=== PATIENT | male | born 1965 | race Caucasian/White ===

== ENCOUNTER → 2020-02-20 11:40 | Outpatient (BNVA) | payer BC, SELFPAY | PROVIDERS: PCP Internal Medicine; Referring Provider Internal Medicine; Visit Provider Nurse Practitioner Gerontology | DX: Z13.89 Encounter for screening for other disorder (principal) ==

== ENCOUNTER 2020-03-08 14:49 | Outpatient (REF) | payer BC, SELFPAY ==
[2020-03-08 16:38] LABS: Estimated Average Glucose 157 mg/dL; Hemoglobin A1c % 7.1 %
== END 2020-03-08 14:50 | disposition home or self-care (01) ==
LOC: HO.HMGCLDS 14:49
PROVIDERS: PCP Internal Medicine; Visit Provider Nurse Practitioner Gerontology
DX: E11.29 Type 2 diabetes mellitus with other diabetic kidney complication (principal)
CPT/HCPCS: 83036

== ENCOUNTER → 2020-06-09 07:39 | Outpatient (BNVA) | payer BC, SELFPAY | PROVIDERS: PCP Internal Medicine; Visit Provider Nurse Practitioner Gerontology ==

== ENCOUNTER → 2020-06-25 08:54 | Outpatient (BNVA) | payer BC, SELFPAY | PROVIDERS: PCP Internal Medicine; Visit Provider Orthopaedic Surgery ==

== ENCOUNTER 2020-09-09 06:02 | Outpatient (REF) | payer BC, SELFPAY ==
[2020-09-09 11:43] LABS: Estimated Average Glucose 249 mg/dL; Hemoglobin A1c % 10.3 %
[2020-09-09 11:47] LABS: Creatinine Urine 84.43 mg/dL
[2020-09-09 11:57] LABS: Alanine Aminotransferase 28 U/L (0-40); Albumin Level 3.9 g/dL (3.5-5.0); Alkaline Phosphatase 85 U/L (39-117); Anion Gap 13 (12-20); Aspartate Amino Transferase 17 U/L (5-37); Bilirubin Total 0.6 mg/dL (0.0-1.0); Blood Urea Nitrogen 20 mg/dL (9-16); Calcium 8.8 mg/dL (8.4-10.2); Carbon Dioxide 25 mmol/L (22-29); Chloride 105 mmol/L (96-108); Cholesterol 168 mg/dL; Estimated Glomerular Filt Rate > 60; Glucose Fasting 175 mg/dL (60-99); HDL Cholesterol 52 mg/dL; LDL Cholesterol Calculated 94 mg/dl; Sodium 138 mmol/L (135-145); Total Protein 6.3 g/dL (6.5-8.0); Triglycerides 111 mg/dL
[2020-09-10 06:32] LABS: LDL Cholesterol Direct 96 mg/dL (<100)
== END 2020-09-09 06:03 | disposition home or self-care (01) ==
LOC: HO.HMGCLDS 06:02
PROVIDERS: PCP Internal Medicine; Visit Provider Nurse Practitioner Gerontology
DX: E11.29 Type 2 diabetes mellitus with other diabetic kidney complication (principal)
CPT/HCPCS: 36415; 80053; 80061; 82043; 83036; 83721

== ENCOUNTER → 2020-09-10 07:58 | Outpatient (BNVA) | payer BC, SELFPAY | PROVIDERS: PCP Internal Medicine; Visit Provider Nurse Practitioner Gerontology | DX: E11.29 Type 2 diabetes mellitus with other diabetic kidney complication (principal); R80.9 Proteinuria, unspecified; Z79.4 Long term (current) use of insulin; I10 Essential (primary) hypertension; E78.5 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, unspecified; B35.3 Tinea pedis | CPT/HCPCS: 82947 ==

== ENCOUNTER → 2021-04-21 10:39 | Outpatient (BNVA) | payer BC, SELFPAY | PROVIDERS: PCP Internal Medicine; Referring Provider Internal Medicine; Visit Provider Nurse Practitioner ==

== ENCOUNTER 2021-06-10 07:34 | Outpatient (REF) | payer BC, SELFPAY ==
[2021-06-10 11:23] LABS: MANUAL DIFF FLAG NO
[2021-06-10 11:30] LABS: Basophils Percent Auto 0.2 % (0-2); Eosinophils Absolute Auto 0.2 X10*3/uL (0.0-0.4); Eosinophils Percent Auto 1.9 % (0-4); Hematocrit 50.9 % (42.0-52.0); Imm Gran Abs Auto 0.04 X10*3/uL (0.00-0.03); Imm Gran Pct Auto 0.5 % (0.0-0.4); Lymphocytes Absolute Auto 1.6 X10*3/uL (1.2-4.9); Lymphocytes Percent Auto 20.4 % (20-40); Mean Corpuscular HGB Conc 31.4 g/dl (31.0-36.0); Mean Corpuscular Hemoglobin 28.6 pg (27.0-33.0); Mean Corpuscular Volume 90.9 fL (80.0-98.0); Mean Platelet Volume 8.8 fL (9.4-12.4); Monocytes Absolute Auto 0.6 X10*3/uL (0.1-1.2); Monocytes Percent Auto 7.6 % (2-11); Neutrophils Absolute Auto 5.6 x10*3/uL (2.0-8.3); Neutrophils Percent Auto 69.4 % (45-73); Platelet Count 263 X10*3/uL (160-400); Red Cell Distribution Width 12.8 % (11.0-16.0)
[2021-06-10 11:55] LABS: Alanine Aminotransferase 30 U/L (0-40); Albumin Level 4.1 g/dL (3.5-5.0); Alkaline Phosphatase 90 U/L (39-117); Anion Gap 13 (12-20); Aspartate Amino Transferase 15 U/L (5-37); Bilirubin Total 1.1 mg/dL (0.0-1.0); Blood Urea Nitrogen 16 mg/dL (9-16); Calcium 9.2 mg/dL (8.4-10.2); Carbon Dioxide 26 mmol/L (22-29); Chloride 104 mmol/L (96-108); Cholesterol 129 mg/dL; Estimated Glomerular Filt Rate > 60; Glucose Fasting 125 mg/dL (60-99); HDL Cholesterol 53 mg/dL; LDL Cholesterol Calculated 61 mg/dl; Potassium 4.8 mmol/L (3.3-5.1); Sodium 138 mmol/L (135-145); Total Protein 6.5 g/dL (6.5-8.0); Triglycerides 78 mg/dL
[2021-06-10 12:02] LABS: Prostate Specific Antigen Scr 0.76 ng/mL (<0.05-4.0); Thyroid Stimulating Hormone 0.53 uIU/mL (0.32-4.0)
[2021-06-10 12:37] LABS: Estimated Average Glucose 192 mg/dL; Hemoglobin A1c % 8.3 %
== END 2021-06-10 07:35 | disposition home or self-care (01) ==
LOC: HO.HMGCLDS 07:34
PROVIDERS: Visit Provider Internal Medicine
DX: Z00.00 Encounter for general adult medical examination without abnormal findings (principal); Z12.5 Encounter for screening for malignant neoplasm of prostate; E03.9 Hypothyroidism, unspecified; E11.9 Type 2 diabetes mellitus without complications
CPT/HCPCS: 36415; 80053; 80061; 83036; 84153; 84443; 85025

== ENCOUNTER → 2021-06-24 12:47 | Outpatient (BNVA) | payer BC, SELFPAY | PROVIDERS: PCP Internal Medicine; Visit Provider Nurse Practitioner Gerontology | DX: Z13.89 Encounter for screening for other disorder (principal) ==

== ENCOUNTER 2021-08-26 09:39 | Day surgery (SDC) | payer BC, SELFPAY ==
[2021-08-22 15:51] VITALS: BMI 30.7
--- NOTE | 2021-08-25 13:03 | HO.ANESPROP2 ---
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 (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) Essential hypertension (Acute) 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 LDL goal <100 (Acute) Back pain (Acute) Type 2 diabetes mellitus with proteinuria (Acute) Past Medical History Medical History Back pain Essential hypertension GERD (gastroesophageal reflux disease) 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 LDL goal <100 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 Obesity Obesity Proteinuria Sleep apnea Tinea pedis 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 proteinuria Family History Family History Father Smoker Alcohol abuse Mother Diabetes Other Substance use disorder Surgical History Surgical History History of appendectomy History of umbilical hernia repair Social History Social History Household Members: Spouse and Children Housing: House Alcohol intake: never Patient Tobacco Use Status: Never used Tobacco e-Cigarette/Vaping Use: Never Used Second Hand Smoke Exposure: No Are you DNR?: No Advance Directives: No Advance Directives Information Provided: Yes service: No Current occupational status: employed Cognitive needs: No Hearing needs: No Vision needs: Yes Meds Allergies Allergy/AdvReac Type Severity Reaction Status Date / Time Adhesive Bandages AdvReac Unknown Unknown Verified 08/19/21 08:56 Home Medications Medication Instructions Recorded Confirmed Last Taken Type lancets #100 ea 06/09/20 08/19/21 Unknown History Exam Exam Date and Time: August 25, 2021 1303 Height,Weight and Vital Signs: Height 5 ft 10 in Weight 97.069 kg Pertinent Lab Results Pertinent Lab Results: Laboratory Tests 06/10/21 06/10/21 07:41 07:41 WBC 8.0 Hgb 16.0 Hct 50.9 Plt Count 263 Sodium 138 Potassium 4.8 Chloride 104 Carbon Dioxide 26 BUN 16 Creatinine 0.81 Assessment and Plan Assessment Anesthesia Assessment: Chart Reviewed Documented by User: Madonna Campos MD 08/26/21 10:46 PMFSH Past Medical History Medical History Back pain Essential hypertension GERD (gastroesophageal reflux disease) 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 LDL goal <100 long-term current use of insulin Obesity Obesity Proteinuria Sleep apnea Tinea pedis 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 proteinuria Family History Family History Father Smoker Alcohol abuse Mother Diabetes Other Substance use disorder Family history of problems with anesthesia: No Surgical History Surgical History History of appendectomy History of umbilical hernia repair History of Problems with Anesthesia: No Social History Social History Household Members: Spouse and Children Housing: House Alcohol intake: never Patient Tobacco Use Status: Never used Tobacco e-Cigarette/Vaping Use: Never Used Second Hand Smoke Exposure: No Are you DNR?: No Advance Directives: No Advance Directives Information Provided: Yes service: No Current occupational status: employed Cognitive needs: No Hearing needs: No Vision needs: Yes Meds Allergies Allergy/AdvReac Type Severity Reaction Status Date / Time Adhesive Bandages AdvReac Unknown Unknown Verified 08/19/21 08:56 Home Medications Medication Instructions Recorded Confirmed Last Taken Type lancets #100 ea 06/09/20 08/19/21 Unknown History Exam Airway Mallampati Class: II TM Dist: >3cm Neck ROM: Full Heart: rrr Lungs: cta Assessment and Plan Assessment Anesthesia Assessment: Anesthesia Plan Discussed and Chart Reviewed Final Anesthetic Review Family History of Problems with Anesthesia: No History of Problems with Anesthesia: No NPO: Yes ASA Class: III Final Preanesthetic Review: No Changes in Pt Med Stat, Meds/Allgs Chart Reviewed and Consent Obtained/Reviewed Patient Risk: Intermediate Procedure Risk: Intermediate Anesthetic Plan Anesthetic Plan: MAC: Disposition: Standard PACU
[2021-08-26 10:00] LABS: Glucose, Whole Blood 139 mg/dL (60-115)
[2021-08-26 10:01] VITALS: BP 165/99; PULSE 82; RESP 16; TEMP 37.2; O2SAT 95; BMI 30.7
[2021-08-26] MEDS: Lactated Ringers 1,000 ML 100 ML IVCONT (10:21)
--- NOTE | 2021-08-26 10:47 | MHC.SHP ---
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 Obesity Obesity Proteinuria Sleep apnea Tinea pedis 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 other diabetic kidney complication) History of Previous Operations: Relevant previous surgery/procedure and date(s) (History of appendectomy History of umbilical hernia repair) Allergies: Allergies Allergy/AdvReac Type Severity Reaction Status Date / Time Adhesive Bandages AdvReac Unknown Unknown Verified 08/19/21 08:56 Review of Systems Sugical H&P ROS: Negative: Constitution, Cardiovascular, Respiratory and Gastrointestinal Exam Surgical H&P Exam: Normal: Heart, Normal: Lungs, Normal: Extremities and Normal: Abdomen Plan Diagnosis/Plan: Unchanged I have reviewed the history and physical and performed a pertinent physical examination on my patient. No changes have occurred unless specified.
--- NOTE | 2021-08-26 10:54 | PM.OP ---
Brief Operative Note Date of Service: 08/26/21 Pre-op diagnosis: Colon cancer screening Post-op diagnosis: other (Colon polyps, diverticulosis, hemorrhoids) Procedure: COLONOSCOPY TILL CECUM WITH BIOPSIES AND SNARE POLYPECTOMY Consent: Indications for the procedure and potential complications of bleeding, perforation, reaction to medications and missed diagnosis were discussed with the patient and informed consent was obtained. Instrument: Olympus PCF H 190 L variable stiffness pediatric colonoscope Monitoring: Vital signs and clinical assessment, intermittent blood pressure monitoring, continuous EKG monitoring, Pulse oximetry and Carbon Dioxide monitoring were done throughout the procedure. Colon withdrawl time was 19 minutes. Procedure: The patient was placed in the left lateral decubitis position and pre-procedure medications were administered. After a digital rectal examination of the ano-rectum, the video colonoscope was inserted into the rectum and advanced through the colon to the cecum. The colonoscope was slowly withdrawn in a retrograde panoramic fashion and the colon mucosa was carefully examined including a retroflexed view of the rectum. Findings and interventions are described below. Procedure Difficulty: Without difficulty Findings: Terminal Ileum: Not evaluated Cecum: Normal Ascending Colon: A 4-5 mm sessile polyp in the proximal ascending colon removed with a cold biopsy Transverse Colon: Normal Descending Colon: Moderate diverticulosis Sigmoid Colon: A 2 cms sessile polyp removed with a hot snare. Moderate diverticulosis Rectum: Normal Ano-rectum: Moderate internal hemorrhoids Colon preparation: Good Impression and Post Procedure Diagnosis: Colonoscopy Findings: One medium sized and one small polyps removed Moderate diverticulosis seen in the left colon Moderate hemorrhoids on retroflexed exam. Plan: Await pathology results Patient has an appointment on 09/09/21 in the [facility] with Bridgette Caldwell NP . Repeat Colonoscopy interval based on path results - in 3 years if polyps are adenomatous and 10 years if polyps are hyperplastic. Above findings were reviewed with the patient and colon polyps and diverticulosis handouts were given in the discharge area Surgeon: David Schneider MD Anesthesia: MAC (Dr Alfredo) Was an Seaport Planning Manager used for this Procedure?: Yes Seaport Planning Manager: Yadira Cordero Estimated blood loss (mL): 0 Pathology: other (a. Ascending colon polyp b. Sigmoid polyp) Condition: stable Disposition: PACU
[2021-08-26 11:30] VITALS: BP 138/93; PULSE 76; RESP 18; TEMP 36.2; O2SAT 95
--- NOTE | 2021-08-26 11:30 | W.PM.OPN ---
Operative Note Operative Note Date of Service: 08/26/21 Narrative: Pre-op diagnosis: Colon cancer screening (First colonoscopy) Post-op diagnosis:?other (Colon polyps, diverticulosis, hemorrhoids) Procedure: COLONOSCOPY TILL CECUM WITH BIOPSIES AND SNARE POLYPECTOMY Consent: Indications for the procedure and potential complications of bleeding, perforation, reaction to medications and missed diagnosis were discussed with the patient and informed consent was obtained. Instrument: Olympus PCF H 190 L variable stiffness pediatric colonoscope Monitoring: Vital signs and clinical assessment, intermittent blood pressure monitoring, continuous EKG monitoring, Pulse oximetry and Carbon Dioxide monitoring were done throughout the procedure. Colon withdrawl time was 19 minutes. Procedure: The patient was placed in the left lateral decubitis position and pre-procedure medications were administered. After a digital rectal examination of the ano-rectum, the video colonoscope was inserted into the rectum and advanced through the colon to the cecum. The colonoscope was slowly withdrawn in a retrograde panoramic fashion and the colon mucosa was carefully examined including a retroflexed view of the rectum. Findings and interventions are described below. Procedure Difficulty: Without difficulty Findings: Terminal Ileum: Not evaluated Cecum:? Normal Ascending Colon:? A 4-5 mm sessile polyp in the proximal ascending colon removed with a cold biopsy Transverse Colon:? Normal Descending Colon:? Moderate diverticulosis Sigmoid Colon:? A 2 cms sessile polyp removed with a hot snare.? Moderate diverticulosis Rectum:? Normal Ano-rectum:? Moderate internal hemorrhoids Colon preparation:? Good? Impression and Post Procedure Diagnosis: Colonoscopy Findings: One medium sized and one small polyps removed Moderate diverticulosis seen in the left colon Moderate hemorrhoids on retroflexed exam. Plan: Await pathology results Patient has an appointment on 09/09/21 in the GI Clinic with? Bridgette Caldwell NP. Repeat Colonoscopy interval based on path results - in 3 years if polyps are adenomatous and 10 years if polyps are hyperplastic. Above findings were reviewed with the patient and colon polyps and diverticulosis handouts were given in the discharge area Surgeon: David Schneider MD Anesthesia:?MAC (Dr Alfredo) Was an Dye House Helper used for this Procedure?:?Yes Dye House Helper:?Yadira Cordero Estimated blood loss (mL):?0 Pathology:?other (a. Ascending colon polyp? b. Sigmoid polyp) Condition:?stable Disposition:?PACU
[2021-08-26 11:45] VITALS: BP 144/92; PULSE 67; RESP 18; TEMP 36.7; O2SAT 97
== END 2021-08-26 12:20 | disposition home or self-care (01) ==
PROVIDERS: PCP Internal Medicine; Visit Provider Internal Medicine Gastroenterology
PROC: 0DJD8ZZ Inspection of Lower Intestinal Tract, Via Natural or Artificial Opening Endoscopic (ICD-10-PCS; CPT 45378; principal; 2021-08-26 11:00)
DX: Z12.11 Encounter for screening for malignant neoplasm of colon (principal); D12.5 Benign neoplasm of sigmoid colon; K63.5 Polyp of colon; K57.30 Diverticulosis of large intestine without perforation or abscess without bleeding; K64.8 Other hemorrhoids; E66.9 Obesity, unspecified; Z68.30 Body mass index [BMI] 30.0-30.9, adult; E78.5 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, unspecified; G47.33 Obstructive sleep apnea (adult) (pediatric); Z91.19 Patient's noncompliance with other medical treatment and regimen; E11.22 Type 2 diabetes mellitus with diabetic chronic kidney disease; I12.9 Hypertensive chronic kidney disease with stage 1 through stage 4 chronic kidney disease, or unspecified chronic kidney disease; N18.9 Chronic kidney disease, unspecified; Z79.4 Long term (current) use of insulin
CPT/HCPCS: 45385; 45380; 82947; 88305

== ENCOUNTER 2021-10-13 10:05 | Outpatient (REF) | payer BC, SELFPAY ==
[2021-10-13 11:04] LABS: MANUAL DIFF FLAG NO
[2021-10-13 11:11] LABS: Basophils Percent Auto 0.2 % (0-2); Eosinophils Absolute Auto 0.1 X10*3/uL (0.0-0.4); Hematocrit 48.5 % (42.0-52.0); Hemoglobin 15.8 g/dl (14.0-18.0); Imm Gran Abs Auto 0.05 X10*3/uL (0.00-0.03); Imm Gran Pct Auto 0.6 % (0.0-0.4); Lymphocytes Absolute Auto 1.8 X10*3/uL (1.2-4.9); Lymphocytes Percent Auto 21.8 % (20-40); Mean Corpuscular HGB Conc 32.6 g/dl (31.0-36.0); Mean Corpuscular Hemoglobin 28.8 pg (27.0-33.0); Mean Corpuscular Volume 88.3 fL (80.0-98.0); Mean Platelet Volume 8.9 fL (9.4-12.4); Monocytes Absolute Auto 0.6 X10*3/uL (0.1-1.2); Monocytes Percent Auto 7.2 % (2-11); Neutrophils Absolute Auto 5.6 x10*3/uL (2.0-8.3); Neutrophils Percent Auto 69.2 % (45-73); Platelet Count 268 X10*3/uL (160-400); Red Blood Count 5.49 X10*6/uL (4.60-5.80); Red Cell Distribution Width 13.2 % (11.0-16.0); White Blood Count 8.1 X10*3/uL (4.8-10.8)
[2021-10-13 11:16] LABS: Estimated Average Glucose 180 mg/dL; Hemoglobin A1c % 7.9 %
[2021-10-13 12:20] LABS: Alanine Aminotransferase 27 U/L (0-40); Albumin Level 4.1 g/dL (3.5-5.0); Alkaline Phosphatase 100 U/L (39-117); Anion Gap 13 (12-20); Aspartate Amino Transferase 13 U/L (5-37); Bilirubin Total 0.8 mg/dL (0.0-1.0); Blood Urea Nitrogen 15 mg/dL (9-16); Calcium 8.9 mg/dL (8.4-10.2); Carbon Dioxide 26 mmol/L (22-29); Chloride 105 mmol/L (96-108); Cholesterol 141 mg/dL; Estimated Glomerular Filt Rate > 60; Glucose Fasting 171 mg/dL (60-99); HDL Cholesterol 54 mg/dL; LDL Cholesterol Calculated 72 mg/dl; Potassium 4.9 mmol/L (3.3-5.1); Sodium 139 mmol/L (135-145); Total Protein 6.6 g/dL (6.5-8.0); Triglycerides 76 mg/dL
== END 2021-10-13 10:06 | disposition home or self-care (01) ==
LOC: HO.HMGCLDS 10:05
PROVIDERS: PCP Internal Medicine; Visit Provider Internal Medicine
DX: Z13.0 Encounter for screening for diseases of the blood and blood-forming organs and certain disorders involving the immune mechanism (principal); E11.9 Type 2 diabetes mellitus without complications
CPT/HCPCS: 36415; 80053; 80061; 83036; 85025

== ENCOUNTER 2021-11-14 12:29 | Emergency (ER) | payer BC, SELFPAY ==
--- NOTE | ~2021-11-14 | XR_ITS ---
EXAMINATION: XR CHEST CLINICAL INFORMATION: Near syncope and chest pain COMPARISON: None TECHNIQUE: Frontal view of the chest was obtained. FINDINGS: The cardiac silhouette is upper normal in size. Hilar and mediastinal contours are unremarkable. The lungs are clear. There is no pleural effusion or pneumothorax. Bony structures are unremarkable. XR/XR chest 1V IMPRESSION: Upper normal-size cardiac silhouette.
--- NOTE | 2021-11-14 12:39 | ED_ITS ---
HPI - Syncope General Chief Complaint: General Medical Stated Complaint: SYNCOPAL EPISODE AT WORK AFTER EATING LUNCH Time Seen by Provider: 11/14/21 12:39 Source: patient Mode of arrival: EMS Limitations: no limitations History of Present Illness HPI narrative: felt lightheaded, ate this morning, he is a diabetic, sat down, felt chest pressure and acid reflux, vomited, never passed out. This is the first time so mething like this has happened. MD complaint: almost passed out Onset (ago): minute(s) -: second(s) Prodromal symptoms: lightheaded and nausea/vomiting Witnessed: Yes - by Bystander Context: standing up Injuries sustained associated with event: none Current symptoms: none Treatments prior to arrival: none Related Data Home Medications Medication Instructions Recorded Confirmed lancets #100 ea 06/09/20 09/16/21 Previous Rx's Medication Instructions Recorded pen needle, diabetic 32 gauge x #90 ea 06/09/20 blood sugar diagnostic (OneTouch #100 ea 06/27/20 Verio test strips) atorvastatin 80 mg tablet 80 mg PO BEDTIME #90 tabs 06/24/21 dulaglutide 4.5 mg/0.5 mL 4.5 mg (0.5 mL) subcut QWEEK 90 06/24/21 subcutaneous pen injector days #6.5 mL (Trulicity) empagliflozin 25 mg tablet 25 mg PO DAILY #90 tabs 06/24/21 (Jardiance) insulin glargine U-300 conc 300 26 unit (0.0867 mL) subcut 06/24/21 unit/mL (3 mL) subcutaneous pen DIRECTED 90 days #6 mL (Toujeo Max U-300 SoloStar) tobramycin 0.3 % eye drops (Tobrex) 1 drp ophthalmic (eye) Q4H #5 mL 09/16/21 albuterol sulfate 90 mcg/actuation 2 puff PO Q6H PRN bronchospasm #18 10/21/21 aerosol inhaler (ProAir HFA) grams losartan 50 mg tablet 50 mg PO DAILY 90 days #90 tabs 10/21/21 metformin 500 mg tablet,extended 1,000 mg PO BID 90 days #360 tabs 10/21/21 release 24 hr oxycodone-acetaminophen 5 mg-325 1 tab PO Q6H PRN pain #120 tabs 10/21/21 mg tablet Allergies Allergy/AdvReac Type Severity Reaction Status Date / Time Adhesive Bandages AdvReac Unknown Unknown Verified 10/21/21 09:26 Review of Systems Constitutional: Constitutional: Reports no additional constitutional complaints Eyes: Eyes: Reports no additional eye complaints ENT: Denies dizziness Cardiovascular: Cardiovascular: Reports no additional cardiovascular complaints Respiratory: Respiratory: Reports as per HPI Gastrointestinal: Gastrointestinal: Reports no additional gastrointestinal complaints Musculoskeletal: Musculoskeletal: Reports no additional musculoskeletal complaints Integumentary/Breasts: Skin/Breast: Denies rash Neurologic: Reports system reviewed and no additional complaints, except as documented, Denies dizziness and Denies Sensory deficit (Neuro) Psychiatric: Psychiatric: Denies anxiety PMFSH Past Medical History Medical History Back pain Essential hypertension GERD (gastroesophageal reflux disease) 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 LDL goal <100 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 Obesity Obesity Proteinuria Sleep apnea Tinea pedis 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 proteinuria Surgical History History of appendectomy History of umbilical hernia repair Family History Family History Father Smoker Alcohol abuse Mother Diabetes Other Substance use disorder Social History Social History Household Members: Spouse and Children Housing: House Alcohol intake: never Patient Tobacco Use Status: Never used Tobacco e-Cigarette/Vaping Use: Never Used Second Hand Smoke Exposure: No Advance Directives: Yes Advance Directives Information Provided: No Advance Directives on File: No service: No Current occupational status: employed Cognitive needs: No Hearing needs: No Vision needs: Yes Physical Exam Vital Signs: Vital Signs: Last Vital Signs Temp 99.1 F 11/14/21 13:35 Pulse 79 11/14/21 13:35 Resp 16 11/14/21 13:35 BP 158/99 H 11/14/21 13:35 Pulse Ox 99 11/14/21 13:35 O2 Del Method 11/14/21 12:41 BMI result Body Mass Index 28.0 Const: General: healthy appearing Nutritional Appearance: average body habitus Orientation/consciousness: oriented to person and patient oriented x3 Limitations: no limitations HEENT: Head: Yes normal to inspection Ears: external ears normal General nose exam: Normal external nose present Mouth: Normal oral and palatal mucosa present and oropharynx normal Throat: Yes posterior oropharynx normal Eyes: General: appearance normal, both eyes and all related structures Neck: Other: supple Neck: Yes normal visual inspection Chest: Chest palpation & inspection: normal inspection of the chest Resp: Auscultation: clear to auscultation bilaterally Cardio: Jugular venous distension: no JVD Rate: regular rate Rhythm: regular rhythm Heart sounds: S1 normal heart sound present and S2 normal heart sound present GI: Inspection: Yes normal to inspection Palpation (GI): Soft to palpation, nontender and No hepatosplenomegaly present Auscultation: normal bowel sounds : General: Yes no CVA tenderness Back/Spine/Pelvis: Back: no CVA tenderness Skin: General skin exam: no rashes or lesions noted Neuro: General: oriented to person and patient oriented x3 Cranial nerves: Yes CN's II-XII intact bilaterally Motor exam (neuro): 5/5 motor strength present throughout Sensory Exam: No Sensory deficit (Neuro) Extrem: General: Yes normal to inspection Psych: Appearance: grossly normal Course Reevaluation(s) Reevaluation #1: patient with a near syncopal event, EKG and serial troponins negative will dc home Time: 15:37 MDM - Syncope Lab Data Result diagrams: 11/14/21 12:54 11/14/21 12:54 Labs: Lab Results 11/14/21 11/14/21 11/14/21 Range/Units 12:46 12:54 12:54 WBC 8.1 (4.8-10.8) X10*3/uL RBC 5.21 (4.60-5.80) X10*6/uL Hgb 15.0 (14.0-18.0) g/dl Hct 45.8 (42.0-52.0) % MCV 87.9 (80.0-98.0) fL MCH 28.8 (27.0-33.0) pg MCHC 32.8 (31.0-36.0) g/dl RDW 12.8 (11.0-16.0) % Plt Count 247 (160-400) X10*3/uL MPV 8.3 L (9.4-12.4) fL Immature Gran % (Auto) 0.2 (0.0-0.4) % Neut % (Auto) 78.0 H (45-73) % Lymph % (Auto) 13.8 L (20-40) % [place] % (Auto) 7.0 (2-11) % Eos % (Auto) 0.6 (0-4) % Baso % (Auto) 0.4 (0-2) % Lymph # (Auto) 1.1 L (1.2-4.9) X10*3/uL [place] # (Auto) 0.6 (0.1-1.2) X10*3/uL Eos # (Auto) 0.1 (0.0-0.4) X10*3/uL Baso # (Auto) 0.0 (0.0-0.2) X10*3/uL Abs Immat Gran (auto) 0.02 (0.00-0.03) X10*3/uL Absolute Neuts (auto) 6.3 (2.0-8.3) x10*3/uL Absolute Nucleated RBC 0.000 (0.0-0.012) X10*3/uL Nucleated RBC % (auto) 0.0 (0.0-0.2) /100WBC D-Dimer High Sensitivty 205 NG/ML Sodium (135-145) mmol/L Potassium (3.3-5.1) mmol/L Chloride (96-108) mmol/L Carbon Dioxide (22-29) mmol/L Anion Gap (12-20) BUN (9-16) mg/dL Creatinine (0.5-1.4) mg/dL Estim Creat Clear Calc Estimated GFR POC Glucose 151 H (60-115) mg/dL Random Glucose (60-115) mg/dL Calcium (8.4-10.2) mg/dL Troponin I High Sens (<3.5-35.0) ng/L 11/14/21 11/14/21 11/14/21 Range/Units 12:54 12:54 15:01 WBC (4.8-10.8) X10*3/uL RBC (4.60-5.80) X10*6/uL Hgb (14.0-18.0) g/dl Hct (42.0-52.0) % MCV (80.0-98.0) fL MCH (27.0-33.0) pg MCHC (31.0-36.0) g/dl RDW (11.0-16.0) % Plt Count (160-400) X10*3/uL MPV (9.4-12.4) fL Immature Gran % (Auto) (0.0-0.4) % Neut % (Auto) (45-73) % Lymph % (Auto) (20-40) % [place] % (Auto) (2-11) % Eos % (Auto) (0-4) % Baso % (Auto) (0-2) % Lymph # (Auto) (1.2-4.9) X10*3/uL [place] # (Auto) (0.1-1.2) X10*3/uL Eos # (Auto) (0.0-0.4) X10*3/uL Baso # (Auto) (0.0-0.2) X10*3/uL Abs Immat Gran (auto) (0.00-0.03) X10*3/uL Absolute Neuts (auto) (2.0-8.3) x10*3/uL Absolute Nucleated RBC (0.0-0.012) X10*3/uL Nucleated RBC % (auto) (0.0-0.2) /100WBC D-Dimer High Sensitivty NG/ML Sodium 140 (135-145) mmol/L Potassium 4.5 (3.3-5.1) mmol/L Chloride 105 (96-108) mmol/L Carbon Dioxide 26 (22-29) mmol/L Anion Gap 14 (12-20) BUN 14 (9-16) mg/dL Creatinine 0.83 (0.5-1.4) mg/dL Estim Creat Clear Calc 117.4 Estimated GFR > 60 POC Glucose (60-115) mg/dL Random Glucose 168 H (60-115) mg/dL Calcium 8.7 (8.4-10.2) mg/dL Troponin I High Sens < 3.5 3.8 (<3.5-35.0) ng/L ECG Data Attestation: I personally reviewed and interpreted this ECG as follows: Interpretation: normal sinus rate of 70, no st or twave changes Discharge Plan Discharge Clinical Impression: Near syncope Patient Disposition: Home, Self-Care Instructions: Near Syncope (ED) Prescriptions: No Action (DME) OneTouch Verio test strips Strip See Rx Instructions .ROUTE .MEDSUPPLY Qty: 100 6RF Rx Instructions: three times a day albuterol sulfate [ProAir HFA] 90 mcg/actuation HFA aerosol inhaler 2 puff PO Q6H PRN (Reason: bronchospasm) Qty: 18 8RF oxycodone-acetaminophen 5-325 mg tablet 1 tab PO Q6H PRN (Reason: pain) Qty: 120 0RF losartan 50 mg tablet 50 mg PO DAILY 90 Days Qty: 90 1RF metformin 500 mg tablet extended release 24 hr 1,000 mg PO BID 90 Days Qty: 360 1RF tobramycin [Tobrex] 0.3 % drops 1 drp ophthalmic (eye) Q4H Qty: 5 0RF (DME) lancets Misc See Rx Instructions .ROUTE .MEDSUPPLY Qty: 100 Rx Instructions: As directed (DME) pen needle, diabetic 32 gauge x 5/32 needle See Rx Instructions subcut BID Qty: 90 3RF Rx Instructions: As directed once daily Toujeo Max U-300 SoloStar 300 unit/mL (3 mL) insulin pen 26 unit subcut DIRECTED 90 Days Qty: 6 1RF Trulicity 4.5 mg/0.5 mL pen injector 4.5 mg subcut QWEEK 90 Days Qty: 6.5 2RF atorvastatin 80 mg tablet 80 mg PO BEDTIME Qty: 90 1RF Jardiance 25 mg tablet 25 mg PO DAILY Qty: 90 1RF Referrals: Kev Briseno MD [Primary Care Provider] - 3 days
--- NOTE | 2021-11-14 12:40 | ECG_ITS ---
Test Reason : near symcopy Blood Pressure : / mmHG Vent. Rate : 073 BPM Atrial Rate : 073 BPM P-R Int : 168 ms QRS Dur : 106 ms QT Int : 408 ms P-R-T Axes : 054 038 047 degrees QTc Int : 449 ms Normal sinus rhythm with sinus arrhythmia Normal ECG When compared with ECG of 12-JAN-2003 18:56, No significant change was found Referred By: Nithin Slater Electronically Signed By:AISLINN PFEIFFER
[2021-11-14 12:41] VITALS: PULSE 73; RESP 16; TEMP 36.6; O2SAT 97; BMI 28.0
[2021-11-14 12:54] LABS: Glucose, Whole Blood 151 mg/dL (60-115)
[2021-11-14 12:58] LABS: MANUAL DIFF FLAG NO
[2021-11-14 12:59] LABS: Basophils Percent Auto 0.4 % (0-2); Eosinophils Absolute Auto 0.1 X10*3/uL (0.0-0.4); Eosinophils Percent Auto 0.6 % (0-4); Hematocrit 45.8 % (42.0-52.0); Imm Gran Abs Auto 0.02 X10*3/uL (0.00-0.03); Imm Gran Pct Auto 0.2 % (0.0-0.4); Lymphocytes Absolute Auto 1.1 X10*3/uL (1.2-4.9); Lymphocytes Percent Auto 13.8 % (20-40); Mean Corpuscular HGB Conc 32.8 g/dl (31.0-36.0); Mean Corpuscular Hemoglobin 28.8 pg (27.0-33.0); Mean Corpuscular Volume 87.9 fL (80.0-98.0); Mean Platelet Volume 8.3 fL (9.4-12.4); Monocytes Absolute Auto 0.6 X10*3/uL (0.1-1.2); Neutrophils Absolute Auto 6.3 x10*3/uL (2.0-8.3); Platelet Count 247 X10*3/uL (160-400); Red Blood Count 5.21 X10*6/uL (4.60-5.80); Red Cell Distribution Width 12.8 % (11.0-16.0); White Blood Count 8.1 X10*3/uL (4.8-10.8)
[2021-11-14 13:07] LABS: D Dimer High Sensitivity 205 NG/ML
[2021-11-14 13:20] LABS: Anion Gap 14 (12-20); Blood Urea Nitrogen 14 mg/dL (9-16); Calcium 8.7 mg/dL (8.4-10.2); Carbon Dioxide 26 mmol/L (22-29); Chloride 105 mmol/L (96-108); Creatinine Clr Calc Pharmacy 117.4; Estimated Glomerular Filt Rate > 60; Glucose Random 168 mg/dL (60-115); Potassium 4.5 mmol/L (3.3-5.1); Sodium 140 mmol/L (135-145)
[2021-11-14 13:27] LABS: Troponin-I High Sensitivity < 3.5 ng/L (<3.5-35.0)
[2021-11-14 13:35] VITALS: BP 158/99; PULSE 79; RESP 16; TEMP 37.3; O2SAT 99
[2021-11-14 15:25] LABS: Troponin-I High Sensitivity 3.8 ng/L (<3.5-35.0)
[2021-11-14 15:42] VITALS: BP 140/90; PULSE 77; RESP 16; O2SAT 98
== END 2021-11-14 15:43 | disposition home or self-care (01) ==
PROVIDERS: Emergency Provider Emergency Medicine; PCP Internal Medicine
DX: R55 Syncope and collapse (principal); E11.22 Type 2 diabetes mellitus with diabetic chronic kidney disease; I12.9 Hypertensive chronic kidney disease with stage 1 through stage 4 chronic kidney disease, or unspecified chronic kidney disease; N18.9 Chronic kidney disease, unspecified; E78.5 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, unspecified; Z79.4 Long term (current) use of insulin; Z79.02 Long term (current) use of antithrombotics/antiplatelets
CPT/HCPCS: 36415; 71045; 80048; 82947; 84484; 85025; 85379; 93005; 99283; 99284

== ENCOUNTER 2022-03-17 11:25 | Outpatient (REF) | payer BC, SELFPAY ==
[2022-03-17 13:45] LABS: MANUAL DIFF FLAG NO
[2022-03-17 13:48] LABS: Basophils Percent Auto 0.6 % (0-2); Eosinophils Absolute Auto 0.3 X10*3/uL (0.0-0.4); Eosinophils Percent Auto 4.5 % (0-4); Hematocrit 47.8 % (42.0-52.0); Hemoglobin 15.7 g/dl (14.0-18.0); Imm Gran Abs Auto 0.04 X10*3/uL (0.00-0.03); Imm Gran Pct Auto 0.6 % (0.0-0.4); Lymphocytes Percent Auto 27.8 % (20-40); Mean Corpuscular HGB Conc 32.8 g/dl (31.0-36.0); Mean Corpuscular Volume 88.4 fL (80.0-98.0); Mean Platelet Volume 8.8 fL (9.4-12.4); Monocytes Absolute Auto 0.6 X10*3/uL (0.1-1.2); Monocytes Percent Auto 7.7 % (2-11); Neutrophils Absolute Auto 4.2 x10*3/uL (2.0-8.3); Neutrophils Percent Auto 58.8 % (45-73); Platelet Count 261 X10*3/uL (160-400); Red Blood Count 5.41 X10*6/uL (4.60-5.80); Red Cell Distribution Width 12.5 % (11.0-16.0); White Blood Count 7.1 X10*3/uL (4.8-10.8)
[2022-03-17 14:06] LABS: Estimated Average Glucose 203 mg/dL; Hemoglobin A1c % 8.7 %
[2022-03-17 14:16] LABS: Alanine Aminotransferase 23 U/L (0-40); Alkaline Phosphatase 106 U/L (39-117); Anion Gap 11 (12-20); Aspartate Amino Transferase 14 U/L (5-37); Blood Urea Nitrogen 14 mg/dL (9-16); Calcium 9.2 mg/dL (8.4-10.2); Carbon Dioxide 27 mmol/L (22-29); Chloride 105 mmol/L (96-108); Cholesterol 137 mg/dL; Estimated Glomerular Filt Rate > 60; Glucose Fasting 196 mg/dL (60-99); HDL Cholesterol 52 mg/dL; LDL Cholesterol Calculated 66 mg/dl; Potassium 4.3 mmol/L (3.3-5.1); Sodium 139 mmol/L (135-145); Total Protein 6.3 g/dL (6.5-8.0); Triglycerides 98 mg/dL
[2022-03-17 14:24] LABS: Creatinine Urine 57.01 mg/dL; Microalbum/Creatinine Ratio Ur 445.5 ug/mg cr
[2022-03-17 14:36] LABS: Thyroid Stimulating Hormone 0.91 uIU/mL (0.32-4.0)
== END 2022-03-17 11:26 | disposition home or self-care (01) ==
LOC: HO.HMGCLDS 11:25
PROVIDERS: PCP Internal Medicine; Visit Provider Internal Medicine
DX: E78.5 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, unspecified (principal); E03.9 Hypothyroidism, unspecified; E11.69 Type 2 diabetes mellitus with other specified complication; E66.01 Morbid (severe) obesity due to excess calories; I10 Essential (primary) hypertension; Z13.0 Encounter for screening for diseases of the blood and blood-forming organs and certain disorders involving the immune mechanism
CPT/HCPCS: 36415; 80053; 80061; 82043; 83036; 84443; 85025

== ENCOUNTER 2022-05-15 10:31 | Outpatient (REF) | payer BC, SELFPAY ==
[2022-05-15 12:04] LABS: Glucose Fasting 209 mg/dL (60-99)
[2022-05-15 12:36] LABS: Estimated Average Glucose 226 mg/dL; Hemoglobin A1c % 9.5 %
== END 2022-05-15 10:32 | disposition home or self-care (01) ==
LOC: HO.HMGCLDS 10:31
PROVIDERS: PCP Internal Medicine; Visit Provider Internal Medicine
DX: R73.9 Hyperglycemia, unspecified (principal)
CPT/HCPCS: 36415; 82947; 83036

== ENCOUNTER 2022-09-10 18:51 | Emergency (ER) | payer BC, SELFPAY ==
--- NOTE | ~2022-09-10 | XR_ITS ---
EXAMINATION: LEFT TIB-FIB, LEFT FOOT CLINICAL INFORMATION: Pain after injury COMPARISON: None available. TECHNIQUE: 2 views tib-fib, 3 views foot FINDINGS: Tibia and fibula appear unremarkable. The visualized ankle joint appears normal aside from some minimal degenerative changes with some osteophytes arising from the medial malleolus. No foot fracture is seen. A small plantar calcaneal spur is present. No significant arthritic changes are present. XR/XR foot LT min 3V IMPRESSION: No evidence of an acute injury. Mild degenerative changes as described above with a plantar calcaneal spur.
--- NOTE | ~2022-09-10 | XR_ITS ---
EXAMINATION: LEFT TIB-FIB, LEFT FOOT CLINICAL INFORMATION: Pain after injury COMPARISON: None available. TECHNIQUE: 2 views tib-fib, 3 views foot FINDINGS: Tibia and fibula appear unremarkable. The visualized ankle joint appears normal aside from some minimal degenerative changes with some osteophytes arising from the medial malleolus. No foot fracture is seen. A small plantar calcaneal spur is present. No significant arthritic changes are present. XR/XR tibia fibula LT 2V IMPRESSION: No evidence of an acute injury. Mild degenerative changes as described above with a plantar calcaneal spur.
[2022-09-10 19:21] VITALS: BP 134/96; PULSE 89; RESP 18; TEMP 36.8; O2SAT 95; BMI 28.0
--- NOTE | 2022-09-10 19:39 | ED_ITS ---
HPI - Extremity Injury (Lower) General Chief Complaint: Extremity Injury, Lower Stated Complaint: Left leg pain Related Data Home Medications Medication Instructions Recorded Confirmed lancets #100 ea 06/09/20 07/18/22 Previous Rx's Medication Instructions Recorded blood sugar diagnostic (OneTouch #100 ea 06/27/20 Verio test strips) insulin glargine U-300 conc 300 26 unit (0.0867 mL) subcut 06/24/21 unit/mL (3 mL) subcutaneous pen DIRECTED 90 days #6 mL (Toujeo Max U-300 SoloStar) albuterol sulfate 90 mcg/actuation 2 puff PO Q6H PRN bronchospasm #18 10/21/21 aerosol inhaler (ProAir HFA) grams diabetic shoes #1 ea 04/03/22 pen needle, diabetic 32 gauge x #90 ea 04/21/22 atorvastatin 80 mg tablet 80 mg PO BEDTIME #90 tabs 05/16/22 dulaglutide 4.5 mg/0.5 mL 4.5 mg (0.5 mL) subcut QWEEK 90 05/16/22 subcutaneous pen injector days #6.5 mL (Trulicity) empagliflozin 25 mg tablet 25 mg PO DAILY #90 tabs 05/16/22 (Jardiance) losartan 50 mg tablet 50 mg PO DAILY 90 days #90 tabs 05/16/22 metformin 500 mg tablet,extended 1,000 mg PO BID 90 days #360 tabs 05/16/22 release 24 hr oxycodone-acetaminophen 5 mg-325 1 tab PO Q6H PRN pain #120 tabs 08/18/22 mg tablet oxycodone 5 mg tablet 5 mg PO Q6H PRN pain #120 tabs 08/22/22 Allergies Allergy/AdvReac Type Severity Reaction Status Date / Time Adhesive Bandages AdvReac Unknown Unknown Verified 07/18/22 10:50 [facility] Past Medical History Medical History Back pain Essential hypertension GERD (gastroesophageal reflux disease) 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 LDL goal <100 correction current use of insulin Obesity Obesity Proteinuria Sleep apnea Tinea pedis 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 proteinuria Surgical History History of appendectomy History of umbilical hernia repair Family History Family History Father Smoker Alcohol abuse Mother Diabetes Other Substance use disorder Social History Social History Household Members: Spouse and Children Housing: House Alcohol intake: never Patient Tobacco Use Status: Never used Tobacco e-Cigarette/Vaping Use: Never Used Second Hand Smoke Exposure: No Advance Directives: No Advance Directives Information Provided: Yes service: No Current occupational status: employed Cognitive needs: No Hearing needs: No Vision needs: Yes Physical Exam 2 Vital Signs: Vital Signs: Last Vital Signs Temp 98.3 F 09/10/22 19:21 Pulse 89 09/10/22 19:21 Resp 18 09/10/22 19:21 BP 134/96 H 09/10/22 19:21 Pulse Ox 95 09/10/22 19:21 O2 Del Method Room Air 09/10/22 19:21 BMI result Body Mass Index 28.0 Course Course Course Narrative: This is an RME: Additional HPI, ROS, PE not included below will be deferred to primary provider. Patient is a 62-year-old male presents emergency department for evaluation of left lower extremity pain. Patient reports an injury to the left lower extremity 1 week ago, sustained a fall, striking left lateral leg, pain is increasingly worsening without any improvement. He is currently pr escribed oxycodone for chronic back pain, which has on relieved the pain to the leg. He reports no swelling, erythema, warmth, wounds. Denies chest pain, shortness of breath, difficulty breathing. Denies history of DVT/PE, denies use of anticoagulants. Plan: XR tib fib Discharge Plan Discharge Clinical Impression: Leg pain Patient Disposition: Left Without Being Seen Interventions: LWBS Worksheet Last Done: 09/11/22 02:20 Discharge Date/Time: 09/10/22 23:42
== END 2022-09-10 23:42 | disposition left against medical advice (07) ==
PROVIDERS: Emergency Provider Emergency Medicine; PCP Internal Medicine
DX: M79.605 Pain in left leg (principal); Z79.899 Other long term (current) drug therapy
CPT/HCPCS: 73590; 73630; 99281; 99283

== ENCOUNTER 2022-09-20 08:13 | Outpatient (REF) | payer BC, SELFPAY | END 2022-09-20 08:14 | disposition home or self-care (01) | LOC: HO.XRAY 08:13 | PROVIDERS: PCP Internal Medicine; Visit Provider Internal Medicine | DX: R13.10 Dysphagia, unspecified (principal) | CPT/HCPCS: 74220 ==

== ENCOUNTER 2022-10-19 09:25 | Outpatient (AMB) | payer BC, SELFPAY ==
--- NOTE | 2022-10-19 09:30 | MHC.PC.OV ---
Vital Signs 10/19/22 09:32 Height 5 ft 10 in Weight 198 lb 8 oz BMI 28.5 BP 130/70 Blood Pressure Location Lt brachial Position Sitting Pulse 68 Pulse Source Pulse Oximeter Pulse Oximetry (%) 96 Oxygen Delivery Method Room Air Intake Visit Reasons: Med Management Intake Note: Patient is here to follow up on Medication management. 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: Not Required per policy Accompanied by: Self / Same As Patient Allergies Adhesive Bandages Adverse Reaction (Unknown, Verified 10/19/22 09:31) Unknown Medication List - Last Reconciled 10/19/22 by Kev Briseno MD albuterol sulfate 90 mcg/actuation (ProAir HFA) 2 puffs PO Q6H PRN atorvastatin 80 mg PO BEDTIME blood sugar diagnostic ([employer]such Verio test strips) three times a day [diabetic shoes As directed] dulaglutide (Trulicity) 4.5 mg (0.5 mL) subcut QWEEK 90 days empagliflozin (Jardiance) 25 mg PO DAILY insulin glargine U-300 conc (Toujeo Max U-300 SoloStar) 26 units (0.0867 mL) subcut DIRECTED 90 days lancets As directed losartan 50 mg PO DAILY 90 days metformin ER 1,000 mg (2 x 500 mg) PO BID 90 days oxycodone 5 mg PO Q6H PRN oxycodone-acetaminophen 5-325 mg 1 tab PO Q6H PRN pen needle, diabetic As directed once daily Tobacco use date assessed: 10/19/22 Dental Screening Dental Screen Date: 10/19/22 Did you have a dental visit in the last 12 months?: Yes Did you have a dental problem in the last 6 months where you did not have access to dental care?: No Was dental information given to patient?: Patient has dentist HPI Med Management HPI Details chronic back pain; stable on regimen; DM and hyperlip; A1C 8.5; [place] [facility] Medical History Back pain Essential hypertension GERD (gastroesophageal reflux disease) 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 LDL goal <100 shelter current use of insulin Obesity Obesity Proteinuria Sleep apnea Tinea pedis 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 proteinuria Surgical History History of appendectomy History of umbilical hernia repair Family History Father Smoker Alcohol abuse Mother Diabetes Other Substance use disorder Social History Household Members: Spouse and Children Housing: House Alcohol intake: never Patient Tobacco Use Status: Never used Tobacco e-Cigarette/Vaping Use: Never Used Second Hand Smoke Exposure: No service: No Current occupational status: employed Cognitive needs: No Hearing needs: No Vision needs: Yes Questionnaire PHQ-9 Over the last 2 weeks, how often have you been bothered by any of the following problems? Depression Screening Interpretation: Negative Source: Developed by Drs. Hayes Watt, Susan Mejia, Anton Moreno and colleagues, with an educational vipul from [employer]. Thrive Questionnaire Date Thrive assessed: 03/21/22 Currently or been in a relationship where the following occur: no concerns reported PEDRO-7 AMB Questionnaire PEDRO-7 Date PEDRO - 7 assessed: 03/21/22 Source: Developed by Drs. Hayes Watt, Susan Mejia, Anton Moreno and colleagues, with an educational vipul from [employer]. Review of Systems Const Denies chills, Denies headache(s) and Denies weight loss ENT Denies headache(s) Card Denies chest pain, Denies syncope, Denies irregular heart rhythm and Denies dyspnea Resp Denies chest congestion, Denies cough and Denies dyspnea GI Denies abdominal pain, Denies change in stool character, Denies nausea and Denies vomiting Musc Denies deformity and Denies joint swelling Neuro Denies syncope and Denies headache(s) Physical exam (Primary Care) Vital Signs: Last Vital Signs Pulse 68 10/19/22 09:32 BP 130/70 10/19/22 09:32 Pulse Ox 96 10/19/22 09:32 Oxygen Delivery Method Room Air 10/19/22 09:32 BMI result Body Mass Index 28.5 Tobacco/Smoking Status: Tobacco use Status Tobacco use date assessed 10/19/22 10/19/22 09:36 Patient Tobacco Use Status Never used Tobacco 10/19/22 09:36 e-Cigarette/Vaping Use Never Used 10/19/22 09:36 Depression Screening Interpretation: Negative Thrive Assessment: Date of Thrive Assessment Date Thrive assessed 03/21/22 10/19/22 09:36 Currently or been in a relationship where the following occur: no concerns reported Const General: cooperative, comfortable and no acute distress Resp Effort & Inspection: normal respiratory effort Auscultation: clear to auscultation bilaterally Percussion: percussion normal Cardio Jugular venous distension: no JVD Rate: regular rate Rhythm: regular rhythm GI Inspection: Yes normal to inspection Assessment and Plan Assessment & Plan (1) Back pain: Code(s): M54.9 - Dorsalgia, unspecified Plan: stable; same rx (2) 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: Code(s): E78.5 - 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, unspecified Plan: do labs; same rx (3) Type 2 diabetes mellitus with hyperlipidemia: Code(s): E11.69 - Type 2 diabetes mellitus with other specified complication; E78.5 - 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, unspecified Plan: ref endo Orders: Orders Comprehensive [place]. Panel Fast Today N28.9 - Disorder of kidney and ureter, unspecified Lipid Panel Today E78.5 - 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, unspecified Thyroid Stimulating Hormone Today E03.9 - Hypothyroidism, unspecified Microalbumin, Random (w Creat) Today E11.69 - Type 2 diabetes mellitus with other specified complication, E66.01 - Morbid (severe) obesity due to excess calories Complete Blood Count Auto Diff Today D64.9 - Anemia, unspecified Referrals Endocrinology Referral E11.9 - Type 2 diabetes mellitus without complications Medications: Refilled oxycodone Partial Fill upon patient request. 5 mg PO Q6H PRN 120 tabs 0RF pain Coding Level of Care Code Est Pt Level 4 (79314) Diagnoses Back pain M54.9 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 E78.5 Type 2 diabetes mellitus with hyperlipidemia E11.69; E78.5
[2022-10-19 09:32] VITALS: BP 130/70; PULSE 68; O2SAT 96; BMI 28.5
== END 2022-10-19 09:45 | disposition home or self-care (01) ==
PROVIDERS: PCP Internal Medicine; Visit Provider Internal Medicine
DX: M54.9 Dorsalgia, unspecified (principal); E78.5 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, unspecified; E11.69 Type 2 diabetes mellitus with other specified complication
CPT/HCPCS: 99214

== ENCOUNTER 2022-11-13 10:54 | Outpatient (REF) | payer BC, SELFPAY ==
[2022-11-13 12:56] LABS: MANUAL DIFF FLAG NO
[2022-11-13 13:08] LABS: Basophils Absolute Auto 0.1 X10*3/uL (0.0-0.2); Basophils Percent Auto 0.5 % (0-2); Eosinophils Absolute Auto 0.5 X10*3/uL (0.0-0.4); Eosinophils Percent Auto 5.3 % (0-4); Hematocrit 49.4 % (42.0-52.0); Hemoglobin 16.2 g/dl (14.0-18.0); Imm Gran Abs Auto 0.04 X10*3/uL (0.00-0.03); Imm Gran Pct Auto 0.4 % (0.0-0.4); Lymphocytes Absolute Auto 1.8 X10*3/uL (1.2-4.9); Lymphocytes Percent Auto 18.8 % (20-40); Mean Corpuscular HGB Conc 32.8 g/dl (31.0-36.0); Mean Corpuscular Hemoglobin 28.7 pg (27.0-33.0); Mean Corpuscular Volume 87.6 fL (80.0-98.0); Mean Platelet Volume 8.9 fL (9.4-12.4); Monocytes Absolute Auto 0.6 X10*3/uL (0.1-1.2); Monocytes Percent Auto 6.2 % (2-11); Neutrophils Absolute Auto 6.7 x10*3/uL (2.0-8.3); Neutrophils Percent Auto 68.8 % (45-73); Platelet Count 316 X10*3/uL (160-400); Red Blood Count 5.64 X10*6/uL (4.60-5.80); Red Cell Distribution Width 12.4 % (11.0-16.0); White Blood Count 9.7 X10*3/uL (4.8-10.8)
[2022-11-13 13:36] LABS: Alanine Aminotransferase 27 U/L (0-40); Alkaline Phosphatase 114 U/L (39-117); Anion Gap 14 (12-20); Aspartate Amino Transferase 14 U/L (5-37); Bilirubin Total 0.7 mg/dL (0.0-1.0); Blood Urea Nitrogen 10 mg/dL (9-16); Calcium 9.1 mg/dL (8.4-10.2); Carbon Dioxide 26 mmol/L (22-29); Chloride 104 mmol/L (96-108); Cholesterol 147 mg/dL (<200); Estimated Glomerular Filt Rate > 60; Glucose Fasting 221 mg/dL (60-99); HDL Cholesterol 60 mg/dL (>40); LDL Cholesterol Calculated 66 mg/dL (<100); Potassium 4.1 mmol/L (3.3-5.1); Sodium 140 mmol/L (135-145); Total Protein 6.8 g/dL (6.5-8.0); Triglycerides 108 mg/dL (<150)
[2022-11-13 13:38] LABS: Thyroid Stimulating Hormone 0.48 uIU/mL (0.32-4.0)
[2022-11-13 13:48] LABS: Creatinine Urine 45.98 mg/dL; Microalbum/Creatinine Ratio Ur 639.4 ug/mg cr (<30)
== END 2022-11-13 10:55 | disposition home or self-care (01) ==
LOC: HO.HMGCLDS 10:54
PROVIDERS: PCP Internal Medicine; Visit Provider Internal Medicine
DX: D64.9 Anemia, unspecified (principal); N28.9 Disorder of kidney and ureter, unspecified; E66.01 Morbid (severe) obesity due to excess calories; E11.69 Type 2 diabetes mellitus with other specified complication; E03.9 Hypothyroidism, unspecified; E78.5 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, unspecified
CPT/HCPCS: 36415; 80053; 80061; 82043; 84443; 85025

== ENCOUNTER 2022-11-21 09:15 | Outpatient (AMB) | payer BC, SELFPAY ==
[2022-11-21 09:22] VITALS: BP 144/90; PULSE 75; O2SAT 97; BMI 28.2
--- NOTE | 2022-11-21 09:22 | A.OFFPC_ITS ---
Vital Signs 11/21/22 09:22 Height 5 ft 10 in Weight 196 lb 6 oz BMI 28.2 BP 144/90 H Blood Pressure Location Lt brachial Position Sitting Pulse 75 Pulse Source Pulse Oximeter Pulse Oximetry (%) 97 Oxygen Delivery Method Room Air Intake Visit Reasons: Med management Accompanied by: Self / Same As Patient Allergies Adhesive Bandages Adverse Reaction (Unknown, Verified 11/21/22 09:23) Unknown Medication List - Last Reconciled 11/21/22 by Kev Briseno MD albuterol sulfate 90 mcg/actuation (ProAir HFA) 2 puffs PO Q6H PRN atorvastatin 80 mg PO BEDTIME blood sugar diagnostic ([employer] Verio test strips) three times a day [diabetic shoes As directed] dulaglutide (Trulicity) 4.5 mg (0.5 mL) subcut QWEEK 90 days empagliflozin (Jardiance) 25 mg PO DAILY insulin glargine U-300 conc (Toujeo Max U-300 SoloStar) 26 units (0.0867 mL) subcut DIRECTED 90 days lancets As directed losartan 50 mg PO DAILY 90 days metformin ER 1,000 mg (2 x 500 mg) PO BID 90 days oxycodone 5 mg PO Q6H PRN oxycodone-acetaminophen 5-325 mg 1 tab PO Q6H PRN pen needle, diabetic As directed once daily Tobacco use date assessed: 10/19/22 Dental Screening Dental Screen Date: 11/21/22 Did you have a dental visit in the last 12 months?: No Did you have a dental problem in the last 6 months where you did not have access to dental care?: No Was dental information given to patient?: Patient has dentist HPI Med management HPI Details chronic back pain; stable and compliant [facility] Medical History Back pain Essential hypertension GERD (gastroesophageal reflux disease) 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 LDL goal <100 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 Obesity Obesity Proteinuria Sleep apnea Tinea pedis 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 proteinuria Surgical History History of appendectomy History of umbilical hernia repair Family History Father Smoker Alcohol abuse Mother Diabetes Other Substance use disorder Social History Household Members: Spouse and Children Housing: House Alcohol intake: never Patient Tobacco Use Status: Never used Tobacco e-Cigarette/Vaping Use: Never Used Second Hand Smoke Exposure: No service: No Current occupational status: employed Cognitive needs: No Hearing needs: No Vision needs: Yes Questionnaire PHQ-9 Over the last 2 weeks, how often have you been bothered by any of the following problems? Depression Screening Interpretation: Negative Source: Developed by Drs. Hayes Watt, Anton Johnston and colleagues, with an educational vipul from [employer]. Thrive Questionnaire Date Thrive assessed: 03/21/22 Currently or been in a relationship where the following occur: no concerns reported AUDIT C Alcohol Use Questionnaire (AUDIT-C) 1. How often do you have a drink containing alcohol?: Never 2. How many drinks containing alcohol do you have on a typical day when you are drinking?: 1 or 2 3. How often do you have six or more drinks on one occasion?: Never Total Score: 0 Score Reviewed/Action Taken: Yes PEDRO-7 AMB Questionnaire PEDRO-7 Date PEDRO - 7 assessed: 03/21/22 Source: Developed by Drs. Hayes Watt, Susan Mejia, Anton Moreno and colleagues, with an educational vipul from [employer]. Review of Systems Const Denies chills, Denies headache(s) and Denies weight loss ENT Denies headache(s) Card Denies chest pain, Denies syncope, Denies irregular heart rhythm and Denies dyspnea Resp Denies chest congestion, Denies cough and Denies dyspnea GI Denies abdominal pain, Denies change in stool character, Denies nausea and Denies vomiting Musc Denies deformity and Denies joint swelling Neuro Denies syncope and Denies headache(s) Physical exam (Primary Care) Vital Signs: Last Vital Signs Pulse 75 11/21/22 09:22 BP 144/90 H 11/21/22 09:22 Pulse Ox 97 11/21/22 09:22 Oxygen Delivery Method Room Air 11/21/22 09:22 BMI result Body Mass Index 28.2 Tobacco/Smoking Status: Tobacco use Status Tobacco use date assessed 10/19/22 11/21/22 09:23 Patient Tobacco Use Status Never used Tobacco 11/21/22 09:23 e-Cigarette/Vaping Use Never Used 11/21/22 09:23 Depression Screening Interpretation: Negative Thrive Assessment: Date of Thrive Assessment Date Thrive assessed 03/21/22 11/21/22 09:23 Currently or been in a relationship where the following occur: no concerns reported Const General: cooperative, comfortable and no acute distress Resp Effort & Inspection: normal respiratory effort Auscultation: clear to auscultation bilaterally Percussion: percussion normal Cardio Jugular venous distension: no JVD Rate: regular rate Rhythm: regular rhythm GI Inspection: Yes normal to inspection Assessment and Plan Assessment & Plan (1) Back pain: Code(s): M54.9 - Dorsalgia, unspecified Plan: stable; same meds Medications: Refilled oxycodone Partial Fill upon patient request. 5 mg PO Q6H PRN 120 tabs 0RF pain Coding Level of Care Code Est Pt Level 3 (32114) Diagnoses Back pain M54.9
== END 2022-11-21 09:33 | disposition home or self-care (01) ==
PROVIDERS: PCP Internal Medicine; Visit Provider Internal Medicine
DX: M54.9 Dorsalgia, unspecified (principal)
CPT/HCPCS: 99213

== ENCOUNTER 2022-12-19 09:25 | Outpatient (AMB) | payer BC, SELFPAY ==
[2022-12-19 09:26] VITALS: BP 130/84; PULSE 72; O2SAT 97; BMI 28.6
--- NOTE | 2022-12-19 09:26 | MHC.PC.OV ---
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 Accompanied by: Self / Same As Patient Allergies Adhesive Bandages Adverse Reaction (Unknown, Verified 12/19/22 09:27) Unknown Tobacco use date assessed: 10/19/22 Dental Screening Dental Screen Date: 12/19/22 Did you have a dental visit in the last 12 months?: No Did you have a dental problem in the last 6 months where you did not have access to dental care?: No Was dental information given to patient?: Patient has dentist HPI Med Management HPI Details chronic back pain on pain management; doing well and compliant [facility] Medical History Obesity Type 2 diabetes mellitus with obesity Obesity Tinea pedis Back pain GERD (gastroesophageal reflux disease) Sleep apnea Type 2 diabetes mellitus with other diabetic kidney complication Proteinuria 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 Essential hypertension 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 LDL goal <100 Type 2 diabetes mellitus with proteinuria Surgical History History of umbilical hernia repair History of appendectomy Family History Father Smoker Alcohol abuse Mother Diabetes Other Substance use disorder Social History Household Members: Spouse and Children Housing: House Alcohol intake: never Patient Tobacco Use Status: Never used Tobacco e-Cigarette/Vaping Use: Never Used Second Hand Smoke Exposure: No service: No Current occupational status: employed Cognitive needs: No Hearing needs: No Vision needs: Yes Questionnaire PHQ-9 Over the last 2 weeks, how often have you been bothered by any of the following problems? Depression Screening Interpretation: Negative Source: Developed by Drs. Hayes Watt, Susan Mejia, Anton Moreno and colleagues, with an educational vipul from [employer]. Thrive Questionnaire Date Thrive assessed: 03/21/22 AUDIT C Alcohol Use Questionnaire (AUDIT-C) 1. How often do you have a drink containing alcohol?: Never 2. How many drinks containing alcohol do you have on a typical day when you are drinking?: 1 or 2 3. How often do you have six or more drinks on one occasion?: Never Total Score: 0 Score Reviewed/Action Taken: Yes PEDRO-7 AMB Questionnaire PEDRO-7 Date PEDRO - 7 assessed: 03/21/22 Source: Developed by Drs. Hayes Watt, Susan Mejia, Anton Moreno and colleagues, with an educational vipul from [employer]. Review of Systems Const Denies chills, Denies headache(s) and Denies weight loss ENT Denies headache(s) Card Denies chest pain, Denies syncope, Denies irregular heart rhythm and Denies dyspnea Resp Denies chest congestion, Denies cough and Denies dyspnea GI Denies abdominal pain, Denies change in stool character, Denies nausea and Denies vomiting Musc Denies deformity and Denies joint swelling Neuro Denies syncope and Denies headache(s) Physical exam (Primary Care) Vital Signs: Last Vital Signs Pulse 72 12/19/22 09:26 BP 130/84 12/19/22 09:26 Pulse Ox 97 12/19/22 09:26 Oxygen Delivery Method Room Air 12/19/22 09:26 BMI result Body Mass Index 28.6 Tobacco/Smoking Status: Tobacco use Status Tobacco use date assessed 10/19/22 12/19/22 09:27 Patient Tobacco Use Status Never used Tobacco 12/19/22 09:27 e-Cigarette/Vaping Use Never Used 12/19/22 09:27 Depression Screening Interpretation: Negative Thrive Assessment: Date of Thrive Assessment Date Thrive assessed 03/21/22 12/19/22 09:27 Const General: cooperative, comfortable, no acute distress and alert Neck Neck: Yes no lymphadenopathy Thyroid: Thyroid normal Resp Effort & Inspection: normal respiratory effort Auscultation: clear to auscultation bilaterally Percussion: percussion normal Cardio Jugular venous distension: no JVD Palpation: normal PMI Rate: regular rate Rhythm: regular rhythm Heart sounds: S1 normal heart sound present and S2 normal heart sound present GI Inspection: Yes normal to inspection Palpation (GI): No hepatosplenomegaly present Skin General skin exam: no rashes or lesions noted Extrem General: Yes no clubbing, cyanosis or edema Results AMB Hemoglobin A1c AMB Hemoglobin A1c 11.3 % Last Edit by BROOKS Hooker on 12/19/22 09:39 Results Reviewed Results Reviewed: Laboratory Last Values Hgb A1c (Clinic) 11.3 % (4.0-6.0) H 12/19/22 09:27 Assessment and Plan Assessment & Plan (1) Back pain: Code(s): M54.9 - Dorsalgia, unspecified Plan: stable; same rx (2) Type 2 diabetes mellitus with hyperlipidemia: Code(s): E11.69 - Type 2 diabetes mellitus with other specified complication; E78.5 - 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, unspecified Orders: Orders AMB Hemoglobin A1c Today E11.69 - Type 2 diabetes mellitus with other specified complication, E78.5 - 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, unspecified Medications: Refilled oxycodone Partial Fill upon patient request. 5 mg PO Q6H PRN 120 tabs 0RF pain empagliflozin (Jardiance) FUTURE REFILLS FROM PCP. 25 mg PO DAILY 90 tabs 8RF E11.29 - Type 2 diabetes mellitus with other diabetic kidney complication, E11.69 - Type 2 diabetes mellitus with other specified complication, E66.9 - Obesity, unspecified, R80.9 - Proteinuria, unspecified Coding Level of Care Code Est Pt Level 3 (24299) Diagnoses Back pain M54.9 Type 2 diabetes mellitus with hyperlipidemia E11.69; E78.5
== END 2022-12-19 09:44 | disposition home or self-care (01) ==
PROVIDERS: Visit Provider Internal Medicine
DX: M54.9 Dorsalgia, unspecified (principal); E11.69 Type 2 diabetes mellitus with other specified complication; E78.5 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, unspecified
CPT/HCPCS: 83036; 99213

== ENCOUNTER 2022-12-22 07:15 | Day surgery (SDC) | payer BC, SELFPAY ==
[2022-12-22 07:51] VITALS: BMI 27.6
--- NOTE | 2022-12-22 07:52 | HO.ANESPROP2 ---
HPI - Anesthesia Eval Consult details Narrative: upper endo PMFSH Active Problems Active Problems: All Active Problems (Updated 10/19/22 @ 09:47 by Kev Briseno MD) Type 2 diabetes mellitus with hyperlipidemia (Acute) 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 (Acute) Tubular adenoma of colon (Acute) Colon cancer screening (Acute) CKD (chronic kidney disease) (Acute) HARI (obstructive sleep apnea) (Acute) Physical exam (Acute) Shoulder pain (Acute) Back pain (Acute) Obesity (Acute) Type 2 diabetes mellitus with obesity (Acute) Obesity (Acute) Tinea pedis (Acute) Back pain (Acute) Type 2 diabetes mellitus with other diabetic kidney complication (Acute) Proteinuria (Acute) shelter current use of insulin (Acute) Essential hypertension (Acute) 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 LDL goal <100 (Acute) Type 2 diabetes mellitus with proteinuria (Acute) Past Medical History Medical History Obesity Type 2 diabetes mellitus with obesity Obesity Tinea pedis Back pain GERD (gastroesophageal reflux disease) Sleep apnea Type 2 diabetes mellitus with other diabetic kidney complication Proteinuria shelter current use of insulin Essential hypertension 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 LDL goal <100 Type 2 diabetes mellitus with proteinuria Family History Family History Father Smoker Alcohol abuse Mother Diabetes Other Substance use disorder Family history of problems with anesthesia: No Surgical History Surgical History H/O colonoscopy History of umbilical hernia repair History of appendectomy History of Problems with Anesthesia: No Social History Social History Household Members: Spouse and Children Housing: House Alcohol intake: never Patient Tobacco Use Status: Never used Tobacco e-Cigarette/Vaping Use: Never Used Second Hand Smoke Exposure: No Use of substances other than those prescribed or required for medical reasons: No Advance Directives: No Advance Directives Information Provided: Yes Advance Directives on File: No service: No Current occupational status: employed Cognitive needs: No Hearing needs: No Vision needs: Yes Meds Allergies Allergy/AdvReac Type Severity Reaction Status Date / Time Adhesive Bandages AdvReac Unknown Unknown Verified 12/19/22 09:27 Home Medications Medication Instructions Recorded Confirmed Last Taken Type lancets #100 ea 06/09/20 11/21/22 Unknown History Exam Exam Date and Time: December 22, 2022 0752 Height,Weight and Vital Signs: Height 5 ft 11 in Weight 89.811 kg Airway Mallampati Class: II TM Dist: >3cm Heart: rrr Lungs: cta Assessment and Plan Assessment Anesthesia Assessment: Anesthesia Plan Discussed and Chart Reviewed Final Anesthetic Review Family History of Problems with Anesthesia: No History of Problems with Anesthesia: No NPO: Yes ASA Class: III Final Preanesthetic Review: No Changes in Pt Med Stat, Meds/Allgs Chart Reviewed, Consent Obtained/Reviewed and Anes Risks/Benef Reviewed Patient Risk: Intermediate Procedure Risk: Intermediate Anesthetic Plan Anesthetic Plan: MAC: Disposition: Standard PACU
[2022-12-22 08:01] VITALS: BP 134/91; PULSE 75; RESP 16; TEMP 36.2; O2SAT 95
[2022-12-22 09:10] VITALS: BP 110/70; PULSE 86; RESP 17; TEMP 36.3; O2SAT 98
--- NOTE | 2022-12-22 09:14 | PM.OP ---
Brief Operative Note Date of Service: 12/22/22 Pre-op diagnosis: Dysphagia Post-op diagnosis: other (Reflex esophagitis) Procedure: EGD with biopsies Surgeon: Hayes Harry MD Anesthesia: MAC Was an Bucket Wash Operator used for this Procedure?: No Estimated blood loss (mL): 2.0 Pathology: other (A. Gastric antrum B. EG Junction at 39cm) Condition: stable Disposition: PACU
[2022-12-22 09:25] VITALS: BP 124/84; PULSE 79; RESP 16; TEMP 36.4; O2SAT 95
== END 2022-12-22 10:07 | disposition home or self-care (01) ==
PROVIDERS: PCP Internal Medicine; Visit Provider Internal Medicine
PROC: (CPT 43239; principal; 2022-12-22 08:30)
DX: R13.14 Dysphagia, pharyngoesophageal phase (principal); K21.00 Gastro-esophageal reflux disease with esophagitis, without bleeding; B37.81 Candidal esophagitis; K29.50 Unspecified chronic gastritis without bleeding; K44.9 Diaphragmatic hernia without obstruction or gangrene; I10 Essential (primary) hypertension; J45.909 Unspecified asthma, uncomplicated; E11.9 Type 2 diabetes mellitus without complications; Z79.84 Long term (current) use of oral hypoglycemic drugs; Z79.85 Long-term (current) use of injectable non-insulin antidiabetic drugs; Z79.899 Other long term (current) drug therapy; L23.1 Allergic contact dermatitis due to adhesives
CPT/HCPCS: 43239; 82947; 88305; 88342; J1100

== ENCOUNTER 2023-01-18 09:19 | Outpatient (AMB) | payer BC, SELFPAY ==
--- NOTE | 2023-01-18 09:20 | A.OFFPC_ITS ---
Vital Signs 01/18/23 09:21 Height 5 ft 11 in Weight 197 lb 2 oz BMI 27.5 BP 120/70 Blood Pressure Location Lt brachial Position Sitting Pulse 73 Pulse Source Pulse Oximeter Pulse Oximetry (%) 97 Oxygen Delivery Method Room Air Intake Visit Reasons: Med Management Intake Note: Patient is here to follow up on med management. Cardiology Clinical Nurse Specialist Required: No Manager Market Development: Not Required per policy Accompanied by: Self / Same As Patient Allergies Adhesive Bandages Adverse Reaction (Unknown, Verified 01/18/23 09:21) Unknown Medication List - Last Reconciled 01/18/23 by Kev Briseno MD albuterol sulfate 90 mcg/actuation (ProAir HFA) 2 puffs PO Q6H PRN atorvastatin 80 mg PO BEDTIME blood sugar diagnostic ([email or web address] Verio test strips) three times a day [diabetic shoes As directed] dulaglutide (Trulicity) 4.5 mg (0.5 mL) subcut QWEEK 90 days empagliflozin (Jardiance) 25 mg PO DAILY insulin glargine U-300 conc (Toujeo Max U-300 SoloStar) 26 units (0.0867 mL) subcut DIRECTED 90 days lancets As directed losartan 50 mg PO DAILY 90 days metformin ER 1,000 mg (2 x 500 mg) PO BID 90 days oxycodone 5 mg PO Q6H PRN oxycodone-acetaminophen 5-325 mg 1 tab PO Q6H PRN pen needle, diabetic As directed once daily Tobacco use date assessed: 01/18/23 Dental Screening Dental Screen Date: 01/18/23 Did you have a dental visit in the last 12 months?: Yes Did you have a dental problem in the last 6 months where you did not have access to dental care?: No Was dental information given to patient?: Patient has dentist HPI Med Management HPI Details f/u chronic back pain; doing well on rx; compliant [facility] Medical History Obesity Type 2 diabetes mellitus with obesity Obesity Tinea pedis Back pain GERD (gastroesophageal reflux disease) Sleep apnea Type 2 diabetes mellitus with other diabetic kidney complication Proteinuria 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 current use of insulin Essential hypertension 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 LDL goal <100 Type 2 diabetes mellitus with proteinuria Surgical History H/O colonoscopy History of umbilical hernia repair History of appendectomy Family History Father Smoker Alcohol abuse Mother Diabetes Other Substance use disorder Social History Household Members: Spouse and Children Housing: House Alcohol intake: never Patient Tobacco Use Status: Never used Tobacco e-Cigarette/Vaping Use: Never Used Second Hand Smoke Exposure: No service: No Current occupational status: employed Cognitive needs: No Hearing needs: No Vision needs: Yes Questionnaire Thrive Questionnaire Date Thrive assessed: 03/21/22 PEDRO-7 AMB Questionnaire PEDRO-7 Date PEDRO - 7 assessed: 03/21/22 Source: Developed by Drs. Hayes Watt, Susan Mejia, Anton Moreno and colleagues, with an educational vipul from [employer]. Review of Systems Const Denies chills, Denies headache(s) and Denies weight loss ENT Denies headache(s) Card Denies chest pain, Denies syncope, Denies irregular heart rhythm and Denies dyspnea Resp Denies chest congestion, Denies cough and Denies dyspnea GI Denies abdominal pain, Denies change in stool character, Denies nausea and Denies vomiting Musc Denies deformity and Denies joint swelling Neuro Denies syncope and Denies headache(s) Physical exam (Primary Care) Vital Signs: Last Vital Signs Pulse 73 01/18/23 09:21 BP 120/70 01/18/23 09:21 Pulse Ox 97 01/18/23 09:21 Oxygen Delivery Method Room Air 01/18/23 09:21 BMI result Body Mass Index 27.5 Tobacco/Smoking Status: Tobacco use Status Tobacco use date assessed 01/18/23 01/18/23 09:25 Patient Tobacco Use Status Never used Tobacco 01/18/23 09:25 e-Cigarette/Vaping Use Never Used 01/18/23 09:25 Thrive Assessment: Date of Thrive Assessment Date Thrive assessed 03/21/22 01/18/23 09:25 Const General: cooperative, comfortable, no acute distress and alert Neck Neck: Yes no lymphadenopathy Thyroid: Thyroid normal Resp Effort & Inspection: normal respiratory effort Auscultation: clear to auscultation bilaterally Percussion: percussion normal Cardio Jugular venous distension: no JVD Palpation: normal PMI Rate: regular rate Rhythm: regular rhythm Heart sounds: S1 normal heart sound present and S2 normal heart sound present GI Inspection: Yes normal to inspection Palpation (GI): No hepatosplenomegaly present Skin General skin exam: no rashes or lesions noted Extrem General: Yes no clubbing, cyanosis or edema Assessment and Plan Assessment & Plan (1) Back pain: Code(s): M54.9 - Dorsalgia, unspecified Plan: stable; same rx Medications: Refilled oxycodone Partial Fill upon patient request. 5 mg PO Q6H PRN 120 tabs 0RF pain Coding Level of Care Code Est Pt Level 3 (93282) Diagnoses Back pain M54.9
[2023-01-18 09:21] VITALS: BP 120/70; PULSE 73; O2SAT 97; BMI 27.5
== END 2023-01-18 09:52 | disposition home or self-care (01) ==
PROVIDERS: Visit Provider Internal Medicine
DX: M54.9 Dorsalgia, unspecified (principal)
CPT/HCPCS: 99213

== ENCOUNTER 2023-02-19 09:23 | Outpatient (AMB) | payer BC, SELFPAY ==
[2023-02-19 09:24] VITALS: BP 140/88; PULSE 75; O2SAT 97; BMI 27.3
--- NOTE | 2023-02-19 09:24 | A.OFFPC_ITS ---
Vital Signs 02/19/23 09:24 Height 5 ft 11 in Weight 196 lb BMI 27.3 BP 140/88 H Blood Pressure Location Lt brachial Position Sitting Pulse 75 Pulse Source Pulse Oximeter Pulse Oximetry (%) 97 Oxygen Delivery Method Room Air Intake Visit Reasons: Med Management Medical Affairs Director: Not Required per policy Accompanied by: Self / Same As Patient Allergies Adhesive Bandages Adverse Reaction (Unknown, Verified 02/19/23 09:24) Unknown Medication List - Last Reconciled 02/19/23 by Kev Briseno MD albuterol sulfate 90 mcg/actuation (ProAir HFA) 2 puffs PO Q6H PRN atorvastatin 80 mg PO BEDTIME blood sugar diagnostic ([employer] Verio test strips) three times a day [diabetic shoes As directed] dulaglutide (Trulicity) 4.5 mg (0.5 mL) subcut QWEEK 90 days empagliflozin (Jardiance) 25 mg PO DAILY insulin glargine U-300 conc (Toujeo Max U-300 SoloStar) 26 units (0.0867 mL) subcut DIRECTED 90 days lancets As directed losartan 50 mg PO DAILY 90 days metformin ER 1,000 mg (2 x 500 mg) PO BID 90 days oxycodone 5 mg PO Q6H PRN oxycodone-acetaminophen 5-325 mg 1 tab PO Q6H PRN pen needle, diabetic As directed once daily Tobacco use date assessed: 01/18/23 Dental Screening Dental Screen Date: 02/19/23 Did you have a dental visit in the last 12 months?: Yes Did you have a dental problem in the last 6 months where you did not have access to dental care?: No Was dental information given to patient?: Patient has dentist HPI Med Management HPI Details f/u chronic back pain; doing well; compliant [facility] Medical History Obesity Type 2 diabetes mellitus with obesity Obesity Tinea pedis Back pain GERD (gastroesophageal reflux disease) Sleep apnea Type 2 diabetes mellitus with other diabetic kidney complication Proteinuria 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 Essential hypertension 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 LDL goal <100 Type 2 diabetes mellitus with proteinuria Surgical History H/O colonoscopy History of umbilical hernia repair History of appendectomy Family History Father Smoker Alcohol abuse Mother Diabetes Other Substance use disorder Social History Household Members: Spouse and Children Housing: House Alcohol intake: never Patient Tobacco Use Status: Never used Tobacco e-Cigarette/Vaping Use: Never Used Second Hand Smoke Exposure: No service: No Current occupational status: employed Cognitive needs: No Hearing needs: No Vision needs: Yes Questionnaire Thrive Questionnaire Date Thrive assessed: 03/21/22 PEDRO-7 AMB Questionnaire PEDRO-7 Date PEDRO - 7 assessed: 03/21/22 Source: Developed by Drs. Hayes Watt, Susan Mejia, Anton Moreno and colleagues, with an educational vipul from [employer]. Review of Systems Const Denies chills, Denies headache(s) and Denies weight loss ENT Denies headache(s) Card Denies chest pain, Denies syncope, Denies irregular heart rhythm and Denies dyspnea Resp Denies chest congestion, Denies cough and Denies dyspnea GI Denies abdominal pain, Denies change in stool character, Denies nausea and Denies vomiting Musc Denies deformity and Denies joint swelling Neuro Denies syncope and Denies headache(s) Physical exam (Primary Care) Vital Signs: Last Vital Signs Pulse 75 02/19/23 09:24 BP 140/88 H 02/19/23 09:24 Pulse Ox 97 02/19/23 09:24 Oxygen Delivery Method Room Air 02/19/23 09:24 BMI result Body Mass Index 27.3 Tobacco/Smoking Status: Tobacco use Status Tobacco use date assessed 01/18/23 02/19/23 09:25 Patient Tobacco Use Status Never used Tobacco 02/19/23 09:25 e-Cigarette/Vaping Use Never Used 02/19/23 09:25 Thrive Assessment: Date of Thrive Assessment Date Thrive assessed 03/21/22 02/19/23 09:25 Const General: cooperative, comfortable, no acute distress and alert Neck Neck: Yes no lymphadenopathy Thyroid: Thyroid normal Resp Effort & Inspection: normal respiratory effort Auscultation: clear to auscultation bilaterally Percussion: percussion normal Cardio Jugular venous distension: no JVD Palpation: normal PMI Rate: regular rate Rhythm: regular rhythm Heart sounds: S1 normal heart sound present and S2 normal heart sound present GI Inspection: Yes normal to inspection Palpation (GI): No hepatosplenomegaly present Skin General skin exam: no rashes or lesions noted Extrem General: Yes no clubbing, cyanosis or edema Assessment and Plan Assessment & Plan (1) Back pain: Code(s): M54.9 - Dorsalgia, unspecified Plan: stable; same rx Medications: Refilled oxycodone Partial Fill upon patient request. 5 mg PO Q6H PRN 120 tabs 0RF pain Coding Level of Care Code Est Pt Level 3 (53233) Diagnoses Back pain M54.9
== END 2023-02-19 09:35 | disposition home or self-care (01) ==
PROVIDERS: Visit Provider Internal Medicine
DX: M54.9 Dorsalgia, unspecified (principal)
CPT/HCPCS: 99213

== ENCOUNTER 2023-03-22 09:29 | Outpatient (AMB) | payer BC, SELFPAY ==
[2023-03-22 09:32] VITALS: BP 136/90; PULSE 76; O2SAT 98; BMI 27.6
--- NOTE | 2023-03-22 09:32 | MHC.PC.OV ---
Vital Signs 03/22/23 09:32 Height 5 ft 11 in Weight 198 lb BMI 27.6 BP 136/90 H Blood Pressure Location Lt brachial Position Sitting Pulse 76 Pulse Source Pulse Oximeter Pulse Oximetry (%) 98 Oxygen Delivery Method Room Air Intake Visit Reasons: Med Management Real Estate Portfolio Manager Required: No Senior Power Plant Operator: Not Required per policy Accompanied by: Self / Same As Patient Allergies Adhesive Bandages Adverse Reaction (Unknown, Verified 03/22/23 09:32) Unknown Tobacco use date assessed: 03/22/23 Dental Screening Dental Screen Date: 03/22/23 Did you have a dental visit in the last 12 months?: Yes Did you have a dental problem in the last 6 months where you did not have access to dental care?: No Was dental information given to patient?: Patient has dentist HPI Med Management HPI Details chronic back pain on rx; doing well and compliant [facility] Medical History Obesity Type 2 diabetes mellitus with obesity Obesity Tinea pedis Back pain GERD (gastroesophageal reflux disease) Sleep apnea Type 2 diabetes mellitus with other diabetic kidney complication Proteinuria 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 Essential hypertension 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 LDL goal <100 Type 2 diabetes mellitus with proteinuria Surgical History H/O colonoscopy History of umbilical hernia repair History of appendectomy Family History Father Smoker Alcohol abuse Mother Diabetes Other Substance use disorder Social History Household Members: Spouse and Children Housing: House Alcohol intake: never Patient Tobacco Use Status: Never used Tobacco e-Cigarette/Vaping Use: Never Used Second Hand Smoke Exposure: No service: No Current occupational status: employed Cognitive needs: No Hearing needs: No Vision needs: Yes Questionnaire PHQ-9 Over the last 2 weeks, how often have you been bothered by any of the following problems? 1. Little interest or pleasure in doing things: not at all 2. Feeling down, depressed, or hopeless: not at all 3. Trouble falling or staying asleep, or sleeping too much: not at all 4. Feeling tired or having little energy: not at all 5. Poor appetite or overeating: not at all 6. Feeling bad about yourself - or that you are a failure or have let yourself or your family down: not at all 7. Trouble concentrating on things, such as reading the newspaper or watching television: not at all 8. Moving or speaking so slowly that other people could have noticed. Or the opposite - being so fidgety or restless that you have been moving around a lot more than usual: not at all 9. Thoughts that you would be better off or of hurting yourself in some way: not at all Total score: 0 Depression Screening Interpretation: Negative Depression Screening Done: Yes 96742 - PHQ-9 Billing: Yes Source: Developed by Drs. Hayes Watt, Susan Mejia, Anton Moreno and colleagues, with an educational vipul from [employer]. Thrive Questionnaire Date Thrive assessed: 03/22/23 I am a: Patient What is your living situation today?: I have a steady place to live Within the past 12 months, did the food you bought not last and you didn't have the money to get more?: Never true Within the past 12 months, did you worry whether your food would run out before you got money to buy more?: Never true Do you have trouble paying for medicines?: No Do you have trouble getting transportation to medical appointments?: No Do you have trouble paying your heating and electricity bill?: No Do you have trouble taking care of your child, family member or friend?: No Do you have trouble with day-to-day activities such as bathing, preparing meals, shopping, managing finances, etc.?: No Are you currently unemployed and looking for a job?: No Are you interested in more education?: No Please select the resources that you would like help with: None AUDIT C Alcohol Use Questionnaire (AUDIT-C) 1. How often do you have a drink containing alcohol?: Never 2. How many drinks containing alcohol do you have on a typical day when you are drinking?: 1 or 2 3. How often do you have six or more drinks on one occasion?: Never Total Score: 0 Score Reviewed/Action Taken: Yes PEDRO-7 AMB Questionnaire PEDRO-7 Date PEDRO - 7 assessed: 03/22/23 Feeling nervous, anxious, or on edge: 0 = Not at all Not being able to stop or control worryin = Not at all Worrying too much about different things: 0 = Not at all Trouble relaxin = Not at all Being so restless that it is hard to sit still: 0 = Not at all Becoming easily annoyed or irritable: 0 = Not at all Feeling afraid as if something awful might happen: 0 = Not at all Total PEDRO-7 score (0-4 normal; 5-9 mild; 10-14 moderate; 15-21 severe): 0 Source: Developed by Drs. Hayes Watt, Susan Mejia, Anton Moreno and colleagues, with an educational vipul from [employer]. PEDRO-7 Assessment Billing PEDRO-7 Assessment Tool: PEDRO-7 Assessment 88643 Review of Systems Const Denies chills, Denies headache(s) and Denies weight loss ENT Denies headache(s) Card Denies chest pain, Denies syncope, Denies irregular heart rhythm and Denies dyspnea Resp Denies chest congestion, Denies cough and Denies dyspnea GI Denies abdominal pain, Denies change in stool character, Denies nausea and Denies vomiting Musc Denies deformity and Denies joint swelling Neuro Denies syncope and Denies headache(s) Physical exam (Primary Care) Vital Signs: Last Vital Signs Pulse 76 03/22/23 09:32 BP 136/90 H 03/22/23 09:32 Pulse Ox 98 03/22/23 09:32 Oxygen Delivery Method Room Air 03/22/23 09:32 BMI result Body Mass Index 27.6 Tobacco/Smoking Status: Tobacco use Status Tobacco use date assessed 03/22/23 03/22/23 09:35 Patient Tobacco Use Status Never used Tobacco 03/22/23 09:35 e-Cigarette/Vaping Use Never Used 03/22/23 09:35 PHQ-9: PHQ-9 Score PHQ-9: Total score 0 03/22/23 09:35 Depression Screening Interpretation: Negative Thrive Assessment: Date of Thrive Assessment Date Thrive assessed 03/22/23 03/22/23 09:35 Const General: cooperative, comfortable, no acute distress and alert Neck Neck: Yes no lymphadenopathy Thyroid: Thyroid normal Resp Effort & Inspection: normal respiratory effort Auscultation: clear to auscultation bilaterally Percussion: percussion normal Cardio Jugular venous distension: no JVD Palpation: normal PMI Rate: regular rate Rhythm: regular rhythm Heart sounds: S1 normal heart sound present and S2 normal heart sound present GI Inspection: Yes normal to inspection Palpation (GI): No hepatosplenomegaly present Skin General skin exam: no rashes or lesions noted Extrem General: Yes no clubbing, cyanosis or edema Assessment and Plan Assessment & Plan (1) Back pain: Code(s): M54.9 - Dorsalgia, unspecified Plan: cont same rx; stable Orders: Orders Complete Blood Count Auto Diff Today D64.9 - Anemia, unspecified Hemoglobin A1c Today R73.9 - Hyperglycemia, unspecified Comprehensive [place]. Panel Fast Today N28.9 - Disorder of kidney and ureter, unspecified Microalbumin, Random (w Creat) Today E11.69 - Type 2 diabetes mellitus with other specified complication, E66.01 - Morbid (severe) obesity due to excess calories Thyroid Stimulating Hormone Today E03.9 - Hypothyroidism, unspecified Referrals Psychology Referral Z71.89 - Other specified counseling Medications: Refilled oxycodone Partial Fill upon patient request. 5 mg PO Q6H PRN 120 tabs 0RF pain Coding Level of Care Code Est Pt Level 3 (52821) Diagnoses Back pain M54.9 Additional Codes PEDRO-7 Assessment Billing - PEDRO-7 Assessment Tool: PEDRO-7 Assessment [id number] ([id number])
== END 2023-03-22 09:45 | disposition home or self-care (01) ==
PROVIDERS: PCP Internal Medicine; Visit Provider Internal Medicine
DX: M54.9 Dorsalgia, unspecified (principal)
CPT/HCPCS: 99213

== ENCOUNTER 2023-04-23 09:34 | Outpatient (AMB) | payer BC, SELFPAY ==
[2023-04-23 09:37] VITALS: BP 122/82; PULSE 67; O2SAT 97; BMI 27.2
--- NOTE | 2023-04-23 09:37 | A.OFFPC_ITS ---
Vital Signs 04/23/23 09:37 Height 5 ft 11 in Weight 195 lb BMI 27.2 BP 122/82 Blood Pressure Location Lt brachial Position Sitting Pulse 67 Pulse Source Pulse Oximeter Pulse Oximetry (%) 97 Oxygen Delivery Method Room Air Intake Visit Reasons: Med Management Nephrology Nurse Required: No Supervisor Sewing Department: Not Required per policy Accompanied by: Self / Same As Patient Allergies Adhesive Bandages Adverse Reaction (Unknown, Verified 04/23/23 09:37) Unknown Medication List - Last Reconciled 04/23/23 by Kev Briseno MD albuterol sulfate 90 mcg/actuation (ProAir HFA) 2 puffs PO Q6H PRN atorvastatin 80 mg PO BEDTIME blood sugar diagnostic ([employer] Verio test strips) three times a day [diabetic shoes As directed] dulaglutide (Trulicity) 4.5 mg (0.5 mL) subcut QWEEK 90 days empagliflozin (Jardiance) 25 mg PO DAILY escitalopram oxalate 10 mg PO DAILY insulin glargine U-300 conc (Toujeo Max U-300 SoloStar) 26 units (0.0867 mL) subcut DIRECTED 90 days lancets As directed losartan 50 mg PO DAILY 90 days metformin ER 1,000 mg (2 x 500 mg) PO BID 90 days oxycodone 5 mg PO Q6H PRN oxycodone-acetaminophen 5-325 mg 1 tab PO Q6H PRN pen needle, diabetic As directed once daily Tobacco use date assessed: 03/22/23 Dental Screening Dental Screen Date: 04/23/23 Did you have a dental visit in the last 12 months?: Yes Did you have a dental problem in the last 6 months where you did not have access to dental care?: No Was dental information given to patient?: Patient has dentist HPI Med Management HPI Details chronic back pain on rx; doing well; compliant [facility] Medical History Obesity Type 2 diabetes mellitus with obesity Obesity Tinea pedis Back pain GERD (gastroesophageal reflux disease) Sleep apnea Type 2 diabetes mellitus with other diabetic kidney complication Proteinuria 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 Essential hypertension 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 LDL goal <100 Type 2 diabetes mellitus with proteinuria Surgical History H/O colonoscopy History of umbilical hernia repair History of appendectomy Family History Father Smoker Alcohol abuse Mother Diabetes Other Substance use disorder Social History Household Members: Spouse and Children Housing: House Alcohol intake: never Patient Tobacco Use Status: Never used Tobacco e-Cigarette/Vaping Use: Never Used Second Hand Smoke Exposure: No service: No Current occupational status: employed Cognitive needs: No Hearing needs: No Vision needs: Yes Questionnaire Thrive Questionnaire Date Thrive assessed: 03/22/23 PEDRO-7 AMB Questionnaire PEDRO-7 Date PEDRO - 7 assessed: 03/22/23 Source: Developed by Drs. Hayes Watt, Susan Mejia, Anton Moreno and colleagues, with an educational vipul from [employer]. Review of Systems Const Denies chills, Denies headache(s) and Denies weight loss ENT Denies headache(s) Card Denies chest pain, Denies syncope, Denies irregular heart rhythm and Denies dyspnea Resp Denies chest congestion, Denies cough and Denies dyspnea GI Denies abdominal pain, Denies change in stool character, Denies nausea and Denies vomiting Musc Denies deformity and Denies joint swelling Neuro Denies syncope and Denies headache(s) Physical exam (Primary Care) Vital Signs: Last Vital Signs Pulse 67 04/23/23 09:37 BP 122/82 04/23/23 09:37 Pulse Ox 97 04/23/23 09:37 Oxygen Delivery Method Room Air 04/23/23 09:37 BMI result Body Mass Index 27.2 Tobacco/Smoking Status: Tobacco use Status Tobacco use date assessed 03/22/23 04/23/23 09:38 Patient Tobacco Use Status Never used Tobacco 04/23/23 09:38 e-Cigarette/Vaping Use Never Used 04/23/23 09:38 Thrive Assessment: Date of Thrive Assessment Date Thrive assessed 03/22/23 04/23/23 09:38 Const General: cooperative, comfortable, no acute distress and alert Neck Neck: Yes no lymphadenopathy Thyroid: Thyroid normal Resp Effort & Inspection: normal respiratory effort Auscultation: clear to auscultation bilaterally Percussion: percussion normal Cardio Jugular venous distension: no JVD Palpation: normal PMI Rate: regular rate Rhythm: regular rhythm Heart sounds: S1 normal heart sound present and S2 normal heart sound present GI Inspection: Yes normal to inspection Palpation (GI): No hepatosplenomegaly present Skin General skin exam: no rashes or lesions noted Extrem General: Yes no clubbing, cyanosis or edema Results AMB Hemoglobin A1c AMB Hemoglobin A1c 11.2 % Last Edit by BROOKS Hooker on 04/23/23 09:52 Results Reviewed Results Reviewed: Laboratory Last Values Hgb A1c (Clinic) 11.2 % (4.0-6.0) H 04/23/23 09:41 Assessment and Plan Assessment & Plan (1) Back pain: Code(s): M54.9 - Dorsalgia, unspecified Plan: stable; same rx Orders: Orders AMB Hemoglobin A1c Today E11.69 - Type 2 diabetes mellitus with other specified complication, E78.5 - 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, unspecified Medications: Refilled oxycodone Partial Fill upon patient request. 5 mg PO Q6H PRN 120 tabs 0RF pain Coding Level of Care Code Est Pt Level 3 (67970) Diagnoses Back pain M54.9
== END 2023-04-23 09:53 | disposition home or self-care (01) ==
PROVIDERS: PCP Internal Medicine; Visit Provider Internal Medicine
DX: E11.69 Type 2 diabetes mellitus with other specified complication (principal); E78.5 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, unspecified; M54.9 Dorsalgia, unspecified
CPT/HCPCS: 83036; 99213

== ENCOUNTER 2023-05-21 09:29 | Outpatient (AMB) | payer BC, SELFPAY ==
[2023-05-21 09:34] VITALS: BP 130/90; PULSE 65; BMI 27.3
--- NOTE | 2023-05-21 09:34 | A.OFFPC_ITS ---
Vital Signs 05/21/23 09:34 Height 5 ft 11 in Weight 196 lb BMI 27.3 BP 130/90 H Blood Pressure Location Lt brachial Position Sitting Pulse 65 Pulse Source Pulse Oximeter Oxygen Delivery Method Room Air Intake Visit Reasons: Med Management Customer Relations Representative Required: No Vice President Of Finance: Not Required per policy Accompanied by: Self / Same As Patient Allergies Adhesive Bandages Adverse Reaction (Unknown, Verified 05/21/23 09:34) Unknown Medication List - Last Reconciled 05/21/23 by Kev Briseno MD albuterol sulfate 90 mcg/actuation (ProAir HFA) 2 puffs PO Q6H PRN atorvastatin 80 mg PO BEDTIME blood sugar diagnostic ([employer] Verio test strips) three times a day [diabetic shoes As directed] dulaglutide (Trulicity) 4.5 mg (0.5 mL) subcut QWEEK 90 days empagliflozin (Jardiance) 25 mg PO DAILY escitalopram oxalate 10 mg PO DAILY insulin glargine U-300 conc (Toujeo Max U-300 SoloStar) 26 units (0.0867 mL) subcut DIRECTED 90 days lancets As directed losartan 50 mg PO DAILY 90 days metformin ER 1,000 mg (2 x 500 mg) PO BID 90 days oxycodone 5 mg PO Q6H PRN oxycodone-acetaminophen 5-325 mg 1 tab PO Q6H PRN pen needle, diabetic As directed once daily Tobacco use date assessed: 03/22/23 Dental Screening Dental Screen Date: 05/21/23 Did you have a dental visit in the last 12 months?: Yes Did you have a dental problem in the last 6 months where you did not have access to dental care?: No Was dental information given to patient?: Patient has dentist HPI Med Management HPI Details f/u chronic back pain on rx; doing well and compliant [facility] Medical History Obesity Type 2 diabetes mellitus with obesity Obesity Tinea pedis Back pain GERD (gastroesophageal reflux disease) Sleep apnea Type 2 diabetes mellitus with other diabetic kidney complication 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 Essential hypertension 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 LDL goal <100 Type 2 diabetes mellitus with proteinuria Surgical History H/O colonoscopy History of umbilical hernia repair History of appendectomy Family History Father Smoker Alcohol abuse Mother Diabetes Other Substance use disorder Social History Household Members: Spouse and Children Housing: House Alcohol intake: never Patient Tobacco Use Status: Never used Tobacco e-Cigarette/Vaping Use: Never Used Second Hand Smoke Exposure: No service: No Current occupational status: employed Cognitive needs: No Hearing needs: No Vision needs: Yes Questionnaire Thrive Questionnaire Date Thrive assessed: 03/22/23 PEDRO-7 AMB Questionnaire PEDRO-7 Date PEDRO - 7 assessed: 03/22/23 Source: Developed by Drs. Hayes Watt, Susan Mejia, Anton Moreno and colleagues, with an educational vipul from [employer]. Review of Systems Const Denies chills, Denies headache(s) and Denies weight loss ENT Denies headache(s) Card Denies chest pain, Denies syncope, Denies irregular heart rhythm and Denies dyspnea Resp Denies chest congestion, Denies cough and Denies dyspnea GI Denies abdominal pain, Denies change in stool character, Denies nausea and Denies vomiting Musc Denies deformity and Denies joint swelling Neuro Denies syncope and Denies headache(s) Physical exam (Primary Care) Vital Signs: Last Vital Signs Pulse 65 05/21/23 09:34 BP 130/90 H 05/21/23 09:34 Oxygen Delivery Method Room Air 05/21/23 09:34 BMI result Body Mass Index 27.3 Tobacco/Smoking Status: Tobacco use Status Tobacco use date assessed 03/22/23 05/21/23 09:39 Patient Tobacco Use Status Never used Tobacco 05/21/23 09:39 e-Cigarette/Vaping Use Never Used 05/21/23 09:39 Thrive Assessment: Date of Thrive Assessment Date Thrive assessed 03/22/23 05/21/23 09:39 Const General: cooperative, comfortable, no acute distress and alert Neck Neck: Yes no lymphadenopathy Thyroid: Thyroid normal Resp Effort & Inspection: normal respiratory effort Auscultation: clear to auscultation bilaterally Percussion: percussion normal Cardio Jugular venous distension: no JVD Palpation: normal PMI Rate: regular rate Rhythm: regular rhythm Heart sounds: S1 normal heart sound present and S2 normal heart sound present GI Inspection: Yes normal to inspection Palpation (GI): No hepatosplenomegaly present Skin General skin exam: no rashes or lesions noted Extrem General: Yes no clubbing, cyanosis or edema Assessment and Plan Assessment & Plan (1) Back pain: Code(s): M54.9 - Dorsalgia, unspecified Plan: stable; same rx Medications: Refilled oxycodone Partial Fill upon patient request. 5 mg PO Q6H PRN 120 tabs 0RF pain Coding Level of Care Code Est Pt Level 3 (40105) Diagnoses Back pain M54.9
== END 2023-05-21 09:46 | disposition home or self-care (01) ==
PROVIDERS: PCP Internal Medicine; Visit Provider Internal Medicine
DX: M54.9 Dorsalgia, unspecified (principal)
CPT/HCPCS: 99213

== ENCOUNTER 2023-06-21 08:39 | Outpatient (REF) | payer BC, SELFPAY ==
[2023-06-21 10:18] LABS: MANUAL DIFF FLAG NO
[2023-06-21 10:26] LABS: Basophils Percent Auto 0.3 % (0-2); Eosinophils Absolute Auto 0.2 X10*3/uL (0.0-0.4); Eosinophils Percent Auto 2.3 % (0-4); Hematocrit 47.1 % (42.0-52.0); Hemoglobin 15.5 g/dl (14.0-18.0); Imm Gran Abs Auto 0.05 X10*3/uL (0.00-0.03); Imm Gran Pct Auto 0.5 % (0.0-0.4); Lymphocytes Absolute Auto 2.1 X10*3/uL (1.2-4.9); Lymphocytes Percent Auto 22.7 % (20-40); Mean Corpuscular HGB Conc 32.9 g/dl (31.0-36.0); Monocytes Absolute Auto 0.7 X10*3/uL (0.1-1.2); Monocytes Percent Auto 6.9 % (2-11); Neutrophils Absolute Auto 6.3 x10*3/uL (2.0-8.3); Neutrophils Percent Auto 67.3 % (45-73); Platelet Count 329 X10*3/uL (160-400); Red Blood Count 5.35 X10*6/uL (4.60-5.80); Red Cell Distribution Width 12.8 % (11.0-16.0); White Blood Count 9.4 X10*3/uL (4.8-10.8)
[2023-06-21 10:41] LABS: Estimated Average Glucose 252 mg/dL; Hemoglobin A1c % 10.4 % (<6.0)
[2023-06-21 10:55] LABS: Alanine Aminotransferase 19 U/L (0-40); Albumin Level 3.5 g/dL (3.5-5.0); Alkaline Phosphatase 105 U/L (39-117); Anion Gap 11 (12-20); Aspartate Amino Transferase 18 U/L (5-37); Bilirubin Total 0.8 mg/dL (0.0-1.0); Blood Urea Nitrogen 15 mg/dL (9-16); Calcium 8.2 mg/dL (8.4-10.2); Carbon Dioxide 26 mmol/L (22-29); Chloride 103 mmol/L (96-108); Creatinine Urine 58.08 mg/dL; Estimated Glomerular Filt Rate > 60; Glucose Fasting 170 mg/dL (60-99); Microalbum/Creatinine Ratio Ur 347.7 ug/mg cr (<30); Potassium 3.7 mmol/L (3.3-5.1); Sodium 136 mmol/L (135-145)
[2023-06-21 11:13] LABS: Thyroid Stimulating Hormone 0.59 uIU/mL (0.32-4.0)
== END 2023-06-21 08:40 | disposition home or self-care (01) ==
LOC: HO.HMGCLDS 08:39
PROVIDERS: PCP Internal Medicine; Visit Provider Internal Medicine
DX: E11.65 Type 2 diabetes mellitus with hyperglycemia (principal); D64.9 Anemia, unspecified; E11.69 Type 2 diabetes mellitus with other specified complication; E66.01 Morbid (severe) obesity due to excess calories; E03.9 Hypothyroidism, unspecified; N28.9 Disorder of kidney and ureter, unspecified
CPT/HCPCS: 36415; 80053; 82043; 82570; 83036; 84443; 85025

== ENCOUNTER 2023-06-21 09:07 | Outpatient (AMB) | payer BC, SELFPAY ==
--- NOTE | 2023-06-21 09:16 | MHC.PC.OV ---
Vital Signs 06/21/23 09:17 Height 5 ft 11 in Weight 193 lb BMI 26.9 BP 140/82 H Blood Pressure Location Lt brachial Position Sitting Pulse 65 Pulse Source Pulse Oximeter Pulse Oximetry (%) 98 Oxygen Delivery Method Room Air Intake Visit Reasons: Med Management Roofing Subcontractor Required: No Private Chef: Not Required per policy Accompanied by: Self / Same As Patient Allergies Adhesive Bandages Adverse Reaction (Unknown, Verified 06/21/23 09:17) Unknown Medication List - Last Reconciled 06/21/23 by Kev Briseno MD albuterol sulfate 90 mcg/actuation (ProAir HFA) 2 puffs PO Q6H PRN atorvastatin 80 mg PO BEDTIME blood sugar diagnostic ([employer] Verio test strips) three times a day [diabetic shoes As directed] dulaglutide (Trulicity) 4.5 mg (0.5 mL) subcut QWEEK 90 days empagliflozin (Jardiance) 25 mg PO DAILY escitalopram oxalate 10 mg PO DAILY insulin glargine U-300 conc (Toujeo Max U-300 SoloStar) 26 units (0.0867 mL) subcut DIRECTED 90 days lancets As directed losartan 50 mg PO DAILY 90 days metformin ER 1,000 mg (2 x 500 mg) PO BID 90 days oxycodone 5 mg PO Q6H PRN oxycodone-acetaminophen 5-325 mg 1 tab PO Q6H PRN pen needle, diabetic As directed once daily Tobacco use date assessed: 03/22/23 Dental Screening Dental Screen Date: 05/21/23 HPI Med Management HPI Details chronic low back pain; doing well; compliant with regimen PFSH Medical History Obesity Type 2 diabetes mellitus with obesity Obesity Tinea pedis Back pain GERD (gastroesophageal reflux disease) Sleep apnea Type 2 diabetes mellitus with other diabetic kidney complication 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 Essential hypertension 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 LDL goal <100 Type 2 diabetes mellitus with proteinuria Surgical History H/O colonoscopy History of umbilical hernia repair History of appendectomy Family History Father Smoker Alcohol abuse Mother Diabetes Other Substance use disorder Social History Household Members: Spouse and Children Housing: House Alcohol intake: never Patient Tobacco Use Status: Never used Tobacco e-Cigarette/Vaping Use: Never Used Second Hand Smoke Exposure: No service: No Current occupational status: employed Cognitive needs: No Hearing needs: No Vision needs: Yes Questionnaire Thrive Questionnaire Date Thrive assessed: 03/22/23 PEDRO-7 AMB Questionnaire PEDRO-7 Date PEDRO - 7 assessed: 03/22/23 Source: Developed by Drs. Hayes Watt, Susan Mejia, Anton Moreno and colleagues, with an educational vipul from [employer]. Review of Systems Const Denies chills, Denies headache(s) and Denies weight loss ENT Denies headache(s) Card Denies chest pain, Denies syncope, Denies irregular heart rhythm and Denies dyspnea Resp Denies chest congestion, Denies cough and Denies dyspnea GI Denies abdominal pain, Denies change in stool character, Denies nausea and Denies vomiting Musc Denies deformity and Denies joint swelling Neuro Denies syncope and Denies headache(s) Physical exam (Primary Care) Vital Signs: Last Vital Signs Pulse 65 06/21/23 09:17 BP 140/82 H 06/21/23 09:17 Pulse Ox 98 06/21/23 09:17 Oxygen Delivery Method Room Air 06/21/23 09:17 BMI result Body Mass Index 26.9 Tobacco/Smoking Status: Tobacco use Status Tobacco use date assessed 03/22/23 06/21/23 09:20 Patient Tobacco Use Status Never used Tobacco 06/21/23 09:20 e-Cigarette/Vaping Use Never Used 06/21/23 09:20 Thrive Assessment: Date of Thrive Assessment Date Thrive assessed 03/22/23 06/21/23 09:20 Const General: cooperative, comfortable, no acute distress and alert Neck Neck: Yes no lymphadenopathy Thyroid: Thyroid normal Resp Effort & Inspection: normal respiratory effort Auscultation: clear to auscultation bilaterally Percussion: percussion normal Cardio Jugular venous distension: no JVD Palpation: normal PMI Rate: regular rate Rhythm: regular rhythm Heart sounds: S1 normal heart sound present and S2 normal heart sound present GI Inspection: Yes normal to inspection Palpation (GI): No hepatosplenomegaly present Skin General skin exam: no rashes or lesions noted Extrem General: Yes no clubbing, cyanosis or edema Assessment and Plan Assessment & Plan (1) Back pain: Code(s): M54.9 - Dorsalgia, unspecified Plan: stable; same fx Medications: Refilled oxycodone Partial Fill upon patient request. 5 mg PO Q6H PRN 120 tabs 0RF pain Coding Level of Care Code Est Pt Level 3 (81605) Diagnoses Back pain M54.9
[2023-06-21 09:17] VITALS: BP 140/82; PULSE 65; O2SAT 98; BMI 26.9
== END 2023-06-21 09:36 | disposition home or self-care (01) ==
PROVIDERS: PCP Internal Medicine; Visit Provider Internal Medicine
DX: M54.9 Dorsalgia, unspecified (principal)
CPT/HCPCS: 99213

== ENCOUNTER 2023-07-19 09:20 | Outpatient (AMB) | payer BC, SELFPAY ==
[2023-07-19 09:21] VITALS: BP 130/88; PULSE 76; O2SAT 97; BMI 26.6
--- NOTE | 2023-07-19 09:21 | A.OFFPC_ITS ---
Vital Signs 07/19/23 09:21 Height 5 ft 11 in Weight 191 lb BMI 26.6 BP 130/88 Blood Pressure Location Lt brachial Position Sitting Pulse 76 Pulse Source Pulse Oximeter Pulse Oximetry (%) 97 Oxygen Delivery Method Room Air Intake Visit Reasons: Med Management Load Blocker Required: No Linen Room Houseperson: Not Required per policy Accompanied by: Self / Same As Patient Allergies Adhesive Bandages Adverse Reaction (Unknown, Verified 07/19/23 09:21) Unknown Medication List - Last Reconciled 07/19/23 by Kev Briseno MD albuterol sulfate 90 mcg/actuation (ProAir HFA) 2 puffs PO Q6H PRN atorvastatin 80 mg PO BEDTIME blood sugar diagnostic ([employer] Verio test strips) three times a day [diabetic shoes As directed] dulaglutide (Trulicity) 4.5 mg (0.5 mL) subcut QWEEK 90 days empagliflozin (Jardiance) 25 mg PO DAILY escitalopram oxalate 10 mg PO DAILY insulin glargine U-300 conc (Toujeo Max U-300 SoloStar) 26 units (0.0867 mL) subcut DIRECTED 90 days lancets As directed losartan 50 mg PO DAILY 90 days metformin ER 1,000 mg (2 x 500 mg) PO BID 90 days oxycodone 5 mg PO Q6H PRN oxycodone-acetaminophen 5-325 mg 1 tab PO Q6H PRN pen needle, diabetic As directed once daily Tobacco use date assessed: 03/22/23 Dental Screening Dental Screen Date: 05/21/23 HPI Med Management HPI0 Details chronic back pain on rx; doing well; compliant [facility] Medical History Obesity Type 2 diabetes mellitus with obesity Obesity Tinea pedis Back pain GERD (gastroesophageal reflux disease) Sleep apnea Type 2 diabetes mellitus with other diabetic kidney complication Proteinuria 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 Essential hypertension 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 LDL goal <100 Type 2 diabetes mellitus with proteinuria Surgical History H/O colonoscopy History of umbilical hernia repair History of appendectomy Family History Father Smoker Alcohol abuse Mother Diabetes Other Substance use disorder Social History Household Members: Spouse and Children Housing: House Alcohol intake: never Patient Tobacco Use Status: Never used Tobacco e-Cigarette/Vaping Use: Never Used Second Hand Smoke Exposure: No service: No Current occupational status: employed Cognitive needs: No Hearing needs: No Vision needs: Yes Questionnaire Thrive Questionnaire Date Thrive assessed: 03/22/23 PEDRO-7 AMB Questionnaire PEDRO-7 Date PEDRO - 7 assessed: 03/22/23 Source: Developed by Drs. Hayes Watt, Susan Mejia, Anton Moreno and colleagues, with an educational vipul from [employer]. Review of Systems Const Denies chills, Denies headache(s) and Denies weight loss ENT Denies headache(s) Card Denies chest pain, Denies syncope, Denies irregular heart rhythm and Denies dyspnea Resp Denies chest congestion, Denies cough and Denies dyspnea GI Denies abdominal pain, Denies change in stool character, Denies nausea and Denies vomiting Musc Denies deformity and Denies joint swelling Neuro Denies syncope and Denies headache(s) Physical exam (Primary Care) Vital Signs: Last Vital Signs Pulse 76 07/19/23 09:21 BP 130/88 07/19/23 09:21 Pulse Ox 97 07/19/23 09:21 Oxygen Delivery Method Room Air 07/19/23 09:21 BMI result Body Mass Index 26.6 Tobacco/Smoking Status: Tobacco use Status Tobacco use date assessed 03/22/23 07/19/23 09:22 Patient Tobacco Use Status Never used Tobacco 07/19/23 09:22 e-Cigarette/Vaping Use Never Used 07/19/23 09:22 Thrive Assessment: Date of Thrive Assessment Date Thrive assessed 03/22/23 07/19/23 09:22 Const General: cooperative, comfortable, no acute distress and alert Neck Neck: Yes no lymphadenopathy Thyroid: Thyroid normal Resp Effort & Inspection: normal respiratory effort Auscultation: clear to auscultation bilaterally Percussion: percussion normal Cardio Jugular venous distension: no JVD Palpation: normal PMI Rate: regular rate Rhythm: regular rhythm Heart sounds: S1 normal heart sound present and S2 normal heart sound present GI Inspection: Yes normal to inspection Palpation (GI): No hepatosplenomegaly present Skin General skin exam: no rashes or lesions noted Extrem General: Yes no clubbing, cyanosis or edema Assessment and Plan Assessment & Plan (1) Back pain: Code(s): M54.9 - Dorsalgia, unspecified Plan: stable; same rx Medications: Refilled oxycodone Partial Fill upon patient request. 5 mg PO Q6H PRN 120 tabs 0RF pain Coding Level of Care Code Est Pt Level 3 (05504) Diagnoses Back pain M54.9
== END 2023-07-19 09:32 | disposition home or self-care (01) ==
PROVIDERS: PCP Internal Medicine; Visit Provider Internal Medicine
DX: M54.9 Dorsalgia, unspecified (principal)
CPT/HCPCS: 99213

== ENCOUNTER 2023-09-13 10:24 | Outpatient (AMB) | payer BC, SELFPAY ==
[2023-09-13 10:28] VITALS: BP 130/82; PULSE 67; O2SAT 67; BMI 27.2
--- NOTE | 2023-09-13 10:28 | MHC.PC.OV ---
Vital Signs 09/13/23 10:28 Height 5 ft 11 in Weight 195 lb BMI 27.2 BP 130/82 Blood Pressure Location Lt brachial Position Sitting Pulse 67 Pulse Source Pulse Oximeter Pulse Oximetry (%) 67 L Oxygen Delivery Method Room Air Intake Visit Reasons: med visit Tower Loader Operator Required: No Senior Payroll Administrator: Not Required per policy Accompanied by: Self / Same As Patient Allergies Adhesive Bandages Adverse Reaction (Unknown, Verified 09/13/23 10:29) Unknown Tobacco use date assessed: 03/22/23 Dental Screening Dental Screen Date: 05/21/23 HPI med visit HPI Details Chronic back pain due to DDD; stable on rx and compliant PFSH Medical History Obesity Type 2 diabetes mellitus with obesity Obesity Tinea pedis Back pain GERD (gastroesophageal reflux disease) Sleep apnea Type 2 diabetes mellitus with other diabetic kidney complication 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 Essential hypertension 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 LDL goal <100 Type 2 diabetes mellitus with proteinuria Surgical History H/O colonoscopy History of umbilical hernia repair History of appendectomy Family History Father Smoker Alcohol abuse Mother Diabetes Other Substance use disorder Social History Household Members: Spouse and Children Housing: House Alcohol intake: never Patient Tobacco Use Status: Never used Tobacco e-Cigarette/Vaping Use: Never Used Second Hand Smoke Exposure: No service: No Current occupational status: employed Cognitive needs: No Hearing needs: No Vision needs: Yes Questionnaire Thrive Questionnaire Date Thrive assessed: 03/22/23 PEDRO-7 AMB Questionnaire PEDRO-7 Date PEDRO - 7 assessed: 03/22/23 Source: Developed by Drs. Hayes Watt, Susan Mejia, Anton Moreno and colleagues, with an educational vipul from [employer]. Review of Systems Const Denies chills, Denies headache(s) and Denies weight loss ENT Denies headache(s) Card Denies chest pain, Denies syncope, Denies irregular heart rhythm and Denies dyspnea Resp Denies chest congestion, Denies cough and Denies dyspnea GI Denies abdominal pain, Denies change in stool character, Denies nausea and Denies vomiting Musc Denies deformity and Denies joint swelling Neuro Denies syncope and Denies headache(s) Physical exam (Primary Care) Vital Signs: Last Vital Signs Pulse 67 09/13/23 10:28 BP 130/82 09/13/23 10:28 Pulse Ox 67 L 09/13/23 10:28 Oxygen Delivery Method Room Air 09/13/23 10:28 BMI result Body Mass Index 27.2 Tobacco/Smoking Status: Tobacco use Status Tobacco use date assessed 03/22/23 09/13/23 10:29 Patient Tobacco Use Status Never used Tobacco 09/13/23 10:29 e-Cigarette/Vaping Use Never Used 09/13/23 10:29 Thrive Assessment: Date of Thrive Assessment Date Thrive assessed 03/22/23 09/13/23 10:29 Const General: cooperative, comfortable, no acute distress and alert Neck Neck: Yes no lymphadenopathy Thyroid: Thyroid normal Resp Effort & Inspection: normal respiratory effort Auscultation: clear to auscultation bilaterally Percussion: percussion normal Cardio Jugular venous distension: no JVD Palpation: normal PMI Rate: regular rate Rhythm: regular rhythm Heart sounds: S1 normal heart sound present and S2 normal heart sound present GI Inspection: Yes normal to inspection Palpation (GI): No hepatosplenomegaly present Skin General skin exam: no rashes or lesions noted Extrem General: Yes no clubbing, cyanosis or edema Assessment and Plan Assessment & Plan (1) Back pain: Code(s): M54.9 - Dorsalgia, unspecified Plan: stable; same rx Coding Level of Care Code Est Pt Level 3 (29547) Diagnoses Back pain M54.9
== END 2023-09-13 10:46 | disposition home or self-care (01) ==
PROVIDERS: PCP Internal Medicine; Visit Provider Internal Medicine
DX: M54.9 Dorsalgia, unspecified (principal)
CPT/HCPCS: 99213

== ENCOUNTER 2023-09-19 09:27 | Outpatient (AMB) | payer BC, SELFPAY ==
[2023-09-19 09:34] VITALS: BP 130/80; PULSE 67; O2SAT 96; BMI 26.9
--- NOTE | 2023-09-19 09:34 | A.OFFPC_ITS ---
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 Accompanied by: Self / Same As Patient Allergies Adhesive Bandages Adverse Reaction (Unknown, Verified 09/19/23 09:35) Unknown Medication List - Last Reconciled 09/19/23 by Kev Briseno MD albuterol sulfate 90 mcg/actuation (ProAir HFA) 2 puffs PO Q6H PRN atorvastatin 80 mg PO BEDTIME blood sugar diagnostic ([employer] Verio test strips) three times a day [diabetic shoes As directed] dulaglutide (Trulicity) 4.5 mg (0.5 mL) subcut QWEEK 90 days empagliflozin (Jardiance) 25 mg PO DAILY escitalopram oxalate 10 mg PO DAILY insulin glargine U-300 conc (Toujeo Max U-300 SoloStar) 26 units (0.0867 mL) subcut DIRECTED 90 days lancets As directed losartan 50 mg PO DAILY 90 days metformin ER 1,000 mg (2 x 500 mg) PO BID 90 days oxycodone 5 mg PO Q6H PRN pen needle, diabetic As directed once daily Tobacco use date assessed: 03/22/23 Dental Screening Dental Screen Date: 05/21/23 HPI Med Management HPI Details chronic back pain with LDD on rx; doing well PFSH Medical History Obesity Type 2 diabetes mellitus with obesity Obesity Tinea pedis Back pain GERD (gastroesophageal reflux disease) Sleep apnea Type 2 diabetes mellitus with other diabetic kidney complication Proteinuria MCFP current use of insulin Essential hypertension 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 LDL goal <100 Type 2 diabetes mellitus with proteinuria Surgical History H/O colonoscopy History of umbilical hernia repair History of appendectomy Family History Father Smoker Alcohol abuse Mother Diabetes Other Substance use disorder Social History Household Members: Spouse and Children Housing: House Alcohol intake: never Patient Tobacco Use Status: Never used Tobacco e-Cigarette/Vaping Use: Never Used Second Hand Smoke Exposure: No service: No Current occupational status: employed Cognitive needs: No Hearing needs: No Vision needs: Yes Questionnaire Thrive Questionnaire Date Thrive assessed: 03/22/23 PEDRO-7 AMB Questionnaire PEDRO-7 Date PEDRO - 7 assessed: 03/22/23 Source: Developed by Drs. Hayes Watt, Susan Mejia, Anton Moreno and colleagues, with an educational vipul from [employer]. Review of Systems Const Denies chills, Denies headache(s) and Denies weight loss ENT Denies headache(s) Card Denies chest pain, Denies syncope, Denies irregular heart rhythm and Denies dyspnea Resp Denies chest congestion, Denies cough and Denies dyspnea GI Denies abdominal pain, Denies change in stool character, Denies nausea and Denies vomiting Musc Denies deformity and Denies joint swelling Neuro Denies syncope and Denies headache(s) Physical exam (Primary Care) Vital Signs: Last Vital Signs Pulse 67 09/19/23 09:34 BP 130/80 09/19/23 09:34 Pulse Ox 96 09/19/23 09:34 Oxygen Delivery Method Room Air 09/19/23 09:34 BMI result Body Mass Index 26.9 Tobacco/Smoking Status: Tobacco use Status Tobacco use date assessed 03/22/23 09/19/23 09:36 Patient Tobacco Use Status Never used Tobacco 09/19/23 09:36 e-Cigarette/Vaping Use Never Used 09/19/23 09:36 Thrive Assessment: Date of Thrive Assessment Date Thrive assessed 03/22/23 09/19/23 09:36 Const General: cooperative, comfortable, no acute distress and alert Neck Neck: Yes no lymphadenopathy Thyroid: Thyroid normal Resp Effort & Inspection: normal respiratory effort Auscultation: clear to auscultation bilaterally Percussion: percussion normal Cardio Jugular venous distension: no JVD Palpation: normal PMI Rate: regular rate Rhythm: regular rhythm Heart sounds: S1 normal heart sound present and S2 normal heart sound present GI Inspection: Yes normal to inspection Palpation (GI): No hepatosplenomegaly present Skin General skin exam: no rashes or lesions noted Extrem General: Yes no clubbing, cyanosis or edema Assessment and Plan Assessment & Plan (1) Back pain: Code(s): M54.9 - Dorsalgia, unspecified Plan: stable; same rx Medications: Refilled oxycodone Partial Fill upon patient request. 5 mg PO Q6H PRN 120 tabs 0RF pain Coding Level of Care Code Est Pt Level 3 (84704) Diagnoses Back pain M54.9
== END 2023-09-19 09:52 | disposition home or self-care (01) ==
PROVIDERS: PCP Internal Medicine; Visit Provider Internal Medicine
DX: M54.9 Dorsalgia, unspecified (principal)
CPT/HCPCS: 99213

== ENCOUNTER 2023-10-18 09:14 | Outpatient (AMB) | payer BC, SELFPAY ==
[2023-10-18 09:16] VITALS: BP 140/82; PULSE 85; O2SAT 98; BMI 27.5
--- NOTE | 2023-10-18 09:16 | MHC.PC.OV ---
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: Not Required per policy Accompanied by: Self / Same As Patient Allergies Adhesive Bandages Adverse Reaction (Unknown, Verified 10/18/23 09:17) Unknown Medication List - Last Reconciled 10/18/23 by Kev Briseno MD albuterol sulfate 90 mcg/actuation (ProAir HFA) 2 puffs PO Q6H PRN atorvastatin 80 mg PO BEDTIME blood sugar diagnostic ([employer] Verio test strips) three times a day [diabetic shoes As directed] dulaglutide (Trulicity) 4.5 mg (0.5 mL) subcut QWEEK 90 days empagliflozin (Jardiance) 25 mg PO DAILY escitalopram oxalate 10 mg PO DAILY insulin glargine U-300 conc (Toujeo Max U-300 SoloStar) 26 units (0.0867 mL) subcut DIRECTED 90 days lancets As directed losartan 50 mg PO DAILY 90 days metformin ER 1,000 mg (2 x 500 mg) PO BID 90 days oxycodone 5 mg PO Q6H PRN pen needle, diabetic As directed once daily Tobacco use date assessed: 03/22/23 Dental Screening Dental Screen Date: 05/21/23 HPI Med Management HPI Details diabetes; non-compliant with meds; A1C over 13 PFSH Medical History Obesity Type 2 diabetes mellitus with obesity Obesity Tinea pedis Back pain GERD (gastroesophageal reflux disease) Sleep apnea Type 2 diabetes mellitus with other diabetic kidney complication Proteinuria 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 Essential hypertension 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 LDL goal <100 Type 2 diabetes mellitus with proteinuria Surgical History H/O colonoscopy History of umbilical hernia repair History of appendectomy Family History Father Smoker Alcohol abuse Mother Diabetes Other Substance use disorder Social History Household Members: Spouse and Children Housing: House Alcohol intake: never Patient Tobacco Use Status: Never used Tobacco e-Cigarette/Vaping Use: Never Used Second Hand Smoke Exposure: No service: No Current occupational status: employed Cognitive needs: No Hearing needs: No Vision needs: Yes Questionnaire Thrive Questionnaire Date Thrive assessed: 03/22/23 PEDRO-7 AMB Questionnaire PEDRO-7 Date PEDRO - 7 assessed: 03/22/23 Source: Developed by Drs. Hayes Watt, Susan Mejia, Anton Moreno and colleagues, with an educational vipul from [employer]. Review of Systems Const Denies chills, Denies headache(s) and Denies weight loss ENT Denies headache(s) Card Denies chest pain, Denies syncope, Denies irregular heart rhythm and Denies dyspnea Resp Denies chest congestion, Denies cough and Denies dyspnea GI Denies abdominal pain, Denies change in stool character, Denies nausea and Denies vomiting Musc Denies deformity and Denies joint swelling Neuro Denies syncope and Denies headache(s) Physical exam (Primary Care) Vital Signs: Last Vital Signs Pulse 85 10/18/23 09:16 BP 140/82 H 10/18/23 09:16 Pulse Ox 98 10/18/23 09:16 Oxygen Delivery Method Room Air 10/18/23 09:16 BMI result Body Mass Index 27.5 Tobacco/Smoking Status: Tobacco use Status Tobacco use date assessed 03/22/23 10/18/23 09:17 Patient Tobacco Use Status Never used Tobacco 10/18/23 09:17 e-Cigarette/Vaping Use Never Used 10/18/23 09:17 Thrive Assessment: Date of Thrive Assessment Date Thrive assessed 03/22/23 10/18/23 09:17 Const General: cooperative, comfortable, no acute distress and alert Neck Neck: Yes no lymphadenopathy Thyroid: Thyroid normal Resp Effort & Inspection: normal respiratory effort Auscultation: clear to auscultation bilaterally Percussion: percussion normal Cardio Jugular venous distension: no JVD Palpation: normal PMI Rate: regular rate Rhythm: regular rhythm Heart sounds: S1 normal heart sound present and S2 normal heart sound present GI Inspection: Yes normal to inspection Palpation (GI): No hepatosplenomegaly present Skin General skin exam: no rashes or lesions noted Extrem General: Yes no clubbing, cyanosis or edema Results AMB Hemoglobin A1c AMB Hemoglobin A1c 13.7 % Last Edit by BROOKS Hooker on 10/18/23 09:29 Results Reviewed Results Reviewed: Laboratory Last Values Hgb A1c (Clinic) 13.7 % (4.0-6.0) H 10/18/23 09:18 Assessment and Plan Assessment & Plan (1) Type 2 diabetes mellitus with hyperlipidemia: Code(s): E11.69 - Type 2 diabetes mellitus with other specified complication; E78.5 - 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, unspecified Plan: compliance to improve; CGM sent Orders: Orders AMB Hemoglobin A1c Today E11.69 - Type 2 diabetes mellitus with other specified complication, E78.5 - 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, unspecified Medications: New blood-glucose sensor (Dexcom G7 Sensor device) As directed 3 multiple units 8RF Refilled oxycodone Partial Fill upon patient request. 5 mg PO Q6H PRN 120 tabs 0RF pain dulaglutide (Trulicity) 4.5 mg (0.5 mL) subcut QWEEK 90 days 6.5 mL 2RF Coding Level of Care Code Est Pt Level 3 (04461) Diagnoses Type 2 diabetes mellitus with hyperlipidemia E11.69; E78.5
== END 2023-10-18 09:43 | disposition home or self-care (01) ==
PROVIDERS: PCP Internal Medicine; Visit Provider Internal Medicine
DX: E11.69 Type 2 diabetes mellitus with other specified complication (principal); E78.5 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, unspecified
CPT/HCPCS: 83036; 99213

== ENCOUNTER 2023-11-21 09:13 | Outpatient (AMB) | payer BC, SELFPAY ==
[2023-11-21 09:17] VITALS: BP 134/78; PULSE 81; O2SAT 94; BMI 26.9
--- NOTE | 2023-11-21 09:17 | MHC.PC.OV ---
Vital Signs 11/21/23 09:17 Height 5 ft 11 in Weight 193 lb BMI 26.9 BP 134/78 Blood Pressure Location Lt brachial Position Sitting Pulse 81 Pulse Source Pulse Oximeter Pulse Oximetry (%) 94 Oxygen Delivery Method Room Air Intake Visit Reasons: Med Management Clinical Trial Specialist Required: No Accompanied by: Self / Same As Patient Allergies Adhesive Bandages Adverse Reaction (Unknown, Verified 11/21/23 09:17) Unknown Medication List - Last Reconciled 11/21/23 by Kev Briseno MD albuterol sulfate 90 mcg/actuation (ProAir HFA) 2 puffs PO Q6H PRN atorvastatin 80 mg PO BEDTIME blood sugar diagnostic ([employer] Verio test strips) three times a day blood-glucose sensor ([employer] G7 Sensor device) As directed [diabetic shoes As directed] dulaglutide (Trulicity) 4.5 mg (0.5 mL) subcut QWEEK 90 days empagliflozin (Jardiance) 25 mg PO DAILY escitalopram oxalate 10 mg PO DAILY insulin glargine U-300 conc (Toujeo Max U-300 SoloStar) 26 units (0.0867 mL) subcut DIRECTED 90 days lancets As directed losartan 50 mg PO DAILY 90 days metformin ER 1,000 mg (2 x 500 mg) PO BID 90 days oxycodone 5 mg PO Q6H PRN pen needle, diabetic As directed once daily Tobacco use date assessed: 03/22/23 Dental Screening Dental Screen Date: 05/21/23 HPI Med Management HPI Details chronic low back pain on rx; doing well and [facility] Medical History Obesity Type 2 diabetes mellitus with obesity Obesity Tinea pedis Back pain GERD (gastroesophageal reflux disease) Sleep apnea Type 2 diabetes mellitus with other diabetic kidney complication Proteinuria 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 Essential hypertension 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 LDL goal <100 Type 2 diabetes mellitus with proteinuria Surgical History H/O colonoscopy History of umbilical hernia repair History of appendectomy Family History Father Smoker Alcohol abuse Mother Diabetes Other Substance use disorder Social History Household Members: Spouse and Children Housing: House Alcohol intake: never Patient Tobacco Use Status: Never used Tobacco Tobacco use type: Cigarette e-Cigarette/Vaping Use: Never Used Second Hand Smoke Exposure: No service: No Current occupational status: employed Cognitive needs: No Hearing needs: No Vision needs: Yes Questionnaire PHQ-9 Over the last 2 weeks, how often have you been bothered by any of the following problems? 1. Little interest or pleasure in doing things: not at all 2. Feeling down, depressed, or hopeless: not at all 3. Trouble falling or staying asleep, or sleeping too much: not at all 4. Feeling tired or having little energy: not at all 5. Poor appetite or overeating: not at all 6. Feeling bad about yourself - or that you are a failure or have let yourself or your family down: not at all 7. Trouble concentrating on things, such as reading the newspaper or watching television: not at all 8. Moving or speaking so slowly that other people could have noticed. Or the opposite - being so fidgety or restless that you have been moving around a lot more than usual: not at all 9. Thoughts that you would be better off or of hurting yourself in some way: not at all Total score: 0 Depression Screening Interpretation: Negative Depression Screening Done: Yes 98471 - PHQ-9 Billing: Yes Source: Developed by Drs. Hayes Watt, Susan Mejia, Anton Moreno and colleagues, with an educational vipul from [employer] Document Preparation. Thrive Questionnaire Date Thrive assessed: 03/22/23 AUDIT C Alcohol Use Questionnaire (AUDIT-C) 1. How often do you have a drink containing alcohol?: Never 2. How many drinks containing alcohol do you have on a typical day when you are drinking?: 1 or 2 3. How often do you have six or more drinks on one occasion?: Never Total Score: 0 Score Reviewed/Action Taken: Yes PEDRO-7 AMB Questionnaire PEDRO-7 Date PEDRO - 7 assessed: 03/22/23 Source: Developed by Drs. Hayes Watt, Susan Mejia, Anton Moreno and colleagues, with an educational vipul from [employer] Document Preparation. Review of Systems Const Denies chills, Denies headache(s) and Denies weight loss ENT Denies headache(s) Card Denies chest pain, Denies syncope, Denies irregular heart rhythm and Denies dyspnea Resp Denies chest congestion, Denies cough and Denies dyspnea GI Denies abdominal pain, Denies change in stool character, Denies nausea and Denies vomiting Musc Denies deformity and Denies joint swelling Neuro Denies syncope and Denies headache(s) Physical exam (Primary Care) Vital Signs: Last Vital Signs Pulse 81 11/21/23 09:17 BP 134/78 11/21/23 09:17 Pulse Ox 94 11/21/23 09:17 Oxygen Delivery Method Room Air 11/21/23 09:17 BMI result Body Mass Index 26.9 Tobacco/Smoking Status: Tobacco use Status Tobacco use date assessed 03/22/23 11/21/23 09:22 Patient Tobacco Use Status Never used Tobacco 11/21/23 09:22 Tobacco use type Cigarette 11/21/23 09:22 e-Cigarette/Vaping Use Never Used 11/21/23 09:22 PHQ-9: PHQ-9 Score PHQ-9: Total score 0 11/21/23 09:22 Depression Screening Interpretation: Negative Thrive Assessment: Date of Thrive Assessment Date Thrive assessed 03/22/23 11/21/23 09:22 Const General: cooperative, comfortable, no acute distress and alert Neck Neck: Yes no lymphadenopathy Thyroid: Thyroid normal Resp Effort & Inspection: normal respiratory effort Auscultation: clear to auscultation bilaterally Percussion: percussion normal Cardio Jugular venous distension: no JVD Palpation: normal PMI Rate: regular rate Rhythm: regular rhythm Heart sounds: S1 normal heart sound present and S2 normal heart sound present GI Inspection: Yes normal to inspection Palpation (GI): No hepatosplenomegaly present Skin General skin exam: no rashes or lesions noted Extrem General: Yes no clubbing, cyanosis or edema Assessment and Plan Assessment & Plan (1) Back pain: Code(s): M54.9 - Dorsalgia, unspecified Plan: stable; same rx Medications: Refilled oxycodone Partial Fill upon patient request. 5 mg PO Q6H PRN 120 tabs 0RF pain Coding Level of Care Code Est Pt Level 3 (13527) Diagnoses Back pain M54.9
== END 2023-11-21 09:33 | disposition home or self-care (01) ==
PROVIDERS: PCP Internal Medicine; Visit Provider Internal Medicine
DX: M54.9 Dorsalgia, unspecified (principal)
CPT/HCPCS: 99213

== ENCOUNTER 2024-01-21 09:14 | Outpatient (AMB) | payer BC, SELFPAY ==
[2024-01-21 09:17] VITALS: BP 136/84; PULSE 80; O2SAT 96; BMI 27.1
--- NOTE | 2024-01-21 09:17 | A.OFFPC_ITS ---
Vital Signs 01/21/24 09:17 Height 5 ft 11 in Weight 194 lb BMI 27.1 BP 136/84 Blood Pressure Location Lt brachial Position Sitting Pulse 80 Pulse Source Pulse Oximeter Pulse Oximetry (%) 96 Oxygen Delivery Method Room Air Intake Visit Reasons: Med Management Intake Note: Patient is here to follow up on med managment. 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 Accompanied by: Self / Same As Patient Allergies Adhesive Bandages Adverse Reaction (Unknown, Verified 01/21/24 09:18) Unknown Medication List - Last Reconciled 01/21/24 by Kev Briseno MD albuterol sulfate 90 mcg/actuation (ProAir HFA) 2 puffs PO Q6H PRN atorvastatin 80 mg PO BEDTIME blood sugar diagnostic ([employer] Verio test strips) three times a day blood-glucose sensor ([employer] G7 Sensor device) As directed [diabetic shoes As directed] dulaglutide (Trulicity) 4.5 mg (0.5 mL) subcut QWEEK 90 days empagliflozin (Jardiance) 25 mg PO DAILY escitalopram oxalate 10 mg PO DAILY insulin glargine U-300 conc (Toujeo Max U-300 SoloStar) 26 units (0.0867 mL) subcut DIRECTED 90 days lancets As directed losartan 50 mg PO DAILY 90 days metformin ER 1,000 mg (2 x 500 mg) PO BID 90 days oxycodone 5 mg PO Q6H PRN pen needle, diabetic As directed once daily Tobacco use date assessed: 01/21/24 Dental Screening Dental Screen Date: 05/21/23 [facility] Medical History Obesity Type 2 diabetes mellitus with obesity Obesity Tinea pedis Back pain GERD (gastroesophageal reflux disease) Sleep apnea Type 2 diabetes mellitus with other diabetic kidney complication Proteinuria 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 Essential hypertension 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 LDL goal <100 Type 2 diabetes mellitus with proteinuria Surgical History H/O colonoscopy History of umbilical hernia repair History of appendectomy Family History Father Smoker Alcohol abuse Mother Diabetes Other Substance use disorder Social History Household Members: Spouse and Children Housing: House Alcohol intake: never Patient Tobacco Use Status: Never used Tobacco Tobacco use type: Cigarette e-Cigarette/Vaping Use: Never Used Second Hand Smoke Exposure: No service: No Current occupational status: employed Cognitive needs: No Hearing needs: No Vision needs: Yes Questionnaire Thrive Questionnaire Date Thrive assessed: 03/22/23 PEDRO-7 AMB Questionnaire PEDRO-7 Date PEDRO - 7 assessed: 03/22/23 Source: Developed by Drs. Hayes Watt, Susan Mejia, Anton Moreno and colleagues, with an educational vipul from [employer]. Physical exam (Primary Care) Vital Signs: Last Vital Signs Pulse 80 01/21/24 09:17 BP 136/84 01/21/24 09:17 Pulse Ox 96 01/21/24 09:17 Oxygen Delivery Method Room Air 01/21/24 09:17 BMI result Body Mass Index 27.1 Tobacco/Smoking Status: Tobacco use Status Tobacco use date assessed 01/21/24 01/21/24 09:24 Patient Tobacco Use Status Never used Tobacco 01/21/24 09:24 Tobacco use type Cigarette 01/21/24 09:24 e-Cigarette/Vaping Use Never Used 01/21/24 09:24 PHQ-9: PHQ-9 Score PHQ-9: Total score 0 01/21/24 09:35 Thrive Assessment: Date of Thrive Assessment Date Thrive assessed 01/21/24 01/21/24 09:24 Office Procedures Flu Questionnaire Does the patient have a severe egg allergy?: No Immunizations Fluarix Triv [id number] (PF) 45 mcg (15 mcg x 3)/0.5 mL IM syringe Performing Provider: Kev rBiseno [place] [facility] [place] [facility] Documented (not given) by: BROOKS Hay on 01/21/24 09:26 Reason Not Given: Patient Refused Coding Level of Care Code Est Pt Level 3 (47101) Diagnoses Back pain M54.9 Assessment & Plan Assessment & Plan (1) Back pain: Code(s): M54.9 - Dorsalgia, unspecified Category: Medical Plan: stable ;same rx Orders: Orders Complete Blood Count Auto Diff Today Z13.0 - Encounter for screening for diseases of the blood and blood-forming organs and certain disorders involving the immune mechanism Influenza [id number] Immunization Today Z23 - Encounter for immunization Comprehensive [place]. Panel Fast Today Z13.9 - Encounter for screening, unspecified Microalbumin, Random (w Creat) Today E11.69 - Type 2 diabetes mellitus with other specified complication, E66.01 - Morbid (severe) obesity due to excess calories Thyroid Stimulating Hormone Today Z13.29 - Encounter for screening for other suspected endocrine disorder Hemoglobin A1c Today R73.9 - Hyperglycemia, unspecified Medications: Refilled oxycodone Partial Fill upon patient request. 5 mg PO Q6H PRN 120 tabs 0RF pain
--- NOTE | 2024-01-21 09:17 | MHC.PC.OV ---
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 Required: No Accompanied by: Self / Same As Patient Allergies Adhesive Bandages Adverse Reaction (Unknown, Verified 01/21/24 09:18) Unknown Medication List - Last Reconciled 01/21/24 by Kev Briseno MD albuterol sulfate 90 mcg/actuation (ProAir HFA) 2 puffs PO Q6H PRN atorvastatin 80 mg PO BEDTIME blood sugar diagnostic (Posmetricsuch Verio test strips) three times a day blood-glucose sensor ([employer] G7 Sensor device) As directed [diabetic shoes As directed] dulaglutide (Trulicity) 4.5 mg (0.5 mL) subcut QWEEK 90 days empagliflozin (Jardiance) 25 mg PO DAILY escitalopram oxalate 10 mg PO DAILY insulin glargine U-300 conc (Toujeo Max U-300 SoloStar) 26 units (0.0867 mL) subcut DIRECTED 90 days lancets As directed losartan 50 mg PO DAILY 90 days metformin ER 1,000 mg (2 x 500 mg) PO BID 90 days oxycodone 5 mg PO Q6H PRN pen needle, diabetic As directed once daily Tobacco use date assessed: 01/21/24 Dental Screening Dental Screen Date: 01/21/24 Did you have a dental visit in the last 12 months?: No Did you have a dental problem in the last 6 months where you did not have access to dental care?: No Was dental information given to patient?: No HPI Med Management HPI Details chronic low back pain; doing well and compliant [facility] Medical History Obesity Type 2 diabetes mellitus with obesity Obesity Tinea pedis Back pain GERD (gastroesophageal reflux disease) Sleep apnea Type 2 diabetes mellitus with other diabetic kidney complication Proteinuria [facility] current use of insulin Essential hypertension 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 LDL goal <100 Type 2 diabetes mellitus with proteinuria Surgical History H/O colonoscopy History of umbilical hernia repair History of appendectomy Family History Father Smoker Alcohol abuse Mother Diabetes Other Substance use disorder Social History Household Members: Spouse and Children Housing: House Alcohol intake: never Patient Tobacco Use Status: Never used Tobacco Tobacco use type: Cigarette e-Cigarette/Vaping Use: Never Used Second Hand Smoke Exposure: No service: No Current occupational status: employed Cognitive needs: No Hearing needs: No Vision needs: Yes Questionnaire PHQ-9 Over the last 2 weeks, how often have you been bothered by any of the following problems? 1. Little interest or pleasure in doing things: not at all 2. Feeling down, depressed, or hopeless: not at all 3. Trouble falling or staying asleep, or sleeping too much: not at all 4. Feeling tired or having little energy: not at all 5. Poor appetite or overeating: not at all 6. Feeling bad about yourself - or that you are a failure or have let yourself or your family down: not at all 7. Trouble concentrating on things, such as reading the newspaper or watching television: not at all 8. Moving or speaking so slowly that other people could have noticed. Or the opposite - being so fidgety or restless that you have been moving around a lot more than usual: not at all 9. Thoughts that you would be better off or of hurting yourself in some way: not at all Total score: 0 Depression Screening Interpretation: Negative Depression Screening Done: Yes 08459 - PHQ-9 Billing: Yes Source: Developed by Drs. Hayes Watt, Susan Mejia, Anton Moreno and colleagues, with an educational vipul from [employer]. Thrive Questionnaire Date Thrive assessed: 01/21/24 I am a: Patient What is your living situation today?: I have a steady place to live Within the past 12 months, did the food you bought not last and you didn't have the money to get more?: Never true Within the past 12 months, did you worry whether your food would run out before you got money to buy more?: Never true Do you have trouble paying for medicines?: No Do you have trouble getting transportation to medical appointments?: No Do you have trouble paying your heating and electricity bill?: No Do you have trouble taking care of your child, family member or friend?: No Do you have trouble with day-to-day activities such as bathing, preparing meals, shopping, managing finances, etc.?: No Are you currently unemployed and looking for a job?: No Are you interested in more education?: No Please select the resources that you would like help with: None Currently or been in a relationship where the following occur: No concerns reported THRIVE Score: 0 AUDIT C Alcohol Use Questionnaire (AUDIT-C) 1. How often do you have a drink containing alcohol?: Never 2. How many drinks containing alcohol do you have on a typical day when you are drinking?: 1 or 2 3. How often do you have six or more drinks on one occasion?: Never Total Score: 0 Score Reviewed/Action Taken: Yes PEDRO-7 AMB Questionnaire PEDRO-7 Date PEDRO - 7 assessed: 01/21/24 Feeling nervous, anxious, or on edge: 0 = Not at all Not being able to stop or control worryin = Not at all Worrying too much about different things: 0 = Not at all Trouble relaxin = Not at all Being so restless that it is hard to sit still: 0 = Not at all Becoming easily annoyed or irritable: 0 = Not at all Feeling afraid as if something awful might happen: 0 = Not at all Total PEDRO-7 score (0-4 normal; 5-9 mild; 10-14 moderate; 15-21 severe): 0 Source: Developed by Drs. Hayes Watt, Susan Mejia, Anton Moreno and colleagues, with an educational vipul from [employer]. Review of Systems Const Denies chills, Denies headache(s) and Denies weight loss ENT Denies headache(s) Card Denies chest pain, Denies syncope, Denies irregular heart rhythm and Denies dyspnea Resp Denies chest congestion, Denies cough and Denies dyspnea GI Denies abdominal pain, Denies change in stool character, Denies nausea and Denies vomiting Musc Denies deformity and Denies joint swelling Neuro Denies syncope and Denies headache(s) Physical exam (Primary Care) Vital Signs: Last Vital Signs Pulse 80 01/21/24 09:17 BP 136/84 01/21/24 09:17 Pulse Ox 96 01/21/24 09:17 Oxygen Delivery Method Room Air 01/21/24 09:17 BMI result Body Mass Index 27.1 Tobacco/Smoking Status: Tobacco use Status Tobacco use date assessed 01/21/24 01/21/24 09:24 Patient Tobacco Use Status Never used Tobacco 01/21/24 09:24 Tobacco use type Cigarette 01/21/24 09:24 e-Cigarette/Vaping Use Never Used 01/21/24 09:24 PHQ-9: PHQ-9 Score PHQ-9: Total score 0 01/21/24 09:24 Depression Screening Interpretation: Negative Thrive Assessment: Date of Thrive Assessment Date Thrive assessed 01/21/24 01/21/24 09:24 Currently or been in a relationship where the following occur: No concerns reported Const General: cooperative, comfortable, no acute distress and alert Neck Neck: Yes no lymphadenopathy Thyroid: Thyroid normal Resp Effort & Inspection: normal respiratory effort Auscultation: clear to auscultation bilaterally Percussion: percussion normal Cardio Jugular venous distension: no JVD Palpation: normal PMI Rate: regular rate Rhythm: regular rhythm Heart sounds: S1 normal heart sound present and S2 normal heart sound present GI Inspection: Yes normal to inspection Palpation (GI): No hepatosplenomegaly present Skin General skin exam: no rashes or lesions noted Extrem General: Yes no clubbing, cyanosis or edema Office Procedures Flu Questionnaire Does the patient have a severe egg allergy?: No Immunizations Fluarix Triv (PF) 45 mcg (15 mcg x 3)/0.5 mL IM syringe Performing Provider: Kev Briseno MD [facility] Documented (not given) by: BROOKS Hay on 01/21/24 09:26 Reason Not Given: Patient Refused Coding Level of Care Code Est Pt Level 3 (14797) Diagnoses Back pain M54.9 Assessment & Plan Assessment & Plan (1) Back pain: Code(s): M54.9 - Dorsalgia, unspecified Category: Medical Plan: stable; same rx Orders: Orders Complete Blood Count Auto Diff Today Z13.0 - Encounter for screening for diseases of the blood and blood-forming organs and certain disorders involving the immune mechanism Influenza [id number] Immunization Today Z23 - Encounter for immunization Comprehensive [place]. Panel Fast Today Z13.9 - Encounter for screening, unspecified Microalbumin, Random (w Creat) Today E11.69 - Type 2 diabetes mellitus with other specified complication, E66.01 - Morbid (severe) obesity due to excess calories Thyroid Stimulating Hormone Today Z13.29 - Encounter for screening for other suspected endocrine disorder Hemoglobin A1c Today R73.9 - Hyperglycemia, unspecified Medications: Refilled oxycodone Partial Fill upon patient request. 5 mg PO Q6H PRN 120 tabs 0RF pain
== END 2024-01-21 09:40 | disposition home or self-care (01) ==
LOC: HO.HMCH 09:15
PROVIDERS: PCP Internal Medicine; Visit Provider Internal Medicine
DX: M54.9 Dorsalgia, unspecified (principal)

== ENCOUNTER → 2024-01-21 09:14 | Outpatient (BNVA) | payer BC, SELFPAY | PROVIDERS: PCP Internal Medicine; Visit Provider Internal Medicine ==

== ENCOUNTER 2024-02-18 11:36 | Outpatient (REF) | payer BC, SELFPAY ==
[2024-02-18 13:19] LABS: MANUAL DIFF FLAG NO
[2024-02-18 13:31] LABS: Basophils Percent Auto 0.3 % (0-2); Eosinophils Absolute Auto 0.1 X10*3/uL (0.0-0.4); Eosinophils Percent Auto 1.1 % (0-4); Hematocrit 51.5 % (42.0-52.0); Hemoglobin 16.8 g/dl (14.0-18.0); Imm Gran Abs Auto 0.04 X10*3/uL (0.00-0.03); Imm Gran Pct Auto 0.4 % (0.0-0.4); Lymphocytes Percent Auto 11.2 % (20-40); Mean Corpuscular HGB Conc 32.6 g/dl (31.0-36.0); Mean Corpuscular Hemoglobin 28.3 pg (27.0-33.0); Mean Corpuscular Volume 86.8 fL (80.0-98.0); Mean Platelet Volume 8.7 fL (9.4-12.4); Monocytes Absolute Auto 0.8 X10*3/uL (0.1-1.2); Monocytes Percent Auto 9.2 % (2-11); Neutrophils Percent Auto 77.8 % (45-73); Platelet Count 241 X10*3/uL (160-400); Red Blood Count 5.93 X10*6/uL (4.60-5.80); Red Cell Distribution Width 12.7 % (11.0-16.0)
[2024-02-18 14:06] LABS: Estimated Average Glucose 174 mg/dL; Hemoglobin A1C 257.7375 umol/L; Hemoglobin A1c % 7.7 % (<6.0)
[2024-02-18 14:25] LABS: Alanine Aminotransferase 16 U/L (0-40); Albumin Level 3.9 g/dL (3.5-5.0); Anion Gap 13 (12-20); Aspartate Amino Transferase 18 U/L (5-37); Blood Urea Nitrogen 11 mg/dL (9-16); Carbon Dioxide 28 mmol/L (22-29); Chloride 103 mmol/L (96-108); Estimated Glomerular Filt Rate > 60; Glucose Fasting 147 mg/dL (60-99); Potassium 3.9 mmol/L (3.3-5.1); Sodium 140 mmol/L (135-145); Total Protein 6.5 g/dL (6.5-8.0)
[2024-02-18 14:32] LABS: Creatinine Urine 61.63 mg/dL; Microalbum/Creatinine Ratio Ur 1205.5 ug/mg cr (<30)
[2024-02-18 14:44] LABS: Alkaline Phosphatase 103 U/L (39-117)
[2024-02-18 14:50] LABS: Thyroid Stimulating Hormone 0.73 uIU/mL (0.32-4.0)
== END 2024-02-18 11:37 | disposition home or self-care (01) ==
LOC: HO.HMGCLDS 11:36
PROVIDERS: PCP Internal Medicine; Visit Provider Internal Medicine
DX: Z13.0 Encounter for screening for diseases of the blood and blood-forming organs and certain disorders involving the immune mechanism (principal); Z13.9 Encounter for screening, unspecified; E11.69 Type 2 diabetes mellitus with other specified complication; E66.01 Morbid (severe) obesity due to excess calories; Z13.29 Encounter for screening for other suspected endocrine disorder
CPT/HCPCS: 36415; 80053; 82043; 82570; 83036; 84443; 85025

== ENCOUNTER 2024-02-20 09:24 | Outpatient (AMB) | payer BC, SELFPAY ==
[2024-02-20 09:25] VITALS: BP 132/84; PULSE 81; O2SAT 97; BMI 28.1
--- NOTE | 2024-02-20 09:25 | A.OFFPC_ITS ---
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: No Accompanied by: Self / Same As Patient Allergies Adhesive Bandages Adverse Reaction (Unknown, Verified 02/20/24 09:26) Unknown Medication List - Last Reconciled 02/20/24 by Kev Briseno MD albuterol sulfate 90 mcg/actuation (ProAir HFA) 2 puffs PO Q6H PRN atorvastatin 80 mg PO BEDTIME blood sugar diagnostic ([employer] Verio test strips) three times a day blood-glucose sensor ([employer] G7 Sensor device) As directed [diabetic shoes As directed] dulaglutide (Trulicity) 4.5 mg (0.5 mL) subcut QWEEK 90 days empagliflozin (Jardiance) 25 mg PO DAILY escitalopram oxalate 10 mg PO DAILY ibuprofen 600 mg PO Q8H PRN insulin glargine U-300 conc (Toujeo Max U-300 SoloStar) 26 units (0.0867 mL) subcut DIRECTED 90 days lancets As directed losartan 50 mg PO DAILY 90 days metformin ER 1,000 mg (2 x 500 mg) PO BID 90 days oxycodone 5 mg PO Q6H PRN pen needle, diabetic As directed once daily Tobacco use date assessed: 02/20/24 Dental Screening Dental Screen Date: 02/20/24 Did you have a dental visit in the last 12 months?: No Did you have a dental problem in the last 6 months where you did not have access to dental care?: No Was dental information given to patient?: No HPI Med Management HPI Details chronic back pain on rx; compliant [facility] Medical History Obesity Type 2 diabetes mellitus with obesity Obesity Tinea pedis Back pain GERD (gastroesophageal reflux disease) Sleep apnea Type 2 diabetes mellitus with other diabetic kidney complication 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 Essential hypertension 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 LDL goal <100 Type 2 diabetes mellitus with proteinuria Surgical History H/O colonoscopy History of umbilical hernia repair History of appendectomy Family History Father Smoker Alcohol abuse Mother Diabetes Other Substance use disorder Social History Household Members: Spouse and Children Housing: House Alcohol intake: never Patient Tobacco Use Status: Never used Tobacco Tobacco use type: Cigarette e-Cigarette/Vaping Use: Never Used Second Hand Smoke Exposure: No service: No Current occupational status: employed Cognitive needs: No Hearing needs: No Vision needs: Yes Questionnaire PHQ-9 Over the last 2 weeks, how often have you been bothered by any of the following problems? 1. Little interest or pleasure in doing things: not at all 2. Feeling down, depressed, or hopeless: not at all 3. Trouble falling or staying asleep, or sleeping too much: not at all 4. Feeling tired or having little energy: not at all 5. Poor appetite or overeating: not at all 6. Feeling bad about yourself - or that you are a failure or have let yourself or your family down: not at all 7. Trouble concentrating on things, such as reading the newspaper or watching television: not at all 8. Moving or speaking so slowly that other people could have noticed. Or the opposite - being so fidgety or restless that you have been moving around a lot more than usual: not at all 9. Thoughts that you would be better off or of hurting yourself in some way: not at all Total score: 0 Depression Screening Interpretation: Negative Depression Screening Done: Yes 40615 - PHQ-9 Billing: Yes Source: Developed by Drs. Hayes Watt, Susan Mejia, Anton Moreno and colleagues, with an educational vipul from [employer]. Thrive Questionnaire Date Thrive assessed: 02/20/24 I am a: Patient What is your living situation today?: I have a steady place to live Within the past 12 months, did the food you bought not last and you didn't have the money to get more?: Never true Within the past 12 months, did you worry whether your food would run out before you got money to buy more?: Never true Do you have trouble paying for medicines?: No Do you have trouble getting transportation to medical appointments?: No Do you have trouble paying your heating and electricity bill?: No Do you have trouble taking care of your child, family member or friend?: No Do you have trouble with day-to-day activities such as bathing, preparing meals, shopping, managing finances, etc.?: No Are you currently unemployed and looking for a job?: No Are you interested in more education?: No Please select the resources that you would like help with: None Currently or been in a relationship where the following occur: No concerns reported THRIVE Score: 0 AUDIT C Alcohol Use Questionnaire (AUDIT-C) 1. How often do you have a drink containing alcohol?: Never 2. How many drinks containing alcohol do you have on a typical day when you are drinking?: 1 or 2 3. How often do you have six or more drinks on one occasion?: Never Total Score: 0 Score Reviewed/Action Taken: Yes PEDRO-7 AMB Questionnaire PEDRO-7 Date PEDRO - 7 assessed: 02/20/24 Feeling nervous, anxious, or on edge: 0 = Not at all Not being able to stop or control worryin = Not at all Worrying too much about different things: 0 = Not at all Trouble relaxin = Not at all Being so restless that it is hard to sit still: 0 = Not at all Becoming easily annoyed or irritable: 0 = Not at all Feeling afraid as if something awful might happen: 0 = Not at all Total PEDRO-7 score (0-4 normal; 5-9 mild; 10-14 moderate; 15-21 severe): 0 Source: Developed by Drs. Hayes Watt, Susan Mejia, Anton Moreno and colleagues, with an educational vipul from [employer]. Review of Systems Const Denies chills, Denies headache(s) and Denies weight loss ENT Denies headache(s) Card Denies chest pain, Denies syncope, Denies irregular heart rhythm and Denies dyspnea Resp Denies chest congestion, Denies cough and Denies dyspnea GI Denies abdominal pain, Denies change in stool character, Denies nausea and Denies vomiting Musc Denies deformity and Denies joint swelling Neuro Denies syncope and Denies headache(s) Physical exam (Primary Care) Vital Signs: Last Vital Signs Pulse 81 02/20/24 09:25 BP 132/84 02/20/24 09:25 Pulse Ox 97 02/20/24 09:25 Oxygen Delivery Method Room Air 02/20/24 09:25 BMI result Body Mass Index 28.1 Tobacco/Smoking Status: Tobacco use Status Tobacco use date assessed 02/20/24 02/20/24 09:30 Patient Tobacco Use Status Never used Tobacco 02/20/24 09:30 Tobacco use type Cigarette 02/20/24 09:30 e-Cigarette/Vaping Use Never Used 02/20/24 09:30 PHQ-9: PHQ-9 Score PHQ-9: Total score 0 02/20/24 09:30 Depression Screening Interpretation: Negative Thrive Assessment: Date of Thrive Assessment Date Thrive assessed 02/20/24 02/20/24 09:30 Currently or been in a relationship where the following occur: No concerns reported Const General: cooperative, comfortable, no acute distress and alert Neck Neck: Yes no lymphadenopathy Thyroid: Thyroid normal Resp Effort & Inspection: normal respiratory effort Auscultation: clear to auscultation bilaterally Percussion: percussion normal Cardio Jugular venous distension: no JVD Palpation: normal PMI Rate: regular rate Rhythm: regular rhythm Heart sounds: S1 normal heart sound present and S2 normal heart sound present GI Inspection: Yes normal to inspection Palpation (GI): No hepatosplenomegaly present Skin General skin exam: no rashes or lesions noted Extrem General: Yes no clubbing, cyanosis or edema Coding Level of Care Code Est Pt Level 3 (47029) Diagnoses Back pain M54.9 Additional Codes PHQ-9 - 89388 - PHQ-9 Billing: Yes ([id number]) Assessment & Plan Assessment & Plan (1) Back pain: Code(s): M54.9 - Dorsalgia, unspecified Category: Medical Plan: stable; same rx Medications: Refilled oxycodone Partial Fill upon patient request. 5 mg PO Q6H PRN 120 tabs 0RF pain
--- OUTSIDE RECORDS SUMMARY | 2024-02-26 17:04 | XMS_ITS ---
[facility] Address [address] [place] [address] Care Team Providers Care Textile Colorist Formulator Name Role Phone Kev Briseno MD Primary Care Provider Judson Fletcher Unavailable [phone] Allergies Allergen (clinical drug ingredient) Drug/Non Drug Allergy documented on EMR Reaction Allergy Type Onset Date Status Latex Latex (uncoded) Unknown Allergy Acti ve Adhesive Unknown Allergy Active REASON FOR VISIT Skin Problem, Heel pain Medications Medication SIG (Take, Route, Frequency, Duration) Notes Start Date End Date Status Trulicity Active Invokana 100 MG 1 tablet before the first meal of the day Orally Once a day for 30 day(s) Not-Taking Lisinopril 40 MG 1 tablet Orally twic e a day Not-Taking Simvastatin 40 MG 1 tablet every eveni ng Orally Once a day Not-Taking Ciclopirox Olamine 0.77 % 1 application Externally Twice a day for 30 days Active Jardiance 25 MG 1 tablet Orally Once a day Active Losartan Potassium 50 MG 1 tablet Orally Once a day Active metFORMIN HCl ER 500 MG 1 tablet with ev ening meal Orally three times a day Active oxyCODONE-Acetaminophen 5-325 MG 1 tablet as needed Orally every 6 hrs Active Toujeo Max SoloStar Active Albuterol PRN Active Atorvastatin Calcium 80 MG 1 tablet Orally Once a day Active Drysol 20 % as directed External ly at bedtime for 30 days 12/15/2010 Not-Takin g Percocet 5-325 MG 1 tablet as needed Orally every 6 hrs Not-Taking Ibuprofen 800 MG 1 tablet Orally Thre e times a day for 30 day(s) Not-Taking Toujeo SoloStar Not- Taking Social History Tobacco Use: Social History Observation Description Date Details (start date - stop date) Never Smoker NA - NA Tobacco Use/Smoking Question Answer Notes Are you a: nonsmoker Additional Findings: Tobacco Non-User Current no n-smoker Alcohol Screen Question Answer Notes Did you have a drink containing alcohol in the p ast year? No Points 0 Interpretation Negative Tobacco use other than smoking: Question Answer Notes Are you an other tobacco user? No Vital Signs Height 5ft 10in in 12/01/2022 Weight 192 lbs 12/01/2022 BMI 27.55 kg/m2 12/01/2022 Encounters Encounter Location Date Provider Diagnosis [facility] [place] [address] [place] [address] 12/01/2022 Judson Campbell Tinea pedis of both feet B35.3 ; Plantar fasciitis of left foot M72.2 and Type 2 diabetes mellitus without complication E11.9 Assessments Encounter Date Diagnosis (ICD Code) Assessment Notes Treatment Notes Treatment Clinical Notes Section Notes 12/01/2022 Tinea pedis of both feet (ICD-10 - B35.3) 12/01/2022 Plantar fasciitis of left foot (ICD-10 - M72.2) Response to treatment,Impro vement Patient Educated with: HEEL CORD STRETCHES.pdf (HEEL CORD STRETCHES.pdf) Patient Educated with: RICE THERAPY.pdf (RICE THERAPY.pdf) 12/01/2022 Type 2 diabetes mellitus without complication (ICD-10 - E11.9) Plan Of Treatment Medication Medication Name Sig Start Date Stop Date Notes Ciclopirox Olamine 0.77 % 1 application Externally Twice a day for 30 days Treatment Notes Assessment Notes Plantar fasciitis of left foot Patient E ducated with: HEEL CORD STRETCHES.pdf (HEEL CORD STRETCHES.pdf) Patient Educated with: RICE THERAPY.pdf (RICE THERAPY.pdf) Next Appt Details Follow Up: prn, Reason: Progress Notes * Hayes POLANCO PDOB:1965 (57 yo M)Acc No.[id number]:12/01/2022 Progress Notes Patient:?Hayes Polanco Provider:?Judson Campbell DPM :1965???Age:57 Y???Sex:Male Ilan e:12/01/2022 Address:[address] [place] [address] [phone] Pcp:Kev Briseno MD Subjective: * Chief Complaints: * ???Skin ProblemHeel pain * HPI: ???Skin problems:?Location:?B/L .?Duration:?several days.?Course:?worse.?Heel pain:?Location:?Proximal plantar aspect of Heel, LEFT.?Treatments:?rest , stretching, massage, change in shoes , custom orthoses.? * ROS:?General/Constitutional:?Nausea?denies.?Vomiting?denies.?Hunger Thirst?denies.?Loss appetite?denies.?Chills?denies.?Fatigue?denies.?Fever?denies.?Night Sweats?denies.?Unexplained weight loss?denies.?Unexplained weight gain?denies.?HEENTM:?Dentures?denies.?Dizziness?denies.?Glasses/contacts?denies.?Retinopathy?de nies.?Blurred/double vision?denies.?TMJ?denies.?Discharge/drainage?denies.?Implants?denies.?Sore throat?denies.?Dental implants?denies.?Hard of hearing ?denies.?Difficulty chewing/swallowing/speaking?denies.?Nose bleeds?denies.?Sore mouth?denies.?Respiratory:?On Oxygen?denies.?Pneumonia/pleurisy?denies.?Bronchitis?denies.?Emphysema?denies.?C oughing?denies.?Cough blood?denies.?Shortness of breath?denies.?Wheezing?denies.?Cardiovascular:?Pacemaker?denies.?MVP?denies.?WPW?denies.?CHF?denies.?Heart attack?denies.?Septal defect?denies.?Rapid beat?denies.?Chest pain ?denies.?Atrial Fib.?denies.?Murmur/Palpitations?denies.?Gastrointestinal:?Hemorrhoids?denies.?Stomach/Abdominal pain?denies.?Dark blood stool?denies.?Irritable bowel ?denies.?Constipation?denies.?Diarrhea?denies.?Hematology:?Swelling?denies.?Clots?denies.?Varicose Veins?denies.?Bruising?denies.?Bleeding problem?denies.?Genitourinary:?Blood urine?denies.?Frequent/Painfu/urination/bladder control?denies.?Kidney stones?denies.?Infection (UTI)?denies.?Nephropathy?denies.?sex trans dis (STD)?denies.?Prostate?denies.?Musculoskeletal:?Hammertoes?admits.?Bunions?denies.?Back Pain?admits.?Muscle Cramps/ Resting?denies.?Muscle cramps / walking?denies.?Generalized aches and pains?denies.?Weakness?denies.?Integ.:?Desir?denies.?Scars?denies.?Corns/calluses?denies.?Ingrown nails?denies.?Painful nails?denies.?Open Sores?denies.?Rashes?denies.?Neurologic:?Difficulty sleeping?denies.?Brain disorder?denies.?Numbness?denies.?Balance trouble?denies.?Confusion?denies.?Fainting/blackouts?denies.?Tingling?denies.?Tr emors?denies.? * Medical History:? * Surgical History:?umbilical hernia 1994appendectomy 1996 * Hospitalization/Major Diagno stic Procedure:?Denies Past Hospitalization * Family History:?Mother: aliv e, kidney,liver disease, diagnosed with Unspecified essential hypertension, Diabetic - NIDDM.?Father: alive, kidney,liver disease, diagnosed with Family history of arthritis.?Paternal Grand Mother: stroke.? * Social History:?Tobacco Use:?Tobacco Use/Smoking?Are you a:?nonsmoker ?Additional Findings: Tobacco Non-User?Current non-smoker ?Tobacco use other than smoking?Are you an other tobacco user??No ???Drugs/Alcohol:?Drugs?Have you used drugs other than those for medical reasons in the past 12 months??No ?Alcohol Screen?Did you have a drink containing alcohol in the past year??No ?Points?0 ?Interpretation?Negative ???Miscellaneous:?Caffeine: yes, frequency:, 1-2 cups per day. ?no Exercise. ?Marital status: , . * Medications:?TakingAlbuterol , Notes: PRNAtorvastatin Calcium 80 MG Tablet 1 tablet Orally Once a dayJardiance 25 MG Tablet 1 tablet Orally Once a dayLosartan Potassium 50 MG Tablet 1 tablet Orally Once a daymetFORMIN HCl ER 500 MG Tablet Extended Release 24 Hour 1 tablet with evening meal Orally three times a dayoxyCODONE-Acetaminophen 5-325 MG Tablet 1 tablet as needed Orally every 6 hrsToujeo Max SoloStar Trulicity Taking Albuterol , Notes: PRNTaking Atorvastatin Calcium 80 MG Tablet 1 tablet Orally Once a dayTaking Jardiance 25 MG Tablet 1 tablet Orally Once a dayTaking Losartan Potassium 50 MG Tablet 1 tablet Orally Once a dayTaking metFORMIN HCl ER 500 MG Tablet Extended Release 24 Hour 1 tablet with evening meal Orally three times a dayTaking oxyCODONE-Acetaminophen 5-325 MG Tablet 1 tablet as needed Orally every 6 hrsTaking Toujeo Max SoloStar Taking Trulicity Not-Taking/PRNInvokana 100 MG Tablet 1 tablet before the first meal of the day Orally Once a dayLisinopril 40 MG Tablet 1 tablet Orally twice a daySimvastatin 40 MG Tablet 1 tablet every evening Orally Once a dayToujeo SoloStar Drysol 20 % Solution as directed Externally at bedtimePercocet 5-325 MG Tablet 1 tablet as needed Orally every 6 hrsIbuprofen 800 MG Tablet 1 tablet Orally Three times a dayMedication List reviewed and reconciled with the patientNot-Taking/PRN Invokana 100 MG Tablet 1 tablet before the first meal of the day Orally Once a dayNot-Taking/PRN Lisinopril 40 MG Tablet 1 tablet Orally twice a dayNot-Taking/PRN Simvastatin 40 MG Tablet 1 tablet every evening Orally Once a dayNot-Taking/PRN Toujeo SoloStar Not-Taking/PRN Drysol 20 % Solution as directed Externally at bedtimeNot-Taking/PRN Percocet 5-325 MG Tablet 1 tablet as needed Orally every 6 hrsNot-Taking/PRN Ibuprofen 800 MG Tablet 1 tablet Orally Three times a dayMedication List reviewed and reconciled with the patient * Allergies:?LatexAdhesive: [place] polanco[Allergies Verified] Objective: * Vitals:?Ht: 5ft 10in, Wt:192 , BMI:27.55, Shoe size: 10.5W, BS: not taken, Ht-cm: 177.8 cm, Wt-k.09 kg. * Examination: ???Dermatologic: ?SKIN FINDINGS:? Skin shows sign(s) of, erythema, scaling, in a moccasin fashion, no fissure(s) present, B/L.?Heel Pain: ?INSPECTION:?States approximately 90% LESS, Pain on Palpation to Plantar Fascia med. and central bands, intrinsic musc., infra-calcaneal bursa, and med calc tubercle , LEFT foot.? Assessment: * Assessment: 1.?Plantar fasciitis of left foot - M72.2, Acute problem, Stable (1=3), Response to treatment,Improvement?2.?Tinea pedis of both feet - B35.3, Acute problem, Uncomplicated (3),Rx drug management (4)?3.?Type 2 diabetes mellitus without complication - E11.9? Plan: * Treatment: 2.?Tinea pedis of both feet? Start Ciclopirox Olamine Cream, 0.77 %, 1 application, Externally, Twice a day, 30 days, 60, Refills 2.?? * Procedure Codes:? * Preventive Medicine:? ??Counseling:?Discussion:?-13: Office or other outpatient visit for the evaluation and management of an established patient, which required a medically appropriate history and/or examination and LOW level of DECISION MAKING for: 1 STABLE ACUTE UNCOMPLICATED PROBLEM, 2 OR MORE MINOR PROBLEMS, OR 1 STABLE CHRONIC PROBLEM, THAT POSE(S) A LOW RISK FOR MORBIDITY/MORTALITY. The visit on the day of the encounter encompassed interpreting the data and educating the patient as to the nature of their condition, treatment options available according to their individual PMH, meds, allergies, and overall health/living conditions, as well as any potential risks or complications that may occur from a failure to adhere to, and participate in, the recommended course of therapy. The discussion included a complete verbal, and/or written explanation of the examination results, any x-rays taken, the proposed diagnosis, and outline of the treatment plan. A schedule for future care needs was also explained. The patient verbalized an understanding of the instructions at this time and agreed to be an active participant in their treatment. If the patient should think of any questions or concerns after the visit, I have encouraged the patient to call the office.?Heel pain:?Discussed other tx options for the patients condition, Given recent successful results to treatment, the patient wishes to continue with the present plan for their condition.?Tinea Pedis:?The patient was counseled on the diagnosis, potential etiologies, and treatment options for their skin condition. We discussed the risks and benefits of each option from performing no treatment, to utilizing OTC topical skin creams, prescription topical creams, customized compounded topical medications, and, if necessary, to utilize oral antifungal therapy. We discussed the advantages and disadvantages of each possible treatment and importance for adherence to all the recommended therapies for optimum success and avoid potential complications such as open sore/infection/possible hospitalization. We discussed the potential effectiveness of each topical preparation as well as each ones possible side effects and/or patient medication interactions if oral therapy is selected. Patient questions re: the advantages and disadvantages of each treatment choice, medication use/dosage, successful outcomes, and application consistency were reviewed and the patient verbalized that all answers were clearly understood. The patient was told they can help alleviate symptoms by utilizing moisture absorbant innersoles with activated charcoal and baking soda, applying antifungal sprays daily, aerating toe web spaces at night by putting cotton or lambs wool between the toes, alternating shoe gear daily if possible so they can dry out, changing socks at least once during the day, wearing well-ventilated shoes or sandals. The patient has decided to apply antifungal skin creams to their feet as directed. Rx was sent to their pharmacy at the time of visit.? * Follow Up:?prn * Images: * Sign off status: Completed true * Provider:Jona Campbell DPM Date:?2022 Generated for Leo bailey/Linn/Diaitting on:?02/26/2024 05:04 PM EST History and Physical Notes * HPI (History of Present Illness) Category Sub-Category Detail Notes Category Not es Heel pain Location: Proximal plantar aspect of H eel, LEFT Treatments: rest , stretching, m assage, change in shoes , custom orthoses Skin problems Location: B/L Duration: several days Course: worse Examination Category Sub-Category Detail Notes Category Not es Dermatologic SKIN FINDINGS: Skin shows sign( s) of, erythema, scaling, in a moccasin fashion, no fissure(s) present, B/L Heel Pain INSPECTION: States approxima tely 90% LESS, Pain on Palpation to Plantar Fascia med. and central bands, intrinsic musc., infra-calcaneal bursa, and med calc tubercle , LEFT foot
--- OUTSIDE RECORDS SUMMARY | 2024-02-26 17:04 | XMS_ITS ---
Author Organization [facility] Address [address] [place] [address] Care Team Providers Care Personal Banking Assistant Name Role Phone Kev Briseno MD Primary Care Provider Aislinn Garrett Unavailable [phone] REASON FOR VISIT cancel appt Encounters Encounter Location Date Provider Diagnosis [facility] [address] [place] [address] 05/28/2023 Aislinn Harry PLAN OF TREATMENT No Information
--- OUTSIDE RECORDS SUMMARY | 2024-02-26 17:04 | XMS_ITS ---
Author Organization [facility] Address [address] [place] [phone] Care Team Providers Care Paintless Dent Repair Technician Name Role Phone Kev Briseno MD Primary Care Provider Aislinn Garrett Unavailable [phone] MEDICATIONS Medication SIG (Take, Route, Fr equency, Duration) Notes Start Date End Date Status Diflucan 100 MG 2 tablets on Day # 1 , and then 1 tablet daily Orally Daily for 21 days 01/08/2023 Active Encounters Encounter Location Date Provider Diagnosis [facility] [address] [place] [address] 01/08/2023 Aislinn Harry PLAN OF TREATMENT Medication Medication Name Sig Start Date Stop Date Notes Diflucan 100 MG 2 tablets on Day # 1 , and then 1 tablet daily Orally Daily for 21 days 01/08/2023
--- OUTSIDE RECORDS SUMMARY | 2024-02-26 17:04 | XMS_ITS | Patient Health Record ---
Author Organization [facility] Address [address] [place] [address] Care Team Providers Care Natural Resources Extension Educator Name Role Phone Kev Briseno MD Primary Care Provider Aislinn Garrett Unavailable [phone] ALLERGIES Allergen (clinical drug ingredient) Drug/Non Drug Allergy documented on EMR Reaction Allergy Type Onset Date Status Adhesive Unknown Allergy Active REASON FOR REFERRAL No Information MEDICATIONS Medication SIG (Take, Route, Frequency, Duration) Notes Start Date End Date Status Diflucan 100 MG 2 tablets on Day # 1 , and then 1 tablet daily Orally Daily for 21 days 01/08/2023 Active oxyCODONE-Acetaminophen 5-325 MG TAKE 1 TABLET BY MOUTH EVERY 6 HOURS NEEDED FOR PAIN Oral for 30 Active Albuterol Sulfate HFA 108 (90 Base) MCG/ACT INHALE 2 PUFFS BY MOUTH EVERY 6 HOURS NEEDED FOR BRONCHOSPASM Inhalation for 25 Active Jardiance 25 MG Oral for 90 Ac tive Omeprazole 40 MG 1 Orally Once a day every morning for 30 day(s) 12/22/2022 Active oxyCODONE HCl 5 MG Oral for 30 Active Atorvastatin Calcium 80 MG TAKE 1 TABLET BY MOUTH EVERY DAY AT BEDTIME Oral for 90 Active BD Pen Needle Payal U/F 32G X 4 MM for 90 Active Losartan Potassium 50 MG Oral for 90 Active metFORMIN HCl ER 500 MG TAKE 2 TABLETS ( 1000 MG TOTAL) BY MOUTH TWICE DAILY. Oral for 90 Active Trulicity 4.5 MG/0.5ML INJECT 4.5 MG SUBCUTANEOUSLY ONCE WEEKLY. Subcutaneous for 84 Active IMMUNIZATIONS Vaccine Route Administration Date Status Comme nts Influenza Unknown 09/21/2022 Refused SOCIAL HISTORY Tobacco Use: Social History Observation Description Date Details (start date - stop date) Never Smoker NA - NA Sex Assigned At : Social History Observation Description Sex Assigned At Unknown Tobacco Use/Smoking Question Answer Notes Patient is a nonsmoker Alcohol Screen Question Answer Notes Did you have a drink contain ing alcohol in the past year? Yes How often did you have a dri nk containing alcohol in the past year? Monthly or less (1 point) How many drinks did you have on a typical day when you were drinking in the past year? 1 or 2 drinks (0 point) How often did you have 6 or more drinks on one occasion in the past year? Never (0 point) Points 1 Interpretation Negative PROBLEMS Problem Type ICD Code Onset Dates Problem Status W/U Status Risk SNOMED Code Notes Problem Pharyngoesophageal dysphagia (R13.14) Active confirmed 63200958 Problem Gastroesophageal reflux disease (K21.9) Active confirmed Gastroesophagea l reflux disease (530935123) Problem Gastritis (K29.70) Active confirmed Gas tritis (9813923) Problem Dysphagia (R13.10) Active confirmed Dys phagia (28373896) Encounters Encounter Location Date Provider Diagnosis [facility] [address] [place] [phone] 05/29/2023 Aislinn Harry [facility] [address] [place] [phone] 05/28/2023 Aislinn Harry PLAN OF TREATMENT Future Test Test Name Order Date UPPER GI ENDOSCOPY [place] DILATION OF ESOPH 09/21/2022 Insurance Providers Payer Name Payer Address Payer Phone Subscriber Number Group Number Insured Name Patient Relationship to Insured Coverage Start Date Coverage End Date [facility] [address] [place] [address] [phone] [id number] AISLINN POLANCO Self - patient is the insured MEDICAL (GENERAL) HISTORY Medical History History ICD Code DM HTN Asthma Denies [place],CVA,renal disease Colonoscopy with one tubular adenoma rem demetri 08/2021 Dr. Schneider Neck and back pain from disc disease Surgical History Surgery Date(Month/Year) Appy 2004 Umbilical hernia 2000
--- OUTSIDE RECORDS SUMMARY | 2024-02-26 17:04 | XMS_ITS ---
Author Organization [facility] Address [address] [place] [phone] Care Team Providers Care Rn Lvn Name Role Phone Kev Briseno MD Primary Care Provider Hayes Garrett Unavailable [phone] REASON FOR VISIT Patient presents today for esophageal reflux Encounters Encounter Location Date Provider Diagnosis [facility] [address] [place] [phone] 05/29/2023 Hayes Harry PLAN OF TREATMENT No Information
--- OUTSIDE RECORDS SUMMARY | 2024-02-26 17:05 | XMS_ITS ---
Author Organization [facility] Address [address] [facility] [place] [address] Care Team Providers Care Battery Assembler Dry Cell Name Role Phone Kev Briseno MD Primary Care Provider Judson Fletcher Unavailable [phone] Allergies Allergen (clinical drug ingredient) Drug/Non Drug Allergy documented on EMR Reaction Allergy Type Onset Date Status Latex Latex (uncoded) Unknown Allergy Acti ve Adhesive Unknown Allergy Active REASON FOR VISIT Heel pain Medications Medication SIG (Take, Route, Frequency, Duration) Notes Start Date End Date Status Toujeo SoloStar Not- Taking Invokana 100 MG 1 tablet before the first meal of the day Orally Once a day for 30 day(s) Not-Taking Trulicity Active Simvastatin 40 MG 1 tablet every eveni ng Orally Once a day Not-Taking Lisinopril 40 MG 1 tablet Orally twic e a day Not-Taking Losartan Potassium 50 MG 1 tablet Orally Once a day Active Jardiance 25 MG 1 tablet Orally Once a day Active oxyCODONE-Acetaminophen 5-325 MG 1 tablet as needed Orally every 6 hrs Active metFORMIN HCl ER 500 MG 1 tablet with ev ening meal Orally three times a day Active Toujeo Max SoloStar Active Atorvastatin Calcium 80 MG 1 tablet Orally Once a day Active Drysol 20 % as directed External ly at bedtime for 30 days 12/15/2010 Not-Takin g Albuterol PRN Active Ibuprofen 800 MG 1 tablet Orally Thre e times a day for 30 day(s) Not-Taking Percocet 5-325 MG 1 tablet as needed Orally every 6 hrs Not-Taking Social History Tobacco Use: Social History Observation [...] Are you an other tobacco user? No Problems Problem Type SNOMED Code ICD Code Onset Dates Problem Status W/U Status Risk Notes Problem Interstitial myositis (53974794) 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 confirmed Vital Signs Height 5 ft 10 in in 10/27/2022 Weight 194 lbs 10/27/2022 BMI 27.83 kg/m2 10/27/2022 Blood pressure systolic 126 mm Hg 10/28/19 23 Blood pressure diastolic 82 mm Hg 023 Heart Rate 80 /min 10/27/2022 Encounters Encounter Location Date Provider Diagnosis [facility] [place] [address] [place] [address] 10/27/2022 Judson Adrian Pain in left foot M79.672 ; Plantar fasciitis of left foot M72.2 ; Calcaneal spur, left foot M77.32 ; Interstitial myositis of left foot M60.172 ; Bursitis of left foot M77.52 and Type 2 diabetes mellitus without complication E11.9 Assessments Encounter Date Diagnosis (ICD Code) Assessment Notes Treatment Notes Treatment Clinical Notes Section Notes 10/27/2022 Pain in left foot (ICD-10 - M79.672) 10/27/2022 Plantar fasciitis of left foot (ICD-10 - M72.2) Dx New problem, Prognosis Uncertain (4) Patient Educated with: HEEL CORD STRETCHES.pdf (HEEL CORD STRETCHES.pdf) Patient Educated with: RICE THERAPY.pdf (RICE THERAPY.pdf) 10/27/2022 Calcaneal spur, left foot (ICD-10 - M77.32) 10/27/2022 Interstitial myositis of left foot (ICD-10 - M60.172) 10/27/2022 Bursitis of left foot (ICD-10 - M77.52) 10/27/2022 Type 2 diabetes mellitus without complication (ICD-10 - E11.9) Plan Of Treatment Treatment Notes Assessment Notes Plantar fasciitis of left foot Patient E ducated with: HEEL CORD STRETCHES.pdf (HEEL CORD STRETCHES.pdf) Patient Educated with: RICE THERAPY.pdf (RICE THERAPY.pdf) Pending Test Test Name Order Date X ray : Foot, left 3V 10/27/2022 Next Appt Details Follow Up: 3-4 Weeks, Reason : Progress Notes * Hayes POLANCO PDOB:1965 (57 yo M)Acc No.[id number]:10/27/2022 Progress Notes Patient:?Hayes Polanco P Provider:?Judson Campbell DPM :1965???Age:57 Y???Sex:Male Ilan e:10/27/2022 Address:[address] [place], [place] [id number] Pcp:Kev Briseno MD Subjective: * Chief Complaints: * ???Heel pain * HPI: ???Heel pain:?Location:?Proximal plantar aspect of Heel, LEFT.?Duration:?two months.?Course:?worse.?Aggrevated:?standing, walking, walking first thing in the morning/after rest.?Treatments:?rest , change in shoes , custom orthoses.? * [...] * Medical History:? * Surgical History:?umbilical hernia 1995appendectomy 1996 * Hospitalization/Major Diagno stic Procedure:?Denies Past Hospitalization * Family History:?Mother: tal huffman, kidney,liver disease, diagnosed with Diabetic - NIDDM, Unspecified essential hypertension.?Father: alive, kidney,liver disease, diagnosed with Family history [...] and reconciled with the patient * Allergies:?LatexAdhesive: Al haseeb Objective: * Vitals:?Ht: 5 ft 10 in, Wt:1 94, BMI:27.83, Shoe size: 10.5W, BP:126/82 mm Hg, HR:80 /min, BS: not taken, Ht-cm: 177.8 cm, Wt-k kg. * Examination: ???Heel Pain: ?INSPECTION:? Pain on Palpation to Plantar Fascia med. and central bands, intrinsic musc., infra-calcaneal bursa, and med calc tubercle , LEFT foot, No pain: posterior/superior heel, achilles bursa/tendon, sinus tarsi, peroneals, or with lateral heel compression; no limited STJ ROM, calor, or ecchymosis.?Orthopedic: ?MUSCLE STRENGTH:?5/5 all groups in a symmetrical fashion, B/L.?GAIT ABNORMALITY:?antalgic.?FOOT MORPHOLOGY:? Pes Planus structure, Decreased Ankle joint dorsiflexion ROM, knee extended.?X-Rays: ?Views:? 3 views of Foot, LAT, LO, MO, LEFT.?Findings:? normal bone and soft tissue density consistent for patients age and sex, navicular/cuneiform plantar subluxation with anterior cyma line, positive infra-calcaneal exostosis, no coalitions identified.?Foot structure:? reveals excess pronation with, anterior break in cyme line, increased talar declination, decreased calcaneal inclination.?Fracture:?Negative fractures identified.?Vascular: ?DP PULSES:?3/4, B/L.?PT PULSES:?3/4, B/L.?CAPILLARY FILL TIME:?immediate, all digits, B/L.?SKIN TEMPERTURE GRADIENT OF THE LOWER EXTERMITIES:?warm to cool, proximal to distal, B/L.?HAIR GROWTH/TEXTURE/ELASTICITY/TURGOR:?normal, B/L.?PIGMENTATION:?normal, B/L.?EDEMA:?absent, B/L.?Neurological: ?SENSORY:?Neurological exam reveals intact sensorium, pain sensation normal, vibration sensation intact, pinprick sensation is normal in the lower extremities, 5.07 monofilament test performed at plantar aspects of 5 varied sites per foot shows sensation, B/L, Pt denies, anesthesia, burning, paresthesia, tingling, B/L.?TINEL'S COMPRESSION:?Negative tarsal tunnel, becca pedis, and medial calcaneal nerves , Negative tarsal tunnel, becca pedis, and medial calcaneal nerves.?DEEP TENDON REFLEXES:?Achilles, 2/4, B/L.?Dermatologic: ?SKIN FINDINGS:?Skin exam reveals normal texture, elasticity, and turgor. There are no masses. The interspaces are clear.?Ophthalmology Referral: ?DIABETES EYE EXAM?General Examination: ?GENERAL APPEARANCE:?Reveals a pleasant, alert, well nourished, well- developed, well hydrated individual, who demonstrates proper attention to hygiene/body habitus, and is in no acute distress, Pt serves as own historian for office visit today.?ORIENTED:?person, place, and time.?FOOT EXAM:?Footwear Evaluation? Assessment: * Assessment: 1.?Pain in left foot - M79.6 72?2.?Plantar fasciitis of left foot - M72.2, Acute problem, Complicated w/ Multiple Tx Options(4), Dx New problem, Prognosis Uncertain (4)?3.?Calcaneal spur, left foot - M77.32?4.?Interstitial myositis of left foot - M60.172?5.?Bursitis of left foot - M77.52?6.?Type 2 diabetes mellitus without complication - E11.9? Plan: * Treatment: 2.?Plantar fasciitis of left foot? Notes: Patient Educated with: HEEL CORD STRETCHES.pdf (HEEL CORD STRETCHES.pdf) Patient Educated with: RICE THERAPY.pdf (RICE THERAPY.pdf).?? * Procedure Codes:?31869 X-RAY EXAM OF LEFT FOOT 3V, Modifiers: 26 , LT * Preventive Medicine:? ??Counseling:?Discussion:?-04: Office or other outpatient visit for the evaluation and management of a new patient, which required a medically appropriate history and/or examination and MODERATE level of DECISION MAKING for: 1 OR MORE CHRONIC PROBLEM(S) THATS WORSENING, 2 STABLE CHRONIC PROBLEMS, A NEWLY DIAGNOSED PROBLEM WITH UNCERTAIN PROGNOSIS, AN ACUTE COMPLICATED INJURY WITH MULTIPLE TREATMENT OPTIONS, OR AN ACUTE PROBLEM WITH ACCOMPANYING SYSTEMIC SYMPTOMS, THAT POSE(S) A MODERATE RISK OF MORBIDITY. THIS CONDITION MAY ALSO INCLUDE RX DRUG MANAGEMENT, OR A DECISON FOR MINOR SURGERY. The visit on the day of the [...] encouraged the patient to call the office.?Heel pain:?FASCIITIS: I explained to the patient the possible etiologies of Plantar Fasciitis including foot type/shoegear/activity level/exercise routine and the risks/benefits of all the different treatment options for heel pain including: No treatment at all, Rest, Ice, NSAIDs(only if well tolerated after meals), New/supportive Shoegear, Strappings and Tapings, Stretching exercises, Deep Tissue Massage, Heel cups/cushions, Arch support/shoe inserts, Custom orthoses, Topical analgesics including Aspercream/Voltaren gel, Night splint AFO for am stiffness, Cortisone injection therapy, Cast boot with crutches/cane/or walker for assisted ambulation, Physical Therapy, EPAT/ESWT, Interfil injection therapy, as well as surgical [place]/Endoscopic Fasciitomy surgical procedures if needed. Recommendations were made to limit barefoot walking, eliminate wearing nonsupportive shoegear (i.e. flip-flops or sandals, or a shoe with an easily bendable, foldable, or twistable sole) and wear shoegear with a good solid sole, a supportive arch, and plenty of room for an insert/orthotic if necessary. If wearing sandals was required by the patient, we recommended orthopedic sandals such as Orthoheel or Birkenstock even while in the home. If the patient wore heels in the past, we recommended they continue, but eliminate the use of flats. The advantages and disadvantages of each option were discussed and the patients questions re: types of shoegear, custom vs prefabricated inserts, activity level, PO vs Topical medications (and their respective potential complications/drug interactions/side effects), and consistency in home treatment regimens for optimal success were answered to their satisfaction. Literature detailing plantar fasciitis and the various treatment options were dispensed and reviewed.?Orthotics:?I explained to the patient the benefits of OT use. I explained that orthoses are medically necessary to decrease the foot pain through proper mechanical control, support of their foot , decrease stretch/strain on the plantar fascia.?P.R.I.C.E.:?The patient was counseled on the use of P.R.I.C.E. and NSAIDS (if well tolerated) to aid in the recovery from their painful condition.?Shoe Gear Counseling:?The patient and I reviewed the types of shoes they should be wearing. My recommendation included obtaining a well-fitted shoe with a good supportive, non-foldable nor twistable sole, plenty of toe/room for the forefoot, and proper arch support. Based on todays examination, I recommended the patient look for new shoes, by having their feet professionally measured. We discussed that generally the best time of the day for a shoe fitting is the afternoon. Different shoes types and brands to best match the patients occupation and vocation were discussed. Specific brand selection will be up to the patient, their individual foot condition/deformities, and fit. The patient and I reviewed the standard new shoe break in period by wearing them for a few hours a day while checking for redness or sores as wear time is increased. The patient verbally confirmed to understanding the information discussed.?Stretching Exercises:?Stretching and deep tissue massage exercises for the patients injury/diagnosis were discussed and demonstrated, handouts were dispensed.? * Follow Up:?3-4 Weeks * Images: * Sign off status: Completed true * Provider:?Judson Campbell DPM Date:?2022 Generated for Leo bailey/Linn/Reji on:?02/26/2024 05:04 PM EST History and Physical Notes * HPI (History of Present Illness) Category Sub-Category Detail Notes Category Not es Heel pain Duration: two months Location: Proximal plantar asp ect of Heel, LEFT Aggravated: standing, walking, w alking first thing in the morning/after rest Course: worse Treatments: rest , change in adin es , custom orthoses Examination Category Sub-Category Detail Notes Category Not es Neurological SENSORY: Neurological exa m reveals intact sensorium, pain sensation normal, vibration sensation intact, pinprick sensation is normal in the lower extremities, 5.07 monofilament test performed at plantar aspects of 5 varied sites per foot shows sensation, B/L, Pt denies, anesthesia, burning, paresthesia, tingling, B/L TINEL'S COMPRESSION: Negative tarsal janice renetta, becca pedis, and medial calcaneal nerves , Negative tarsal tunnel, becca pedis, and medial calcaneal nerves DEEP TENDON REFLEXES: Achilles, 2/4, B/L Dermatologic SKIN FINDINGS: Skin exam reveal s normal texture, elasticity, and turgor. There are no masses. The interspaces are clear Orthopedic GAIT ABNORMALITY: antalgic FOOT MORPHOLOGY: Pes Planus structure , Decreased Ankle joint dorsiflexion ROM, knee extended MUSCLE STRENGTH: 5/5 all groups in a symmetrical fashion, B/L General Examination GENERAL APPEARANCE: Reveals a pleasant, alert, well nourished, well-developed, well hydrated individual, who demonstrates proper attention to hygiene/body habitus, and is in no acute distress, Pt serves as own historian for office visit today FOOT EXAM: Lower Extremity Neurological Exa m performed:: Yes ORIENTED: person, place, and t olga Footwear Evaluation Footwear Evaluation performe d:: Yes Ophthalmology Referral DIABETES EYE EXAM Diabetic Retinopa thy Screening:: Yes Findings of Diabetic Eye Exam:: no retin opathy Vascular DP PULSES(B): 3/4, B/L PT PULSES(B): 3/4, B/L CAPILLARY FILL TIME: immediate, all digi ts, B/L TEMPERTURE GRADIENT(C): warm to cool, pr oximal to distal, B/L TROPHIC CONDITION-TEXTURE/ELASTICITY/TURGOR/HAIR GROWTH(B): normal, B/L EDEMA(C): absent, B/L PIGMENTATION: normal, B/L X-Rays - IMAGING REPORT Findings: normal b one and soft tissue density consistent for patients age and sex, navicular/cuneiform plantar subluxation with anterior cyma line, positive infra-calcaneal exostosis, no coalitions identified Fracture: Negative fractures i dentified Foot structure: reveals excess prona tion with, anterior break in cyme line, increased talar declination, decreased calcaneal inclination Views: 3 views of Foot, LAT , LO, MO, LEFT Heel Pain INSPECTION: Pain on Palpatio n to Plantar Fascia med. and central bands, intrinsic musc., infra-calcaneal bursa, and med calc tubercle , LEFT foot, No pain: posterior/superior heel, achilles bursa/tendon, sinus tarsi, peroneals, or with lateral heel compression; no limited STJ ROM, calor, or ecchymosis
--- OUTSIDE RECORDS SUMMARY | 2024-02-26 17:05 | XMS_ITS | Patient Health Record ---
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 Name Role Phone Kev Briseno MD Primary Care Provider Judson Fletcher Unavailable [phone] Allergies Allergen (clinical drug ingredient) Drug/Non Drug Allergy documented on EMR Reaction Allergy Type Onset Date Status Latex Latex (uncoded) Unknown Allergy Acti ve Adhesive Unknown Allergy Active Reason For Referral No Information Medications Medication SIG (Take, Route, Frequency, Duration) Notes Start Date End Date Status oxyCODONE-Acetaminophen 5-325 MG 1 tablet as needed Orally every 6 hrs Active Toujeo Max SoloStar Active Trulicity Active Invokana 100 MG 1 tablet before the first meal of the day Orally Once a day for 30 day(s) Not-Taking Lisinopril 40 MG 1 tablet Orally twic e a day Not-Taking Simvastatin 40 MG 1 tablet every eveni ng Orally Once a day Not-Taking Albuterol PRN Active Toujeo SoloStar Not- Taking Atorvastatin Calcium 80 MG 1 tablet Orally Once a day Active Drysol 20 % as directed External ly at bedtime for 30 days 12/15/2010 Not-Takin g Jardiance 25 MG 1 tablet Orally Once a day Active Percocet 5-325 MG 1 tablet as needed Orally every 6 hrs Not-Taking Losartan Potassium 50 MG 1 tablet Orally Once a day Active Ibuprofen 800 MG 1 tablet Orally Thre e times a day for 30 day(s) Not-Taking metFORMIN HCl ER 500 MG 1 tablet with ev ening meal Orally three times a day Active Ciclopirox Olamine 0.77 % 1 application Externally Twice a day for 30 days Active Social History Tobacco Use: Social History Observation [...] Problem Status W/U Status Risk Notes Problem [id number] Other hammer toe(s) (acquired), right foot (M20.41) Active confirmed Problem 17091003 Other hammer toe(s) (acquired), left foot (M20.42) Active confirmed Problem Type 2 diabetes mellitus without complication (265438324) Type 2 diabetes mellitus without complication (E11.9) Active confirmed Problem Interstitial myositis (83275363) 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 confirmed Plan Of Treatment Pending Test Test Name Order Date X ray : Foot, left 3V 10/27/2022 [id number] Destruction, -14 12/15/2010 [id number] Destruction, -01/05/2011 [id number] Destruction, -02/15/2011 Insurance Providers Payer Name Payer Address Payer Phone Subscriber Number Group Number Insured Name Patient Relationship to Insured Coverage Start Date Coverage End Date [employer] [address] [place] [address] [id number] Hester Spouse - patient is the spouse of the insured Medical (General) History Medical History History ICD Code back, hip, knee pain Cholesterol hypertension asthma Diabetic Hiatal hernia Chicken pox Dysphagia Surgical History Surgery Date(Month/Year) umbilical hernia 1994 appendectomy 1996
== END 2024-02-20 09:38 | disposition home or self-care (01) ==
PROVIDERS: PCP Internal Medicine; Visit Provider Internal Medicine
DX: M54.9 Dorsalgia, unspecified (principal)

== ENCOUNTER → 2024-02-20 09:24 | Outpatient (BNVA) | payer BC, SELFPAY | PROVIDERS: PCP Internal Medicine; Visit Provider Internal Medicine | DX: G89.29 Other chronic pain (principal); M54.9 Dorsalgia, unspecified | CPT/HCPCS: 96127 ==

== ENCOUNTER 2024-03-21 09:31 | Outpatient (AMB) | payer BC, SELFPAY ==
--- NOTE | 2024-03-21 09:36 | MHC.PC.OV ---
Vital Signs 03/21/24 09:37 Height 5 ft 11 in Weight 196 lb 8 oz BMI 27.4 BP 130/80 Blood Pressure Location Rt brachial Position Sitting Pulse 77 Pulse Source Pulse Oximeter Pulse Oximetry (%) 98 Oxygen Delivery Method Room Air Intake Visit Reasons: Med Management Intake Note: Patient is here to follow up on Med Management. Automobile Upholsterer Apprentice Required: No Motorcycle Racer: Not Required per policy Accompanied by: Self / Same As Patient Allergies Adhesive Bandages Adverse Reaction (Unknown, Verified 03/21/24 09:37) Unknown Medication List - Last Reconciled 03/21/24 by Kev Briseno MD albuterol sulfate 90 mcg/actuation (ProAir HFA) 2 puffs PO Q6H PRN atorvastatin 80 mg PO BEDTIME blood sugar diagnostic (Courtanet Verio test strips) three times a day blood-glucose sensor (Solaborate G7 Sensor device) As directed [diabetic shoes As directed] dulaglutide (Trulicity) 4.5 mg (0.5 mL) subcut QWEEK 90 days empagliflozin (Jardiance) 25 mg PO DAILY escitalopram oxalate 10 mg PO DAILY ibuprofen 600 mg PO Q8H PRN insulin glargine U-300 conc (Toujeo Max U-300 SoloStar) 26 units (0.0867 mL) subcut DIRECTED 90 days lancets As directed losartan 50 mg PO DAILY 90 days metformin ER 1,000 mg (2 x 500 mg) PO BID 90 days oxycodone 5 mg PO Q6H PRN pen needle, diabetic As directed once daily Tobacco use date assessed: 03/21/24 Dental Screening Dental Screen Date: 03/21/24 HPI Med Management HPI Details chronic back pain on rx; doing well; compliant [facility] Medical History Obesity Type 2 diabetes mellitus with obesity Obesity Tinea pedis Back pain GERD (gastroesophageal reflux disease) Sleep apnea Type 2 diabetes mellitus with other diabetic kidney complication Proteinuria 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 Essential hypertension 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 LDL goal <100 Type 2 diabetes mellitus with proteinuria Surgical History H/O colonoscopy History of umbilical hernia repair History of appendectomy Family History Father Smoker Alcohol abuse Mother Diabetes Other Substance use disorder Social History Household Members: Spouse and Children Housing: House Alcohol intake: never Patient Tobacco Use Status: Never used Tobacco Tobacco use type: Cigarette e-Cigarette/Vaping Use: Never Used Second Hand Smoke Exposure: No service: No Current occupational status: employed Cognitive needs: No Hearing needs: No Vision needs: Yes Questionnaire PHQ-9 Over the last 2 weeks, how often have you been bothered by any of the following problems? 1. Little interest or pleasure in doing things: not at all 2. Feeling down, depressed, or hopeless: not at all 3. Trouble falling or staying asleep, or sleeping too much: not at all 4. Feeling tired or having little energy: not at all 5. Poor appetite or overeating: not at all 6. Feeling bad about yourself - or that you are a failure or have let yourself or your family down: not at all 7. Trouble concentrating on things, such as reading the newspaper or watching television: not at all 8. Moving or speaking so slowly that other people could have noticed. Or the opposite - being so fidgety or restless that you have been moving around a lot more than usual: not at all 9. Thoughts that you would be better off or of hurting yourself in some way: not at all Total score: 0 Depression Screening Interpretation: Negative Depression Screening Done: Yes Source: Developed by Drs. Hayes Watt, Susan Mejia, Anton Moreno and colleagues, with an educational vipul from [employer]. Thrive Questionnaire Date Thrive assessed: 03/21/24 I am a: Patient What is your living situation today?: I have a steady place to live Within the past 12 months, did the food you bought not last and you didn't have the money to get more?: Never true Within the past 12 months, did you worry whether your food would run out before you got money to buy more?: Never true Do you have trouble paying for medicines?: No Do you have trouble getting transportation to medical appointments?: No Do you have trouble paying your heating and electricity bill?: No Do you have trouble taking care of your child, family member or friend?: No Do you have trouble with day-to-day activities such as bathing, preparing meals, shopping, managing finances, etc.?: No Are you currently unemployed and looking for a job?: No Are you interested in more education?: No Currently or been in a relationship where the following occur: No concerns reported THRIVE Score: 0 AUDIT C Alcohol Use Questionnaire (AUDIT-C) 1. How often do you have a drink containing alcohol?: Never Total Score: 0 PEDRO-7 AMB Questionnaire PEDRO-7 Date PEDRO - 7 assessed: 03/21/24 Feeling nervous, anxious, or on edge: 0 = Not at all Not being able to stop or control worryin = Not at all Worrying too much about different things: 0 = Not at all Trouble relaxin = Not at all Being so restless that it is hard to sit still: 0 = Not at all Becoming easily annoyed or irritable: 0 = Not at all Feeling afraid as if something awful might happen: 0 = Not at all Total PEDRO-7 score (0-4 normal; 5-9 mild; 10-14 moderate; 15-21 severe): 0 Source: Developed by Drs. Hayes Watt, Susan Mejia, Anton Moreno and colleagues, with an educational vipul from [employer]. Review of Systems Const Denies chills, Denies headache(s) and Denies weight loss ENT Denies headache(s) Card Denies chest pain, Denies syncope, Denies irregular heart rhythm and Denies dyspnea Resp Denies chest congestion, Denies cough and Denies dyspnea GI Denies abdominal pain, Denies change in stool character, Denies nausea and Denies vomiting Musc Denies deformity and Denies joint swelling Neuro Denies syncope and Denies headache(s) Physical exam (Primary Care) Vital Signs: Last Vital Signs Pulse 77 03/21/24 09:37 BP 130/80 03/21/24 09:37 Pulse Ox 98 03/21/24 09:37 Oxygen Delivery Method Room Air 03/21/24 09:37 BMI result Body Mass Index 27.4 Tobacco/Smoking Status: Tobacco use Status Tobacco use date assessed 03/21/24 03/21/24 09:43 Patient Tobacco Use Status Never used Tobacco 03/21/24 09:43 Tobacco use type Cigarette 03/21/24 09:43 e-Cigarette/Vaping Use Never Used 03/21/24 09:43 PHQ-9: PHQ-9 Score PHQ-9: Total score 0 03/21/24 09:43 Depression Screening Interpretation: Negative Thrive Assessment: Date of Thrive Assessment Date Thrive assessed 03/21/24 03/21/24 09:43 Currently or been in a relationship where the following occur: No concerns reported Const General: cooperative, comfortable, no acute distress and alert Neck Neck: Yes no lymphadenopathy Thyroid: Thyroid normal Resp Effort & Inspection: normal respiratory effort Auscultation: clear to auscultation bilaterally Percussion: percussion normal Cardio Jugular venous distension: no JVD Palpation: normal PMI Rate: regular rate Rhythm: regular rhythm Heart sounds: S1 normal heart sound present and S2 normal heart sound present GI Inspection: Yes normal to inspection Palpation (GI): No hepatosplenomegaly present Skin General skin exam: no rashes or lesions noted Extrem General: Yes no clubbing, cyanosis or edema Coding Level of Care Code Est Pt Level 3 (96014) Diagnoses Back pain M54.9 Assessment & Plan Assessment & Plan (1) Back pain: Code(s): M54.9 - Dorsalgia, unspecified Category: Medical Plan: stable; same rx Medications: Refilled oxycodone Partial Fill upon patient request. 5 mg PO Q6H PRN 120 tabs 0RF pain
[2024-03-21 09:37] VITALS: BP 130/80; PULSE 77; O2SAT 98; BMI 27.4
--- OUTSIDE RECORDS SUMMARY | 2024-03-21 10:09 | XMS_ITS ---
Author Organization [facility] Address [address] [place] [address] Care Team Providers Care Refractory Tile Helper Name Role Phone Kev Briseno MD Primary Care Provider Hayes Garrett Unavailable [phone] REASON FOR VISIT cancel appt Encounters Encounter Location Date Provider Diagnosis [facility] [address] [place] [address] 05/28/2023 Hayes Harry PLAN OF TREATMENT No Information
--- OUTSIDE RECORDS SUMMARY | 2024-03-21 10:09 | XMS_ITS ---
Author Organization [facility] Address [address] [place] [address] Care Team Providers Care Auto Service Mechanic Name Role Phone Kev Briseno MD Primary Care Provider Aislinn Garrett Unavailable [phone] REASON FOR VISIT Patient presents today for esophageal reflux Encounters Encounter Location Date Provider Diagnosis [facility] [address] [place] [phone] 05/29/2023 Aislinn Harry PLAN OF TREATMENT No Information
--- OUTSIDE RECORDS SUMMARY | 2024-03-21 10:09 | XMS_ITS ---
Author Organization [facility] Address [address] [place] [address] Care Team Providers Care Principal Technical Writer Name Role Phone Kev Briseno MD Primary Care Provider Aislinn Garrett Unavailable [phone] MEDICATIONS Medication SIG (Take, Route, Fr equency, Duration) Notes Start Date End Date Status Diflucan 100 MG 2 tablets on Day # 1 , and then 1 tablet daily Orally Daily for 21 days 01/08/2023 Active Encounters Encounter Location Date Provider Diagnosis [facility] [address] [place] [address] 01/08/2023 Aislinn Harry PLAN OF TREATMENT Medication Medication Name Sig Start Date Stop Date Notes Diflucan 100 MG 2 tablets on Day # 1 , and then 1 tablet daily Orally Daily for 21 days 01/08/2023
--- OUTSIDE RECORDS SUMMARY | 2024-03-21 10:10 | XMS_ITS ---
[facility] Address [address] [place] [address] Care Team Providers Care Automatic I Threading Machine Feeder Name Role Phone Kev Briseno MD Primary Care Provider Judson Fletcher Unavailable [phone] Allergies Allergen (clinical drug ingredient) Drug/Non Drug [...] W/U Status Risk Notes Problem Interstitial myositis (85625800) 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 confirmed Vital Signs Height 5 ft 10 in in 10/27/2022 Weight 194 lbs 10/27/2022 BMI 27.83 kg/m2 10/27/2022 Blood pressure systolic 126 mm Hg 10/28/19 23 Blood pressure diastolic 82 mm Hg 023 Heart Rate 80 /min 10/27/2022 Encounters Encounter Location Date Provider Diagnosis [facility] [place] [address] [place] [address] 10/27/2022 Judson Adrian Pain in left foot [...] * Hayes POLANCO PDOB:1965 (57 yo M)Acc No.[id number]:10/27/2022 Progress Notes Patient:?Hayes Polanco P Provider:?Judson Campbell DPM :1965???Age:57 Y???Sex:Male Ilan e:10/27/2022 Address:[address] [place], [place] [id number] Pcp:Kev Briseno MD Subjective: * Chief Complaints: [...] with: RICE THERAPY.pdf (RICE THERAPY.pdf).?? * Procedure Codes:?89677 X-RAY EXAM OF LEFT FOOT 3V, Modifiers: [...] Interfil injection therapy, as well as surgical [place]/Endoscopic Fasciitomy surgical procedures if needed. Recommendations were [...] Provider:Jona Campbell DPM Date:?2022 Generated for Leo bailey/Linn/Reji on:?03/21/2024 10:09 AM EST History and Physical Notes * HPI [...] Eye Exam:: no retin opathy Vascular DP PULSES (B): 3/4, B/L PT PULSES (B): 3/4, B/L CAPILLARY FILL TIME: immediate, all digi ts, B/L TEMPERTURE GRADIENT (C): warm to cool, p roximal to distal, B/L TROPHIC CONDITION-TEXTURE/ELASTICITY/TURGOR/HAIR GROWTH (B): normal, B/L EDEMA (C): absent, B/L PIGMENTATION: normal, B/L X-Rays - [...]
--- OUTSIDE RECORDS SUMMARY | 2024-03-21 10:10 | XMS_ITS | Patient Health Record ---
Author [facility] Address [address] [place] [address] Care Team Providers Care Radio Talk Show Host Name Role Phone Kev Briseno MD Primary Care Provider Judson Fletcher Unavailable [phone] Allergies Allergen (clinical drug ingredient) Drug/Non Drug [...] Problem Status W/U Status Risk Notes Problem 88376307 Other hammer toe(s) (acquired), right foot (M20.41) Active confirmed Problem 71969660 Other hammer toe(s) (acquired), left foot (M20.42) Active confirmed Problem Type 2 diabetes mellitus without complication (279945903) Type 2 diabetes mellitus without complication (E11.9) Active confirmed Problem Interstitial myositis (04880206) 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 confirmed Plan Of Treatment Pending Test Test Name Order Date X ray : Foot, left 3V 10/27/2022 [id number] Destruction, -14 12/15/2010 52853-Mmur Destruction, -01/05/2011 14349-Bsjs Destruction, -02/15/2011 Insurance Providers Payer Name Payer Address Payer Phone Subscriber Number Group Number Insured Name Patient Relationship to Insured Coverage Start Date Coverage End Date [facility] All Others [address] [place] [address] [id number] Hester Spouse - patient is the spouse of the insured Medical (General) History Medical History History ICD Code back, hip, knee pain Cholesterol hypertension asthma Diabetic Hiatal hernia Chicken pox Dysphagia Surgical History Surgery Date(Month/Year) umbilical hernia 1994 appendectomy 1996
--- OUTSIDE RECORDS SUMMARY | 2024-03-21 10:10 | XMS_ITS | Patient Health Record ---
Author Organization [facility] Address [address] [place] [address] Care Team Providers Care Hr Associate Name Role Phone Kev Briseno MD Primary Care Provider Aislinn Garrett Unavailable [phone] ALLERGIES Allergen (clinical drug ingredient) Drug/Non Drug [...] Notes Problem Pharyngoesophageal dysphagia (R13.14) Active confirmed 71734307 Problem Gastroesophageal reflux disease (K21.9) Active confirmed Gastroesophagea l reflux disease (303075898) Problem Gastritis (K29.70) Active confirmed Gas tritis (6632301) Problem Dysphagia (R13.10) Active confirmed Dys phagia (58631982) Encounters Encounter Location Date Provider Diagnosis [facility] [address] [place] [phone] 05/29/2023 Aislinn Harry [facility] [address] [place] [address] 05/28/2023 Aislinn Harry PLAN OF TREATMENT Future Test Test Name Order Date UPPER GI ENDOSCOPY [place] DILATION OF ESOPH 09/21/2022 Insurance Providers Payer Name Payer Address Payer Phone Subscriber Number Group Number Insured Name Patient Relationship to Insured Coverage Start Date Coverage End Date [facility] [address] [place] [address] [id number] AISLINN POLANCO Self - patient is the insured MEDICAL (GENERAL) HISTORY Medical History History ICD Code DM HTN Asthma Denies [place],CVA,renal disease Colonoscopy with one tubular adenoma rem demetri 08/2021 Dr. Schneider Neck and back pain from disc disease Surgical History Surgery Date(Month/Year) Appy 2004 Umbilical hernia 2000
--- OUTSIDE RECORDS SUMMARY | 2024-03-21 10:10 | XMS_ITS ---
Author [facility] Address [address] [facility] [place] [address] Care Team Providers Care Toy Electric Train Repairer Name Role Phone Kev Briseno MD Primary Care Provider Judson Fletcher Unavailable [phone] Allergies Allergen (clinical drug ingredient) Drug/Non Drug [...] 12/01/2022 Encounters Encounter Location Date Provider Diagnosis [facility] [address] [place] [address] 12/01/2022 Judson Campbell Tinea pedis of both [...] * Hayes POLANCO PDOB:1965 (57 yo M)Acc No.[id number]:12/01/2022 Progress Notes Patient:?Hayes Polanco Provider:?Judson Campbell DPM :1965???Age:57 Y???Sex:Male Ilan e:12/01/2022 Address:[address] [place] [address] [id number] Pcp:Kev Briseno MD Subjective: * Chief Complaints: [...] Campbell DPM Date:?2022 Generated for Leo bailey/Linn/Diaitting on:?03/21/2024 10:09 AM EST History and Physical [...]
== END 2024-03-21 09:59 | disposition home or self-care (01) ==
PROVIDERS: PCP Internal Medicine; Visit Provider Internal Medicine
DX: M54.9 Dorsalgia, unspecified (principal)

== ENCOUNTER 2024-04-22 10:44 | Outpatient (AMB) | payer BC, SELFPAY ==
[2024-04-22 10:45] VITALS: BP 110/78; PULSE 86; TEMP 36.2; O2SAT 95; BMI 27.2
--- NOTE | 2024-04-22 10:45 | MHC.PC.OV ---
Vital Signs 04/22/24 10:45 Height 5 ft 11 in Weight 195 lb 6 oz BMI 27.2 BP 110/78 Blood Pressure Location Rt brachial Position Sitting Pulse 86 Pulse Source Pulse Oximeter Temp 97.1 F Temp Source Skin Pulse Oximetry (%) 95 Oxygen Delivery Method Room Air Intake Visit Reasons: Med Management Intake Note: Patient is here to follow up on med management. Bore Mill Operator Required: No Group Social Worker: Not Required per policy Accompanied by: Self / Same As Patient Allergies Adhesive Bandages Adverse Reaction (Unknown, Verified 04/22/24 10:45) Unknown Medication List - Last Reconciled 04/22/24 by Kev Briseno MD albuterol sulfate 90 mcg/actuation 2 puffs PO Q6H PRN atorvastatin 80 mg PO BEDTIME blood sugar diagnostic ([employer] Verio test strips) three times a day blood-glucose sensor (ki work G7 Sensor device) As directed [diabetic shoes As directed] dulaglutide (Trulicity) 4.5 mg (0.5 mL) subcut QWEEK 90 days empagliflozin (Jardiance) 25 mg PO DAILY escitalopram oxalate 10 mg PO DAILY ibuprofen 600 mg PO Q8H PRN insulin glargine U-300 conc (Toujeo Max U-300 SoloStar) 26 units (0.0867 mL) subcut DIRECTED 90 days lancets As directed losartan 50 mg PO DAILY 90 days metformin ER 1,000 mg (2 x 500 mg) PO BID 90 days oxycodone 5 mg PO Q6H PRN pen needle, diabetic As directed once daily Tobacco use date assessed: 04/22/24 Dental Screening Dental Screen Date: 03/21/24 HPI Med Management HPI Details chronic back pain on rx; compliant [facility] Medical History Obesity Type 2 diabetes mellitus with obesity Obesity Tinea pedis Back pain GERD (gastroesophageal reflux disease) Sleep apnea Type 2 diabetes mellitus with other diabetic kidney complication Proteinuria residential current use of insulin Essential hypertension 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 LDL goal <100 Type 2 diabetes mellitus with proteinuria Surgical History H/O colonoscopy History of umbilical hernia repair History of appendectomy Family History Father Smoker Alcohol abuse Mother Diabetes Other Substance use disorder Social History Household Members: Spouse and Children Housing: House Alcohol intake: never Patient Tobacco Use Status: Never used Tobacco Tobacco use type: Cigarette e-Cigarette/Vaping Use: Never Used Second Hand Smoke Exposure: No service: No Current occupational status: employed Cognitive needs: No Hearing needs: No Vision needs: Yes Questionnaire Thrive Questionnaire Date Thrive assessed: 03/21/24 PEDRO-7 AMB Questionnaire PEDRO-7 Date PEDRO - 7 assessed: 03/21/24 Source: Developed by Drs. Hayes Watt, Susan Mejia, Anton Moreno and colleagues, with an educational vipul from [employer]. Review of Systems Const Denies chills, Denies headache(s) and Denies weight loss ENT Denies headache(s) Card Denies chest pain, Denies syncope, Denies irregular heart rhythm and Denies dyspnea Resp Denies chest congestion, Denies cough and Denies dyspnea GI Denies abdominal pain, Denies change in stool character, Denies nausea and Denies vomiting Musc Denies deformity and Denies joint swelling Neuro Denies syncope and Denies headache(s) Physical exam (Primary Care) Vital Signs: Last Vital Signs Temp 97.1 F 04/22/24 10:45 Pulse 86 04/22/24 10:45 BP 110/78 04/22/24 10:45 Pulse Ox 95 04/22/24 10:45 Oxygen Delivery Method Room Air 04/22/24 10:45 BMI result Body Mass Index 27.2 Tobacco/Smoking Status: Tobacco use Status Tobacco use date assessed 04/22/24 04/22/24 10:49 Patient Tobacco Use Status Never used Tobacco 04/22/24 10:49 Tobacco use type Cigarette 04/22/24 10:49 e-Cigarette/Vaping Use Never Used 04/22/24 10:49 Thrive Assessment: Date of Thrive Assessment Date Thrive assessed 03/21/24 04/22/24 10:49 Const General: cooperative, comfortable, no acute distress and alert Neck Neck: Yes no lymphadenopathy Thyroid: Thyroid normal Resp Effort & Inspection: normal respiratory effort Auscultation: clear to auscultation bilaterally Percussion: percussion normal Cardio Jugular venous distension: no JVD Palpation: normal PMI Rate: regular rate Rhythm: regular rhythm Heart sounds: S1 normal heart sound present and S2 normal heart sound present GI Inspection: Yes normal to inspection Palpation (GI): No hepatosplenomegaly present Skin General skin exam: no rashes or lesions noted Extrem General: Yes no clubbing, cyanosis or edema Coding Level of Care Code Est Pt Level 3 (47790) Diagnoses Back pain M54.9 Assessment & Plan Assessment & Plan (1) Back pain: Code(s): M54.9 - Dorsalgia, unspecified Category: Medical Plan: stable; same rx Medications: Changed From albuterol sulfate 90 mcg/actuation (ProAir HFA) 2 puffs PO Q6H PRN 18 grams 8RF bronchospasm To albuterol sulfate 90 mcg/actuation 2 puffs PO Q6H PRN 18 grams 8RF bronchospasm Refilled oxycodone Partial Fill upon patient request. 5 mg PO Q6H PRN 120 tabs 0RF pain
== END 2024-04-22 10:58 | disposition home or self-care (01) ==
PROVIDERS: PCP Internal Medicine; Visit Provider Internal Medicine
DX: M54.9 Dorsalgia, unspecified (principal)

== ENCOUNTER → 2024-04-22 10:44 | Outpatient (BNVA) | payer BC, SELFPAY | PROVIDERS: PCP Internal Medicine; Visit Provider Internal Medicine ==

== ENCOUNTER 2024-05-14 10:17 | Outpatient (REF) | payer BC, SELFPAY ==
--- NOTE | ~2024-05-14 | XR_ITS ---
CLINICAL HISTORY: R05.9 - Cough, unspecified 2 view chest x-ray Comparison: None Findings: No consolidation or effusion. Heart size is normal. No acute fracture. IMPRESSION: 1. No acute findings. This document has been electronically signed by: Hayes Alba MD on 05/15/2024 08:47:07
--- OUTSIDE RECORDS SUMMARY | 2024-05-14 12:31 | XMS_ITS ---
Author Organization [facility] Address [address] [place] [address] Care Team Providers Care Bus Assistant Name Role Phone Kev Briseno MD Primary Care Provider Hayes Garrett Unavailable [phone] REASON FOR VISIT cancel appt Encounters Encounter Location Date Provider Diagnosis [facility] [address] [place] [address] 05/28/2023 Hayes Harry PLAN OF TREATMENT No Information
--- OUTSIDE RECORDS SUMMARY | 2024-05-14 12:32 | XMS_ITS | Patient Health Record ---
[facility] Address [address] [place] [address] Care Team Providers Care Heat Seal Operator Name Role Phone Kev Briseno MD Primary Care Provider Judson Fletcher Unavailable [phone] Allergies Allergen (clinical drug ingredient) Drug/Non Drug [...] Problem Status W/U Status Risk Notes Problem 88468245 Other hammer toe(s) (acquired), right foot (M20.41) Active confirmed Problem 79633934 Other hammer toe(s) (acquired), left foot (M20.42) Active confirmed Problem Type 2 diabetes mellitus without complication (158914159) Type 2 diabetes mellitus without complication (E11.9) Active confirmed Problem Interstitial myositis (93108837) 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 confirmed Plan Of Treatment Pending Test Test Name Order Date X ray : Foot, left 3V 10/27/2022 [id number] Destruction, -14 12/15/2010 [id number] Destruction, -01/05/2011 [id number] Destruction, -02/15/2011 Insurance Providers Payer Name Payer Address Payer Phone Subscriber Number Group Number Insured Name Patient Relationship to Insured Coverage Start Date Coverage End Date [facility] All Others [address] [place] [address] [id number] Rosamaria Hester Spouse - patient is the spouse of the insured Medical (General) History Medical History History ICD Code back, hip, knee pain Cholesterol hypertension asthma Diabetic Hiatal hernia Chicken pox Dysphagia Surgical History Surgery Date(Month/Year) umbilical hernia 1994 appendectomy 1996
--- OUTSIDE RECORDS SUMMARY | 2024-05-14 12:32 | XMS_ITS ---
Author Organization [facility] Address [address] [place] [address] Care Team Providers Care Magazine Journalist Name Role Phone Kev Briseno MD Primary Care Provider Aislinn Garrett Unavailable [phone] MEDICATIONS Medication SIG (Take, Route, Fr equency, Duration) Notes Start Date End Date Status Diflucan 100 MG 2 tablets on Day # 1 , and then 1 tablet daily Orally Daily for 21 days 01/08/2023 Active Encounters Encounter Location Date Provider Diagnosis [facility] [address] [place] [address] 01/08/2023 Aislinn Harry PLAN OF TREATMENT Medication Medication Name Sig Start Date Stop Date Notes Diflucan 100 MG 2 tablets on Day # 1 , and then 1 tablet daily Orally Daily for 21 days 01/08/2023
--- OUTSIDE RECORDS SUMMARY | 2024-05-14 12:32 | XMS_ITS | Patient Health Record ---
Author Organization [facility] Address [address] [place] [address] Care Team Providers Care Gun Synchronizer Name Role Phone Kev Briseno MD Primary Care Provider Aislinn Garrett Unavailable [phone] ALLERGIES Allergen (clinical drug ingredient) Drug/Non Drug [...] W/U Status Risk SNOMED Code Notes Problem Dysphagia (R13.10) Active confirmed Dys phagia (52322339) Problem Gastroesophageal reflux disease (K21.9) Active confirmed Gastroesophagea l reflux disease (436388995) Problem Gastritis (K29.70) Active confirmed Gas tritis (1001009) Problem Pharyngoesophageal dysphagia (R13.14) Active confirmed 23263790 Encounters Encounter Location Date Provider Diagnosis [facility] [address] [place] [phone] 05/29/2023 Aislinn Harry [facility] [address] [place] [address] 05/28/2023 Aislinn Harry PLAN OF TREATMENT Future Test Test Name Order Date UPPER GI ENDOSCOPY BALLOOON DILATION OF ESOPH 09/21/2022 Insurance Providers Payer Name Payer Address Payer Phone Subscriber Number Group Number Insured Name Patient Relationship to Insured Coverage Start Date Coverage End Date [facility] [address] [place] [address] [id number] AISLINN POLANCO Self - patient is the insured MEDICAL (GENERAL) HISTORY Medical History History ICD Code DM HTN Asthma Denies [place],CVA,renal disease Colonoscopy with one tubular adenoma rem demetri 08/2021 Dr. Schneider Neck and back pain from disc disease Surgical History Surgery Date(Month/Year) Appy 2004 Umbilical hernia 2000
--- OUTSIDE RECORDS SUMMARY | 2024-05-14 12:32 | XMS_ITS ---
[facility] Address [address] [place] [address] Care Team Providers Care Soap Drier Operator Name Role Phone Kev Briseno MD Primary Care Provider Judson Fletcher Unavailable [phone] Allergies Allergen (clinical drug ingredient) Drug/Non Drug [...] 12/01/2022 Encounters Encounter Location Date Provider Diagnosis [facility] [place] [address] [place] [address] 12/01/2022 Judson Campbell Tinea pedis of both [...] * Hayes POLANCO PDOB:1965 (57 yo M)Acc No.[id number]:12/01/2022 Progress Notes Patient:?Hayes Polanco Provider:?Judson Campbell DPM :1965???Age:57 Y???Sex:Male Ilan e:12/01/2022 Address:[address] [place] [address] [id number] Pcp:Kev Briseno MD Subjective: * Chief Complaints: [...] Campbell DPM Date:?2022 Generated for Leo bailey/Linn/Diaitting on:?05/14/2024 12:32 PM EST History and Physical Notes * [...]
--- OUTSIDE RECORDS SUMMARY | 2024-05-14 12:32 | XMS_ITS ---
Author Organization [facility] Address [address] [place] [address] Care Team Providers Care Treating Machine Operator Name Role Phone Kev Briseno MD Primary Care Provider Aislinn Garrett Unavailable [phone] REASON FOR VISIT Patient presents today for esophageal reflux Encounters Encounter Location Date Provider Diagnosis [facility] [address] [place] [phone] 05/29/2023 Aislinn Harry PLAN OF TREATMENT No Information
== END 2024-05-14 10:18 | disposition home or self-care (01) ==
LOC: HO.XRAY 10:17
PROVIDERS: PCP Internal Medicine; Visit Provider Internal Medicine
DX: R05.9 Cough, unspecified (principal)
CPT/HCPCS: 71046

== ENCOUNTER → 2024-05-14 10:23 | Outpatient (BNV) | payer BC, SELFPAY | PROVIDERS: PCP Internal Medicine; Visit Provider Radiology Diagnostic Radiology | DX: R05.9 Cough, unspecified (principal) | CPT/HCPCS: 71046 ==

== ENCOUNTER 2024-05-20 09:20 | Outpatient (AMB) | payer BC, SELFPAY ==
--- NOTE | 2024-05-20 09:25 | MHC.PC.OV ---
Vital Signs 05/20/24 09:26 Height 5 ft 11 in Weight 199 lb 2 oz BMI 27.8 BP 140/78 H Blood Pressure Location Lt brachial Position Sitting Pulse 83 Pulse Source Pulse Oximeter Temp 97.7 F Temp Source Temporal Artery Scan Pulse Oximetry (%) 98 Oxygen Delivery Method Room Air Intake Visit Reasons: Med Management Intake Note: Patient is here to follow up on med management. Beef Pusher Required: No Glass Forming Crew Member: Not Required per policy Accompanied by: Self / Same As Patient Allergies Adhesive Bandages Adverse Reaction (Unknown, Verified 05/20/24 09:26) Unknown Medication List - Last Reconciled 05/20/24 by Kev Briseno MD albuterol sulfate 90 mcg/actuation 2 puffs PO Q6H PRN atorvastatin 80 mg PO BEDTIME blood sugar diagnostic (Art Sumouch Verio test strips) three times a day blood-glucose sensor (M-Audio G7 Sensor device) As directed [diabetic shoes As directed] dulaglutide (Trulicity) 4.5 mg (0.5 mL) subcut QWEEK 90 days empagliflozin (Jardiance) 25 mg PO DAILY escitalopram oxalate 10 mg PO DAILY ibuprofen 600 mg PO Q8H PRN insulin glargine U-300 conc (Toujeo Max U-300 SoloStar) 26 units (0.0867 mL) subcut DIRECTED 90 days lancets As directed losartan 50 mg PO DAILY 90 days metformin ER 1,000 mg (2 x 500 mg) PO BID 90 days oxycodone 5 mg PO Q6H PRN pen needle, diabetic As directed once daily Tobacco use date assessed: 05/20/24 Dental Screening Dental Screen Date: 03/21/24 HPI Med Management HPI Details chronic back pain on pain management' compliant; DM and hyperlip PFSH Medical History Obesity Type 2 diabetes mellitus with obesity Obesity Tinea pedis Back pain GERD (gastroesophageal reflux disease) Sleep apnea Type 2 diabetes mellitus with other diabetic kidney complication Proteinuria 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 Essential hypertension 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 LDL goal <100 Type 2 diabetes mellitus with proteinuria Surgical History H/O colonoscopy History of umbilical hernia repair History of appendectomy Family History Father Smoker Alcohol abuse Mother Diabetes Other Substance use disorder Social History Household Members: Spouse and Children Housing: House Alcohol intake: never Patient Tobacco Use Status: Never used Tobacco Tobacco use type: Cigarette e-Cigarette/Vaping Use: Never Used Second Hand Smoke Exposure: No service: No Current occupational status: employed Cognitive needs: No Hearing needs: No Vision needs: Yes Questionnaire Thrive Questionnaire Date Thrive assessed: 03/21/24 PEDRO-7 AMB Questionnaire PEDRO-7 Date PEDRO - 7 assessed: 03/21/24 Source: Developed by Drs. Hayes Watt, Susan Mejia, Anton Moreno and colleagues, with an educational vipul from [employer]. Review of Systems Const Denies chills, Denies headache(s) and Denies weight loss ENT Denies headache(s) Card Denies chest pain, Denies syncope, Denies irregular heart rhythm and Denies dyspnea Resp Denies chest congestion, Denies cough and Denies dyspnea GI Denies abdominal pain, Denies change in stool character, Denies nausea and Denies vomiting Musc Denies deformity and Denies joint swelling Neuro Denies syncope and Denies headache(s) Physical exam (Primary Care) Vital Signs: Last Vital Signs Temp 97.7 F 05/20/24 09:26 Pulse 83 05/20/24 09:26 BP 140/78 H 05/20/24 09:26 Pulse Ox 98 05/20/24 09:26 Oxygen Delivery Method Room Air 05/20/24 09:26 BMI result Body Mass Index 27.8 Tobacco/Smoking Status: Tobacco use Status Tobacco use date assessed 05/20/24 05/20/24 09:28 Patient Tobacco Use Status Never used Tobacco 05/20/24 09:28 Tobacco use type Cigarette 05/20/24 09:28 e-Cigarette/Vaping Use Never Used 05/20/24 09:28 Thrive Assessment: Date of Thrive Assessment Date Thrive assessed 03/21/24 05/20/24 09:28 Const General: cooperative, comfortable, no acute distress and alert Neck Neck: Yes no lymphadenopathy Thyroid: Thyroid normal Resp Effort & Inspection: normal respiratory effort Auscultation: clear to auscultation bilaterally Percussion: percussion normal Cardio Jugular venous distension: no JVD Palpation: normal PMI Rate: regular rate Rhythm: regular rhythm Heart sounds: S1 normal heart sound present and S2 normal heart sound present GI Inspection: Yes normal to inspection Palpation (GI): No hepatosplenomegaly present Skin General skin exam: no rashes or lesions noted Extrem General: Yes no clubbing, cyanosis or edema Coding Level of Care Code Est Pt Level 3 (99879) Diagnoses Back pain M54.9 Assessment & Plan Assessment & Plan (1) Back pain: Code(s): M54.9 - Dorsalgia, unspecified Category: Medical Plan: stable; same rx Medications: Refilled oxycodone Partial Fill upon patient request. 5 mg PO Q6H PRN 120 tabs 0RF pain
[2024-05-20 09:26] VITALS: BP 140/78; PULSE 83; TEMP 36.5; O2SAT 98; BMI 27.8
--- OUTSIDE RECORDS SUMMARY | 2024-05-20 10:17 | XMS_ITS | Patient Health Record ---
[facility] Address [address] [place] [address] Care Team Providers Care Supervisor Hanging And Trimming Name Role Phone Kev Briseno MD Primary Care Provider Judson Fletcher Unavailable [phone] Allergies Allergen (clinical drug ingredient) Drug/Non Drug [...] Problem Status W/U Status Risk Notes Problem 21380511 Other hammer toe(s) (acquired), right foot (M20.41) Active confirmed Problem 79884394 Other hammer toe(s) (acquired), left foot (M20.42) Active confirmed Problem Type 2 diabetes mellitus without complication (412862170) Type 2 diabetes mellitus without complication (E11.9) Active confirmed Problem Interstitial myositis (53641285) 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 confirmed Plan Of Treatment Pending Test Test Name Order Date X ray : Foot, left 3V 10/27/2022 [id number] Destruction, -14 12/15/2010 [id number] Destruction, -01/05/2011 [id number] Destruction, -02/15/2011 Insurance Providers Payer Name Payer Address Payer Phone Subscriber Number Group Number Insured Name Patient Relationship to Insured Coverage Start Date Coverage End Date [facility] [address] [place] [address] [id number] Rosamaria Hester Spouse - patient is the spouse of the insured Medical (General) History Medical History History ICD Code back, hip, knee pain Cholesterol hypertension asthma Diabetic Hiatal hernia Chicken pox Dysphagia Surgical History Surgery Date(Month/Year) umbilical hernia 1994 appendectomy 1996
--- OUTSIDE RECORDS SUMMARY | 2024-05-20 10:17 | XMS_ITS | Patient Health Record ---
Author Organization [facility] Address [address] [place] [address] Care Team Providers Care Ground Defence Officer Name Role Phone Kev Briseno MD Primary Care Provider Aislinn Garrett Unavailable [phone] ALLERGIES Allergen (clinical drug ingredient) Drug/Non Drug [...] Problem Dysphagia (R13.10) Active confirmed Dys phagia (01735897) Problem Gastroesophageal reflux disease (K21.9) Active confirmed Gastroesophagea l reflux disease (425546396) Problem Gastritis (K29.70) Active confirmed Gas tritis (3042913) Problem Pharyngoesophageal dysphagia (R13.14) Active confirmed 95021527 Encounters Encounter Location Date Provider Diagnosis [facility] [address] [place] [phone] 05/29/2023 Aislinn Harry [facility] [address] [place] [phone] 05/28/2023 Aislinn Harry PLAN OF TREATMENT Future Test Test Name Order Date UPPER GI ENDOSCOPY BALLOOON DILATION OF ESOPH 09/21/2022 Insurance Providers Payer Name Payer Address Payer Phone Subscriber Number Group Number Insured Name Patient Relationship to Insured Coverage Start Date Coverage End Date [facility] [address] [place] [address] [id number] AISLINN POLANCO Self - patient is the insured MEDICAL (GENERAL) HISTORY Medical History History ICD Code DM HTN Asthma Denies [place],CVA,renal disease Colonoscopy with one tubular adenoma rem demetri 08/2021 Dr. Schneider Neck and back pain from disc disease Surgical History Surgery Date(Month/Year) Appy 2004 Umbilical hernia 2000
--- OUTSIDE RECORDS SUMMARY | 2024-05-20 10:17 | XMS_ITS ---
Author Organization [facility] Address [address] [place] [address] Care Team Providers Care Swing Manager Name Role Phone Kev Briseno MD Primary Care Provider Hayes Garrett Unavailable [phone] REASON FOR VISIT Patient presents today for esophageal reflux Encounters Encounter Location Date Provider Diagnosis [facility] [address] [place] [phone] 05/29/2023 Hayes Harry PLAN OF TREATMENT No Information
--- OUTSIDE RECORDS SUMMARY | 2024-05-20 10:17 | XMS_ITS ---
Author [facility] Address [address] [place] [address] Care Team Providers Care Waste Machine Operator Name Role Phone Kev Briseno MD Primary Care Provider Judson Fletcher Unavailable [phone] Allergies Allergen (clinical drug ingredient) Drug/Non Drug [...] 12/01/2022 Encounters Encounter Location Date Provider Diagnosis [facility] [place] [address] [place] [address] 12/01/2022 Judson Campbell Tinea pedis of both [...] * Hayes POLANCO PDOB:1965 (57 yo M)Acc No.[id number]:12/01/2022 Progress Notes Patient:?Hayes Polanco Provider:?Judson Campbell DPM :1965???Age:57 Y???Sex:Male Ilan e:12/01/2022 Address:[address] [place] [address] [id number] Pcp:Kev Briseno MD Subjective: * Chief Complaints: [...] Campbell DPM Date:?2022 Generated for Leo bailey/Linn/Diaitting on:?05/20/2024 10:17 AM EST History and Physical Notes * [...]
--- OUTSIDE RECORDS SUMMARY | 2024-05-20 10:17 | XMS_ITS ---
Author Organization [facility] Address [address] [place] [address] Care Team Providers Care Batter Out Name Role Phone Kev Briseno MD Primary Care Provider Hayes Garrett Unavailable [phone] REASON FOR VISIT cancel appt Encounters Encounter Location Date Provider Diagnosis [facility] [address] [place] [address] 05/28/2023 Hayes Harry PLAN OF TREATMENT No Information
--- OUTSIDE RECORDS SUMMARY | 2024-05-20 10:17 | XMS_ITS ---
Author Organization [facility] Address [address] [place] [address] Care Team Providers Care Guest Service Team Leader Name Role Phone Kev Briseno MD Primary Care Provider Aislinn Garrett Unavailable [phone] MEDICATIONS Medication SIG (Take, Route, Fr equency, Duration) Notes Start Date End Date Status Diflucan 100 MG 2 tablets on Day # 1 , and then 1 tablet daily Orally Daily for 21 days 01/08/2023 Active Encounters Encounter Location Date Provider Diagnosis [facility] [address] [place] [address] 01/08/2023 Aislinn Harry PLAN OF TREATMENT Medication Medication Name Sig Start Date Stop Date Notes Diflucan 100 MG 2 tablets on Day # 1 , and then 1 tablet daily Orally Daily for 21 days 01/08/2023
== END 2024-05-20 10:21 | disposition home or self-care (01) ==
PROVIDERS: PCP Internal Medicine; Visit Provider Internal Medicine
DX: M54.9 Dorsalgia, unspecified (principal)

== ENCOUNTER 2024-06-20 11:06 | Outpatient (AMB) | payer BC, SELFPAY ==
[2024-06-20 11:10] VITALS: BP 132/86; PULSE 78; O2SAT 96; BMI 27.4
--- NOTE | 2024-06-20 11:10 | MHC.PC.OV ---
Vital Signs 06/20/24 11:10 Height 5 ft 11 in Weight 196 lb 7 oz BMI 27.4 BP 132/86 Blood Pressure Location Lt brachial Position Sitting Pulse 78 Pulse Source Pulse Oximeter Pulse Oximetry (%) 96 Oxygen Delivery Method Room Air Intake Visit Reasons: Med Management (A1C NEEDED ) Gas Or Water Meter Installer Required: No Accompanied by: Self / Same As Patient Allergies Adhesive Bandages Adverse Reaction (Unknown, Verified 06/20/24 11:39) Unknown Medication List - Last Reconciled 06/20/24 by Jeovany Grace MD albuterol sulfate 90 mcg/actuation 2 puffs PO Q6H PRN atorvastatin 80 mg PO BEDTIME blood sugar diagnostic ([employer] test strips) three times a day blood-glucose sensor ([facility] [place] G7 Sensor device) As directed [diabetic shoes As directed] dulaglutide (Trulicity) 4.5 mg (0.5 mL) subcut QWEEK 90 days empagliflozin (Jardiance) 25 mg PO DAILY escitalopram oxalate 10 mg PO DAILY ibuprofen 600 mg PO Q8H PRN insulin glargine U-300 conc (Toujeo Max U-300 SoloStar) 26 units (0.0867 mL) subcut DIRECTED 90 days lancets As directed losartan 50 mg PO DAILY 90 days metformin ER 1,000 mg (2 x 500 mg) PO BID 90 days oxycodone 5 mg PO Q6H PRN pen needle, diabetic As directed once daily Tobacco use date assessed: 06/20/24 Dental Screening Dental Screen Date: 06/20/24 Did you have a dental visit in the last 12 months?: No Did you have a dental problem in the last 6 months where you did not have access to dental care?: No Was dental information given to patient?: No HPI Med Management (A1C NEEDED ) HPI Details Patient comes in today for his follow up visit - is transferring over from Dr. Briseno, who retired from the practice a couple of weeks ago States that he feels okay and just needs his pain medication Rx refilled today States that he's had chronic neck pain and low back pain since around 2006 - he was seeing Georgette PRAJAPATI) back then in our previous practice at [address] before the 2 primary care practices were merged and moved over here to [address] [facility] States that he has been seeing Dr. Briseno as his PCP since Patient relates that he has been to pain management over at [facility] and was being managed and treated by them for about 28 months before he was released back to his PCP Notes that his current pain meds just help keep his pain manageable and allow him to work and to function and states that he has been able to stay on the same dose of his medication over the years and has not really needed to have his dose increased or escalated (he relates that he is happy staying on what he is on now and is able to manage his pain otherwise) He denies any headaches or dizziness Denies any chest pains, no SOB No nausea/vomiting, no abdominal pain No change in bowel habits noted He has not had any follow up labs done recently - labs were last done in February 2024 [facility] Medical History (Updated 06/22/24 @ 11:44 by Jeovany Grace MD) Overweight (BMI 25.0-29.9) Depression Cervical spondylosis Lumbar degenerative disc disease Persistent microalbuminuria associated with type 2 diabetes mellitus Asthma Essential hypertension Mixed hyperlipidemia Diabetes mellitus Type 2 diabetes mellitus with obesity Tinea pedis Back pain GERD (gastroesophageal reflux disease) Sleep apnea Type 2 diabetes mellitus with other diabetic kidney complication 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 Essential hypertension 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 LDL goal <100 Type 2 diabetes mellitus with proteinuria Surgical History H/O colonoscopy History of umbilical hernia repair History of appendectomy Family History Father Smoker Alcohol abuse Mother Diabetes Other Substance use disorder Social History Household Members: Spouse and Children Housing: House Alcohol intake: never Patient Tobacco Use Status: Never used Tobacco Tobacco use type: Cigarette e-Cigarette/Vaping Use: Never Used Second Hand Smoke Exposure: No service: No Current occupational status: employed Cognitive needs: No Hearing needs: No Vision needs: Yes Questionnaire PHQ-9 Over the last 2 weeks, how often have you been bothered by any of the following problems? 1. Little interest or pleasure in doing things: not at all 2. Feeling down, depressed, or hopeless: not at all 3. Trouble falling or staying asleep, or sleeping too much: not at all 4. Feeling tired or having little energy: not at all 5. Poor appetite or overeating: not at all 6. Feeling bad about yourself - or that you are a failure or have let yourself or your family down: not at all 7. Trouble concentrating on things, such as reading the newspaper or watching television: not at all 8. Moving or speaking so slowly that other people could have noticed. Or the opposite - being so fidgety or restless that you have been moving around a lot more than usual: not at all 9. Thoughts that you would be better off or of hurting yourself in some way: not at all Total score: 0 Depression Screening Interpretation: Negative Depression Screening Done: Yes 81482 - PHQ-9 Billing: Yes Source: Developed by Drs. Hayes Watt, Susan Mejia, Anton Moreno and colleagues, with an educational vipul from [employer]. Thrive Questionnaire Date Thrive assessed: 06/20/24 I am a: Patient What is your living situation today?: I have a steady place to live Within the past 12 months, did the food you bought not last and you didn't have the money to get more?: Never true Within the past 12 months, did you worry whether your food would run out before you got money to buy more?: Never true Do you have trouble paying for medicines?: No Do you have trouble getting transportation to medical appointments?: No Do you have trouble paying your heating and electricity bill?: No Do you have trouble taking care of your child, family member or friend?: No Do you have trouble with day-to-day activities such as bathing, preparing meals, shopping, managing finances, etc.?: No Are you currently unemployed and looking for a job?: No Are you interested in more education?: No Please select the resources that you would like help with: None Currently or been in a relationship where the following occur: No concerns reported THRIVE Score: 0 AUDIT C Alcohol Use Questionnaire (AUDIT-C) 1. How often do you have a drink containing alcohol?: Never 3. How often do you have six or more drinks on one occasion?: Never Total Score: 0 Score Reviewed/Action Taken: Yes PEDRO-7 AMB Questionnaire PEDRO-7 Date PEDRO - 7 assessed: 06/20/24 Feeling nervous, anxious, or on edge: 0 = Not at all Not being able to stop or control worryin = Not at all Worrying too much about different things: 0 = Not at all Trouble relaxin = Not at all Being so restless that it is hard to sit still: 0 = Not at all Becoming easily annoyed or irritable: 0 = Not at all Feeling afraid as if something awful might happen: 0 = Not at all Total PEDRO-7 score (0-4 normal; 5-9 mild; 10-14 moderate; 15-21 severe): 0 Source: Developed by Drs. Hayes Watt, Susan Mejia, Anton Moreno and colleagues, with an educational vipul from [employer]. Review of Systems Const Denies chills, Denies fatigue, Denies fever(s) and Denies headache(s) ENT Denies dysphagia, Denies dizziness, Denies otalgia, Denies headache(s), Reports neck pain (chronic), Denies odynophagia and Denies sore throat Card Denies chest pain, Denies palpitations and Denies dyspnea Resp Denies chest congestion, Denies cough and Denies dyspnea GI Denies abdominal pain, Denies constipation, Denies dysphagia, Denies heartburn, Denies diarrhea, Denies nausea, Denies odynophagia and Denies vomiting Denies difficulty urinating, Denies dysuria, Denies nocturia and Denies urinary frequency Musc Reports back pain (over the lower back - chronic) and Reports neck pain (chronic) Skin/Breast Denies rash Neuro Denies dizziness and Denies headache(s) Endo Denies fatigue and Denies palpitations Physical exam (Primary Care) Vital Signs: Last Vital Signs Pulse 78 06/20/24 11:10 BP 132/86 06/20/24 11:10 Pulse Ox 96 06/20/24 11:10 Oxygen Delivery Method Room Air 06/20/24 11:10 BMI result Body Mass Index 27.4 Tobacco/Smoking Status: Tobacco use Status Tobacco use date assessed 06/20/24 06/20/24 11:12 Patient Tobacco Use Status Never used Tobacco 06/20/24 11:12 Tobacco use type Cigarette 06/20/24 11:12 e-Cigarette/Vaping Use Never Used 06/20/24 11:12 PHQ-9: PHQ-9 Score PHQ-9: Total score 0 06/22/24 11:27 Depression Screening Interpretation: Negative Thrive Assessment: Date of Thrive Assessment Date Thrive assessed 06/20/24 06/20/24 11:12 Currently or been in a relationship where the following occur: No concerns reported Const General: no acute distress and alert HENMT Ears: TM's normal bilaterally and EAC's normal Throat: Yes posterior oropharynx normal and Yes tonsils normal (no TP congestion) Neck Neck: No lymphadenopathy and Yes tender Thyroid: Thyroid normal Resp Auscultation: clear to auscultation bilaterally, no rales and no wheezes Cardio Rate: regular rate Rhythm: regular rhythm Heart sounds: no murmurs GI Palpation (GI): Soft to palpation and nontender Auscultation: normal bowel sounds General: Yes no CVA tenderness Back/Spine/Pelvis Back: no CVA tenderness Cervical Spine: Cervical spine tenderness Thoracic/Lumbar Spine: lumbar spinal tenderness Skin Rashes: no rashes Extrem General: Yes no clubbing, cyanosis or edema Results AMB Hemoglobin A1c AMB Hemoglobin A1c 8.7 % Last Edit by BROOKS Hay on 06/20/24 11:35 Results Reviewed Results Reviewed: Laboratory Last Values Hgb A1c (Clinic) 8.7 % (4.0-6.0) H 06/20/24 11:13 Coding Level of Care Code Est Pt Level 4 (67035) Diagnoses Type 2 diabetes mellitus with diabetic microalbuminuria, without long-term current use of insulin E11.29; R80.9 Diabetes mellitus complication detail: with diabetic microalbuminuria Diabetes mellitus complication status: with kidney complications Diabetes mellitus halfway insulin use: without parts counterman use Diabetes mellitus type: type 2 Persistent microalbuminuria associated with type 2 diabetes mellitus E11.29; R80.9 Mixed hyperlipidemia E78.2 Essential hypertension I10 Mild intermittent asthma without complication J45.20 Asthma severity: mild Asthma persistence: intermittent Asthma complication type: uncomplicated Degeneration of intervertebral disc of lumbar region with discogenic back pain M51.360 Disc-related pain type: discogenic back pain only Cervical spondylosis M47.812 Episode of recurrent major depressive disorder, unspecified depression episode severity F33.9 Depression Type: major depressive disorder Major depression recurrence: recurrent Active/Remission status: currently active Major depression episode severity: unspecified Overweight (BMI 25.0-29.9) E66.3 Additional Codes PHQ-9 - 85530 - PHQ-9 Billing: Yes ([id number]) Assessment & Plan Assessment & Plan (1) Diabetes mellitus: Code(s): E11.9 - Type 2 diabetes mellitus without complications Category: Medical Qualifiers: Diabetes mellitus complication detail: with diabetic microalbuminuria Diabetes mellitus complication status: with kidney complications Diabetes mellitus parts counterman insulin use: without parts counterman use Diabetes mellitus type: type 2 Qualified Code(s): E11.29 - Type 2 diabetes mellitus with other diabetic kidney complication; R80.9 - Proteinuria, unspecified Plan: In-office HgbA1c done today is at 8.7% (HgbA1c was at 7.7% back on 02/18/2024) - goal is <7.0% Reinforced diabetic diet Continue Trulicity 4.5 mg SQ once a week, Jardiance 25 mg QD, Metformin ER 1000 mg BID and Toujeo 26 units SQ once a day at bedtime (2) Persistent microalbuminuria associated with type 2 diabetes mellitus: Code(s): E11.29 - Type 2 diabetes mellitus with other diabetic kidney complication; R80.9 - Proteinuria, unspecified Category: Medical Plan: Have advised patient the best way to slow this down is to control his diabetes better - his HgbA1c is currently still at 8.7% (3) Mixed hyperlipidemia: Code(s): E78.2 - Mixed hyperlipidemia Category: Medical Plan: Reinforced low cholesterol diet Continue Atorvastatin 80 mg Q HS Will recheck his labs and fasting lipids in 1 month for follow up (4) Essential hypertension: Code(s): I10 - Essential (primary) hypertension Category: Medical Plan: Reinforced low sodium diet - goal is systolic BP of 120 mm or less Continue Losartan 50 mg QD Patient is reminded to continue monitoring his blood pressure regularly (5) Asthma: Code(s): J45.909 - Unspecified asthma, uncomplicated Category: Medical Qualifiers: Asthma severity: mild Asthma persistence: intermittent Asthma complication type: uncomplicated Qualified Code(s): J45.20 - Mild intermittent asthma, uncomplicated Plan: Controlled Continue Albuterol HFA 1 to 2 inhalations Q 6 hours PRN (6) Lumbar degenerative disc disease: Code(s): M51.369 - Other intervertebral disc degeneration, lumbar region without mention of lumbar back pain or lower extremity pain Category: Medical Qualifiers: Disc-related pain type: discogenic back pain only Qualified Code(s): M51.360 - Other intervertebral disc degeneration, lumbar region with discogenic back pain only Plan: Reinforced activity and weight-lifting restrictions to avoid aggravating his low back pain Continue Oxycodone 5 mg Q 6 hours PRN - Rx refilled (7) Cervical spondylosis: Code(s): M47.812 - Spondylosis without myelopathy or radiculopathy, cervical region Category: Medical Plan: Patient states that his neck pain has been mostly manageable lately and that his current Rx for pain are adequately keeping his neck pain and low back pain controlled (8) Depression: Code(s): F32.A - Depression, unspecified Category: Medical Qualifiers: Depression Type: major depressive disorder Major depression recurrence: recurrent Active/Remission status: currently active Major depression episode severity: unspecified Qualified Code(s): F33.9 - Major depressive disorder, recurrent, unspecified Plan: Continue Escitalopram 10 mg QD (9) Overweight (BMI 25.0-29.9): Code(s): E66.3 - Overweight Category: Medical Plan: Reinforced diet/exercise as tolerated/lose weight Plan Follow up in 1 month Orders: Orders AMB Hemoglobin A1c 06/20/25 Z13.9 - Encounter for screening, unspecified Complete Blood Count Auto Diff 3 Weeks D64.9 - Anemia, unspecified Microalbumin, Random (w Creat) 3 Weeks E11.9 - Type 2 diabetes mellitus without complications TSH reflex Free T4 3 Weeks E78.00 - Pure hypercholesterolemia, unspecified UA CC w/rflx Micro + Cult 3 Weeks R30.0 - Dysuria Vitamin B12 and Folate 3 Weeks E53.8 - Deficiency of other specified B group vitamins Vitamin D 25-OH Total 3 Weeks E55.9 - Vitamin D deficiency, unspecified Hemoglobin A1c 3 Weeks E11.9 - Type 2 diabetes mellitus without complications Comprehensive [place]. Panel Fast 3 Weeks E78.00 - Pure hypercholesterolemia, unspecified Lipid Panel 3 Weeks E78.00 - Pure hypercholesterolemia, unspecified Medications: Refilled oxycodone Partial Fill upon patient request. 5 mg PO Q6H PRN 120 tabs 0RF pain
--- OUTSIDE RECORDS SUMMARY | 2024-06-20 12:56 | XMS_ITS ---
Author Organization [facility] Address [address] [place] [id number] Care Team Providers Care Box Blank Machine Feeder Name Role Phone Kev Briseno MD Primary Care Provider Aislinn Garrett Unavailable [phone] REASON FOR VISIT Patient presents today for esophageal reflux Encounters Encounter Location Date Provider Diagnosis [facility] [address] [facility] [address] [place] [phone] 05/29/2023 Aislinn Harry Plan Of Treatment No Information Progress Notes * COLLINAISLINN JrDOB:[birth year] (58 yo M)Acc No.[id number]:05/29/2023 Progress Notes Patient:?AISLINN POLANCO Jr Provider:?Aislinn Harry MD :1965???Age:57 Y???Sex:Male Ilan e:05/29/2023 Address:[address] [place] [address] [id number] Pcp:Kev Briseno MD Subjective: * Chief Complaints: * ???1. Patient presents today for esophageal reflux. * Medical History:? Objective: * Vitals:? Assessment: Plan: * Treatment: * * The named appointment provid er may or may not be the originator of this progress note, and it is not deemed complete until electronically signed by the appointment provider. Sign off status: Pending * Provider:?Aislinn Harry MD Date:? 024 Generated for Printi ng/Faeziog/eTransmitting on:?06/20/2024 12:56 PM EDT
--- OUTSIDE RECORDS SUMMARY | 2024-06-20 12:56 | XMS_ITS | Patient Health Record ---
Author Organization [facility] Address [address] [place] [address] Care Team Providers Care Chisel Worker Name Role Phone Kev Briseno MD Primary Care Provider Aislinn Garrett Unavailable [phone] Allergies Allergen (clinical drug ingredient) Drug/Non Drug Allergy documented on EMR Reaction Allergy Type Onset Date Status Adhesive Unknown Allergy Active Reason For Referral [...] SUBCUTANEOUSLY ONCE WEEKLY. Subcutaneous for 84 Active Immunizations Vaccine Route Administration Date Status Comme nts Influenza Unknown 09/21/2022 Refused Social History Tobacco Use: Social History Observation Description Date Details (start date - stop date) Never Smoker NA - NA Tobacco Use/Smoking Question Answer Notes Patient is [...] Never (0 point) Points 1 Interpretation Negative Section Notes: Nonsmoker; no sig alcohol Problems Problem Type SNOMED Code ICD Code Onset Dates Problem Status W/U Status Risk Notes Problem Dysphagia (53740300) Dysphagia (R13.10) Active confirmed Problem Gastroesophageal reflux disease (201212359) Gastroesophageal reflux disease (K21.9) Active confirmed Problem Gastritis (8342871) Gastritis (K29.70) Active confirmed Problem 76227969 Pharyngoesophage al dysphagia (R13.14) Active confirmed Plan Of Treatment Future Test Test Name Order Date UPPER GI ENDOSCOPY B[place] DILATION OF ESOPH 09/21/2022 Insurance Providers Payer Name Payer Address Payer Phone Subscriber Number Group Number Insured Name Patient Relationship to Insured Coverage Start Date Coverage End Date [facility] [address] [place] [address] [id number] AISLINN POLANCO Self - patient is the insured Medical (General) History Medical History History ICD Code DM HTN Asthma Denies MD,CVA,renal disease Colonoscopy with one tubular adenoma rem demetri 08/2021 Dr. Schneider Neck and back pain from disc disease Surgical History Surgery Date(Month/Year) Appy 2004 Umbilical hernia 2001
--- OUTSIDE RECORDS SUMMARY | 2024-06-20 12:56 | XMS_ITS ---
Author Organization [facility] Address [address] [place] [address] Care Team Providers Care Air Drier Machine Operator Name Role Phone Kev Briseno MD Primary Care Provider Aislinn Garrett Unavailable [phone] REASON FOR VISIT cancel appt Encounters Encounter Location Date Provider Diagnosis [facility] [address] [place] [address] 05/28/2023 Aislinn Harry Plan Of Treatment No Information Progress Notes * AISLINN POLANCO JrDOB:[birth year] (57 yo M)Acc No.[id number]:05/28/2023 Patient:?COLLINAISLINN :1965???Age:57 Y???Sex:Male Address:[address] [place], [address] * true * Date:? Generated for Leo bailey/Linn/eTransmitting on:?06/20/2024 12:56 PM EDT
--- OUTSIDE RECORDS SUMMARY | 2024-06-20 12:57 | XMS_ITS ---
Author Organization [facility] Address [address] [place] [phone] Care Team Providers Care Due Diligence Coordinator Name Role Phone Kev Briseno MD Primary Care Provider Aislinn Garrett Unavailable [phone] Medications Medication SIG (Take, Route, Fr equency, Duration) Notes Start Date End Date Status Diflucan 100 MG 2 tablets on Day # 1 , and then 1 tablet daily Orally Daily for 21 days 01/08/2023 Active Encounters Encounter Location Date Provider Diagnosis [facility] [address] [place] [phone] 01/08/2023 Aislinn Harry Plan Of Treatment Medication Medication Name Sig Start Date Stop Date Notes Diflucan 100 MG 2 tablets on Day # 1 , and then 1 tablet daily Orally Daily for 21 days 01/08/2023 Progress Notes * AISLINN POLANCO JrDOB:[birth year] (57 yo M)Acc No.[id number]:01/08/2023 Patient:?AISLINN POLANCO :1965???Age:57 Y???Sex:Male Address:[address] [facility] [place], [address] * Refills? Start Diflucan Tablet, 100 MG, Orally, 22, 2 tablets on Day # 1, and then 1 tablet daily, Daily, 21 days, Refills=0 * true * Date:? Generated for Printi ng/Faeziog/eTransmitting on:?06/20/2024 12:56 PM EDT
--- OUTSIDE RECORDS SUMMARY | 2024-06-20 12:57 | XMS_ITS | Patient Health Record ---
Author [facility] Address [address] [facility] [place] [address] Care Team Providers Care Spine Specialist Name Role Phone Kev Briseno MD Primary Care Provider Judson Fletcher Unavailable [phone] Allergies Allergen (clinical drug ingredient) Drug/Non Drug [...] Problem Status W/U Status Risk Notes Problem 98713778 Other hammer toe(s) (acquired), right foot (M20.41) Active confirmed Problem 02586875 Other hammer toe(s) (acquired), left foot (M20.42) Active confirmed Problem Type 2 diabetes mellitus without complication (462125989) Type 2 diabetes mellitus without complication (E11.9) Active confirmed Problem Interstitial myositis (75743768) 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 confirmed Plan Of Treatment Pending Test Test Name Order Date X ray : Foot, left 3V 10/27/2022 [id number] Destruction, -14 12/15/2010 [id number] Destruction, -01/05/2011 [id number] Destruction, -02/15/2011 Insurance Providers Payer Name Payer Address Payer Phone Subscriber Number Group Number Insured Name Patient Relationship to Insured Coverage Start Date Coverage End Date [facility] [address] [place] [address] [id number] Rosamaria Hester Spouse - patient is the spouse of the insured Medical (General) History Medical History History ICD Code back, hip, knee pain Cholesterol hypertension asthma Diabetic Hiatal hernia Chicken pox Dysphagia Surgical History Surgery Date(Month/Year) umbilical hernia 1994 appendectomy 1996
== END 2024-06-20 12:01 | disposition home or self-care (01) ==
LOC: HO.HMCH 11:07
PROVIDERS: PCP Internal Medicine; Visit Provider Internal Medicine
DX: Z13.9 Encounter for screening, unspecified (principal)

== ENCOUNTER → 2024-06-20 11:06 | Outpatient (BNVA) | payer BC, SELFPAY | PROVIDERS: PCP Internal Medicine; Visit Provider Internal Medicine | DX: E11.29 Type 2 diabetes mellitus with other diabetic kidney complication (principal); R80.9 Proteinuria, unspecified; E78.2 Mixed hyperlipidemia; I10 Essential (primary) hypertension; J45.20 Mild intermittent asthma, uncomplicated; M51.360 Other intervertebral disc degeneration, lumbar region with discogenic back pain only; M47.812 Spondylosis without myelopathy or radiculopathy, cervical region; F33.9 Major depressive disorder, recurrent, unspecified; E66.3 Overweight; Z68.27 Body mass index [BMI] 27.0-27.9, adult; Z79.891 Long term (current) use of opiate analgesic; Z79.899 Other long term (current) drug therapy | CPT/HCPCS: 83036; 96127 ==

== ENCOUNTER 2024-07-18 09:32 | Outpatient (REF) | payer BC, SELFPAY ==
--- OUTSIDE RECORDS SUMMARY | 2024-07-18 10:22 | XMS_ITS | Patient Health Record ---
[facility] Address [address] [facility] [place] [address] Care Team Providers Care Race Steward Name Role Phone Kev Briseno MD Primary Care Provider Judson Fletcher Unavailable [phone] Allergies Allergen (clinical drug ingredient) Drug/Non Drug [...] Problem Status W/U Status Risk Notes Problem 32157893 Other hammer toe(s) (acquired), right foot (M20.41) Active confirmed Problem 21349117 Other hammer toe(s) (acquired), left foot (M20.42) Active confirmed Problem Type 2 diabetes mellitus without complication (102170243) Type 2 diabetes mellitus without complication (E11.9) Active confirmed Problem Interstitial myositis (65463434) 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 confirmed Plan Of Treatment Pending Test Test Name Order Date X ray : Foot, left 3V 10/27/2022 [id number] Destruction, -14 12/15/2010 [id number] Destruction, -01/05/2011 [id number] Destruction, -02/15/2011 Insurance Providers Payer Name Payer Address Payer Phone Subscriber Number Group Number Insured Name Patient Relationship to Insured Coverage Start Date Coverage End Date [facility] [employer] [facility] [address] [place] [address] [phone] [id number] Rosamaria Hester Spouse - patient is the spouse of the insured Medical (General) History Medical History History ICD Code back, hip, knee pain Cholesterol hypertension asthma Diabetic Hiatal hernia Chicken pox Dysphagia Surgical History Surgery Date(Month/Year) umbilical hernia 1994 appendectomy 1996
[2024-07-18 13:17] LABS: MANUAL DIFF FLAG NO
[2024-07-18 13:35] LABS: Appearance Urine Clear; Color Urine Yellow; Glucose Urine UA >=1000 mg/dL (Negative); Leukocyte Esterase Urine Negative (Negative); Nitrite Urine Negative (Negative); PH 5.5 (5.0-9.0); Specific Gravity - Urine >= 1.030 (1.005-1.025); UMIC TRIGGER UACC YES; Urine Blood Negative (Negative); Urine Ketones Negative (Negative); Urine Protein 100 (2+) mg/dL (Neg-Trace)
[2024-07-18 13:40] LABS: Creatinine Urine 98.89 mg/dL
[2024-07-18 13:44] LABS: Bacteria Urine None Seen (None Seen); Hyaline Casts Urine 0-2 /LPF (0-2); RBC Urine 0-2 /HPF (0-2); Squamous Epithelial Cell Urine 0-2 /HPF (0-2); WBC Urine 0-5 /HPF (0-5)
[2024-07-18 13:50] LABS: Basophils Percent Auto 0.3 % (0-2); Eosinophils Absolute Auto 0.2 X10*3/uL (0.0-0.4); Eosinophils Percent Auto 1.8 % (0-4); Hematocrit 50.2 % (42.0-52.0); Hemoglobin 16.3 g/dl (14.0-18.0); Imm Gran Abs Auto 0.03 X10*3/uL (0.00-0.03); Imm Gran Pct Auto 0.3 % (0.0-0.4); Lymphocytes Absolute Auto 1.5 X10*3/uL (1.2-4.9); Lymphocytes Percent Auto 14.5 % (20-40); Mean Corpuscular HGB Conc 32.5 g/dl (31.0-36.0); Mean Corpuscular Volume 89.3 fL (80.0-98.0); Monocytes Percent Auto 8.9 % (2-11); Neutrophils Absolute Auto 7.9 x10*3/uL (2.0-8.3); Neutrophils Percent Auto 74.2 % (45-73); Platelet Count 274 X10*3/uL (160-400); Red Blood Count 5.62 X10*6/uL (4.60-5.80); Red Cell Distribution Width 12.8 % (11.0-16.0); White Blood Count 10.6 X10*3/uL (4.8-10.8)
[2024-07-18 13:52] LABS: Estimated Average Glucose 209 mg/dL; Hemoglobin A1C 295.1253 umol/L; Hemoglobin A1c % 8.9 % (<6.0); Total Hemoglobin (HGBA1C) 4023.3929 umol/L
[2024-07-18 13:57] LABS: Microalbum/Creatinine Ratio Ur 806.9 ug/mg cr (<30)
[2024-07-18 14:00] LABS: Alanine Aminotransferase 19 U/L (0-40); Albumin Level 3.9 g/dL (3.5-5.0); Alkaline Phosphatase 95 U/L (39-117); Anion Gap 13 (12-20); Aspartate Amino Transferase 22 U/L (5-37); Bilirubin Total 1.4 mg/dL (0.0-1.0); Blood Urea Nitrogen 13 mg/dL (9-16); Calcium 8.9 mg/dL (8.4-10.2); Carbon Dioxide 26 mmol/L (22-29); Chloride 106 mmol/L (96-108); Cholesterol 130 mg/dL (<200); Estimated Glomerular Filt Rate > 60; Glucose Fasting 123 mg/dL (60-99); HDL Cholesterol 56 mg/dL (>40); LDL Cholesterol Calculated 56 mg/dL (<100); Sodium 141 mmol/L (135-145); Total Protein 6.5 g/dL (6.5-8.0); Triglycerides 93 mg/dL (<150)
[2024-07-18 14:15] LABS: TSH reflex Free T4 0.93 uIU/mL (0.32-4.0)
[2024-07-18 14:23] LABS: Folate 12.3 ng/mL (> or = 4.0); Vitamin B12 375 pg/mL (200-900)
== END 2024-07-18 09:33 | disposition home or self-care (01) ==
LOC: HO.HMGCLDS 09:32
PROVIDERS: PCP Internal Medicine; Visit Provider Internal Medicine
DX: E78.00 Pure hypercholesterolemia, unspecified (principal); E53.8 Deficiency of other specified B group vitamins; D64.9 Anemia, unspecified; E55.9 Vitamin D deficiency, unspecified; E11.9 Type 2 diabetes mellitus without complications
CPT/HCPCS: 36415; 80053; 80061; 81001; 82043; 82306; 82570; 82607; 82746; 83036; 84443; 85025

== ENCOUNTER 2024-07-21 11:05 | Outpatient (AMB) | payer BC, SELFPAY ==
--- NOTE | 2024-07-21 11:06 | MHC.PC.OV ---
Vital Signs 07/21/24 11:07 Height 5 ft 11 in Weight 198 lb 2 oz BMI 27.6 BP 136/84 Blood Pressure Location Lt brachial Position Sitting Pulse 85 Pulse Source Pulse Oximeter Pulse Oximetry (%) 95 Oxygen Delivery Method Room Air Intake Visit Reasons: Med Management Engineering Test Specialist Required: No Accompanied by: Self / Same As Patient Allergies Adhesive Bandages Adverse Reaction (Unknown, Verified 07/21/24 11:34) Unknown Medication List - Last Reconciled 07/21/24 by Jeovany Grace MD albuterol sulfate 90 mcg/actuation 2 puffs PO Q6H PRN atorvastatin 80 mg PO BEDTIME blood sugar diagnostic ([employer] Verio test strips) three times a day blood-glucose sensor ([employer] G7 Sensor device) As directed [diabetic shoes As directed] dulaglutide (Trulicity) 4.5 mg (0.5 mL) subcut QWEEK 90 days empagliflozin (Jardiance) 25 mg PO DAILY escitalopram oxalate 10 mg PO DAILY ibuprofen 600 mg PO Q8H PRN insulin glargine U-300 conc (Toujeo Max U-300 SoloStar) 26 units (0.0867 mL) subcut DIRECTED 90 days lancets As directed losartan 50 mg PO DAILY 90 days metformin ER 1,000 mg (2 x 500 mg) PO BID 90 days oxycodone 5 mg PO Q6H PRN pen needle, diabetic As directed once daily Tobacco use date assessed: 07/21/24 Dental Screening Dental Screen Date: 07/21/24 Did you have a dental visit in the last 12 months?: No Did you have a dental problem in the last 6 months where you did not have access to dental care?: No Was dental information given to patient?: No HPI Med Management HPI Details Patient comes in today for his follow up visit States that he feels okay He denies any headaches or dizziness Denies any chest pains, no SOB No nausea/vomiting, no abdominal pain No change in bowel habits noted States that he's had chronic neck pain and low back pain since around 2006 and has been to pain management over at [facility] and was being managed and treated by them for about 28 months before he was released back to his PCP Notes again that his current pain med helps keep his pain manageable and allow him to work and to stay functional although the rainy and humid weather over the past few days have caused his low back pain to feel worse than usual lately Will need his pain med Rx refilled today He had his follow up labs done a few days ago - to discuss his results [facility] Medical History Overweight (BMI 25.0-29.9) Depression Cervical spondylosis Lumbar degenerative disc disease Persistent microalbuminuria associated with type 2 diabetes mellitus Asthma Essential hypertension Mixed hyperlipidemia Diabetes mellitus Type 2 diabetes mellitus with obesity Tinea pedis Back pain GERD (gastroesophageal reflux disease) Sleep apnea Type 2 diabetes mellitus with other diabetic kidney complication Proteinuria 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 Essential hypertension 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 LDL goal <100 Type 2 diabetes mellitus with proteinuria Surgical History H/O colonoscopy History of umbilical hernia repair History of appendectomy Family History Father Smoker Alcohol abuse Mother Diabetes Other Substance use disorder Social History Household Members: Spouse and Children Housing: House Alcohol intake: never Patient Tobacco Use Status: Never used Tobacco Tobacco use type: Cigarette e-Cigarette/Vaping Use: Never Used Second Hand Smoke Exposure: No service: No Current occupational status: employed Cognitive needs: No Hearing needs: No Vision needs: Yes Questionnaire PHQ-9 Over the last 2 weeks, how often have you been bothered by any of the following problems? 1. Little interest or pleasure in doing things: not at all 2. Feeling down, depressed, or hopeless: not at all 3. Trouble falling or staying asleep, or sleeping too much: not at all 4. Feeling tired or having little energy: not at all 5. Poor appetite or overeating: not at all 6. Feeling bad about yourself - or that you are a failure or have let yourself or your family down: not at all 7. Trouble concentrating on things, such as reading the newspaper or watching television: not at all 8. Moving or speaking so slowly that other people could have noticed. Or the opposite - being so fidgety or restless that you have been moving around a lot more than usual: not at all 9. Thoughts that you would be better off or of hurting yourself in some way: not at all Total score: 0 Depression Screening Interpretation: Negative Depression Screening Done: Yes 23342 - PHQ-9 Billing: Yes Source: Developed by Drs. Hayes Watt, Susan Mejia, Anton Moreno and colleagues, with an educational vipul from [employer]. Thrive Questionnaire Date Thrive assessed: 07/21/24 I am a: Patient What is your living situation today?: I have a steady place to live Within the past 12 months, did the food you bought not last and you didn't have the money to get more?: I choose not to answer this question Within the past 12 months, did you worry whether your food would run out before you got money to buy more?: I choose not to answer this question Do you have trouble paying for medicines?: I choose not to answer this question Do you have trouble getting transportation to medical appointments?: I choose not to answer this question Do you have trouble paying your heating and electricity bill?: I choose not to answer this question Do you have trouble taking care of your child, family member or friend?: I choose not to answer this question Do you have trouble with day-to-day activities such as bathing, preparing meals, shopping, managing finances, etc.?: I choose not to answer this question Are you currently unemployed and looking for a job?: I choose not to answer this question Are you interested in more education?: I choose not to answer this question Please select the resources that you would like help with: None Currently or been in a relationship where the following occur: I choose not to answer THRIVE Score: 0 AUDIT C Alcohol Use Questionnaire (AUDIT-C) 1. How often do you have a drink containing alcohol?: Never 3. How often do you have six or more drinks on one occasion?: Never Total Score: 0 Score Reviewed/Action Taken: Yes PEDRO-7 AMB Questionnaire PEDRO-7 Date PEDRO - 7 assessed: 07/21/24 Feeling nervous, anxious, or on edge: 0 = Not at all Not being able to stop or control worryin = Not at all Worrying too much about different things: 0 = Not at all Trouble relaxin = Not at all Being so restless that it is hard to sit still: 0 = Not at all Becoming easily annoyed or irritable: 0 = Not at all Feeling afraid as if something awful might happen: 0 = Not at all Total PEDRO-7 score (0-4 normal; 5-9 mild; 10-14 moderate; 15-21 severe): 0 Source: Developed by Drs. Hayes Watt, Susan Mejia, Anton Moreno and colleagues, with an educational vipul from [employer]. Review of Systems Const Denies chills, Denies fatigue, Denies fever(s) and Denies headache(s) ENT Denies dysphagia, Denies dizziness, Denies otalgia, Denies headache(s), Reports neck pain (chronic), Denies odynophagia and Denies sore throat Card Denies chest pain, Denies palpitations and Denies dyspnea Resp Denies chest congestion, Denies cough and Denies dyspnea GI Denies abdominal pain, Denies constipation, Denies dysphagia, Denies heartburn, Denies diarrhea, Denies nausea, Denies odynophagia and Denies vomiting Denies difficulty urinating, Denies dysuria, Denies nocturia and Denies urinary frequency Musc Reports back pain (over the lower back - chronic) and Reports neck pain (chronic) Skin/Breast Denies rash Neuro Denies dizziness and Denies headache(s) Endo Denies fatigue and Denies palpitations Physical exam (Primary Care) Vital Signs: Last Vital Signs Pulse 85 07/21/24 11:07 BP 136/84 07/21/24 11:07 Pulse Ox 95 07/21/24 11:07 Oxygen Delivery Method Room Air 07/21/24 11:07 BMI result Body Mass Index 27.6 Tobacco/Smoking Status: Tobacco use Status Tobacco use date assessed 07/21/24 07/21/24 11:14 Patient Tobacco Use Status Never used Tobacco 07/21/24 11:14 Tobacco use type Cigarette 07/21/24 11:14 e-Cigarette/Vaping Use Never Used 07/21/24 11:14 PHQ-9: PHQ-9 Score PHQ-9: Total score 0 07/21/24 11:14 Depression Screening Interpretation: Negative Thrive Assessment: Date of Thrive Assessment Date Thrive assessed 07/21/24 07/21/24 11:14 Currently or been in a relationship where the following occur: I choose not to answer Const General: no acute distress and alert HENMT Ears: TM's normal bilaterally and EAC's normal Throat: Yes posterior oropharynx normal and Yes tonsils normal (no TP congestion) Neck Neck: No lymphadenopathy and Yes tender Thyroid: Thyroid normal Resp Auscultation: clear to auscultation bilaterally, no rales and no wheezes Cardio Rate: regular rate Rhythm: regular rhythm Heart sounds: no murmurs GI Palpation (GI): Soft to palpation and nontender Auscultation: normal bowel sounds General: Yes no CVA tenderness Back/Spine/Pelvis Back: no CVA tenderness Cervical Spine: Cervical spine tenderness Thoracic/Lumbar Spine: lumbar spinal tenderness Skin Rashes: no rashes Extrem General: Yes no clubbing, cyanosis or edema Results Reviewed Results Reviewed: Laboratory Tests 07/18/24 09:35 WBC 10.6 Hgb 16.3 Hct 50.2 Plt Count 274 Sodium 141 Potassium 4.0 Creatinine 0.78 Estimated GFR > 60 Fasting Glucose 123 H Hemoglobin A1c % 8.9 H Calcium 8.9 AST 22 ALT 19 Triglycerides 93 Cholesterol 130 LDL Cholesterol, Calc 56 HDL Cholesterol 56 Vitamin B12 375 25-OH Vitamin D Total 35.0 TSH 0.93 Urine pH 5.5 Ur Specific Mereta >= 1.030 H Urine Protein 100 (2+) H Urine Glucose (UA) >=1000 H Urine Blood Negative Urine Nitrite Negative Ur Leukocyte Esterase Negative Microalb/Creat Ratio 806.9 H Coding Level of Care Code Est Pt Level 4 (42992) Complex EM visit Add On G2211 Diagnoses Type 2 diabetes mellitus with diabetic microalbuminuria, without long-term current use of insulin E11.29; R80.9 Diabetes mellitus type: type 2 Diabetes mellitus intermediate teacher insulin use: without intermediate teacher use Diabetes mellitus complication status: with kidney complications Diabetes mellitus complication detail: with diabetic microalbuminuria Persistent microalbuminuria associated with type 2 diabetes mellitus E11.29; R80.9 Mixed hyperlipidemia E78.2 Essential hypertension I10 Mild intermittent asthma without complication J45.20 Asthma severity: mild Asthma persistence: intermittent Asthma complication type: uncomplicated Degeneration of intervertebral disc of lumbar region with discogenic back pain M51.360 Disc-related pain type: discogenic back pain only Cervical spondylosis M47.812 Episode of recurrent major depressive disorder, unspecified depression episode severity F33.9 Depression Type: major depressive disorder Major depression recurrence: recurrent Active/Remission status: currently active Major depression episode severity: unspecified Overweight (BMI 25.0-29.9) E66.3 Additional Codes PHQ-9 - 25748 - PHQ-9 Billing: Yes ([id number]) Assessment & Plan Assessment & Plan (1) Diabetes mellitus: Code(s): E11.9 - Type 2 diabetes mellitus without complications Category: Medical Qualifiers: Diabetes mellitus type: type 2 Diabetes mellitus intermediate teacher insulin use: without intermediate teacher use Diabetes mellitus complication status: with kidney complications Diabetes mellitus complication detail: with diabetic microalbuminuria Qualified Code(s): E11.29 - Type 2 diabetes mellitus with other diabetic kidney complication; R80.9 - Proteinuria, unspecified Plan: His HgbA1c was at 8.9% on his labs done a few days ago (in-office HgbA1c was at 8.7% last month and his HgbA1c was at 7.7% back on 02/18/2024) - goal is <7.0% Patient states that his pharmacy supposedly keeps running out of his pen needles and he has missed a few injections of his meds as a result recently Have advised patient that if this happens again, he can actually try to get his Rx filled at another [facility] branch that has his Rx in stock and that other than his opioid pain med, he can get his Rx from another pharmacy if necessary so he does not keep running out of his Rx Reinforced diabetic diet Continue Trulicity 4.5 mg SQ once a week, Jardiance 25 mg QD, Metformin ER 1000 mg BID and Toujeo 26 units SQ once a day at bedtime for now but advised that if he cannot get his diabetes control improved over the next 2 to 3 months, then we will likely have to either refer him to endocrinology or start him on short-acting insulin as well (2) Persistent microalbuminuria associated with type 2 diabetes mellitus: Code(s): E11.29 - Type 2 diabetes mellitus with other diabetic kidney complication; R80.9 - Proteinuria, unspecified Category: Medical Plan: Have advised patient again that the best way to slow this down is to control his diabetes better - his HgbA1c is currently still at 8.9% (3) Mixed hyperlipidemia: Code(s): E78.2 - Mixed hyperlipidemia Category: Medical Plan: Results of his labs done a few days ago reviewed and discussed with patient Reinforced low cholesterol diet Continue Atorvastatin 80 mg Q HS (4) Essential hypertension: Code(s): I10 - Essential (primary) hypertension Category: Medical Plan: Reinforced low sodium diet - goal is systolic BP of 120 mm or less Continue Losartan 50 mg QD Patient is reminded to continue monitoring his blood pressure regularly (5) Asthma: Code(s): J45.909 - Unspecified asthma, uncomplicated Category: Medical Qualifiers: Asthma severity: mild Asthma persistence: intermittent Asthma complication type: uncomplicated Qualified Code(s): J45.20 - Mild intermittent asthma, uncomplicated Plan: Controlled Continue Albuterol HFA 1 to 2 inhalations Q 6 hours PRN (6) Lumbar degenerative disc disease: Code(s): M51.369 - Other intervertebral disc degeneration, lumbar region without mention of lumbar back pain or lower extremity pain Category: Medical Qualifiers: Disc-related pain type: discogenic back pain only Qualified Code(s): M51.360 - Other intervertebral disc degeneration, lumbar region with discogenic back pain only Plan: Reinforced activity and weight-lifting restrictions to avoid aggravating his low back pain Continue Oxycodone 5 mg Q 6 hours PRN - Rx refilled We will also have patient sign an updated/new pain management agreeement today (7) Cervical spondylosis: Code(s): M47.812 - Spondylosis without myelopathy or radiculopathy, cervical region Category: Medical Plan: Patient states that his neck pain has been mostly manageable lately and that his current Rx for pain are adequately keeping his neck pain and low back pain controlled (8) Depression: Code(s): F32.A - Depression, unspecified Category: Medical Qualifiers: Depression Type: major depressive disorder Major depression recurrence: recurrent Active/Remission status: currently active Major depression episode severity: unspecified Qualified Code(s): F33.9 - Major depressive disorder, recurrent, unspecified Plan: Continue Escitalopram 10 mg QD (9) Overweight (BMI 25.0-29.9): Code(s): E66.3 - Overweight Category: Medical Plan: Reinforced diet/exercise as tolerated/lose weight Plan Follow up in 1 month Medications: Refilled oxycodone Partial Fill upon patient request. 5 mg PO Q6H PRN 120 tabs 0RF pain
[2024-07-21 11:07] VITALS: BP 136/84; PULSE 85; O2SAT 95; BMI 27.6
--- OUTSIDE RECORDS SUMMARY | 2024-07-21 12:50 | XMS_ITS ---
Author Organization [facility] Address [address] [place] [address] Care Team Providers Care Paid Intern Name Role Phone Kev Briseno MD Primary Care Provider Aislinn Garrett Unavailable [phone] REASON FOR VISIT cancel appt Encounters Encounter Location Date Provider Diagnosis [facility] [address] [place] [address] 05/28/2023 Aislinn Harry Plan Of Treatment No Information Progress Notes * AISLINN POLANCO JrDOB:[birth year] (57 yo M)Acc No.[id number]:05/28/2023 Patient:?COLLINAISLINN :1965???Age:57 Y???Sex:Male Address:[address] [place], [address] * true * Date:? Generated for Leo bailey/Linn/eTransmitting on:?07/21/2024 12:50 PM EDT
--- OUTSIDE RECORDS SUMMARY | 2024-07-21 12:50 | XMS_ITS ---
Author Organization [facility] Address [address] [place] [id number] Care Team Providers Care Steak Tenderizer Machine Name Role Phone Kev Briseno MD Primary Care Provider Aislinn Garrett Unavailable [phone] REASON FOR VISIT Patient presents today for esophageal reflux Encounters Encounter Location Date Provider Diagnosis [facility] [address] [place] [phone] 05/29/2023 Aislinn Harry Plan Of Treatment No Information Progress Notes * COLLINAISLINN MYERS JrDOB:[birth year] (58 yo M)Acc No.[id number]:05/29/2023 Progress Notes Patient:?AISLINN POLANCO Jr Provider:?Aislinn Harry MD :1965???Age:57 Y???Sex:Male Ilan e:05/29/2023 Address:[address] [place] [address] [facility] Pcp:Kev Briseno MD Subjective: * Chief Complaints: [...] MD Date:? 024 Generated for Printi ng/Faeziog/eTransmitting on:?07/21/2024 12:50 PM EDT
--- OUTSIDE RECORDS SUMMARY | 2024-07-21 12:51 | XMS_ITS | Patient Health Record ---
[facility] Address [address] [facility] [place] [address] Care Team Providers Care Director Instructional Material Name Role Phone Kev Briseno MD Primary Care Provider Judson Fletcher Unavailable [phone] Allergies Allergen (clinical drug ingredient) Drug/Non Drug [...] Problem Status W/U Status Risk Notes Problem [id number] Other hammer toe(s) (acquired), right foot (M20.41) Active confirmed Problem 99430916 Other hammer toe(s) (acquired), left foot (M20.42) Active confirmed Problem Type 2 diabetes mellitus without complication (334962177) Type 2 diabetes mellitus without complication (E11.9) Active confirmed Problem Interstitial myositis (53373482) 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 confirmed Plan Of Treatment Pending Test Test Name Order Date X ray : Foot, left 3V 10/27/2022 [id number] Destruction, -14 12/15/2010 [id number] Destruction, -01/05/2011 [id number] Destruction, -02/15/2011 Insurance Providers Payer Name Payer Address Payer Phone Subscriber Number Group Number Insured Name Patient Relationship to Insured Coverage Start Date Coverage End Date [facility] [employer] [address] [place] [address] [id number] Ros[address] Hester Spouse - patient is the spouse of the insured Medical (General) History Medical History History ICD Code back, hip, knee pain Cholesterol hypertension asthma Diabetic Hiatal hernia Chicken pox Dysphagia Surgical History Surgery Date(Month/Year) umbilical hernia 1994 appendectomy 1996
== END 2024-07-21 11:55 | disposition home or self-care (01) ==
LOC: HO.HMCH 11:06
PROVIDERS: PCP Internal Medicine; Visit Provider Internal Medicine
DX: E11.29 Type 2 diabetes mellitus with other diabetic kidney complication (principal); R80.9 Proteinuria, unspecified; E78.2 Mixed hyperlipidemia; I10 Essential (primary) hypertension; J45.20 Mild intermittent asthma, uncomplicated; M51.360 Other intervertebral disc degeneration, lumbar region with discogenic back pain only; M47.812 Spondylosis without myelopathy or radiculopathy, cervical region; F33.9 Major depressive disorder, recurrent, unspecified; E66.3 Overweight

== ENCOUNTER → 2024-07-21 11:05 | Outpatient (BNVA) | payer BC, SELFPAY | PROVIDERS: PCP Internal Medicine; Visit Provider Internal Medicine | DX: E11.29 Type 2 diabetes mellitus with other diabetic kidney complication (principal); R80.9 Proteinuria, unspecified; E78.2 Mixed hyperlipidemia; I10 Essential (primary) hypertension; J45.20 Mild intermittent asthma, uncomplicated; M51.360 Other intervertebral disc degeneration, lumbar region with discogenic back pain only; M47.812 Spondylosis without myelopathy or radiculopathy, cervical region; F33.9 Major depressive disorder, recurrent, unspecified; E66.3 Overweight; Z68.27 Body mass index [BMI] 27.0-27.9, adult; Z79.4 Long term (current) use of insulin; Z79.84 Long term (current) use of oral hypoglycemic drugs; Z79.899 Other long term (current) drug therapy | CPT/HCPCS: 96127 ==

== ENCOUNTER 2024-08-18 10:51 | Outpatient (AMB) | payer BC, SELFPAY ==
[2024-08-18 11:02] VITALS: BP 126/84; PULSE 90; O2SAT 96; BMI 27.2
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
--- OUTSIDE RECORDS SUMMARY | 2024-08-18 12:07 | XMS_ITS ---
Author Organization [facility] Address [address] [place] [address] Care Team Providers Care Cell Liner Name Role Phone Kev Briseno MD Primary Care Provider Aislinn Garrett Unavailable [phone] REASON FOR VISIT cancel appt Encounters Encounter Location Date Provider Diagnosis [facility] [address] [place] [address] 05/28/2023 Aislinn Harry Plan Of Treatment No Information Progress Notes * AISLINN POLANCO JrDOB:[birth year] (57 yo M)Acc No.[id number]:05/28/2023 Patient:?COLLINAISLINN :[id number]???Age:57 Y???Sex:Male Address:[address] [place], [address] * true * Date:? Generated for Leo bailey/Linn/eTransmitting on:?08/18/2024 12:06 PM EDT
== END 2024-08-18 11:44 | disposition home or self-care (01) ==
LOC: HO.HMCH 10:55
PROVIDERS: PCP Internal Medicine; Visit Provider Internal Medicine
DX: E11.29 Type 2 diabetes mellitus with other diabetic kidney complication (principal); R80.9 Proteinuria, unspecified; E78.2 Mixed hyperlipidemia; I10 Essential (primary) hypertension; J45.20 Mild intermittent asthma, uncomplicated; M51.360 Other intervertebral disc degeneration, lumbar region with discogenic back pain only; M47.812 Spondylosis without myelopathy or radiculopathy, cervical region; T30.0 Burn of unspecified body region, unspecified degree; F33.9 Major depressive disorder, recurrent, unspecified; E66.3 Overweight; Z23 Encounter for immunization

== ENCOUNTER → 2024-08-18 10:51 | Outpatient (BNVA) | payer BC, SELFPAY | PROVIDERS: PCP Internal Medicine; Visit Provider Internal Medicine | DX: Z23 Encounter for immunization (principal); E11.29 Type 2 diabetes mellitus with other diabetic kidney complication; R80.9 Proteinuria, unspecified; E78.2 Mixed hyperlipidemia; I10 Essential (primary) hypertension; J45.20 Mild intermittent asthma, uncomplicated; M51.360 Other intervertebral disc degeneration, lumbar region with discogenic back pain only; M47.812 Spondylosis without myelopathy or radiculopathy, cervical region; T30.0 Burn of unspecified body region, unspecified degree; F33.9 Major depressive disorder, recurrent, unspecified; E66.3 Overweight; Z68.27 Body mass index [BMI] 27.0-27.9, adult; Z71.3 Dietary counseling and surveillance | CPT/HCPCS: 90471; 90714; 96127 ==

== ENCOUNTER 2024-09-16 10:59 | Outpatient (AMB) | payer BC, SELFPAY ==
--- OUTSIDE RECORDS SUMMARY | 2023-05-29 05:50 | XMS_ITS ---
Author Organization [facility] Address [address] [place] [phone] Care Team Providers Care Service Worker Name Role Phone Kev Briseno MD Primary Care Provider Aislinn Garrett Unavailable [phone] REASON FOR VISIT Patient presents today for esophageal reflux Encounters Encounter Location Date Provider Diagnosis [facility] [address] [facility] [address] [place] [phone] 05/29/2023 Aislinn Harry Plan Of Treatment No Information Progress Notes * AISLINN POLANCO JrDOB:[birth year] (58 yo M)Acc No.[id number]:05/29/2023 Progress Notes Patient: AISLINN BLANK Jr Provider: Myles Harry MD :1965 A ge:57 Y S ex:Male Date:05/29/2023 Address:[address] [place] [address] [facility] Pcp:Kev Briseno MD Subjective: * Chief Complaints: [...] Pending * Provider: Myles Harry MD Date: 05/29/2023 Generated for Printi ng/Faxing/eTransmitting on: 09/16/2024 12:13 PM EDT
[2024-09-16 11:21] VITALS: BP 110/84; PULSE 94; O2SAT 95; BMI 26.5
--- NOTE | 2024-09-16 11:21 | A.OFFPC_ITS ---
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 Required: No Accompanied by: Self / Same As Patient Allergies Adhesive Bandages Adverse Reaction (Unknown, Verified 09/16/24 11:54) Unknown Medication List - Last Reconciled 09/16/24 by Jeovany Grace MD albuterol sulfate 90 mcg/actuation 2 puffs PO Q6H PRN atorvastatin 80 mg PO BEDTIME blood sugar diagnostic ([employer] Verio test strips) three times a day blood-glucose sensor ([employer] G7 Sensor device) As directed [diabetic shoes As directed] dulaglutide (Trulicity) 4.5 mg (0.5 mL) subcut QWEEK 90 days empagliflozin (Jardiance) 25 mg PO DAILY escitalopram oxalate 10 mg PO DAILY ibuprofen 600 mg PO Q8H PRN insulin glargine U-300 conc (Toujeo Max U-300 SoloStar) 26 units (0.0867 mL) subcut DIRECTED 90 days lancets As directed losartan 50 mg PO DAILY 90 days metformin ER 1,000 mg (2 x 500 mg) PO BID 90 days oxycodone 5 mg PO Q6H PRN pen needle, diabetic As directed once daily Tobacco use date assessed: 09/16/24 Dental Screening Dental Screen Date: 09/16/24 Did you have a dental visit in the last 12 months?: No Did you have a dental problem in the last 6 months where you did not have access to dental care?: No Was dental information given to patient?: No HPI Med Management HPI Details Patient comes in today for his follow up visit States that he feels okay He denies any headaches or dizziness Denies any chest pains, no SOB No nausea/vomiting, no abdominal pain No change in bowel habits noted States that his chronic neck pain and low back pain (that he's had since 2006) remain adequately controlled on his current pain med - would like to have his pain med Rx refill sent in to his pharmacy today although he will not be able to get it filled until 09/23/2024 [facility] Medical History Overweight (BMI 25.0-29.9) Depression Cervical spondylosis Lumbar degenerative disc disease Persistent microalbuminuria associated with type 2 diabetes mellitus Asthma Essential hypertension Mixed hyperlipidemia Diabetes mellitus Type 2 diabetes mellitus with obesity Tinea pedis Back pain GERD (gastroesophageal reflux disease) Sleep apnea Type 2 diabetes mellitus with other diabetic kidney complication Proteinuria custodial current use of insulin Essential hypertension 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 LDL goal <100 Type 2 diabetes mellitus with proteinuria Surgical History H/O colonoscopy History of umbilical hernia repair History of appendectomy Family History Father Smoker Alcohol abuse Mother Diabetes Other Substance use disorder Social History Household Members: Spouse and Children Housing: House Alcohol intake: never Patient Tobacco Use Status: Never used Tobacco Tobacco use type: Cigarette e-Cigarette/Vaping Use: Never Used Second Hand Smoke Exposure: No service: No Current occupational status: employed Current occupational exposures/hazards: No Cognitive needs: No Hearing needs: No Vision needs: Yes Questionnaire PHQ-9 Over the last 2 weeks, how often have you been bothered by any of the following problems? 1. Little interest or pleasure in doing things: not at all 2. Feeling down, depressed, or hopeless: not at all 3. Trouble falling or staying asleep, or sleeping too much: not at all 4. Feeling tired or having little energy: not at all 5. Poor appetite or overeating: not at all 6. Feeling bad about yourself - or that you are a failure or have let yourself or your family down: not at all 7. Trouble concentrating on things, such as reading the newspaper or watching television: not at all 8. Moving or speaking so slowly that other people could have noticed. Or the opposite - being so fidgety or restless that you have been moving around a lot more than usual: not at all 9. Thoughts that you would be better off or of hurting yourself in some way: not at all Total score: 0 Depression Screening Interpretation: Negative Depression Screening Done: Yes 46512 - PHQ-9 Billing: Yes Source: Developed by Drs. Hayes Watt, Susan Mejia, Anton Moreno and colleagues, with an educational vipul from [employer]. Thrive Questionnaire Date Thrive assessed: 09/16/24 I am a: Patient What is your living situation today?: I have a steady place to live Within the past 12 months, did the food you bought not last and you didn't have the money to get more?: I choose not to answer this question Within the past 12 months, did you worry whether your food would run out before you got money to buy more?: I choose not to answer this question Do you have trouble paying for medicines?: I choose not to answer this question Do you have trouble getting transportation to medical appointments?: I choose not to answer this question Do you have trouble paying your heating and electricity bill?: I choose not to answer this question Do you have trouble taking care of your child, family member or friend?: I choose not to answer this question Do you have trouble with day-to-day activities such as bathing, preparing meals, shopping, managing finances, etc.?: I choose not to answer this question Are you currently unemployed and looking for a job?: I choose not to answer this question Are you interested in more education?: I choose not to answer this question Please select the resources that you would like help with: None Currently or been in a relationship where the following occur: I choose not to answer THRIVE Score: 0 AUDIT C Alcohol Use Questionnaire (AUDIT-C) 1. How often do you have a drink containing alcohol?: Never 3. How often do you have six or more drinks on one occasion?: Never Total Score: 0 Score Reviewed/Action Taken: Yes PEDRO-7 AMB Questionnaire PEDRO-7 Date PEDRO - 7 assessed: 09/16/24 Feeling nervous, anxious, or on edge: 0 = Not at all Not being able to stop or control worryin = Not at all Worrying too much about different things: 0 = Not at all Trouble relaxin = Not at all Being so restless that it is hard to sit still: 0 = Not at all Becoming easily annoyed or irritable: 0 = Not at all Feeling afraid as if something awful might happen: 0 = Not at all Total PEDRO-7 score (0-4 normal; 5-9 mild; 10-14 moderate; 15-21 severe): 0 Source: Developed by Drs. Hayes Watt, Susan Mejia, Anton Moreno and colleagues, with an educational vipul from [employer]. Review of Systems Const Denies chills, Denies fatigue, Denies fever(s) and Denies headache(s) ENT Denies dysphagia, Denies dizziness, Denies otalgia, Denies headache(s), Reports neck pain (chronic), Denies odynophagia and Denies sore throat Card Denies chest pain, Denies palpitations and Denies dyspnea Resp Denies chest congestion, Denies cough and Denies dyspnea GI Denies abdominal pain, Denies constipation, Denies dysphagia, Denies heartburn, Denies diarrhea, Denies nausea, Denies odynophagia and Denies vomiting Denies difficulty urinating, Denies nocturia and Denies urinary frequency Musc Reports back pain (over the lower back - chronic) and Reports neck pain (chronic) Skin/Breast Denies rash Neuro Denies dizziness and Denies headache(s) Endo Denies fatigue and Denies palpitations Physical exam (Primary Care) Vital Signs: Last Vital Signs Pulse 94 09/16/24 11:21 BP 110/84 09/16/24 11:21 Pulse Ox 95 09/16/24 11:21 Oxygen Delivery Method Room Air 09/16/24 11:21 BMI result Body Mass Index 26.5 Tobacco/Smoking Status: Tobacco use Status Tobacco use date assessed 09/16/24 09/16/24 11:27 Patient Tobacco Use Status Never used Tobacco 09/16/24 11:27 Tobacco use type Cigarette 09/16/24 11:27 e-Cigarette/Vaping Use Never Used 09/16/24 11:27 PHQ-9: PHQ-9 Score PHQ-9: Total score 0 09/16/24 11:27 Depression Screening Interpretation: Negative Thrive Assessment: Date of Thrive Assessment Date Thrive assessed 09/16/24 09/16/24 11:27 Currently or been in a relationship where the following occur: I choose not to answer Const General: no acute distress and alert HENMT Ears: TM's normal bilaterally and EAC's normal Throat: Yes posterior oropharynx normal and Yes tonsils normal (no TP congestion) Neck Neck: No lymphadenopathy and Yes tender Thyroid: Thyroid normal Resp Auscultation: clear to auscultation bilaterally, no rales and no wheezes Cardio Rate: regular rate Rhythm: regular rhythm Heart sounds: no murmurs GI Palpation (GI): Soft to palpation and nontender Auscultation: normal bowel sounds General: Yes no CVA tenderness Back/Spine/Pelvis Back: no CVA tenderness Cervical Spine: Cervical spine tenderness Thoracic/Lumbar Spine: lumbar spinal tenderness Skin Rashes: no rashes Extrem General: Yes no clubbing, cyanosis or edema Coding Level of Care Code Est Pt Level 4 (35880) Diagnoses Type 2 diabetes mellitus with diabetic microalbuminuria, without long-term current use of insulin E11.29; R80.9 Diabetes mellitus type: type 2 Diabetes mellitus intermodal customer service insulin use: without assisted use Diabetes mellitus complication status: with kidney complications Diabetes mellitus complication detail: with diabetic microalbuminuria Persistent microalbuminuria associated with type 2 diabetes mellitus E11.29; R80.9 Mixed hyperlipidemia E78.2 Essential hypertension I10 Mild intermittent asthma without complication J45.20 Asthma severity: mild Asthma persistence: intermittent Asthma complication type: uncomplicated Degeneration of intervertebral disc of lumbar region with discogenic back pain M51.360 Disc-related pain type: discogenic back pain only Cervical spondylosis M47.812 Episode of recurrent major depressive disorder, unspecified depression episode severity F33.9 Depression Type: major depressive disorder Major depression recurrence: recurrent Active/Remission status: currently active Major depression episode severity: unspecified Overweight (BMI 25.0-29.9) E66.3 Additional Codes PHQ-9 - 92384 - PHQ-9 Billing: Yes ([id number]) Assessment & Plan Assessment & Plan (1) Diabetes mellitus: Code(s): E11.9 - Type 2 diabetes mellitus without complications Category: Medical Qualifiers: Diabetes mellitus type: type 2 Diabetes mellitus assisted insulin use: without intermodal customer service use Diabetes mellitus complication status: with kidney complications Diabetes mellitus complication detail: with diabetic microalbuminuria Qualified Code(s): E11.29 - Type 2 diabetes mellitus with other diabetic kidney complication; R80.9 - Proteinuria, unspecified Plan: His HgbA1c was at 8.9% on his labs done a couple of months ago (in-office HgbA1c was at 8.7% previously and his HgbA1c was at 7.7% back on 02/18/2024) - goal is at least <7.0% Reinforced diabetic diet Continue Trulicity 4.5 mg SQ once a week, Jardiance 25 mg QD, Metformin ER 1000 mg BID and Toujeo 26 units SQ once a day at bedtime Have advised patient again that if he cannot get his diabetes control improved over the next few months, then we will likely have to either refer him to endocrinology or start him on some short-acting insulin (2) Persistent microalbuminuria associated with type 2 diabetes mellitus: Code(s): E11.29 - Type 2 diabetes mellitus with other diabetic kidney complication; R80.9 - Proteinuria, unspecified Category: Medical Plan: Have advised patient again that the best way to slow this down is to control his diabetes better - his HgbA1c was most recently still at 8.9% (3) Mixed hyperlipidemia: Code(s): E78.2 - Mixed hyperlipidemia Category: Medical Plan: Reinforced low cholesterol diet Continue Atorvastatin 80 mg Q HS Will have patient recheck his labs and fasting lipids next month for follow up (4) Essential hypertension: Code(s): I10 - Essential (primary) hypertension Category: Medical Plan: Reinforced low sodium diet - goal is systolic BP of 120 mm or less Continue Losartan 50 mg QD Patient is reminded to continue monitoring his blood pressure regularly (5) Asthma: Code(s): J45.909 - Unspecified asthma, uncomplicated Category: Medical Qualifiers: Asthma severity: mild Asthma persistence: intermittent Asthma complication type: uncomplicated Qualified Code(s): J45.20 - Mild intermittent asthma, uncomplicated Plan: Controlled - continue Albuterol HFA 1 to 2 inhalations Q 6 hours PRN (6) Lumbar degenerative disc disease: Code(s): M51.369 - Other intervertebral disc degeneration, lumbar region without mention of lumbar back pain or lower extremity pain Category: Medical Qualifiers: Disc-related pain type: discogenic back pain only Qualified Code(s): M51.360 - Other intervertebral disc degeneration, lumbar region with discogenic back pain only Plan: Reinforced activity and weight-lifting restrictions to avoid aggravating his low back pain Continue Oxycodone 5 mg Q 6 hours PRN - Rx refilled (due on 09/23/2024) (7) Cervical spondylosis: Code(s): M47.812 - Spondylosis without myelopathy or radiculopathy, cervical region Category: Medical Plan: Patient states that his neck pain has been mostly manageable lately and that his current Rx for pain are adequately keeping his neck pain and low back pain controlled (8) Depression: Code(s): F32.A - Depression, unspecified Category: Medical Qualifiers: Depression Type: major depressive disorder Major depression recurrence: recurrent Active/Remission status: currently active Major depression episode severity: unspecified Qualified Code(s): F33.9 - Major depressive disorder, recurrent, unspecified Plan: Continue Escitalopram 10 mg QD (9) Overweight (BMI 25.0-29.9): Code(s): E66.3 - Overweight Category: Medical Plan: Reinforced diet/exercise as tolerated/lose weight Plan Follow up in 1 month Orders: Orders Comprehensive [place]. Panel Fast 10/15/24 E78.00 - Pure hypercholesterolemia, unspecified Microalbumin, Random (w Creat) 10/15/24 E11.9 - Type 2 diabetes mellitus without complications Vitamin B12 and Folate 10/15/24 E53.8 - Deficiency of other specified B group vitamins Vitamin D 25-OH Total 10/15/24 E55.9 - Vitamin D deficiency, unspecified Hemoglobin A1c 10/15/24 E11.9 - Type 2 diabetes mellitus without complications Complete Blood Count Auto Diff 10/15/24 D64.9 - Anemia, unspecified Lipid Panel 10/15/24 E78.00 - Pure hypercholesterolemia, unspecified TSH reflex Free T4 10/15/24 E78.00 - Pure hypercholesterolemia, unspecified UA CC w/rflx Micro + Cult 10/15/24 R30.0 - Dysuria Medications: Refilled oxycodone Partial Fill upon patient request. 5 mg PO Q6H PRN 120 tabs 0RF pain
--- OUTSIDE RECORDS SUMMARY | 2024-09-16 12:13 | XMS_ITS | Patient Health Record ---
Author Organization [facility] Address [address] [place] [address] Care Team Providers Care Civil Cad Designer Name Role Phone Kev Briseno MD Primary Care Provider Judson Fletcher Unavailable [phone] Allergies Allergen (clinical drug ingredient) Drug/Non Drug [...] meal of the day Orally Once a day; Duration: 30 day(s) Not-Taking Lisinopril 40 MG 1 tablet Orally twic e a day Not-Taking Simvastatin 40 MG 1 tablet every eveni ng Orally Once a day Not-Taking Albuterol PRN Active Toujeo SoloStar Not- Taking Atorvastatin Calcium 80 MG 1 tablet Orally Once a day Active Drysol 20 % as directed External ly at bedtime; Duration: 30 days 12/15/2010 Not-Taking Jardiance 25 MG 1 tablet Orally Once a day Active Percocet 5-325 MG 1 tablet as needed Orally every 6 hrs Not-Taking Losartan Potassium 50 MG 1 tablet Orally Once a day Active Ibuprofen 800 MG 1 tablet Orally Thre e times a day; Duration: 30 day(s) Not-Taking metFORMIN HCl ER 500 MG 1 tablet with ev ening meal Orally three times a day Active Ciclopirox Olamine 0.77 % 1 application Externally Twice a day; Duration: 30 days Active Social History Tobacco Use: [...] Problem Status W/U Status Risk Notes Problem Acquired hammer toe of right foot ([id number] 5) Other hammer toe(s) (acquired), right foot (M20.41) Active confirmed Problem Acquired hammer toe of left foot ([id number] 3) Other hammer toe(s) (acquired), left foot (M20.42) Active confirmed Problem Type II diabetes mellitus without complication (036121974) Type 2 diabetes mellitus without complication (E11.9) Active confirmed Problem Interstitial myositis (61485406) 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 confirmed Plan Of Treatment Pending Test Test Name Order Date X ray : Foot, left 3V 10/27/2022 [id number] Destruction, 04-0112/15/2010 [id number] Destruction, 04-0101/05/2011 [id number] Destruction, 04-0102/15/2011 Insurance Providers Payer Name Payer Address Payer Phone Subscriber Number Group Number Insured Name Patient Relationship to Insured Coverage Start Date Coverage End Date [facility] [employer] [address] [place] [address] [id number] Hester Spouse - patient is the spouse of the insured Medical (General) History Medical History History ICD Code back, hip, knee pain Cholesterol hypertension asthma Diabetic Hiatal hernia Chicken pox Dysphagia Surgical History Surgery Date(Month/Year) umbilical hernia 1994 appendectomy 1996
== END 2024-09-16 12:01 | disposition home or self-care (01) ==
LOC: HO.HMCH 11:00
PROVIDERS: PCP Internal Medicine; Visit Provider Internal Medicine
DX: E11.29 Type 2 diabetes mellitus with other diabetic kidney complication (principal); R80.9 Proteinuria, unspecified; E78.2 Mixed hyperlipidemia; I10 Essential (primary) hypertension; J45.20 Mild intermittent asthma, uncomplicated; M51.360 Other intervertebral disc degeneration, lumbar region with discogenic back pain only; M47.812 Spondylosis without myelopathy or radiculopathy, cervical region; F33.9 Major depressive disorder, recurrent, unspecified; E66.3 Overweight

== ENCOUNTER → 2024-09-16 10:59 | Outpatient (BNVA) | payer BC, SELFPAY | PROVIDERS: PCP Internal Medicine; Visit Provider Internal Medicine | DX: E11.29 Type 2 diabetes mellitus with other diabetic kidney complication (principal); R80.9 Proteinuria, unspecified; E78.2 Mixed hyperlipidemia; I10 Essential (primary) hypertension; J45.20 Mild intermittent asthma, uncomplicated; M51.360 Other intervertebral disc degeneration, lumbar region with discogenic back pain only; M47.812 Spondylosis without myelopathy or radiculopathy, cervical region; F33.9 Major depressive disorder, recurrent, unspecified; E66.3 Overweight; Z68.26 Body mass index [BMI] 26.0-26.9, adult; Z71.3 Dietary counseling and surveillance | CPT/HCPCS: 96127 ==

== ENCOUNTER 2024-09-17 10:46 | Outpatient (AMB) | payer BC, SELFPAY ==
--- OUTSIDE RECORDS SUMMARY | 2023-05-29 05:50 | XMS_ITS ---
Author Organization [facility] Address [address] [place] [phone] Care Team Providers Care Parts Coordinator Name Role Phone Kev Briseno MD Primary Care Provider Aislinn Garrett Unavailable [phone] REASON FOR VISIT Patient presents today for esophageal reflux Encounters Encounter Location Date Provider Diagnosis [facility] [address] [facility] [address] [place] [phone] 05/29/2023 Aislinn Harry Plan Of Treatment No Information Progress Notes * AISLINN POLANCO JrDOB:[birth year] (58 yo M)Acc No.[id number]:05/29/2023 Progress Notes Patient: AISLINN BLANK Jr Provider: Myles Harry MD :1965 A ge:57 Y S ex:Male Date:05/29/2023 Address:[address] [place] [address] [id number] Pcp:Kev Briseno MD Subjective: * Chief Complaints: [...] Myles Harry MD Date: 05/29/2023 Generated for Rashmii ng/Faxing/eTransmitting on: 09/17/2024 11:27 AM EDT
--- NOTE | 2024-09-17 11:10 | MHC.OFFVIS ---
Vital Signs 09/17/24 11:32 Height 5 ft 11 in Weight 190 lb BMI 26.5 BP 105/70 Blood Pressure Location Lt brachial Position Sitting Pulse 86 Pulse Oximetry (%) 94 Oxygen Delivery Method Room Air Intake Visit Reasons: Colonoscopy Screening Intake Note: Patient new consult for 2nd pre Colonoscopy, recall. Patient cc: constipation with some blood on and off with hard stool/painful BM and last time he felt it was a tear on his anus after BM and heavy rectal bleeding. Medical Sales Consultant Required: No Accompanied by: Self / Same As Patient Allergies Adhesive Bandages Adverse Reaction (Unknown, Verified 09/17/24 11:24) Unknown HPI HPI Colonoscopy Screening: Details: Assessment & Plan (1) Colon cancer screening: ?Code(s): Z12.11 - Encounter for screening for malignant neoplasm of colon ?Plan: This is his first colonoscopy. He denies any bowel problems, his GERD is well controlled but he does suffer globus hystericus when upset or angry. There are no prior problems with anesthesia or sedation. He denies any cardiac problems and he has HARI but is not very complaint with his CPAP. No ID problems. There is no known FHX of crc or polyps.? (2) HARI (obstructive sleep apnea): ?Code(s): G47.33 - Obstructive sleep apnea (adult) (pediatric) ? ? ? Medications: New peg 3350-electrolytes 236-22.74-6.74 -5.86 gram (Golytely) ?? until fecal effluent is clear; do not exceed a total volume of 2,000 mL 240 mL? PO Q10M 1 day 4,000 mL 0RF Z12.11 - Encounter for screening for malignant neoplasm of colon COLONOSCOPY Findings: Terminal Ileum: Not evaluated Cecum:? Normal Ascending Colon:? A 4-5 mm sessile polyp in the proximal ascending colon removed with a cold biopsy Transverse Colon:? Normal Descending Colon:? Moderate diverticulosis Sigmoid Colon:? A 2 cms sessile polyp removed with a hot snare.? Moderate diverticulosis Rectum:? Normal Ano-rectum:? Moderate internal hemorrhoids Colon preparation:? Good? Impression and Post Procedure Diagnosis: Colonoscopy Findings: One medium sized and one small polyps removed Moderate diverticulosis seen in the left colon Moderate hemorrhoids on retroflexed exam. Plan: Await pathology results Patient has an appointment on 09/09/21 in the [facility] with? Bridgette Caldwell NP. Repeat Colonoscopy interval based on path results - in 3 years if polyps are adenomatous and 10 years if polyps are hyperplastic. BIOPSY Received: 08/26/21 Diagnosis A.? Colon, ascending, polypectomy:? Colonic mucosa with prominent lymphoid aggregate and mild surface hyperplastic changes. B.? Colon, sigmoid, polypectomy:? Fragments of tubular adenoma; negative for high-grade dysplasia or carcinoma. LABS: Laboratory Tests 07/18/24 09:35 WBC 10.6 Hgb 16.3 Hct 50.2 Plt Count 274 Estimated GFR > 60 Total Bilirubin 1.4 H AST 22 ALT 19 Alkaline Phosphatase 95 TSH 0.93 TODAY'S VISIT His is struggling with ovarian ca and recurrences. HE has developed rectal bleeding in May of this year, and he had one episode of severe bleeding that went through rolled up toilet paper, He was struggling with really hard stools prior to this. He tried eating more fruits and veggies and the stools soften. Not seeing blood with every BM, not with soft stools. He had moderate IH on his last scope so this is the most likely dx. his GERD is well controlled but he does suffer globus hystericus when upset or angry. There are no prior problems with anesthesia or sedation. He denies any cardiac problems and he has HARI but is not very complaint with his CPAP. No ID problems. There is no known FHX of crc or polyps. [facility]LY [facility] Medical History (Updated 09/17/24 @ 11:15 by JAVON Davila) Diabetes mellitus Tinea pedis Physical exam Back pain Back pain Colon cancer screening Persistent microalbuminuria associated with type 2 diabetes mellitus Obesity Obesity Type 2 diabetes mellitus with hyperlipidemia 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 proteinuria Mixed hyperlipidemia 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 Essential hypertension Overweight (BMI 25.0-29.9) Depression Cervical spondylosis Lumbar degenerative disc disease Asthma GERD (gastroesophageal reflux disease) Sleep apnea Type 2 diabetes mellitus with other diabetic kidney complication 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 LDL goal <100 Surgical History H/O colonoscopy History of umbilical hernia repair History of appendectomy Family History Father Smoker Alcohol abuse Mother Diabetes Other Substance use disorder Social History Household Members: Spouse and Children Housing: House Alcohol intake: never Patient Tobacco Use Status: Never used Tobacco Tobacco use type: Cigarette e-Cigarette/Vaping Use: Never Used Second Hand Smoke Exposure: No service: No Current occupational status: employed Current occupational exposures/hazards: No Cognitive needs: No Hearing needs: No Vision needs: Yes Review of Systems Const Denies fatigue, Denies fever(s), Denies night sweats, Denies poor appetite and Denies weight loss ENT Reports Normal hearing present, Denies dental pain, Reports dysphagia, Denies hearing loss, Denies mouth pain, Denies odynophagia, Denies throat swelling, Denies tongue swelling and Reports other (Dentition adequate) Card Reports no additional complaints Resp Reports no additional complaints GI Details: Denies abdominal pain, Denies melena, Denies bloating, Reports hematochezia, Reports constipation, Denies GI cramping, Reports dysphagia, Denies excessive flatus, Denies early satiety, Denies heartburn, Denies diarrhea, Denies nausea, Denies odynophagia, Denies vomiting and Denies hematemesis Skin/Breast Denies pruritus, Denies lesions, Denies rash and Denies jaundice Neuro Reports Normal hearing present and Denies Abnormal speech present Endo Denies fatigue Aller/Immun Denies throat swelling and Denies tongue swelling Physical Exam Vital Signs: Last Vital Signs Pulse 86 09/17/24 11:32 BP 105/70 09/17/24 11:32 Pulse Ox 94 09/17/24 11:32 Oxygen Delivery Method Room Air 09/17/24 11:32 BMI result Body Mass Index 26.5 Const General: cooperative, no acute distress, well developed and well groomed Nutritional Appearance: well nourished Orientation/consciousness: oriented to person, oriented to place and oriented to time Limitations: No language barrier HEENT Head: Yes normocephalic and Yes atraumatic Eyes General: appearance normal, both eyes and all related structures Pupils: Equal, round and reactive pupils present Neck Neck: Yes normal visual inspection and Yes no lymphadenopathy Thyroid: Thyroid normal Resp Effort & Inspection: normal respiratory effort and able to speak in complete sentences Auscultation: clear to auscultation bilaterally Cardio Rate: regular rate Rhythm: regular rhythm Heart sounds: Normal, physiologic split S2 sound present Peripheral pulses: radial pulses present and posterior tibial pulses present GI Inspection: No distended and No Abdominal panniculus present Palpation (GI): Soft to palpation, nontender, no guarding, not rigid and No hepatosplenomegaly present Percussion: Yes normal to percussion Auscultation: normal bowel sounds Rectal Exam - Male: Yes deferred Skin General skin exam: no rashes or lesions noted, turgor normal, skin not dry, no jaundice, No spider nevi and no striae Rashes: no rashes Nails: normal Neuro General: oriented to person, oriented to place and oriented to time Cranial nerves: Yes Equal, round and reactive pupils present and Yes Normal hearing present Speech: No Abnormal speech present Extrem General: Yes normal to inspection, No clubbing, No cyanosis and No edema Psych Appearance: grossly normal and well kempt Mental Status: mental status grossly normal Speech and movement: Normal speech and movement present Affect: normal affect Attitude: cooperative Thought process: Normal thought process present and not confabulating Thought content: Normal thought content present Insight: Good insight present (Psych) Judgement: Good judgement present (Psych) Assessment & Plan Assessment & Plan (1) Pre-op examination: Code(s): Z01.818 - Encounter for other preprocedural examination Category: Medical (2) Tubular adenoma of colon: Code(s): D12.6 - Benign neoplasm of colon, unspecified Category: Medical (3) CKD (chronic kidney disease): Code(s): N18.9 - Chronic kidney disease, unspecified Category: Medical (4) Asthma: Code(s): J45.909 - Unspecified asthma, uncomplicated Category: Medical Qualifiers: Asthma complication type: uncomplicated Asthma persistence: intermittent Asthma severity: mild Qualified Code(s): J45.20 - Mild intermittent asthma, uncomplicated (5) HARI (obstructive sleep apnea): Code(s): G47.33 - Obstructive sleep apnea (adult) (pediatric) Category: Medical Plan His is struggling with ovarian ca and recurrences. HE has developed rectal bleeding in May of this year, and he had one episode of severe bleeding that went through rolled up toilet paper, He was struggling with really hard stools prior to this. He tried eating more fruits and veggies and the stools soften. Not seeing blood with every BM, not with soft stools. He had moderate IH on his last scope so this is the most likely dx. his GERD is well controlled but he does suffer globus hystericus when upset or angry. There are no prior problems with anesthesia or sedation. He denies any cardiac problems and he has HARI but is not very complaint with his CPAP. No ID problems. There is no known FHX of crc or polyps. Orders: Orders Colonoscopy - GI Use Only Today D12.6 - Benign neoplasm of colon, unspecified Medications: New bisacodyl (Dulcolax (bisacodyl)) 10 mg (2 x 5 mg) PO BEDTIME 4 tabs 0RF 2 days peg 3350-electrolytes 236-22.74-6.74 -5.86 gram (Golytely) until fecal effluent is clear; do not exceed a total volume of 2,000 mL 240 mL PO Q10M 4,000 mL 0RF 1 day Z12.11 - Encounter for screening for malignant neoplasm of colon Coding Level of Care Code New Pt Level 3 (30117) Diagnoses Pre-op examination Z01.818 Tubular adenoma of colon D12.6 CKD (chronic kidney disease) N18.9 Mild intermittent asthma without complication J45.20 Asthma complication type: uncomplicated Asthma persistence: intermittent Asthma severity: mild HARI (obstructive sleep apnea) G47.33
--- OUTSIDE RECORDS SUMMARY | 2024-09-17 11:27 | XMS_ITS | Patient Health Record ---
[facility] Address [address] [place] [address] Care Team Providers Care Hazard Mitigation Officer Name Role Phone Kev Briseno MD Primary Care Provider Judson Fletcher Unavailable [phone] Allergies Allergen (clinical drug ingredient) Drug/Non Drug [...] Problem Acquired hammer toe of right foot (213932411320774 5) Other hammer toe(s) (acquired), right foot (M20.41) Active confirmed Problem Acquired hammer toe of left foot (905836847712512 3) Other hammer toe(s) (acquired), left foot (M20.42) Active confirmed Problem Type II diabetes mellitus without complication (360684212) Type 2 diabetes mellitus without complication (E11.9) Active confirmed Problem Interstitial myositis (73035157) 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 confirmed Plan Of Treatment Pending Test Test Name Order Date X ray : Foot, left 3V 10/27/2022 [id number] Destruction, 04-0112/15/2010 [id number] Destruction, 04-0101/05/2011 [id number] Destruction, 04-0102/15/2011 Insurance Providers Payer Name Payer Address Payer Phone Subscriber Number Group Number Insured Name Patient Relationship to Insured Coverage Start Date Coverage End Date [facility] [employer] [address] [place] [address] [id number] Rosamaria Hester Spouse - patient is the spouse of the insured Medical (General) History Medical History History ICD Code back, hip, knee pain Cholesterol hypertension asthma Diabetic Hiatal hernia Chicken pox Dysphagia Surgical History Surgery Date(Month/Year) umbilical hernia 1994 appendectomy 1996
[2024-09-17 11:32] VITALS: BP 105/70; PULSE 86; O2SAT 94; BMI 26.5
== END 2024-09-17 12:05 | disposition home or self-care (01) ==
LOC: HO.HGI 10:47
PROVIDERS: PCP Internal Medicine; Visit Provider Nurse Practitioner
DX: Z01.818 Encounter for other preprocedural examination (principal); Z12.11 Encounter for screening for malignant neoplasm of colon; Z86.0100 Personal history of colon polyps, unspecified; N18.9 Chronic kidney disease, unspecified; J45.20 Mild intermittent asthma, uncomplicated; G47.33 Obstructive sleep apnea (adult) (pediatric)
CPT/HCPCS: S0285

== ENCOUNTER 2024-10-17 08:58 | Outpatient (REF) | payer BC, SELFPAY ==
--- OUTSIDE RECORDS SUMMARY | 2023-05-29 05:50 | XMS_ITS ---
Author Organization [facility] Address [address] [place] [phone] Care Team Providers Care Chemical Reclamation Equipment Operator Name Role Phone Kev Briseno MD Primary Care Provider Aislinn Garrett Unavailable [phone] REASON FOR VISIT Patient presents today for esophageal reflux Encounters Encounter Location Date Provider Diagnosis [facility] [address] [facility] [address] [place] [phone] 05/29/2023 Aislinn Harry Plan Of Treatment No Information Progress Notes * AISLINN POLANCO JrDOB:[birth year] (59 yo M)Acc No.[id number]:05/29/2023 Progress Notes Patient: AISLINN BLANK Jr Provider: Myles Harry MD :1965 A ge:57 Y S ex:Male Date:05/29/2023 Address:[address] [place] [address] [id number] Pcp:Kev Briseno MD Subjective: * Chief Complaints: [...] Harry MD Date: 0 05/29/2023 Generated for Rashmii ng/Faxing/eTransmitting on: 10/17/2024 09:14 AM EDT
--- OUTSIDE RECORDS SUMMARY | 2024-10-17 09:14 | XMS_ITS | Patient Health Record ---
[facility] Address [address] [place] [address] Care Team Providers Care Barber Tool Sharpener Name Role Phone Kev Briseno MD Primary Care Provider Judson Fletcher Unavailable [phone] Allergies Allergen (clinical drug ingredient) Drug/Non Drug [...] Problem Acquired hammer toe of right foot (945557368607501 5) Other hammer toe(s) (acquired), right foot (M20.41) Active confirmed Problem Acquired hammer toe of left foot (884932500312735 3) Other hammer toe(s) (acquired), left foot (M20.42) Active confirmed Problem Type II diabetes mellitus without complication (961958493) Type 2 diabetes mellitus without complication (E11.9) Active confirmed Problem Interstitial myositis (17807026) 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 confirmed Plan Of Treatment Pending Test Test Name Order Date X ray : Foot, left 3V 10/27/2022 [id number] Destruction, 04-0112/15/2010 [id number] Destruction, 04-0101/05/2011 [id number] Destruction, 04-0102/15/2011 Insurance Providers Payer Name Payer Address Payer Phone Subscriber Number Group Number Insured Name Patient Relationship to Insured Coverage Start Date Coverage End Date [facility] All Others [address] [place] [address] [id number] Rosamaria Hester Spouse - patient is the spouse of the insured Medical (General) History Medical History History ICD Code back, hip, knee pain Cholesterol hypertension asthma Diabetic Hiatal hernia Chicken pox Dysphagia Surgical History Surgery Date(Month/Year) umbilical hernia 1994 appendectomy 1996
[2024-10-17 10:51] LABS: MANUAL DIFF FLAG NO
[2024-10-17 10:59] LABS: Hematocrit 46.5 % (42.0-52.0); Hemoglobin 15.4 g/dl (14.0-18.0); Imm Gran Abs Auto 0.04 X10*3/uL (0.00-0.03); Imm Gran Pct Auto 0.5 % (0.0-0.4); Lymphocytes Absolute Auto 2.0 X10*3/uL (1.2-4.9); Mean Corpuscular HGB Conc 33.1 g/dl (31.0-36.0); Mean Corpuscular Hemoglobin 28.5 pg (27.0-33.0); Mean Corpuscular Volume 86.1 fL (80.0-98.0); NRBC Abs Auto 0.000 X10*3/uL (0.0-0.012); NRBC Pct Auto 0.0 /100WBC (0.0-0.2); Platelet Count 263 X10*3/uL (160-400); Red Blood Count 5.40 X10*6/uL (4.60-5.80); White Blood Count 8.1 X10*3/uL (4.8-10.8)
[2024-10-17 11:01] LABS: Appearance Urine Clear; Glucose Urine UA >=1000 mg/dL (Negative); PH 6.0 (5.0-9.0); Specific Gravity - Urine >= 1.030 (1.005-1.025); UMIC TRIGGER UACC YES
[2024-10-17 11:22] LABS: Alanine Aminotransferase 24 U/L (0-40); Albumin Level 4.0 g/dL (3.5-5.0); Alkaline Phosphatase 92 U/L (39-117); Anion Gap 13 (12-20); Aspartate Amino Transferase 28 U/L (5-37); Blood Urea Nitrogen 11 mg/dL (9-16); Calcium 8.6 mg/dL (8.4-10.2); Carbon Dioxide 29 mmol/L (22-29); Chloride 103 mmol/L (96-108); Cholesterol 125 mg/dL (<200); Estimated Glomerular Filt Rate > 60; HDL Cholesterol 49 mg/dL (>40); Potassium 4.7 mmol/L (3.3-5.1); Sodium 140 mmol/L (135-145); Total Protein 6.6 g/dL (6.5-8.0); Triglycerides 105 mg/dL (<150)
[2024-10-17 11:38] LABS: Microalbum/Creatinine Ratio Ur 705.0 ug/mg cr (<30)
[2024-10-17 11:49] LABS: Folate 12.9 ng/mL (> or = 4.0); Vitamin B12 462 pg/mL (200-900)
[2024-10-17 12:38] LABS: Hemoglobin A1C 368.2371 umol/L; Total Hemoglobin (HGBA1C) 3923.6841 umol/L
== END 2024-10-17 08:59 | disposition home or self-care (01) ==
LOC: HO.HMGCLDS 08:58
PROVIDERS: PCP Internal Medicine; Visit Provider Internal Medicine
DX: E11.9 Type 2 diabetes mellitus without complications (principal); E78.00 Pure hypercholesterolemia, unspecified; E53.8 Deficiency of other specified B group vitamins; E55.9 Vitamin D deficiency, unspecified; D64.9 Anemia, unspecified
CPT/HCPCS: 36415; 80053; 80061; 81001; 81003; 82043; 82306; 82570; 82607; 82746; 83036; 84443; 85025

== ENCOUNTER 2024-10-20 11:07 | Outpatient (AMB) | payer BC, SELFPAY ==
--- OUTSIDE RECORDS SUMMARY | 2023-05-29 05:50 | XMS_ITS ---
Author Organization [facility] Address [address] [place] [phone] Care Team Providers Care Maintenance Shop Laborer Name Role Phone Kev Briseno MD Primary Care Provider Aislinn Garrett Unavailable [phone] REASON FOR VISIT Patient presents today for esophageal reflux Encounters Encounter Location Date Provider Diagnosis [facility] [address] [facility] [address] [place] [phone] 05/29/2023 Aislinn Harry Plan Of Treatment No Information Progress Notes * AISLINN POLANCO JrDOB:[birth year] (59 yo M)Acc No.[id number]:05/29/2023 Progress Notes Patient: AISLINN BLANK Jr Provider: Myles Harry MD :1965 A ge:57 Y S ex:Male Date:05/29/2023 Address:[address] [place] [address] [id number] Pcp:Kev Briseno MD Subjective: * Chief Complaints: * 1 . Patient presents today for esophageal reflux. * Medical History: Objective: * Vitals: Assessment: Plan: * Treatment: * * The named appointment provid er may or may not be the originator of this progress note, and it is not deemed complete until electronically signed by the appointment provider. Sign off status: Pending * Provider: Myles Harry MD Date: 0 05/29/2023 Generated for Printi ng/Faxing/eTransmitting on: 10/20/2024 12:06 PM EDT
[2024-10-20 11:09] VITALS: BP 126/84; PULSE 81; O2SAT 98; BMI 27.8
--- NOTE | 2024-10-20 11:09 | A.OFFPC_ITS ---
Vital Signs 10/20/24 11:09 Height 5 ft 11 in Weight 199 lb BMI 27.8 BP 126/84 Blood Pressure Location Lt brachial Position Sitting Pulse 81 Pulse Source Pulse Oximeter Pulse Oximetry (%) 98 Oxygen Delivery Method Room Air Intake Visit Reasons: Med Management Research Home Economist Required: No Accompanied by: Self / Same As Patient Allergies Adhesive Bandages Adverse Reaction (Unknown, Verified 10/20/24 11:46) Unknown Medication List - Last Reconciled 10/20/24 by Jeovany Grace MD albuterol sulfate 90 mcg/actuation 2 puffs PO Q6H PRN atorvastatin 80 mg PO BEDTIME bisacodyl (Dulcolax (bisacodyl)) 10 mg (2 x 5 mg) PO BEDTIME 2 days blood sugar diagnostic ([employer] Verio test strips) three times a day blood-glucose sensor ([employer] G7 Sensor device) As directed [diabetic shoes As directed] dulaglutide (Trulicity) 4.5 mg (0.5 mL) subcut QWEEK 90 days empagliflozin (Jardiance) 25 mg PO DAILY escitalopram oxalate 10 mg PO DAILY ibuprofen 600 mg PO Q8H PRN insulin glargine U-300 conc (Toujeo Max U-300 SoloStar) 26 units (0.0867 mL) subcut DIRECTED 90 days lancets As directed losartan 50 mg PO DAILY 90 days metformin ER 1,000 mg (2 x 500 mg) PO BID 90 days oxycodone 5 mg (1/2 x 10 mg) PO Q6H PRN peg 3350-electrolytes 236-22.74-6.74 -5.86 gram (Golytely) 240 mL PO Q10M 1 day pen needle, diabetic As directed once daily Tobacco use date assessed: 10/20/24 Dental Screening Dental Screen Date: 10/20/24 Did you have a dental visit in the last 12 months?: No Did you have a dental problem in the last 6 months where you did not have access to dental care?: No Was dental information given to patient?: No HPI Med Management HPI Details Patient comes in today for his follow up visit States that his chest wall still feels sore at present - recalls that he walked into a 4 x 4 wooden post in his yard by accident a few days ago and the post hit him on the chest wall area States that the pain over his chest wall feels less now than it did a few days ago He denies any headaches or dizziness Denies any exertional chest pains, no increased SOB No nausea/vomiting, no abdominal pain No change in bowel habits noted States that his chronic neck pain and low back pain (that he's had since 2006) remain adequately controlled on his current pain med - would like to have his pain med Rx refill sent in to his pharmacy today Adds that he slipped on a ladder about 6 months ago and hurt his left foot at the time but he is still experiencing pain over the lateral aspect of his left heel 6 months later Relates (+) Hx of heel spur and is wondering if his residual foot pain is related to heel spur or to his previous accident He also had his follow up labs done a few days ago - to discuss his results [facility] Medical History Diabetes mellitus Tinea pedis Physical exam Back pain Back pain Colon cancer screening Persistent microalbuminuria associated with type 2 diabetes mellitus Obesity Obesity Type 2 diabetes mellitus with hyperlipidemia 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 proteinuria Mixed hyperlipidemia 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 Essential hypertension Overweight (BMI 25.0-29.9) Depression Cervical spondylosis Lumbar degenerative disc disease Asthma GERD (gastroesophageal reflux disease) Sleep apnea Type 2 diabetes mellitus with other diabetic kidney complication Proteinuria 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 current use of insulin 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 LDL goal <100 Surgical History H/O colonoscopy History of umbilical hernia repair History of appendectomy Family History Father Smoker Alcohol abuse Mother Diabetes Other Substance use disorder Social History Household Members: Spouse and Children Housing: House Alcohol intake: never Patient Tobacco Use Status: Never used Tobacco Tobacco use type: Cigarette e-Cigarette/Vaping Use: Never Used Second Hand Smoke Exposure: No service: No Current occupational status: employed Current occupational exposures/hazards: No Cognitive needs: No Hearing needs: No Vision needs: Yes Questionnaire PHQ-9 Over the last 2 weeks, how often have you been bothered by any of the following problems? 1. Little interest or pleasure in doing things: not at all 2. Feeling down, depressed, or hopeless: not at all 3. Trouble falling or staying asleep, or sleeping too much: not at all 4. Feeling tired or having little energy: not at all 5. Poor appetite or overeating: not at all 6. Feeling bad about yourself - or that you are a failure or have let yourself or your family down: not at all 7. Trouble concentrating on things, such as reading the newspaper or watching television: not at all 8. Moving or speaking so slowly that other people could have noticed. Or the opposite - being so fidgety or restless that you have been moving around a lot m ore than usual: not at all 9. Thoughts that you would be better off or of hurting yourself in some way: not at all Total score: 0 Depression Screening Interpretation: Negative Depression Screening Done: Yes 58197 - PHQ-9 Billing: Yes Source: Developed by Drs. Hayes Watt, Susan Mejia, Anton Moreno and colleagues, with an educational vipul from [employer]. Thrive Questionnaire Date Thrive assessed: 10/20/24 I am a: Patient What is your living situation today?: I have a steady place to live Within the past 12 months, did the food you bought not last and you didn't have the money to get more?: I choose not to answer this question Within the past 12 months, did you worry whether your food would run out before you got money to buy more?: I choose not to answer this question Do you have trouble paying for medicines?: I choose not to answer this question Do you have trouble getting transportation to medical appointments?: I choose not to answer this question Do you have trouble paying your heating and electricity bill?: I choose not to answer this question Do you have trouble taking care of your child, family member or friend?: I choose not to answer this question Do you have trouble with day-to-day activities such as bathing, preparing meals, shopping, managing finances, etc.?: I choose not to answer this question Are you currently unemployed and looking for a job?: I choose not to answer this question Are you interested in more education?: I choose not to answer this question Please select the resources that you would like help with: None Currently or been in a relationship where the following occur: I choose not to answer THRIVE Score: 0 AUDIT C Alcohol Use Questionnaire (AUDIT-C) 1. How often do you have a drink containing alcohol?: Never 3. How often do you have six or more drinks on one occasion?: Never Total Score: 0 Score Reviewed/Action Taken: Yes PEDRO-7 AMB Questionnaire PEDRO-7 Date PEDRO - 7 assessed: 10/20/24 Feeling nervous, anxious, or on edge: 0 = Not at all Not being able to stop or control worryin = Not at all Worrying too much about different things: 0 = Not at all Trouble relaxin = Not at all Being so restless that it is hard to sit still: 0 = Not at all Becoming easily annoyed or irritable: 0 = Not at all Feeling afraid as if something awful might happen: 0 = Not at all Total PEDRO-7 score (0-4 normal; 5-9 mild; 10-14 moderate; 15-21 severe): 0 Source: Developed by Drs. Hayes Watt, Susan Mejia, Anton Moreno and colleagues, with an educational vipul from [employer]. Review of Systems Const Denies chills, Denies fatigue, Denies fever(s) and Denies headache(s) ENT Denies dysphagia, Denies dizziness, Denies otalgia, Denies headache(s), Reports neck pain (chronic), Denies odynophagia and Denies sore throat Card Reports chest pain ((+) residual pain over the anterior chest wall - see HPI), Denies palpitations and Denies dyspnea Resp Denies chest congestion, Denies cough and Denies dyspnea GI Denies abdominal pain, Denies constipation, Denies dysphagia, Denies heartburn, Denies diarrhea, Denies nausea, Denies odynophagia and Denies vomiting Denies difficulty urinating, Denies nocturia and Denies urinary frequency Musc Details: (+) on and off pain over the lateral side of the left heel Reports back pain (over the lower back - chronic) and Reports neck pain (chroni c) Skin/Breast Denies rash Neuro Denies dizziness and Denies headache(s) Endo Denies fatigue and Denies palpitations Physical exam (Primary Care) Vital Signs: Last Vital Signs Pulse 81 10/20/24 11:09 BP 126/84 10/20/24 11:09 Pulse Ox 98 10/20/24 11:09 Oxygen Delivery Method Room Air 10/20/24 11:09 BMI result Body Mass Index 27.8 Tobacco/Smoking Status: Tobacco use Status Tobacco use date assessed 10/20/24 10/20/24 11:15 Patient Tobacco Use Status Never used Tobacco 10/20/24 11:15 Tobacco use type Cigarette 10/20/24 11:15 e-Cigarette/Vaping Use Never Used 10/20/24 11:15 PHQ-9: PHQ-9 Score PHQ-9: Total score 0 10/20/24 11:15 Depression Screening Interpretation: Negative Thrive Assessment: Date of Thrive Assessment Date Thrive assessed 10/20/24 10/20/24 11:15 Currently or been in a relationship where the following occur: I choose not to answer Const General: no acute distress and alert HENMT Ears: TM's normal bilaterally and EAC's normal Throat: Yes posterior oropharynx normal and Yes tonsils normal (no TP congestion) Neck Neck: No lymphadenopathy and Yes tender Thyroid: Thyroid normal Chest Other: (+) mild tenderness on deep palpation over the anterior chest wall Resp Auscultation: clear to auscultation bilaterally, no rales and no wheezes Cardio Rate: regular rate Rhythm: regular rhythm Heart sounds: no murmurs GI Palpation (GI): Soft to palpation and nontender Auscultation: normal bowel sounds General: Yes no CVA tenderness Back/Spine/Pelvis Back: no CVA tenderness Cervical Spine: Cervical spine tenderness Thoracic/Lumbar Spine: lumbar spinal tenderness Skin Rashes: no rashes Extrem General: Yes no clubbing, cyanosis or edema Left lower extremity: foot Details: tenderness Location: of the calcaneus (on the lateral side) Results Reviewed Results Reviewed: Laboratory Tests 10/17/24 09:26 WBC 8.1 Hgb 15.4 Hct 46.5 Plt Count 263 Sodium 140 Potassium 4.7 Creatinine 0.82 Estimated GFR > 60 Fasting Glucose 144 H Hemoglobin A1c % 10.7 H Calcium 8.6 AST 28 ALT 24 Triglycerides 105 Cholesterol 125 LDL Cholesterol, Calc 55 HDL Cholesterol 49 Vitamin B12 462 25-OH Vitamin D Total 39.2 TSH 0.70 Ur Specific [place] >= 1.030 H Urine Protein 100 (2+) H Urine Glucose (UA) >=1000 H Urine Blood Negative Urine Nitrite Negative Ur Leukocyte Esterase Negative Microalb/Creat Ratio 705.0 H Coding Level of Care Code Est Pt Level 4 (16887) Diagnoses Type 2 diabetes mellitus with diabetic microalbuminuria, without long-term current use of insulin E11.29; R80.9 Diabetes mellitus type: type 2 Diabetes mellitus care home insulin use: without care home use Diabetes mellitus complication status: with kidney complications Diabetes mellitus complication detail: with diabetic microalbuminuria Persistent microalbuminuria associated with type 2 diabetes mellitus E11.29; R80.9 Mixed hyperlipidemia E78.2 Essential hypertension I10 Mild intermittent asthma without complication J45.20 Asthma severity: mild Asthma persistence: intermittent Asthma complication type: uncomplicated Degeneration of intervertebral disc of lumbar region with discogenic back pain M51.360 Disc-related pain type: discogenic back pain only Cervical spondylosis M47.812 Contusion of chest wall, unspecified laterality, sequela S20.219S Encounter type: sequela Laterality: unspecified laterality Left foot pain M79.672 Episode of recurrent major depressive disorder, unspecified depression episode severity F33.9 Depression Type: major depressive disorder Major depression recurrence: recurrent Active/Remission status: currently active Major depression episode severity: unspecified Overweight (BMI 25.0-29.9) E66.3 Additional Codes PHQ-9 - 08031 - PHQ-9 Billing: Yes ([id number]) Assessment & Plan Assessment & Plan (1) Diabetes mellitus: Code(s): E11.9 - Type 2 diabetes mellitus without complications Category: Medical Qualifiers: Diabetes mellitus type: type 2 Diabetes mellitus care home insulin use: without buttermaker 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 use Diabetes mellitus complication status: with kidney complications Diabetes mellitus complication detail: with diabetic microalbuminuria Qualified Code(s): E11.29 - Type 2 diabetes mellitus with other diabetic kidney complication; R80.9 - Proteinuria, unspecified Plan: His HgbA1c went up to 10.7% on his recent labs (was previously at 8.9% a few months ago and at 7.7% back on 02/18/2024) - goal is at least <7.0% Reinforced diabetic diet Continue Trulicity 4.5 mg SQ once a week, Jardiance 25 mg QD, Metformin ER 1000 mg BID and Toujeo 26 units SQ once a day at bedtime Patient admits to being on vacation recently and he forgot to bring his Trulicity with him so he did not take it for at least 2 to 3 weeks Will have him continue on his current Rx for now but because his glycemic control has progressively gotten worse over the past year, will refer him again to endocrinology for further recommendations and guidance (2) Persistent microalbuminuria associated with type 2 diabetes mellitus: Code(s): E11.29 - Type 2 diabetes mellitus with other diabetic kidney complication; R80.9 - Proteinuria, unspecified Category: Medical Plan: Have advised patient again that the best way to slow this down is to control his diabetes better - his HgbA1c was most recently at 10.7% (3) Mixed hyperlipidemia: Code(s): E78.2 - Mixed hyperlipidemia Category: Medical Plan: Results of his labs done a few days ago reviewed and discussed with patient Reinforced low cholesterol diet Continue Atorvastatin 80 mg Q HS (4) Essential hypertension: Code(s): I10 - Essential (primary) hypertension Category: Medical Plan: Reinforced low sodium diet - goal is systolic BP of 120 mm or less Continue Losartan 50 mg QD Patient is reminded to continue monitoring his blood pressure regularly (5) Asthma: Code(s): J45.909 - Unspecified asthma, uncomplicated Category: Medical Qualifiers: Asthma severity: mild Asthma persistence: intermittent Asthma complication type: uncomplicated Qualified Code(s): J45.20 - Mild intermittent asthma, uncomplicated Plan: Controlled - continue Albuterol HFA 1 to 2 inhalations Q 6 hours PRN (6) Lumbar degenerative disc disease: Code(s): M51.369 - Other intervertebral disc degeneration, lumbar region without mention of lumbar back pain or lower extremity pain Category: Medical Qualifiers: Disc-related pain type: discogenic back pain only Qualified Code(s): M51.360 - Other intervertebral disc degeneration, lumbar region with discogenic back pain only Plan: Reinforced activity and weight-lifting restrictions to avoid aggravating his low back pain Continue Oxycodone 5 mg Q 6 hours PRN - Rx refilled (7) Cervical spondylosis: Code(s): M47.812 - Spondylosis without myelopathy or radiculopathy, cervical region Category: Medical Plan: Patient states that his neck pain has been mostly manageable lately and that his current Rx for pain are adequately keeping his neck pain and low back pain controlled (8) Chest wall contusion: Code(s): S20.219A - Contusion of unspecified front wall of thorax, initial encounter Category: Medical Qualifiers: Encounter type: sequela Laterality: unspecified laterality Qualified Code(s): S20.219S - Contusion of unspecified front wall of thorax, sequela Plan: Over the sternal area/central chest wall area - mostly due to his chest wall trauma (see HPI) a couple of weeks ago This appears to be gradually improving/resolving so other than warm compress PRN, no further intervention is needed at this time (9) Left foot pain: Code(s): M79.672 - Pain in left foot Category: Medical Plan: Patient feels that this started since his foot slipped on a ladder about 6 months ago Due to the persistence of his fott/heel pain, will send him for x-rays of the left foot for further evaluation (10) Depression: Code(s): F32.A - Depression, unspecified Category: Medical Qualifiers: Depression Type: major depressive disorder Major depression recurrence: recurrent Active/Remission status: currently active Major depression episode severity: unspecified Qualified Code(s): F33.9 - Major depressive disorder, recurrent, unspecified Plan: Continue Escitalopram 10 mg QD (11) Overweight (BMI 25.0-29.9): Code(s): E66.3 - Overweight Category: Medical Plan: Reinforced diet/exercise as tolerated/lose weight Plan Follow up in 1 month Orders: Orders XR foot LT min 3V Today M79.672 - Pain in left foot Referrals Endocrinology Referral M51.360 - Other intervertebral disc degeneration, lumbar region with discogenic back pain only Medications: Changed From oxycodone Partial Fill upon patient request. 5 mg (1/2 x 10 mg) PO Q6H PRN 60 tabs 0RF pain M47.812 - Spondylosis without myelopathy or radiculopathy, cervical region, M51.360 - Other intervertebral disc degeneration, lumbar region with discogenic back pain only To oxycodone Partial Fill upon patient request. 5 mg PO Q6H PRN 120 tabs 0RF pain 30 days M47.812 - Spondylosis without myelopathy or radiculopathy, cervical region, M51.360 - Other intervertebral disc degeneration, lumbar region with discogenic back pain only
--- OUTSIDE RECORDS SUMMARY | 2024-10-20 12:07 | XMS_ITS | Patient Health Record ---
[facility] Address [address] [place] [address] Care Team Providers Care Dye House Worker Name Role Phone Kev Briseno MD Primary Care Provider Judson Fletcher Unavailable [phone] Allergies Allergen (clinical drug ingredient) Drug/Non Drug [...] Problem Acquired hammer toe of right foot (641275911100587 5) Other hammer toe(s) (acquired), right foot (M20.41) Active confirmed Problem Acquired hammer toe of left foot (526804524785313 3) Other hammer toe(s) (acquired), left foot (M20.42) Active confirmed Problem Type II diabetes mellitus without complication (976272167) Type 2 diabetes mellitus without complication (E11.9) Active confirmed Problem Interstitial myositis (13348647) 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 confirmed Plan Of Treatment Pending Test Test Name Order Date X ray : Foot, left 3V 10/27/2022 [id number] Destruction, 04-0112/15/2010 [id number] Destruction, 04-0101/05/2011 [id number] Destruction, 04-0102/15/2011 Insurance Providers Payer Name Payer Address Payer Phone Subscriber Number Group Number Insured Name Patient Relationship to Insured Coverage Start Date Coverage End Date [facility] All [facility] [address] [place] [address] [id number] Hester Spouse - patient is the spouse of the insured Medical (General) History Medical History History ICD Code back, hip, knee pain Cholesterol hypertension asthma Diabetic Hiatal hernia Chicken pox Dysphagia Surgical History Surgery Date(Month/Year) umbilical hernia 1994 appendectomy 1996
== END 2024-10-20 11:57 | disposition home or self-care (01) ==
LOC: HO.HMCH 11:08
PROVIDERS: PCP Internal Medicine; Visit Provider Internal Medicine
DX: E11.29 Type 2 diabetes mellitus with other diabetic kidney complication (principal); R80.9 Proteinuria, unspecified; E78.2 Mixed hyperlipidemia; I10 Essential (primary) hypertension; J45.20 Mild intermittent asthma, uncomplicated; M51.360 Other intervertebral disc degeneration, lumbar region with discogenic back pain only; M47.812 Spondylosis without myelopathy or radiculopathy, cervical region; S20.219S Contusion of unspecified front wall of thorax, sequela; M79.672 Pain in left foot; F33.9 Major depressive disorder, recurrent, unspecified; E66.3 Overweight

== ENCOUNTER → 2024-10-20 11:07 | Outpatient (BNVA) | payer BC, SELFPAY | PROVIDERS: PCP Internal Medicine; Visit Provider Internal Medicine | DX: E11.29 Type 2 diabetes mellitus with other diabetic kidney complication (principal); R80.9 Proteinuria, unspecified; E78.2 Mixed hyperlipidemia; I10 Essential (primary) hypertension; J45.20 Mild intermittent asthma, uncomplicated; M47.812 Spondylosis without myelopathy or radiculopathy, cervical region; M51.360 Other intervertebral disc degeneration, lumbar region with discogenic back pain only; M79.672 Pain in left foot; E66.3 Overweight; Z68.27 Body mass index [BMI] 27.0-27.9, adult; S20.219S Contusion of unspecified front wall of thorax, sequela; F33.9 Major depressive disorder, recurrent, unspecified; Z71.3 Dietary counseling and surveillance | CPT/HCPCS: 96127 ==

== ENCOUNTER 2024-11-15 10:40 | Outpatient (REF) | payer BC, SELFPAY ==
--- OUTSIDE RECORDS SUMMARY | 2023-05-29 05:50 | XMS_ITS ---
Author Organization [facility] Address [address] [place] [phone] Care Team Providers Care Combination Building Inspector Name Role Phone Kev Briseno MD Primary Care Provider Aislinn Garrett Unavailable [phone] REASON FOR VISIT Patient presents today for esophageal reflux Encounters Encounter Location Date Provider Diagnosis [facility] [address] [facility] [address] [place] [phone] 05/29/2023 Aislinn Harry Plan Of Treatment No Information Progress Notes * AISLINN POLANCO JrDOB:[birth year] (59 yo M)Acc No.[id number]:05/29/2023 Progress Notes Patient: AISLINN BLANK Jr Provider: Myles Harry MD :1965 A ge:57 Y S ex:Male Date:05/29/2023 Address:[address] [place] [address] [id number] Pcp:Kev Briseno MD Subjective: * Chief Complaints: [...] 0 05/29/2023 Generated for Printi ng/Faxing/eTransmitting on: 0 11/15/2024 10:43 AM EDT
--- NOTE | ~2024-11-15 | XR_ITS ---
EXAMINATION: XR FOOT, LEFT CLINICAL INFORMATION: M79.672 - Pain in left foot COMPARISON: September 10, 2022 TECHNIQUE: AP, lateral, and oblique views of the left foot. FINDINGS: No acute fracture or deformity is identified. Joint spaces are maintained. Small marginal osteophytes again noted involving medial malleolus. Moderate sized plantar calcaneal spur is again noted as well. XR/XR foot LT min 3V IMPRESSION: No acute abnormality. Moderate plantar calcaneal spur, nonspecific finding. Small osteophyte in the malleolus, unchanged. Electronically signed by: Joseph Mane MD 11/18/2024 11:03 AM EDT
--- OUTSIDE RECORDS SUMMARY | 2024-11-15 10:44 | XMS_ITS | Patient Health Record ---
Author [facility] Address [address] [place] [address] Care Team Providers Care Yard Caller Name Role Phone Kev Briseno MD Primary Care Provider Judson Fletcher Unavailable [phone] Allergies Allergen (clinical drug ingredient) Drug/Non Drug [...] Problem Acquired hammer toe of right foot (428563438005566 5) Other hammer toe(s) (acquired), right foot (M20.41) Active confirmed Problem Acquired hammer toe of left foot (737652999541848 3) Other hammer toe(s) (acquired), left foot (M20.42) Active confirmed Problem Type II diabetes mellitus without complication (917000469) Type 2 diabetes mellitus without complication (E11.9) Active confirmed Problem Interstitial myositis (95733246) 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 confirmed Plan Of Treatment Pending Test Test Name Order Date X ray : Foot, left 3V 10/27/2022 [id number] Destruction, 04-0112/15/2010 [id number] Destruction, 04-0101/05/2011 [id number] Destruction, 04-0102/15/2011 Insurance Providers Payer Name Payer Address Payer Phone Subscriber Number Group Number Insured Name Patient Relationship to Insured Coverage Start Date Coverage End Date [facility] All Others [address] [place] [address] [id number] Hester Spouse - patient is the spouse of the insured Medical (General) History Medical History History ICD Code back, hip, knee pain Cholesterol hypertension asthma Diabetic Hiatal hernia Chicken pox Dysphagia Surgical History Surgery Date(Month/Year) umbilical hernia 1994 appendectomy 1996
--- OUTSIDE RECORDS SUMMARY | 2024-11-15 10:44 | XMS_ITS | Patient Health Record ---
Author Organization [facility] Address [address] [place] [address] Care Team Providers Care Instructor Business Education Name Role Phone Kev Briseno MD Primary Care Provider Aislinn Garrett Unavailable [phone] Allergies Allergen (clinical drug ingredient) Drug/Non Drug [...] Status W/U Status Risk Notes Problem Dysphagia (61658816) Dysphagia (R13.10) Active confirmed Problem Gastroesophageal reflux disease (K21.9) Active confirmed Problem Gastritis (0890756) Gastritis (K29.70) Active confirmed Problem 59748849 Pharyngoesophage al dysphagia (R13.14) Active confirmed Plan Of Treatment Future Test Test Name Order Date UPPER GI ENDOSCOPY [place] DILATION OF ESOPH 09/21/2022 Insurance Providers Payer Name Payer Address Payer Phone Subscriber Number Group Number Insured Name Patient Relationship to Insured Coverage Start Date Coverage End Date [facility] [address] [place] [address] [id number] AISLINN POLANCO Self - patient is the insured Medical (General) History Medical History History ICD Code DM HTN Asthma Denies GA,CVA,renal disease Colonoscopy with one tubular adenoma rem demetri 08/2021 Dr. Schneider Neck and back pain from disc disease Surgical History Surgery Date(Month/Year) Appy 2004 Umbilical hernia 2001
== END 2024-11-15 10:41 | disposition home or self-care (01) ==
LOC: HO.HMGCX 10:40
PROVIDERS: PCP Internal Medicine; Visit Provider Internal Medicine
DX: M79.672 Pain in left foot (principal)
CPT/HCPCS: 73630

== ENCOUNTER → 2024-11-15 10:43 | Outpatient (BNV) | payer BC, SELFPAY | PROVIDERS: PCP Internal Medicine; Visit Provider Radiology Diagnostic Radiology | DX: M77.32 Calcaneal spur, left foot (principal); M25.775 Osteophyte, left foot | CPT/HCPCS: 73630 ==

== ENCOUNTER 2024-11-20 09:28 | Outpatient (AMB) | payer BC, SELFPAY ==
--- OUTSIDE RECORDS SUMMARY | 2023-05-29 05:50 | XMS_ITS ---
Author Organization [facility] Address [address] [place] [phone] Care Team Providers Care Foam Cutting Supervisor Name Role Phone Kev Briseno MD Primary Care Provider Aislinn Garrett Unavailable [phone] REASON FOR VISIT Patient presents today for esophageal reflux Encounters Encounter Location Date Provider Diagnosis [facility] [address] [facility] [address] [place] [phone] 05/29/2023 Aislinn Harry Plan Of Treatment No Information Progress Notes * AISLINN POLANCO JrDOB:[birth year] (59 yo M)Acc No.[id number]:05/29/2023 Progress Notes Patient: AISLINN BLANK Jr Provider: Myles Harry MD :1965 A ge:57 Y S ex:Male Date:05/29/2023 Address:[address] [place] [address] [id number] Pcp:Kev Briseno MD Subjective: * Chief Complaints: [...] 05/29/2023 Generated for Printi ng/Faxing/eTransmitting on: 0 11/20/2024 10:12 AM EDT
[2024-11-20 09:30] VITALS: BP 148/96; PULSE 84; O2SAT 96; BMI 26.8
--- NOTE | 2024-11-20 09:30 | A.OFFPC_ITS ---
Vital Signs 11/20/24 09:30 11/20/24 09:54 Height 5 ft 11 in Weight 192 lb 8 oz BMI 26.8 BP 148/96 H 136/90 H Blood Pressure Location Lt brachial Rt radial Position Sitting Sitting Pulse 84 Pulse Source Pulse Oximeter Pulse Oximetry (%) 96 Oxygen Delivery Method Room Air Intake Visit Reasons: Med Management Oracle Erp Architect Required: No Accompanied by: Self / Same As Patient Allergies Adhesive Bandages Adverse Reaction (Unknown, Verified 11/20/24 09:31) Unknown Tobacco use date assessed: 11/20/24 Dental Screening Dental Screen Date: 11/20/24 Did you have a dental visit in the last 12 months?: No Did you have a dental problem in the last 6 months where you did not have access to dental care?: No Was dental information given to patient?: No HPI Med Management HPI Details Patient comes in today for his follow up visit States that he is still experiencing recurrent pain over the lateral aspect of his left heel even though it has been over 6 months now since he slipped on a ladder and hurt his foot States that his pain feels worse when he is at work as he is on his feet all day Would like to know how his x-rays done a few days ago came out He denies any headaches or dizziness Denies any exertional chest pains, no increased SOB No nausea/vomiting, no abdominal pain No change in bowel habits noted States that his chronic neck pain and low back pain (since 2006) remain adequately controlled on his current pain med [facility] Medical History Diabetes mellitus Tinea pedis Physical exam Back pain Back pain Colon cancer screening Persistent microalbuminuria associated with type 2 diabetes mellitus Obesity Obesity Type 2 diabetes mellitus with hyperlipidemia 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 proteinuria Mixed hyperlipidemia 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 Essential hypertension Overweight (BMI 25.0-29.9) Depression Cervical spondylosis Lumbar degenerative disc disease Asthma GERD (gastroesophageal reflux disease) Sleep apnea Type 2 diabetes mellitus with other diabetic kidney complication Proteinuria assisted current use of insulin 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 LDL goal <100 Surgical History H/O colonoscopy History of umbilical hernia repair History of appendectomy Family History Father Smoker Alcohol abuse Mother Diabetes Other Substance use disorder Social History Household Members: Spouse and Children Housing: House Alcohol intake: never Patient Tobacco Use Status: Never used Tobacco Tobacco use type: Cigarette e-Cigarette/Vaping Use: Never Used Second Hand Smoke Exposure: No service: No Current occupational status: employed Current occupational exposures/hazards: No Cognitive needs: No Hearing needs: No Vision needs: Yes Questionnaire PHQ-9 Over the last 2 weeks, how often have you been bothered by any of the following problems? 1. Little interest or pleasure in doing things: not at all 2. Feeling down, depressed, or hopeless: not at all 3. Trouble falling or staying asleep, or sleeping too much: not at all 4. Feeling tired or having little energy: not at all 5. Poor appetite or overeating: not at all 6. Feeling bad about yourself - or that you are a failure or have let yourself or your family down: not at all 7. Trouble concentrating on things, such as reading the newspaper or watching television: not at all 8. Moving or speaking so slowly that other people could have noticed. Or the opposite - being so fidgety or restless that you have been moving around a lot more than usual: not at all 9. Thoughts that you would be better off or of hurting yourself in some way: not at all Total score: 0 Depression Screening Interpretation: Negative Depression Screening Done: Yes 89243 - PHQ-9 Billing: Yes Source: Developed by Drs. Hayes Watt, Susan Mejia, Anton Moreno and colleagues, with an educational vipul from [employer]. Thrive Questionnaire Date Thrive assessed: 11/20/24 I am a: Patient What is your living situation today?: I have a steady place to live Within the past 12 months, did the food you bought not last and you didn't have the money to get more?: I choose not to answer this question Within the past 12 months, did you worry whether your food would run out before you got money to buy more?: I choose not to answer this question Do you have trouble paying for medicines?: I choose not to answer this question Do you have trouble getting transportation to medical appointments?: I choose not to answer this question Do you have trouble paying your heating and electricity bill?: I choose not to answer this question Do you have trouble taking care of your child, family member or friend?: I choose not to answer this question Do you have trouble with day-to-day activities such as bathing, preparing meals, shopping, managing finances, etc.?: I choose not to answer this question Are you currently unemployed and looking for a job?: I choose not to answer this question Are you interested in more education?: I choose not to answer this question Please select the resources that you would like help with: None Currently or been in a relationship where the following occur: I choose not to answer THRIVE Score: 0 AUDIT C Alcohol Use Questionnaire (AUDIT-C) 1. How often do you have a drink containing alcohol?: Never 3. How often do you have six or more drinks on one occasion?: Never Total Score: 0 Score Reviewed/Action Taken: Yes PEDRO-7 AMB Questionnaire PEDRO-7 Date PEDRO - 7 assessed: 11/20/24 Feeling nervous, anxious, or on edge: 0 = Not at all Not being able to stop or control worryin = Not at all Worrying too much about different things: 0 = Not at all Trouble relaxin = Not at all Being so restless that it is hard to sit still: 0 = Not at all Becoming easily annoyed or irritable: 0 = Not at all Feeling afraid as if something awful might happen: 0 = Not at all Total PEDRO-7 score (0-4 normal; 5-9 mild; 10-14 moderate; 15-21 severe): 0 Source: Developed by Drs. Hayes Watt, Susan Mejia, Anton Moreno and colleagues, with an educational vipul from [employer]. Review of Systems Const Denies chills, Denies fatigue, Denies fever(s) and Denies headache(s) ENT Denies dysphagia, Denies dizziness, Denies otalgia, Denies headache(s), Reports neck pain (chronic), Denies odynophagia and Denies sore throat Card Reports chest pain ((+) residual pain over the anterior chest wall - see HPI), Denies palpitations and Denies dyspnea Resp Denies chest congestion, Denies cough and Denies dyspnea GI Denies abdominal pain, Denies constipation, Denies dysphagia, Denies heartburn, Denies diarrhea, Denies nausea, Denies odynophagia and Denies vomiting Denies difficulty urinating, Denies dysuria, Denies nocturia and Denies urinary frequency Musc Details: (+) on and off pain over the lateral side of the left heel and ankle Reports back pain (over the lower back - chronic) and Reports neck pain (chronic) Skin/Breast Denies rash Neuro Denies dizziness and Denies headache(s) Endo Denies fatigue and Denies palpitations Physical exam (Primary Care) Vital Signs: Last Vital Signs Pulse 84 11/20/24 09:30 BP 136/90 H 11/20/24 09:54 Pulse Ox 96 11/20/24 09:30 Oxygen Delivery Method Room Air 11/20/24 09:30 BMI result Body Mass Index 26.8 Tobacco/Smoking Status: Tobacco use Status Tobacco use date assessed 11/20/24 11/20/24 09:33 Patient Tobacco Use Status Never used Tobacco 11/20/24 09:33 Tobacco use type Cigarette 11/20/24 09:33 e-Cigarette/Vaping Use Never Used 11/20/24 09:33 PHQ-9: PHQ-9 Score PHQ-9: Total score 0 11/20/24 09:54 Depression Screening Interpretation: Negative Thrive Assessment: Date of Thrive Assessment Date Thrive assessed 11/20/24 11/20/24 09:33 Currently or been in a relationship where the following occur: I choose not to answer Const General: no acute distress and alert HENMT Ears: TM's normal bilaterally and EAC's normal Throat: Yes posterior oropharynx normal and Yes tonsils normal (no TP congestion) Neck Neck: No lymphadenopathy and Yes tender Thyroid: Thyroid normal Chest Other: (+) mild tenderness on deep palpation over the anterior chest wall Resp Auscultation: clear to auscultation bilaterally, no rales and no wheezes Cardio Rate: regular rate Rhythm: regular rhythm Heart sounds: no murmurs GI Palpation (GI): Soft to palpation and nontender Auscultation: normal bowel sounds General: Yes no CVA tenderness Back/Spine/Pelvis Back: no CVA tenderness Cervical Spine: Cervical spine tenderness Thoracic/Lumbar Spine: lumbar spinal tenderness Skin Rashes: no rashes Extrem General: Yes no clubbing, cyanosis or edema Left lower extremity: ankle Details: tenderness Location: of the lateral malleolus; no swelling and foot Details: tenderness Location: of the calcaneus (on the lateral side) Coding Level of Care Code Est Pt Level 4 (74269) Diagnoses Type 2 diabetes mellitus with diabetic microalbuminuria, without long-term current use of insulin E11.29; R80.9 Diabetes mellitus type: type 2 Diabetes mellitus termite treater insulin use: without custodial use Diabetes mellitus complication status: with kidney complications Diabetes mellitus complication detail: with diabetic microalbuminuria Persistent microalbuminuria associated with type 2 diabetes mellitus E11.29; R80.9 Mixed hyperlipidemia E78.2 Essential hypertension I10 Mild intermittent asthma without complication J45.20 Asthma severity: mild Asthma persistence: intermittent Asthma complication type: uncomplicated Degeneration of intervertebral disc of lumbar region with discogenic back pain M51.360 Disc-related pain type: discogenic back pain only Cervical spondylosis M47.812 Left foot pain M79.672 Episode of recurrent major depressive disorder, unspecified depression episode severity F33.9 Depression Type: major depressive disorder Major depression recurrence: recurrent Active/Remission status: currently active Major depression episode severity: unspecified Overweight (BMI 25.0-29.9) E66.3 Additional Codes PHQ-9 - 15302 - PHQ-9 Billing: Yes ([id number]) Assessment & Plan Assessment & Plan (1) Diabetes mellitus: Code(s): E11.9 - Type 2 diabetes mellitus without complications Category: Medical Qualifiers: Diabetes mellitus type: type 2 Diabetes mellitus termite treater insulin use: without termite treater use Diabetes mellitus complication status: with kidney complications Diabetes mellitus complication detail: with diabetic microalbuminuria Qualified Code(s): E11.29 - Type 2 diabetes mellitus with other diabetic kidney complication; R80.9 - Proteinuria, unspecified Plan: His HgbA1c went up to 10.7% last month (was previously at 8.9% a few months ago and at 7.7% back on 02/18/2024) - goal is at least <7.0% Reinforced diabetic diet Continue Trulicity 4.5 mg SQ once a week, Jardiance 25 mg QD, Metformin ER 1000 mg BID and Toujeo 26 units SQ once a day at bedtime Patient admitted to forgetting to bring his Trulicity with him when he was on vacation for about 2 to 3 weeks a couple of months ago but he is now back on all of his meds Will continue him on his current Rx for now but we referred him again to endocrinology for further recommendations and guidance - no appointment has been scheduled yet at this time (2) Persistent microalbuminuria associated with type 2 diabetes mellitus: Code(s): E11.29 - Type 2 diabetes mellitus with other diabetic kidney complication; R80.9 - Proteinuria, unspecified Category: Medical Plan: Have advised patient again that the best way to slow this down is to control his diabetes better - his HgbA1c was most recently at 10.7% last month (3) Mixed hyperlipidemia: Code(s): E78.2 - Mixed hyperlipidemia Category: Medical Plan: Reinforced low cholesterol diet Continue Atorvastatin 80 mg Q HS We will be rechecking his labs in a couple of more months for follow up and will order these at his next appt. (4) Essential hypertension: Code(s): I10 - Essential (primary) hypertension Category: Medical Plan: Reinforced low sodium diet - goal is systolic BP of 120 mm or less Continue Losartan 50 mg QD Patient is reminded to continue monitoring his blood pressure regularly (5) Asthma: Code(s): J45.909 - Unspecified asthma, uncomplicated Category: Medical Qualifiers: Asthma severity: mild Asthma persistence: intermittent Asthma complication type: uncomplicated Qualified Code(s): J45.20 - Mild intermittent asthma, uncomplicated Plan: Controlled - continue Albuterol HFA 1 to 2 inhalations Q 6 hours PRN (6) Lumbar degenerative disc disease: Code(s): M51.369 - Other intervertebral disc degeneration, lumbar region without mention of lumbar back pain or lower extremity pain Category: Medical Qualifiers: Disc-related pain type: discogenic back pain only Qualified Code(s): M51.360 - Other intervertebral disc degeneration, lumbar region with discogenic back pain only Plan: Reinforced activity and weight-lifting restrictions to avoid aggravating his low back pain Continue Oxycodone 5 mg Q 6 hours PRN - Rx refilled (7) Cervical spondylosis: Code(s): M47.812 - Spondylosis without myelopathy or radiculopathy, cervical region Category: Medical Plan: Patient states that his neck pain has been mostly manageable lately and that his current Rx for pain are adequately keeping his neck pain and low back pain controlled (8) Left foot pain: Code(s): M79.672 - Pain in left foot Category: Medical Plan: Patient feels that this started since his foot slipped on a ladder about 6 months ago X-rays of the left foot done a few days ago revealed (+) moderate plantar calcaneal spur, nonspecific finding, with (+) small osteophyte in the malleolus, unchanged from previous Have advised patient of these findings and that he likely sustained a significant strain/sprain of his foot when he slipped from a ladder over 6 months ago and that it may take some time for this to completely clear up but some of his symptoms may also be due to arthritis/degenerative changes (seen on x-rays) He can follow up with his community board member for this as well if he wants to (9) Depression: Code(s): F32.A - Depression, unspecified Category: Medical Qualifiers: Depression Type: major depressive disorder Major depression recurrence: recurrent Active/Remission status: currently active Major depression episode severity: unspecified Qualified Code(s): F33.9 - Major depressive disorder, recurrent, unspecified Plan: Continue Escitalopram 10 mg QD (10) Overweight (BMI 25.0-29.9): Code(s): E66.3 - Overweight Category: Medical Plan: Reinforced diet/exercise as tolerated/lose weight Plan Follow up in 1 month Medications: Refilled oxycodone Partial Fill upon patient request. 5 mg PO Q6H PRN 120 tabs 0RF pain 30 days M47.812 - Spondylosis without myelopathy or radiculopathy, cervical region, M51.360 - Other intervertebral disc degeneration, lumbar region with discogenic back pain only
[2024-11-20 09:54] VITALS: BP 136/90
--- OUTSIDE RECORDS SUMMARY | 2024-11-20 10:12 | XMS_ITS | Patient Health Record ---
[facility] Address [address] [place] [address] Care Team Providers Care Ordinary Seaman Name Role Phone Kev Briseno MD Primary Care Provider Judson Fletcher Unavailable [phone] Allergies Allergen (clinical drug ingredient) Drug/Non Drug [...] Problem Acquired hammer toe of right foot ([id number] 5) Other hammer toe(s) (acquired), right foot (M20.41) Active confirmed Problem Acquired hammer toe of left foot ([id number] 3) Other hammer toe(s) (acquired), left foot (M20.42) Active confirmed Problem Type II diabetes mellitus without complication (688219759) Type 2 diabetes mellitus without complication (E11.9) Active confirmed Problem Interstitial myositis (57525862) 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 confirmed Plan Of Treatment Pending Test Test Name Order Date X ray : Foot, left 3V 10/27/2022 [id number] Destruction, 04-0112/15/2010 [id number] Destruction, 04-0101/05/2011 [id number] Destruction, 04-0102/15/2011 Insurance Providers Payer Name Payer Address Payer Phone Subscriber Number Group Number Insured Name Patient Relationship to Insured Coverage Start Date Coverage End Date [facility] [employer] [address] [place] [address] [id number] Ros[address]aria Hester Spouse - patient is the spouse of the insured Medical (General) History Medical History History ICD Code back, hip, knee pain Cholesterol hypertension asthma Diabetic Hiatal hernia Chicken pox Dysphagia Surgical History Surgery Date(Month/Year) umbilical hernia 1994 appendectomy 1996
--- OUTSIDE RECORDS SUMMARY | 2024-11-20 10:12 | XMS_ITS | Patient Health Record ---
Author Organization [facility] Address [address] [place] [address] Care Team Providers Care Duco Polisher Name Role Phone Kev Briseno MD Primary Care Provider Aislinn Garrett Unavailable [phone] Allergies Allergen (clinical drug ingredient) Drug/Non Drug [...] Status W/U Status Risk Notes Problem Dysphagia (61485059) Dysphagia (R13.10) Active confirmed Problem Gastroesophageal reflux disease (268033294) Gastroesophageal reflux disease (K21.9) Active confirmed Problem Gastritis (4927001) Gastritis (K29.70) Active confirmed Problem 74348014 Pharyngoesophage al dysphagia (R13.14) Active confirmed Plan Of Treatment Future Test Test Name Order Date UPPER GI ENDOSCOPY BALLOOON DILATION OF ESOPH 09/21/2022 Insurance Providers Payer Name Payer Address Payer Phone Subscriber Number Group Number Insured Name Patient Relationship to Insured Coverage Start Date Coverage End Date [facility] [address] [place] [address] [id number] AISLINN POLANCO Self - patient is the insured Medical (General) History Medical History History ICD Code DM HTN Asthma Denies ID,CVA,renal disease Colonoscopy with one tubular adenoma rem demetri 08/2021 Dr. Schneider Neck and back pain from disc disease Surgical History Surgery Date(Month/Year) Appy 2004 Umbilical hernia 2001
== END 2024-11-20 10:00 | disposition home or self-care (01) ==
LOC: HO.HMCH 09:28
PROVIDERS: PCP Internal Medicine; Visit Provider Internal Medicine
DX: E11.29 Type 2 diabetes mellitus with other diabetic kidney complication (principal); R80.9 Proteinuria, unspecified; E78.2 Mixed hyperlipidemia; I10 Essential (primary) hypertension; J45.20 Mild intermittent asthma, uncomplicated; M51.360 Other intervertebral disc degeneration, lumbar region with discogenic back pain only; M47.812 Spondylosis without myelopathy or radiculopathy, cervical region; M79.672 Pain in left foot; F33.9 Major depressive disorder, recurrent, unspecified; E66.3 Overweight

== ENCOUNTER → 2024-11-20 09:28 | Outpatient (BNVA) | payer BC, SELFPAY | PROVIDERS: PCP Internal Medicine; Visit Provider Internal Medicine | DX: E11.29 Type 2 diabetes mellitus with other diabetic kidney complication (principal); R80.9 Proteinuria, unspecified; E78.2 Mixed hyperlipidemia; I10 Essential (primary) hypertension; J45.20 Mild intermittent asthma, uncomplicated; M51.360 Other intervertebral disc degeneration, lumbar region with discogenic back pain only; M47.812 Spondylosis without myelopathy or radiculopathy, cervical region; M79.672 Pain in left foot; F33.9 Major depressive disorder, recurrent, unspecified; E66.3 Overweight; Z68.26 Body mass index [BMI] 26.0-26.9, adult | CPT/HCPCS: 96127 ==

== ENCOUNTER 2024-12-22 08:53 | Outpatient (AMB) | payer BC, SELFPAY ==
[2024-12-22 08:56] VITALS: BP 120/90; PULSE 79; O2SAT 96; BMI 27.5
--- NOTE | 2024-12-22 08:56 | A.OFFPC_ITS ---
Vital Signs 12/22/24 08:56 Height 5 ft 11 in Weight 197 lb 2 oz BMI 27.5 BP 120/90 H Blood Pressure Location Lt brachial Position Sitting Pulse 79 Pulse Source Pulse Oximeter Pulse Oximetry (%) 96 Oxygen Delivery Method Room Air Intake Visit Reasons: Per Jennie Hat Copyist Required: No Accompanied by: Self / Same As Patient Allergies Adhesive Bandages Adverse Reaction (Unknown, Verified 12/22/24 09:18) Unknown Medication List - Last Reconciled 12/22/24 by Jeovany Grace MD albuterol sulfate 90 mcg/actuation 2 puffs PO Q6H PRN atorvastatin 80 mg PO BEDTIME bisacodyl (Dulcolax (bisacodyl)) 10 mg (2 x 5 mg) PO BEDTIME 2 days blood sugar diagnostic (FitWithMeuch Verio test strips) three times a day blood-glucose sensor (eSellerPro G7 Sensor device) As directed [diabetic shoes As directed] dulaglutide (Trulicity) 4.5 mg (0.5 mL) subcut QWEEK 90 days empagliflozin (Jardiance) 25 mg PO DAILY escitalopram oxalate 10 mg PO DAILY ibuprofen 600 mg PO Q8H PRN insulin glargine U-300 conc (Toujeo Max U-300 SoloStar) 26 units (0.0867 mL) subcut DIRECTED 90 days lancets As directed losartan 50 mg PO DAILY 90 days metformin ER 1,000 mg (2 x 500 mg) PO BID 90 days oxycodone 5 mg PO Q6H PRN 30 days peg 3350-electrolytes 236-22.74-6.74 -5.86 gram (Golytely) 240 mL PO Q10M 1 day pen needle, diabetic As directed once daily Tobacco use date assessed: 12/22/24 Dental Screening Dental Screen Date: 12/22/24 Did you have a dental visit in the last 12 months?: No Did you have a dental problem in the last 6 months where you did not have access to dental care?: No Was dental information given to patient?: Patient has dentist HPI Per Jennie HPI Details Patient comes in today for his follow up visit States that he is still experiencing recurrent pain over the lateral aspect of his left heel - this started when he slipped on a ladder and hurt his foot over 6 months ago Notes that his pain feels worse when he is on his feet at work all day States that he fell on his back a few days ago - notes that he fell flat on his back and thinks that this kept him from any significant injuries other than a sore back, which he states is slowly improving He did not hit his head or suffered any LOC when he fell He denies any headaches or dizziness Denies any exertional chest pains, no increased SOB No nausea/vomiting, no abdominal pain No change in bowel habits noted States that his chronic neck pain and low back pain (since 2006) remain adequately controlled on his current pain med - needs his pain med Rx refilled today [facility] Medical History Diabetes mellitus Tinea pedis Physical exam Back pain Back pain Colon cancer screening Persistent microalbuminuria associated with type 2 diabetes mellitus Obesity Obesity Type 2 diabetes mellitus with hyperlipidemia 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 proteinuria Mixed hyperlipidemia 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 Essential hypertension Overweight (BMI 25.0-29.9) Depression Cervical spondylosis Lumbar degenerative disc disease Asthma GERD (gastroesophageal reflux disease) Sleep apnea Type 2 diabetes mellitus with other diabetic kidney complication Proteinuria skilled nursing current use of insulin 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 LDL goal <100 Surgical History H/O colonoscopy History of umbilical hernia repair History of appendectomy Family History Father Smoker Alcohol abuse Mother Diabetes Other Substance use disorder Social History Household Members: Spouse and Children Housing: House Alcohol intake: never Patient Tobacco Use Status: Never used Tobacco Tobacco use type: Cigarette e-Cigarette/Vaping Use: Never Used Second Hand Smoke Exposure: No service: No Current occupational status: employed Current occupational exposures/hazards: No Cognitive needs: No Hearing needs: No Vision needs: Yes Questionnaire Thrive Questionnaire Date Thrive assessed: 07/21/24 I am a: Patient What is your living situation today?: I have a steady place to live Within the past 12 months, did the food you bought not last and you didn't have the money to get more?: I choose not to answer this question Within the past 12 months, did you worry whether your food would run out before you got money to buy more?: I choose not to answer this question Do you have trouble paying for medicines?: I choose not to answer this question Do you have trouble getting transportation to medical appointments?: I choose not to answer this question Do you have trouble paying your heating and electricity bill?: I choose not to answer this question Do you have trouble taking care of your child, family member or friend?: I choose not to answer this question Do you have trouble with day-to-day activities such as bathing, preparing meals, shopping, managing finances, etc.?: I choose not to answer this question Are you currently unemployed and looking for a job?: I choose not to answer this question Are you interested in more education?: I choose not to answer this question Please select the resources that you would like help with: None Currently or been in a relationship where the following occur: I choose not to answer THRIVE Score: 0 AUDIT C Alcohol Use Questionnaire (AUDIT-C) 1. How often do you have a drink containing alcohol?: Never 3. How often do you have six or more drinks on one occasion?: Never Total Score: 0 Score Reviewed/Action Taken: Yes PEDRO-7 AMB Questionnaire PEDRO-7 Date PEDRO - 7 assessed: 11/20/24 Source: Developed by Drs. Hayes Watt, Susan Mejia, Anton Moreno and colleagues, with an educational vipul from [employer]. Review of Systems Const Denies chills, Denies fatigue, Denies fever(s) and Denies headache(s) ENT Denies dysphagia, Denies dizziness, Denies otalgia, Denies headache(s), Reports neck pain (chronic), Denies odynophagia and Denies sore throat Card Reports chest pain ((+) residual pain over the anterior chest wall - see HPI), Denies palpitations and Denies dyspnea Resp Denies chest congestion, Denies cough and Denies dyspnea GI Denies abdominal pain, Denies constipation, Denies dysphagia, Denies heartburn, Denies diarrhea, Denies nausea, Denies odynophagia and Denies vomiting Denies difficulty urinating, Denies dysuria, Denies nocturia and Denies urinary frequency Musc Details: (+) on and off pain over the lateral side of the left heel and ankle Reports back pain (over the lower back - chronic) and Reports neck pain (chronic) Skin/Breast Denies rash Neuro Denies dizziness and Denies headache(s) Endo Denies fatigue and Denies palpitations Physical exam (Primary Care) Vital Signs: Last Vital Signs Pulse 79 12/22/24 08:56 BP 120/90 H 12/22/24 08:56 Pulse Ox 96 12/22/24 08:56 Oxygen Delivery Method Room Air 12/22/24 08:56 BMI result Body Mass Index 27.5 Tobacco/Smoking Status: Tobacco use Status Tobacco use date assessed 12/22/24 12/22/24 09:08 Patient Tobacco Use Status Never used Tobacco 12/22/24 09:08 Tobacco use type Cigarette 12/22/24 09:08 e-Cigarette/Vaping Use Never Used 12/22/24 09:08 Thrive Assessment: Date of Thrive Assessment Date Thrive assessed 07/21/24 12/22/24 09:08 Currently or been in a relationship where the following occur: I choose not to answer Const General: no acute distress and alert HENMT Ears: TM's normal bilaterally and EAC's normal Throat: Yes posterior oropharynx normal and Yes tonsils normal (no TP congestion) Neck Neck: No lymphadenopathy and Yes tender Thyroid: Thyroid normal Chest Other: (+) mild tenderness on deep palpation over the anterior chest wall Resp Auscultation: clear to auscultation bilaterally, no rales and no wheezes Cardio Rate: regular rate Rhythm: regular rhythm Heart sounds: no murmurs GI Palpation (GI): Soft to palpation and nontender Auscultation: normal bowel sounds General: Yes no CVA tenderness Back/Spine/Pelvis Back: no CVA tenderness Cervical Spine: Cervical spine tenderness Thoracic/Lumbar Spine: lumbar spinal tenderness Skin Rashes: no rashes Extrem General: Yes no clubbing, cyanosis or edema Left lower extremity: ankle Details: tenderness Location: of the lateral malleolus; no swelling and foot Details: tenderness Location: of the calcaneus (on the lateral side) Coding Level of Care Code Est Pt Level 4 (64479) Diagnoses Type 2 diabetes mellitus with diabetic microalbuminuria, without long-term current use of insulin E11.29; R80.9 Diabetes mellitus type: type 2 Diabetes mellitus long term acute care registered nurse insulin use: without intermediate use Diabetes mellitus complication status: with kidney complications Diabetes mellitus complication detail: with diabetic microalbuminuria Persistent microalbuminuria associated with type 2 diabetes mellitus E11.29; R80.9 Mixed hyperlipidemia E78.2 Essential hypertension I10 Mild intermittent asthma without complication J45.20 Asthma severity: mild Asthma persistence: intermittent Asthma complication type: uncomplicated Degeneration of intervertebral disc of lumbar region with discogenic back pain M51.360 Disc-related pain type: discogenic back pain only Cervical spondylosis M47.812 Left foot pain M79.672 Episode of recurrent major depressive disorder, unspecified depression episode severity F33.9 Depression Type: major depressive disorder Major depression recurrence: recurrent Active/Remission status: currently active Major depression episode severity: unspecified Overweight (BMI 25.0-29.9) E66.3 Assessment & Plan Assessment & Plan (1) Diabetes mellitus: Code(s): E11.9 - Type 2 diabetes mellitus without complications Category: Medical Qualifiers: Diabetes mellitus type: type 2 Diabetes mellitus intermediate insulin use: without long term acute care registered nurse use Diabetes mellitus complication status: with kidney complications Diabetes mellitus complication detail: with diabetic microalbuminuria Qualified Code(s): E11.29 - Type 2 diabetes mellitus with other diabetic kidney complication; R80.9 - Proteinuria, unspecified Plan: His HgbA1c went up to 10.7% a couple of months ago (was previously at 8.9% a few months ago and at 7.7% back on 02/18/2024) - goal is at least <7.0% Reinforced diabetic diet Continue Trulicity 4.5 mg SQ once a week, Jardiance 25 mg QD, Metformin ER 1000 mg BID and Toujeo 26 units SQ once a day at bedtime Patient admitted to forgetting to bring his Trulicity with him when he was on vacation for about 2 to 3 weeks a few months ago but he has been back on all of his meds since Will continue on his current Rx for now but we referred him again to endocrinology for further recommendations and guidance - still no appointments have been scheduled yet at this time (2) Persistent microalbuminuria associated with type 2 diabetes mellitus: Code(s): E11.29 - Type 2 diabetes mellitus with other diabetic kidney complication; R80.9 - Proteinuria, unspecified Category: Medical Plan: Have advised patient again that the best way to slow this down is to control his diabetes better - his HgbA1c was most recently at 10.7% a couple of months ago (3) Mixed hyperlipidemia: Code(s): E78.2 - Mixed hyperlipidemia Category: Medical Plan: Reinforced low cholesterol diet Continue Atorvastatin 80 mg Q HS We will be rechecking his labs and fasting lipids next month for follow up (4) Essential hypertension: Code(s): I10 - Essential (primary) hypertension Category: Medical Plan: Reinforced low sodium diet - goal is systolic BP of 120 mm or less Continue Losartan 50 mg QD Patient is reminded to continue monitoring his blood pressure regularly (5) Asthma: Code(s): J45.909 - Unspecified asthma, uncomplicated Category: Medical Qualifiers: Asthma severity: mild Asthma persistence: intermittent Asthma complication type: uncomplicated Qualified Code(s): J45.20 - Mild intermittent asthma, uncomplicated Plan: Controlled - continue Albuterol HFA 1 to 2 inhalations Q 6 hours PRN (6) Lumbar degenerative disc disease: Code(s): M51.369 - Other intervertebral disc degeneration, lumbar region without mention of lumbar back pain or lower extremity pain Category: Medical Qualifiers: Disc-related pain type: discogenic back pain only Qualified Code(s): M51.360 - Other intervertebral disc degeneration, lumbar region with discogenic back pain only Plan: Reinforced activity and weight-lifting restrictions to avoid aggravating his low back pain Continue Oxycodone 5 mg Q 6 hours PRN - Rx refilled (7) Cervical spondylosis: Code(s): M47.812 - Spondylosis without myelopathy or radiculopathy, cervical region Category: Medical Plan: Patient states that his neck pain has been mostly manageable lately and that his current Rx for pain are adequately keeping his neck pain and low back pain controlled (8) Left foot pain: Code(s): M79.672 - Pain in left foot Category: Medical Plan: Patient feels that this started since his foot slipped on a ladder about 6 months ago X-rays of the left foot done a few days ago revealed (+) moderate plantar calcaneal spur, nonspecific finding, with (+) small osteophyte in the malleolus, unchanged from previous Have advised patient of these findings and that he likely sustained a significant strain/sprain of his foot when he slipped from a ladder over 6 months ago and that it may take some time for this to completely clear up but some of his symptoms may also be due to arthritis/degenerative changes (seen on x-rays) 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 as well (9) Depression: Code(s): F32.A - Depression, unspecified Category: Medical Qualifiers: Depression Type: major depressive disorder Major depression recurrence: recurrent Active/Remission status: currently active Major depression episode severity: unspecified Qualified Code(s): F33.9 - Major depressive disorder, recurrent, unspecified Plan: Continue Escitalopram 10 mg QD (10) Overweight (BMI 25.0-29.9): Code(s): E66.3 - Overweight Category: Medical Plan: Reinforced diet/exercise as tolerated/lose weight Plan Follow up in 1 month Orders: Orders Hemoglobin A1c 01/17/25 E11.9 - Type 2 diabetes mellitus without complications Microalbumin, Random (w Creat) 01/17/25 E11.9 - Type 2 diabetes mellitus without complications Complete Blood Count Auto Diff 01/17/25 D64.9 - Anemia, unspecified Vitamin D 25-OH Total 01/17/25 E55.9 - Vitamin D deficiency, unspecified Lipid Panel 01/17/25 E78.00 - Pure hypercholesterolemia, unspecified Comprehensive Lizella. Panel Fast 01/17/25 E78.00 - Pure hypercholesterolemia, unspecified TSH reflex Free T4 01/17/25 E78.00 - Pure hypercholesterolemia, unspecified UA CC w/rflx Micro + Cult 01/17/25 R30.0 - Dysuria Medications: Refilled oxycodone Partial Fill upon patient request. 5 mg PO Q6H PRN 120 tabs 0RF pain 30 days M47.812 - Spondylosis without myelopathy or radiculopathy, cervical region, M51.360 - Other intervertebral disc degeneration, lumbar region with discogenic back pain only
--- OUTSIDE RECORDS SUMMARY | 2024-12-22 09:49 | XMS_ITS | Patient Health Record ---
[facility] Address [address] [place] [address] Care Team Providers Care Consulting Solution Manager Name Role Phone Kev Briseno MD Primary Care Provider Judson Fletcher Unavailable [phone] Allergies Allergen (clinical drug ingredient) Drug/Non Drug [...] Problem Acquired hammer toe of right foot (449727458472972 5) Other hammer toe(s) (acquired), right foot (M20.41) Active confirmed Problem Acquired hammer toe of left foot (137736120376240 3) Other hammer toe(s) (acquired), left foot (M20.42) Active confirmed Problem Type II diabetes mellitus without complication (862449995) Type 2 diabetes mellitus without complication (E11.9) Active confirmed Problem Interstitial myositis (01348194) 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 confirmed Plan Of Treatment Pending Test Test Name Order Date X ray : Foot, left 3V 10/27/2022 [id number] Destruction, 04-0112/15/2010 [id number] Destruction, 04-0101/05/2011 [id number] Destruction, 04-0102/15/2011 Insurance Providers Payer Name Payer Address Payer Phone Subscriber Number Group Number Insured Name Patient Relationship to Insured Coverage Start Date Coverage End Date [facility] Others [address] [place] [address] [id number] Spouse - patient is the spouse of the insured Medical (General) History Medical History History ICD Code back, hip, knee pain Cholesterol hypertension asthma Diabetic Hiatal hernia Chicken pox Dysphagia Surgical History Surgery Date(Month/Year) umbilical hernia 1994 appendectomy 1996
--- OUTSIDE RECORDS SUMMARY | 2024-12-22 09:49 | XMS_ITS | Patient Health Record ---
Author Organization [facility] Address [address] [place] [address] Care Team Providers Care Aerial Tram Operator Name Role Phone Kev Briseno MD Primary Care Provider Aislinn Garrett Unavailable [phone] Allergies Allergen (clinical drug ingredient) Drug/Non Drug [...] Status W/U Status Risk Notes Problem Dysphagia (89287737) Dysphagia (R13.10) Active confirmed Problem Gastroesophageal reflux disease (999402341) Gastroesophageal reflux disease (K21.9) Active confirmed Problem Gastritis (6488522) Gastritis (K29.70) Active confirmed Problem 35033662 Pharyngoesophage al dysphagia (R13.14) Active confirmed Plan Of Treatment Future Test Test Name Order Date UPPER GI ENDOSCOPY BALLOOON DILATION OF ESOPH 09/21/2022 Insurance Providers Payer Name Payer Address Payer Phone Subscriber Number Group Number Insured Name Patient Relationship to Insured Coverage Start Date Coverage End Date [facility] [address] [place] [address] [id number] AISLINN POLANCO Self - patient is the insured Medical (General) History Medical History History ICD Code DM HTN Asthma Denies ID,CVA,renal disease Colonoscopy with one tubular adenoma rem demetri 08/2021 Dr. Schneider Neck and back pain from disc disease Surgical History Surgery Date(Month/Year) Appy 2004 Umbilical hernia 2001
== END 2024-12-22 09:35 | disposition home or self-care (01) ==
LOC: HO.HMCH 08:54
PROVIDERS: PCP Internal Medicine; Visit Provider Internal Medicine
DX: E11.29 Type 2 diabetes mellitus with other diabetic kidney complication (principal); R80.9 Proteinuria, unspecified; E78.2 Mixed hyperlipidemia; I10 Essential (primary) hypertension; J45.20 Mild intermittent asthma, uncomplicated; M51.360 Other intervertebral disc degeneration, lumbar region with discogenic back pain only; M47.812 Spondylosis without myelopathy or radiculopathy, cervical region; M79.672 Pain in left foot; F33.9 Major depressive disorder, recurrent, unspecified; E66.3 Overweight

== ENCOUNTER 2025-01-16 11:15 | Outpatient (REF) | payer BC, SELFPAY ==
--- OUTSIDE RECORDS SUMMARY | 2025-01-16 12:52 | XMS_ITS | Patient Health Record ---
Author Organization [facility] Address [address] [place] [address] Care Team Providers Care Hospice Music Therapist Name Role Phone Kev Briseno MD Primary Care Provider Aislinn Garrett Unavailable [phone] Allergies Allergen (clinical drug ingredient) Drug/Non Drug Allergy documented on EMR Reaction Allergy Type Onset Date Status Adhesive Unknown Allergy Active Reason For Referral No Information Medications Medication SIG (Take, Route, Frequency, Duration) Notes Start Date End Date Status Diflucan 100 MG 2 tablets on Day # 1 , and then 1 tablet daily Orally Daily; Duration: 21 days 01/08/2023 Active oxyCODONE-Acetaminophen 5-325 MG TAKE 1 TABLET BY MOUTH EVERY 6 HOURS NEEDED FOR PAIN Oral; Duration: 30 Active Albuterol Sulfate HFA 108 (90 Base) MCG/ACT INHALE 2 PUFFS BY MOUTH EVERY 6 HOURS NEEDED FOR BRONCHOSPASM Inhalation; Duration: 25 Active Jardiance 25 MG Oral; Duration: 90 Active Omeprazole 40 MG 1 Orally Once a day every morning; Duration: 30 day(s) 12/22/2022 Active oxyCODONE HCl 5 MG Oral; Duration: 30 Active Atorvastatin Calcium 80 MG TAKE 1 TABLET BY MOUTH EVERY DAY AT BEDTIME Oral; Duration: 90 Active BD Pen Needle Payal U/F 32G X 4 MM ; Duration: 90 Active Losartan Potassium 50 MG Oral; Duration: 90 Active metFORMIN HCl ER 500 MG TAKE 2 TABLETS ( 1000 MG TOTAL) BY MOUTH TWICE DAILY. Oral; Duration: 90 Active Trulicity 4.5 MG/0.5ML INJECT 4.5 MG SUBCUTANEOUSLY ONCE WEEKLY. Subcutaneous; Duration: 84 Activ e Immunizations Vaccine Route Administration Date Status Comme [...] Status W/U Status Risk Notes Problem Dysphagia (96501280) Dysphagia (R13.10) Active confirmed Problem Gastroesophageal reflux disease (580490331) Gastroesophageal reflux disease (K21.9) Active confirmed Problem Gastritis (2619613) Gastritis (K29.70) Active confirmed Problem Dysphagia (42228439) Pharyngoesophageal dysphagia (R13.14) Active confirmed Plan Of Treatment Future Test Test Name Order Date UPPER GI ENDOSCOPY BALLOOON DILATION OF ESOPH 09/21/2022 Insurance Providers Payer Name Payer Address Payer Phone Subscriber Number Group Number Insured Name Patient Relationship to Insured Coverage Start Date Coverage End Date [facility] [address] [place] [address] [phone] [id number] AISLINN POLANCO Self - patient is the insured Medical (General) History Medical History History ICD Code DM HTN Asthma Denies CA,CVA,renal disease Colonoscopy with one tubular adenoma rem demetri 08/2021 Dr. Schneider Neck and back pain from disc disease Surgical History Surgery Date(Month/Year) Appy 2004 Umbilical hernia 2000
--- OUTSIDE RECORDS SUMMARY | 2025-01-16 12:52 | XMS_ITS | Patient Health Record ---
[facility] Address [address] [place] [address] Care Team Providers Care Sales Promotion Manager Name Role Phone Kev Briseno MD Primary Care Provider Judson Fletcher Unavailable [phone] Allergies Allergen (clinical drug ingredient) Drug/Non Drug [...] Problem Acquired hammer toe of right foot (927012323947090 5) Other hammer toe(s) (acquired), right foot (M20.41) Active confirmed Problem Acquired hammer toe of left foot (425451520003977 3) Other hammer toe(s) (acquired), left foot (M20.42) Active confirmed Problem Type II diabetes mellitus without complication (067822665) Type 2 diabetes mellitus without complication (E11.9) Active confirmed Problem Interstitial myositis (63548387) 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 confirmed Plan Of Treatment Pending Test Test Name Order Date X ray : Foot, left 3V 10/27/2022 [id number] Destruction, 04-0112/15/2010 [id number] Destruction, 04-0101/05/2011 [id number] Destruction, 04-0102/15/2011 Insurance Providers Payer Name Payer Address Payer Phone Subscriber Number Group Number Insured Name Patient Relationship to Insured Coverage Start Date Coverage End Date [facility] All Others [address] [place] [address] [id number] Spouse - patient is the spouse of the insured Medical (General) History Medical History History ICD Code back, hip, knee pain Cholesterol hypertension asthma Diabetic Hiatal hernia Chicken pox Dysphagia Surgical History Surgery Date(Month/Year) umbilical hernia 1994 appendectomy 1996
[2025-01-16 13:14] LABS: MANUAL DIFF FLAG NO
[2025-01-16 13:22] LABS: Hematocrit 50.6 % (42.0-52.0); Hemoglobin 16.2 g/dl (14.0-18.0); Imm Gran Abs Auto 0.04 X10*3/uL (0.00-0.03); Imm Gran Pct Auto 0.4 % (0.0-0.4); Lymphocytes Absolute Auto 1.8 X10*3/uL (1.2-4.9); Mean Corpuscular HGB Conc 32.0 g/dl (31.0-36.0); Mean Corpuscular Hemoglobin 28.4 pg (27.0-33.0); Mean Corpuscular Volume 88.6 fL (80.0-98.0); NRBC Abs Auto 0.000 X10*3/uL (0.0-0.012); NRBC Pct Auto 0.0 /100WBC (0.0-0.2); Platelet Count 261 X10*3/uL (160-400); Red Blood Count 5.71 X10*6/uL (4.60-5.80); White Blood Count 9.7 X10*3/uL (4.8-10.8)
[2025-01-16 13:26] LABS: Appearance Urine Clear; Glucose Urine UA >=1000 mg/dL (Negative); PH 5.5 (5.0-9.0); Specific Gravity - Urine >= 1.030 (1.005-1.025); UMIC TRIGGER UACC YES
[2025-01-16 13:48] LABS: Alanine Aminotransferase 24 U/L (0-40); Albumin Level 4.1 g/dL (3.5-5.0); Alkaline Phosphatase 101 U/L (39-117); Anion Gap 10 (12-20); Aspartate Amino Transferase 24 U/L (5-37); Blood Urea Nitrogen 13 mg/dL (9-16); Calcium 8.7 mg/dL (8.4-10.2); Carbon Dioxide 26 mmol/L (22-29); Chloride 105 mmol/L (96-108); Cholesterol 131 mg/dL (<200); Estimated Glomerular Filt Rate > 60; HDL Cholesterol 49 mg/dL (>40); Potassium 4.4 mmol/L (3.3-5.1); Sodium 137 mmol/L (135-145); Total Protein 6.6 g/dL (6.5-8.0); Triglycerides 84 mg/dL (<150)
[2025-01-16 14:44] LABS: Microalbum/Creatinine Ratio Ur 829.1 ug/mg cr (<30)
== END 2025-01-16 11:16 | disposition home or self-care (01) ==
LOC: HO.HMGCLDS 11:15
PROVIDERS: PCP Internal Medicine; Visit Provider Internal Medicine
DX: E11.9 Type 2 diabetes mellitus without complications (principal); D64.9 Anemia, unspecified; E55.9 Vitamin D deficiency, unspecified; E78.00 Pure hypercholesterolemia, unspecified
CPT/HCPCS: 36415; 80053; 80061; 81001; 82043; 82306; 82570; 83036; 84443; 85025

== ENCOUNTER 2025-01-22 09:18 | Outpatient (AMB) | payer BC, SELFPAY ==
[2025-01-22 09:20] VITALS: BP 130/90; PULSE 87; TEMP 36.2; O2SAT 96; BMI 28.1
--- NOTE | 2025-01-22 09:20 | MHC.PC.OV ---
Vital Signs 01/22/25 09:20 01/22/25 09:56 Height 5 ft 11 in Weight 201 lb 8 oz BMI 28.1 BP 130/90 H 140/90 H Blood Pressure Location Lt brachial Lt brachial Position Sitting Sitting Pulse 87 Pulse Source Pulse Oximeter Temp 97.1 F Temp Source Temporal Artery Scan Pulse Oximetry (%) 96 Oxygen Delivery Method Room Air Intake Visit Reasons: Med Management Allergies Adhesive Bandages Adverse Reaction (Unknown, Verified 01/22/25 09:49) Unknown Medication List - Last Reconciled 01/22/25 by Jeovany Grace MD albuterol sulfate 90 mcg/actuation 2 puffs PO Q6H PRN atorvastatin 80 mg PO BEDTIME bisacodyl (Dulcolax (bisacodyl)) 10 mg (2 x 5 mg) PO BEDTIME 2 days blood sugar diagnostic (bizsoluch Verio test strips) three times a day blood-glucose sensor ([place] G7 Sensor device) As directed [diabetic shoes As directed] dulaglutide (Trulicity) 4.5 mg (0.5 mL) subcut QWEEK 90 days empagliflozin (Jardiance) 25 mg PO DAILY escitalopram oxalate 10 mg PO DAILY ibuprofen 600 mg PO Q8H PRN insulin glargine U-300 conc (Toujeo Max U-300 SoloStar) 26 units (0.0867 mL) subcut DIRECTED 90 days lancets As directed losartan 50 mg PO DAILY 90 days metformin ER 1,000 mg (2 x 500 mg) PO BID 90 days oxycodone 5 mg PO Q6H PRN 30 days peg 3350-electrolytes 236-22.74-6.74 -5.86 gram (Golytely) 240 mL PO Q10M 1 day pen needle, diabetic As directed once daily Tobacco use date assessed: 01/22/25 Dental Screening Dental Screen Date: 01/22/25 Did you have a dental visit in the last 12 months?: No Did you have a dental problem in the last 6 months where you did not have access to dental care?: No Was dental information given to patient?: No HPI Med Management HPI Details Patient comes in today for his follow up visit States that he feels okay He denies any headaches or dizziness Denies any chest pains, no SOB No nausea/vomiting, no abdominal pain No change in bowel habits noted States that his chronic neck pain and low back pain (since 2006) remain adequately controlled on his current pain med and he just needs his pain medication Rx refilled today He had his follow up labs done last week - to discuss his results [facility] Medical History (Updated 01/22/25 @ 09:52 by Jeovany Grace MD) Diabetes mellitus Tinea pedis Persistent microalbuminuria associated with type 2 diabetes mellitus Type 2 diabetes mellitus with hyperlipidemia 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 proteinuria Mixed hyperlipidemia Essential hypertension Overweight (BMI 25.0-29.9) Depression Cervical spondylosis Lumbar degenerative disc disease Asthma GERD (gastroesophageal reflux disease) Sleep apnea Type 2 diabetes mellitus with other diabetic kidney complication 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 LDL goal <100 Surgical History H/O colonoscopy History of umbilical hernia repair History of appendectomy Family History Father Smoker Alcohol abuse Mother Diabetes Other Substance use disorder Social History Household Members: Spouse and Children Housing: House Alcohol intake: never Patient Tobacco Use Status: Never used Tobacco Tobacco use type: Cigarette e-Cigarette/Vaping Use: Never Used Second Hand Smoke Exposure: No service: No Current occupational status: employed Current occupational exposures/hazards: No Cognitive needs: No Hearing needs: No Vision needs: Yes Questionnaire PHQ-9 Over the last 2 weeks, how often have you been bothered by any of the following problems? 1. Little interest or pleasure in doing things: not at all 2. Feeling down, depressed, or hopeless: not at all 3. Trouble falling or staying asleep, or sleeping too much: not at all 4. Feeling tired or having little energy: not at all 5. Poor appetite or overeating: not at all 6. Feeling bad about yourself - or that you are a failure or have let yourself or your family down: not at all 7. Trouble concentrating on things, such as reading the newspaper or watching television: not at all 8. Moving or speaking so slowly that other people could have noticed. Or the opposite - being so fidgety or restless that you have been moving around a lot more than usual: not at all 9. Thoughts that you would be better off or of hurting yourself in some way: not at all Total score: 0 Depression Screening Interpretation: Negative Depression Screening Done: Yes 10127 - PHQ-9 Billing: Yes Source: Developed by Drs. Hayes Watt, Susan Mejia, Anton Moreno and colleagues, with an educational vipul from [employer]. Thrive Questionnaire Date Thrive assessed: 07/21/24 I am a: Patient What is your living situation today?: I have a steady place to live Within the past 12 months, did the food you bought not last and you didn't have the money to get more?: I choose not to answer this question Within the past 12 months, did you worry whether your food would run out before you got money to buy more?: I choose not to answer this question Do you have trouble paying for medicines?: I choose not to answer this question Do you have trouble getting transportation to medical appointments?: I choose not to answer this question Do you have trouble paying your heating and electricity bill?: I choose not to answer this question Do you have trouble taking care of your child, family member or friend?: I choose not to answer this question Do you have trouble with day-to-day activities such as bathing, preparing meals, shopping, managing finances, etc.?: I choose not to answer this question Are you currently unemployed and looking for a job?: I choose not to answer this question Are you interested in more education?: I choose not to answer this question Please select the resources that you would like help with: None Currently or been in a relationship where the following occur: I choose not to answer THRIVE Score: 0 AUDIT C Alcohol Use Questionnaire (AUDIT-C) 1. How often do you have a drink containing alcohol?: Monthly or less 2. How many drinks containing alcohol do you have on a typical day when you are drinking?: 1 or 2 3. How often do you have six or more drinks on one occasion?: Never Total Score: 1 Score Reviewed/Action Taken: Yes PEDRO-7 AMB Questionnaire PEDRO-7 Date PEDRO - 7 assessed: 11/20/24 Feeling nervous, anxious, or on edge: 0 = Not at all Not being able to stop or control worryin = Not at all Worrying too much about different things: 0 = Not at all Trouble relaxin = Not at all Being so restless that it is hard to sit still: 0 = Not at all Becoming easily annoyed or irritable: 0 = Not at all Feeling afraid as if something awful might happen: 0 = Not at all Total PEDRO-7 score (0-4 normal; 5-9 mild; 10-14 moderate; 15-21 severe): 0 Source: Developed by Drs. Hayes Watt, Susan Mejia, Anton Moreno and colleagues, with an educational vipul from [employer]. Review of Systems Const Denies chills, Denies fatigue, Denies fever(s) and Denies headache(s) ENT Denies dysphagia, Denies dizziness, Denies otalgia, Denies headache(s), Reports neck pain (chronic), Denies odynophagia and Denies sore throat Card Denies chest pain, Denies palpitations and Denies dyspnea Resp Denies chest congestion, Denies cough and Denies dyspnea GI Denies abdominal pain, Denies constipation, Denies dysphagia, Denies heartburn, Denies diarrhea, Denies nausea, Denies odynophagia and Denies vomiting Denies difficulty urinating, Denies dysuria, Denies nocturia and Denies urinary frequency Musc Reports back pain (over the lower back - chronic) and Reports neck pain (chronic) Skin/Breast Denies rash Neuro Denies dizziness and Denies headache(s) Endo Denies fatigue and Denies palpitations Physical exam (Primary Care) Vital Signs: Last Vital Signs Temp 97.1 F 01/22/25 09:20 Pulse 87 01/22/25 09:20 BP 130/90 H 01/22/25 09:20 Pulse Ox 96 01/22/25 09:20 Oxygen Delivery Method Room Air 01/22/25 09:20 BMI result Body Mass Index 28.1 Tobacco/Smoking Status: Tobacco use Status Tobacco use date assessed 01/22/25 01/22/25 09:24 Patient Tobacco Use Status Never used Tobacco 01/22/25 09:24 Tobacco use type Cigarette 01/22/25 09:24 e-Cigarette/Vaping Use Never Used 01/22/25 09:24 PHQ-9: PHQ-9 Score PHQ-9: Total score 0 01/22/25 09:24 Depression Screening Interpretation: Negative Thrive Assessment: Date of Thrive Assessment Date Thrive assessed 07/21/24 01/22/25 09:24 Currently or been in a relationship where the following occur: I choose not to answer Const General: no acute distress and alert HENMT Ears: TM's normal bilaterally and EAC's normal Throat: Yes posterior oropharynx normal and Yes tonsils normal (no TP congestion) Neck Neck: No lymphadenopathy and Yes tender Thyroid: Thyroid normal Resp Auscultation: clear to auscultation bilaterally, no rales and no wheezes Cardio Rate: regular rate Rhythm: regular rhythm Heart sounds: no murmurs GI Palpation (GI): Soft to palpation and nontender Auscultation: normal bowel sounds General: Yes no CVA tenderness Back/Spine/Pelvis Back: no CVA tenderness Cervical Spine: Cervical spine tenderness Thoracic/Lumbar Spine: lumbar spinal tenderness Skin Rashes: no rashes Extrem General: Yes no clubbing, cyanosis or edema Left lower extremity: ankle Details: tenderness Location: of the lateral malleolus; no swelling and foot Details: tenderness Location: of the calcaneus (on the lateral side) Results Reviewed Results Reviewed: Laboratory Tests 10/17/24 01/16/25 01/16/25 09:26 11:20 11:25 WBC 8.1 9.7 Hgb 15.4 16.2 Hct 46.5 50.6 Plt Count 263 261 Sodium 140 137 Potassium 4.7 4.4 Creatinine 0.82 0.81 Estimated GFR > 60 > 60 Fasting Glucose 144 H 125 H Hemoglobin A1c % 10.7 H 9.7 H Calcium 8.6 8.7 Total Bilirubin 1.3 H AST 28 24 ALT 24 24 Triglycerides 105 84 Cholesterol 125 131 LDL Cholesterol, Calc 55 66 HDL Cholesterol 49 49 Vitamin B12 462 25-OH Vitamin D Total 39.2 36.3 TSH 0.70 0.83 Ur Specific [place] >= 1.030 H >= 1.030 H Urine Protein 100 (2+) H 100 (2+) H Urine Glucose (UA) >=1000 H >=1000 H Urine Blood Negative Negative Urine Nitrite Negative Negative Ur Leukocyte Esterase Negative Negative Microalb/Creat Ratio 705.0 H 829.1 H Coding Level of Care Code Est Pt Level 4 (77848) Diagnoses Type 2 diabetes mellitus with diabetic microalbuminuria, without long-term current use of insulin E11.29; R80.9 Diabetes mellitus type: type 2 Diabetes mellitus shrimp cleaner insulin use: without mcc use Diabetes mellitus complication status: with kidney complications Diabetes mellitus complication detail: with diabetic microalbuminuria Persistent microalbuminuria associated with type 2 diabetes mellitus E11.29; R80.9 Mixed hyperlipidemia E78.2 Essential hypertension I10 Mild intermittent asthma without complication J45.20 Asthma severity: mild Asthma persistence: intermittent Asthma complication type: uncomplicated Lumbar degenerative disc disease M51.369 Cervical spondylosis M47.812 Left foot pain M79.672 Episode of recurrent major depressive disorder, unspecified depression episode severity F33.9 Depression Type: major depressive disorder Major depression recurrence: recurrent Active/Remission status: currently active Major depression episode severity: unspecified Overweight (BMI 25.0-29.9) E66.3 Additional Codes PHQ-9 - 42182 - PHQ-9 Billing: Yes ([id number]) Assessment & Plan Assessment & Plan (1) Diabetes mellitus: Code(s): E11.9 - Type 2 diabetes mellitus without complications Category: Medical Qualifiers: Diabetes mellitus type: type 2 Diabetes mellitus mcc insulin use: without shrimp cleaner use Diabetes mellitus complication status: with kidney complications Diabetes mellitus complication detail: with diabetic microalbuminuria Qualified Code(s): E11.29 - Type 2 diabetes mellitus with other diabetic kidney complication; R80.9 - Proteinuria, unspecified Plan: His HgbA1c improved to 9.7% on his labs done last week (was previously at 10.7% a few months ago) - goal is at least <7.0% Reinforced diabetic diet Continue Trulicity 4.5 mg SQ once a week, Jardiance 25 mg QD, Metformin ER 1000 mg BID and Toujeo 26 units SQ once a day at bedtime We have referred patient to endocrinology for further recommendations and guidance a couple of times but he still so far has no appointments scheduled to be seen at this time (2) Persistent microalbuminuria associated with type 2 diabetes mellitus: Code(s): E11.29 - Type 2 diabetes mellitus with other diabetic kidney complication; R80.9 - Proteinuria, unspecified Category: Medical Plan: Have advised patient again that the best way to slow this down is to control his diabetes better - his HgbA1c did improve recently to 9.7% last week (3) Mixed hyperlipidemia: Code(s): E78.2 - Mixed hyperlipidemia Category: Medical Plan: Results of his labs done last week reviewed and discussed with patient Reinforced low cholesterol diet Continue Atorvastatin 80 mg Q HS (4) Essential hypertension: Code(s): I10 - Essential (primary) hypertension Category: Medical Plan: Reinforced low sodium diet - goal is systolic BP of 120 mm or less His blood pressure appears to be running high today, even after it was rechecked a few minutes afterward Continue Losartan 50 mg QD for now but we may need to readjust his dosage if his BP continues to stay high Patient is reminded to continue monitoring his blood pressure regularly (5) Asthma: Code(s): J45.909 - Unspecified asthma, uncomplicated Category: Medical Qualifiers: Asthma severity: mild Asthma persistence: intermittent Asthma complication type: uncomplicated Qualified Code(s): J45.20 - Mild intermittent asthma, uncomplicated Plan: Controlled - continue Albuterol HFA 1 to 2 inhalations Q 6 hours PRN (6) Lumbar degenerative disc disease: Code(s): M51.369 - Other intervertebral disc degeneration, lumbar region without mention of lumbar back pain or lower extremity pain Category: Medical Plan: Reinforced activity and weight-lifting restrictions to avoid aggravating his low back pain Continue Oxycodone 5 mg Q 6 hours PRN - Rx refilled (7) Cervical spondylosis: Code(s): M47.812 - Spondylosis without myelopathy or radiculopathy, cervical region Category: Medical Plan: Patient states that his neck pain has been mostly manageable lately and that his current Rx for pain are adequately keeping his neck pain and low back pain controlled (8) Left foot pain: Code(s): M79.672 - Pain in left foot Category: Medical Plan: X-rays of the left foot done last month revealed (+) moderate plantar calcaneal spur with (+) small osteophyte in the malleolus, unchanged from previous Follow up with podiatry as scheduled (9) Depression: Code(s): F32.A - Depression, unspecified Category: Medical Qualifiers: Depression Type: major depressive disorder Major depression recurrence: recurrent Active/Remission status: currently active Major depression episode severity: unspecified Qualified Code(s): F33.9 - Major depressive disorder, recurrent, unspecified Plan: Continue Escitalopram 10 mg QD (10) Overweight (BMI 25.0-29.9): Code(s): E66.3 - Overweight Category: Medical Plan: Reinforced diet/exercise as tolerated/lose weight Plan Follow up in 1 month Medications: Refilled oxycodone Partial Fill upon patient request. 5 mg PO Q6H PRN 120 tabs 0RF pain 30 days M47.812 - Spondylosis without myelopathy or radiculopathy, cervical region, M51.360 - Other intervertebral disc degeneration, lumbar region with discogenic back pain only
[2025-01-22 09:56] VITALS: BP 140/90
--- OUTSIDE RECORDS SUMMARY | 2025-01-22 10:15 | XMS_ITS | Patient Health Record ---
[facility] Address [address] [place] [address] Care Team Providers Care Grading Clerk Name Role Phone Kev Briseno MD Primary Care Provider Judson Fletcher Unavailable [phone] Allergies Allergen (clinical drug ingredient) Drug/Non Drug [...] Problem Acquired hammer toe of right foot ([id number] 5) Other hammer toe(s) (acquired), right foot (M20.41) Active confirmed Problem Acquired hammer toe of left foot ([id number] 3) Other hammer toe(s) (acquired), left foot (M20.42) Active confirmed Problem Type II diabetes mellitus without complication (377084652) Type 2 diabetes mellitus without complication (E11.9) Active confirmed Problem Interstitial myositis (27783525) 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 confirmed Plan Of Treatment Pending Test Test Name Order Date X ray : Foot, left 3V 10/27/2022 [id number] Destruction, 04-0112/15/2010 [id number] Destruction, 04-0101/05/2011 [id number] Destruction, 04-0102/15/2011 Insurance Providers Payer Name Payer Address Payer Phone Subscriber Number Group Number Insured Name Patient Relationship to Insured Coverage Start Date Coverage End Date [facility] [employer] [address] [place] [address] [id number] Rosamaria Hester Spouse - patient is the spouse of the insured Medical (General) History Medical History History ICD Code back, hip, knee pain Cholesterol hypertension asthma Diabetic Hiatal hernia Chicken pox Dysphagia Surgical History Surgery Date(Month/Year) umbilical hernia 1994 appendectomy 1996
--- OUTSIDE RECORDS SUMMARY | 2025-01-22 10:15 | XMS_ITS | Patient Health Record ---
Author Organization [facility] Address [address] [place] [address] Care Team Providers Care Urban Anthropologist Name Role Phone Kev Briseno MD Primary Care Provider Aislinn Garrett Unavailable [phone] Allergies Allergen (clinical drug ingredient) Drug/Non Drug [...] Status W/U Status Risk Notes Problem Dysphagia (70631061) Dysphagia (R13.10) Active confirmed Problem Gastroesophageal reflux disease (700872220) Gastroesophageal reflux disease (K21.9) Active confirmed Problem Gastritis (3347626) Gastritis (K29.70) Active confirmed Problem Dysphagia (22160086) Pharyngoesophageal dysphagia (R13.14) Active confirmed Plan Of Treatment Future Test Test Name Order Date UPPER GI ENDOSCOPY [place] DILATION OF ESOPH 09/21/2022 Insurance Providers Payer Name Payer Address Payer Phone Subscriber Number Group Number Insured Name Patient Relationship to Insured Coverage Start Date Coverage End Date [facility] [address] [place] [address] [id number] AISLINN POLANCO Self - patient is the insured Medical (General) History Medical History History ICD Code DM HTN Asthma Denies [place],CVA,renal disease Colonoscopy with one tubular adenoma rem demetri 08/2021 Dr. Schneider Neck and back pain from disc disease Surgical History Surgery Date(Month/Year) Appy 2004 Umbilical hernia 2000
== END 2025-01-22 10:14 | disposition home or self-care (01) ==
LOC: HO.HMCH 09:18
PROVIDERS: PCP Internal Medicine; Visit Provider Internal Medicine
DX: E11.29 Type 2 diabetes mellitus with other diabetic kidney complication (principal); R80.9 Proteinuria, unspecified; E78.2 Mixed hyperlipidemia; I10 Essential (primary) hypertension; J45.20 Mild intermittent asthma, uncomplicated; M51.369 Other intervertebral disc degeneration, lumbar region without mention of lumbar back pain or lower extremity pain; M47.812 Spondylosis without myelopathy or radiculopathy, cervical region; M79.672 Pain in left foot; F33.9 Major depressive disorder, recurrent, unspecified; E66.3 Overweight

== ENCOUNTER → 2025-01-22 09:18 | Outpatient (BNVA) | payer BC, SELFPAY | PROVIDERS: PCP Internal Medicine; Visit Provider Internal Medicine | DX: E11.29 Type 2 diabetes mellitus with other diabetic kidney complication (principal); R80.9 Proteinuria, unspecified; E78.2 Mixed hyperlipidemia; I10 Essential (primary) hypertension; J45.20 Mild intermittent asthma, uncomplicated; M51.369 Other intervertebral disc degeneration, lumbar region without mention of lumbar back pain or lower extremity pain; M47.812 Spondylosis without myelopathy or radiculopathy, cervical region; M79.672 Pain in left foot; F33.9 Major depressive disorder, recurrent, unspecified; E66.3 Overweight; Z68.28 Body mass index [BMI] 28.0-28.9, adult | CPT/HCPCS: 96127 ==

== ENCOUNTER 2025-02-18 08:43 | Outpatient (AMB) | payer BC, SELFPAY ==
[2025-02-18 08:49] VITALS: BP 140/100; PULSE 81; O2SAT 95; BMI 27.8
--- NOTE | 2025-02-18 08:49 | A.OFFPC_ITS ---
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 Required: No Accompanied by: Self / Same As Patient Allergies Adhesive Bandages Adverse Reaction (Unknown, Verified 02/18/25 09:21) Unknown Medication List - Last Reconciled 02/18/25 by Jeovany Grace MD albuterol sulfate 90 mcg/actuation 2 puffs PO Q6H PRN atorvastatin 80 mg PO BEDTIME bisacodyl (Dulcolax (bisacodyl)) 10 mg (2 x 5 mg) PO BEDTIME 2 days blood sugar diagnostic ([employer] Verio test strips) three times a day blood-glucose sensor ([employer] (Former[employer]i) G7 Sensor device) As directed [diabetic shoes As directed] dulaglutide (Trulicity) 4.5 mg (0.5 mL) subcut QWEEK 90 days empagliflozin (Jardiance) 25 mg PO DAILY escitalopram oxalate 10 mg PO DAILY ibuprofen 600 mg PO Q8H PRN insulin glargine U-300 conc (Toujeo Max U-300 SoloStar) 26 units (0.0867 mL) subcut DIRECTED 90 days lancets As directed losartan 50 mg PO DAILY 90 days metformin ER 1,000 mg (2 x 500 mg) PO BID 90 days oxycodone 5 mg PO Q6H PRN 30 days peg 3350-electrolytes 236-22.74-6.74 -5.86 gram (Golytely) 240 mL PO Q10M 1 day pen needle, diabetic As directed once daily Tobacco use date assessed: 02/18/25 Dental Screening Dental Screen Date: 02/18/25 Did you have a dental visit in the last 12 months?: No Did you have a dental problem in the last 6 months where you did not have access to dental care?: No Was dental information given to patient?: No HPI Med Management HPI Details Patient comes in today for his follow up visit States that he feels okay He denies any headaches or dizziness Denies any chest pains, no SOB No nausea/vomiting, no abdominal pain No change in bowel habits noted Still has chronic neck pain and low back pain, which he's had since 2006, and states that they remain adequately controlled on his current pain med - he will need his pain medication Rx and his Trulicity Rx refilled today [facility] Medical History Diabetes mellitus Tinea pedis Persistent microalbuminuria associated with type 2 diabetes mellitus Type 2 diabetes mellitus with hyperlipidemia 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 proteinuria Mixed hyperlipidemia Essential hypertension Overweight (BMI 25.0-29.9) Depression Cervical spondylosis Lumbar degenerative disc disease Asthma GERD (gastroesophageal reflux disease) Sleep apnea Type 2 diabetes mellitus with other diabetic kidney complication 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 LDL goal <100 Surgical History H/O colonoscopy History of umbilical hernia repair History of appendectomy Family History Father Smoker Alcohol abuse Mother Diabetes Other Substance use disorder Social History Household Members: Spouse and Children Housing: House Alcohol intake: never Patient Tobacco Use Status: Never used Tobacco Tobacco use type: Cigarette e-Cigarette/Vaping Use: Never Used Second Hand Smoke Exposure: No service: No Current occupational status: employed Current occupational exposures/hazards: No Cognitive needs: No Hearing needs: No Vision needs: Yes Questionnaire PHQ-9 Over the last 2 weeks, how often have you been bothered by any of the following problems? 1. Little interest or pleasure in doing things: not at all 2. Feeling down, depressed, or hopeless: not at all 3. Trouble falling or staying asleep, or sleeping too much: not at all 4. Feeling tired or having little energy: not at all 5. Poor appetite or overeating: not at all 6. Feeling bad about yourself - or that you are a failure or have let yourself or your family down: not at all 7. Trouble concentrating on things, such as reading the newspaper or watching television: not at all 8. Moving or speaking so slowly that other people could have noticed. Or the opposite - being so fidgety or restless that you have been moving around a lot more than usual: not at all 9. Thoughts that you would be better off or of hurting yourself in some way: not at all Total score: 0 Depression Screening Interpretation: Negative Depression Screening Done: Yes 82853 - PHQ-9 Billing: Yes Source: Developed by Drs. Hayes Watt, Susan Mejia, Anton Moreno and colleagues, with an educational vipul from [employer]. Thrive Questionnaire Date Thrive assessed: 02/18/25 I am a: Patient What is your living situation today?: I have a steady place to live Within the past 12 months, did the food you bought not last and you didn't have the money to get more?: I choose not to answer this question Within the past 12 months, did you worry whether your food would run out before you got money to buy more?: I choose not to answer this question Do you have trouble paying for medicines?: I choose not to answer this question Do you have trouble getting transportation to medical appointments?: I choose not to answer this question Do you have trouble paying your heating and electricity bill?: I choose not to answer this question Do you have trouble taking care of your child, family member or friend?: I choose not to answer this question Do you have trouble with day-to-day activities such as bathing, preparing meals, shopping, managing finances, etc.?: I choose not to answer this question Are you currently unemployed and looking for a job?: I choose not to answer this question Are you interested in more education?: I choose not to answer this question Please select the resources that you would like help with: None Currently or been in a relationship where the following occur: I choose not to answer THRIVE Score: 0 AUDIT C Alcohol Use Questionnaire (AUDIT-C) 1. How often do you have a drink containing alcohol?: Monthly or less 2. How many drinks containing alcohol do you have on a typical day when you are drinking?: 1 or 2 3. How often do you have six or more drinks on one occasion?: Never Total Score: 1 Score Reviewed/Action Taken: Yes PEDRO-7 AMB Questionnaire PEDRO-7 Date PEDRO - 7 assessed: 02/18/25 Feeling nervous, anxious, or on edge: 0 = Not at all Not being able to stop or control worryin = Not at all Worrying too much about different things: 0 = Not at all Trouble relaxin = Not at all Being so restless that it is hard to sit still: 0 = Not at all Becoming easily annoyed or irritable: 0 = Not at all Feeling afraid as if something awful might happen: 0 = Not at all Total PEDRO-7 score (0-4 normal; 5-9 mild; 10-14 moderate; 15-21 severe): 0 Source: Developed by Drs. Hyaes Watt, Susan Mejia, Anton Moreno and colleagues, with an educational vipul from [employer]. Review of Systems Const Denies chills, Denies fatigue, Denies fever(s) and Denies headache(s) ENT Denies dysphagia, Denies dizziness, Denies otalgia, Denies headache(s), Reports neck pain (chronic), Denies odynophagia and Denies sore throat Card Denies chest pain, Denies palpitations and Denies dyspnea Resp Denies chest congestion, Denies cough and Denies dyspnea GI Denies abdominal pain, Denies constipation, Denies dysphagia, Denies heartburn, Denies diarrhea, Denies nausea, Denies odynophagia and Denies vomiting Denies difficulty urinating, Denies dysuria, Denies nocturia and Denies urinary frequency Musc Reports back pain (over the lower back - chronic) and Reports neck pain (chronic) Skin/Breast Denies rash Neuro Denies dizziness and Denies headache(s) Endo Denies fatigue and Denies palpitations Physical exam (Primary Care) Vital Signs: Last Vital Signs Pulse 81 02/18/25 08:49 BP 140/100 H 02/18/25 08:49 Pulse Ox 95 02/18/25 08:49 Oxygen Delivery Method Room Air 02/18/25 08:49 BMI result Body Mass Index 27.8 Tobacco/Smoking Status: Tobacco use Status Tobacco use date assessed 02/18/25 02/18/25 08:55 Patient Tobacco Use Status Never used Tobacco 02/18/25 08:55 Tobacco use type Cigarette 02/18/25 08:55 e-Cigarette/Vaping Use Never Used 02/18/25 08:55 PHQ-9: PHQ-9 Score PHQ-9: Total score 0 02/18/25 08:55 Depression Screening Interpretation: Negative Thrive Assessment: Date of Thrive Assessment Date Thrive assessed 02/18/25 02/18/25 08:55 Currently or been in a relationship where the following occur: I choose not to answer Const General: no acute distress and alert HENMT Ears: TM's normal bilaterally and EAC's normal Throat: Yes posterior oropharynx normal and Yes tonsils normal (no TP congestion) Neck Neck: No lymphadenopathy and Yes tender Thyroid: Thyroid normal Resp Auscultation: clear to auscultation bilaterally, no rales and no wheezes Cardio Rate: regular rate Rhythm: regular rhythm Heart sounds: no murmurs GI Palpation (GI): Soft to palpation and nontender Auscultation: normal bowel sounds General: Yes no CVA tenderness Back/Spine/Pelvis Back: no CVA tenderness Cervical Spine: Cervical spine tenderness Thoracic/Lumbar Spine: lumbar spinal tenderness Skin Rashes: no rashes Extrem General: Yes no clubbing, cyanosis or edema Left lower extremity: ankle Details: tenderness Location: of the lateral malleolus; no swelling and foot Details: tenderness Location: of the calcaneus (on the lateral side) Coding Level of Care Code Est Pt Level 4 (86475) Diagnoses Type 2 diabetes mellitus with diabetic microalbuminuria, without long-term current use of insulin E11.29; R80.9 Diabetes mellitus type: type 2 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 insulin use: without penitentiary use Diabetes mellitus complication status: with kidney complications Diabetes mellitus complication detail: with diabetic microalbuminuria Persistent microalbuminuria associated with type 2 diabetes mellitus E11.29; R80.9 Mixed hyperlipidemia E78.2 Essential hypertension I10 Mild intermittent asthma without complication J45.20 Asthma severity: mild Asthma persistence: intermittent Asthma complication type: uncomplicated Degeneration of intervertebral disc of lumbar region with discogenic back pain M51.360 Disc-related pain type: discogenic back pain only Cervical spondylosis M47.812 Left foot pain M79.672 Episode of recurrent major depressive disorder, unspecified depression episode severity F33.9 Depression Type: major depressive disorder Major depression recurrence: recurrent Active/Remission status: currently active Major depression episode severity: unspecified Overweight (BMI 25.0-29.9) E66.3 Additional Codes PHQ-9 - 44351 - PHQ-9 Billing: Yes ([id number]) Assessment & Plan Assessment & Plan (1) Diabetes mellitus: Code(s): E11.9 - Type 2 diabetes mellitus without complications Category: Medical Qualifiers: Diabetes mellitus type: type 2 Diabetes mellitus penitentiary insulin use: without penitentiary use Diabetes mellitus complication status: with kidney complications Diabetes mellitus complication detail: with diabetic microalbuminuria Qualified Code(s): E11.29 - Type 2 diabetes mellitus with other diabetic kidney complication; R80.9 - Proteinuria, unspecified Plan: His HgbA1c improved to 9.7% on his labs done about a month ago (was previously at 10.7% a few months prior) - goal is at least <7.0% Reinforced diabetic diet Continue Trulicity 4.5 mg SQ once a week (Rx refilled), Jardiance 25 mg QD, Metformin ER 1000 mg BID and Toujeo 26 units SQ once a day at bedtime We have referred patient to endocrinology for further recommendations and management a couple of times but he still so far has no appointments scheduled to be seen at this time (2) Persistent microalbuminuria associated with type 2 diabetes mellitus: Code(s): E11.29 - Type 2 diabetes mellitus with other diabetic kidney complication; R80.9 - Proteinuria, unspecified Category: Medical Plan: Have advised patient again that the best way to slow this down is by better control of his diabetes - his HgbA1c did improve recently to 9.7% last month (3) Mixed hyperlipidemia: Code(s): E78.2 - Mixed hyperlipidemia Category: Medical Plan: Reinforced low cholesterol diet Continue Atorvastatin 80 mg Q HS (4) Essential hypertension: Code(s): I10 - Essential (primary) hypertension Category: Medical Plan: Reinforced low sodium diet - goal is systolic BP of 120 mm or less His blood pressure is still running higher than recommended today - it did come down slightly when it was rechecked Continue Losartan 50 mg QD for now but we may need to readjust his dosage (go up to 75 mg) if his BP continues to stay high Patient is reminded to continue monitoring his blood pressure regularly (5) Asthma: Code(s): J45.909 - Unspecified asthma, uncomplicated Category: Medical Qualifiers: Asthma severity: mild Asthma persistence: intermittent Asthma complication type: uncomplicated Qualified Code(s): J45.20 - Mild intermittent asthma, uncomplicated Plan: Controlled - continue Albuterol HFA 1 to 2 inhalations Q 6 hours PRN (6) Lumbar degenerative disc disease: Code(s): M51.369 - Other intervertebral disc degeneration, lumbar region without mention of lumbar back pain or lower extremity pain Category: Medical Qualifiers: Disc-related pain type: discogenic back pain only Qualified Code(s): M51.360 - Other intervertebral disc degeneration, lumbar region with discogenic back pain only Plan: Reinforced activity and weight-lifting restrictions to avoid aggravating his low back pain Continue Oxycodone 5 mg Q 6 hours PRN - Rx refilled (7) Cervical spondylosis: Code(s): M47.812 - Spondylosis without myelopathy or radiculopathy, cervical region Category: Medical Plan: Patient states that his neck pain has been mostly manageable lately and that his current Rx for pain are adequately keeping his neck pain and low back pain controlled (8) Left foot pain: Code(s): M79.672 - Pain in left foot Category: Medical Plan: X-rays of the left foot done a couple of months ago revealed (+) moderate plantar calcaneal spur with (+) small osteophyte in the malleolus, unchanged from previous Follow up with podiatry as scheduled (9) Depression: Code(s): F32.A - Depression, unspecified Category: Medical Qualifiers: Depression Type: major depressive disorder Major depression recurrence: recurrent Active/Remission status: currently active Major depression episode severity: unspecified Qualified Code(s): F33.9 - Major depressive disorder, recurrent, unspecified Plan: Continue Escitalopram 10 mg QD (10) Overweight (BMI 25.0-29.9): Code(s): E66.3 - Overweight Category: Medical Plan: Reinforced diet/exercise as tolerated/lose weight Plan Follow up in 1 month Medications: Refilled oxycodone Partial Fill upon patient request. 5 mg PO Q6H PRN 120 tabs 0RF pain 30 days M47.812 - Spondylosis without myelopathy or radiculopathy, cervical region, M51.360 - Other intervertebral disc degeneration, lumbar region with discogenic back pain only dulaglutide (Trulicity) 4.5 mg (0.5 mL) subcut QWEEK 6.5 mL 1RF 90 days
[2025-02-18 09:25] VITALS: BP 138/90
== END 2025-02-18 09:32 | disposition home or self-care (01) ==
LOC: HO.HMCH 08:44
PROVIDERS: PCP Internal Medicine; Visit Provider Internal Medicine
DX: E11.29 Type 2 diabetes mellitus with other diabetic kidney complication (principal); R80.9 Proteinuria, unspecified; E78.2 Mixed hyperlipidemia; I10 Essential (primary) hypertension; J45.20 Mild intermittent asthma, uncomplicated; M51.360 Other intervertebral disc degeneration, lumbar region with discogenic back pain only; M47.812 Spondylosis without myelopathy or radiculopathy, cervical region; M79.672 Pain in left foot; F33.9 Major depressive disorder, recurrent, unspecified; E66.3 Overweight

== ENCOUNTER → 2025-02-18 08:43 | Outpatient (BNVA) | payer BC, SELFPAY | PROVIDERS: PCP Internal Medicine; Visit Provider Internal Medicine | DX: Z13.31 Encounter for screening for depression (principal) | CPT/HCPCS: 96127 ==